=== PATIENT | male | born 1950 | race Caucasian/White ===

== ENCOUNTER 2024-08-04 18:12 | Inpatient (IN) | payer MEDICARE, OTHER, SELFPAY ==
[2024-08-04] VITALS (8 sets, daily range): BP systolic 98–147; BP diastolic 54–83; BMI 23.8; BMI 24.8
--- NOTE | 2024-08-04 15:42 | ED.GENMED ---
History of Present Illness
<Aspen Valencia PA-C - Last Filed: 08/04/24 16:46>
General
Chief Complaint: Breathing Problem
Source: patient
Exam Limitations: none
Time Seen by Provider: 08/04/24 15:36
Nursing documentation reviewed up to this point in time: agreed with
History of Present Illness
History of Present Illness:
74 y/o M h/o COPD, anxiety
on 2 L prn (mostly night time)
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
here with 2-3 days worsening sob with cough/wheezxing
got really SOB today
called 911 when he couldlnt' catch his breath
having some ches tpain with coughing
no leg swelling, fever, vomiting, diarrhea
received 125 mg of solumedrol and 2 duonebs and still shas wheezing an dinc work of breathing
Past History
<Aspen Valencia PA-C - Last Filed: 08/04/24 16:46>
Past History
ED Past Medical History: COPD and Psychiatric
Social History
Tobacco: Former smoker
Alcohol: None
Personal:
Living: with family
Review of Systems
<BUSHRA Garcia Last Filed: 08/04/24 16:46>
Review of Systems
Allergies reviewed?: Yes
All Other Systems: Not applicable
Phy Exam
<Aspen Valencia PA-C - Last Filed: 08/04/24 16:46>
Physical Exam
Physical Exam:
GENERAL: Alert; tachypneic, inc work of breathing
EYE: pupils equal and reactive
NECK: Supple
ENT: o/p clr, mmm.
CARDIAC: Regular rate and rhythm .no edema
LUNGS: diminiished wheezing, tachypneic, retracting, grunting
ABDOMEN: Soft, without focal tenderness, no r/g, no cvat, normal bowel sounds
NEUROLOGICAL: Alert and oriented, no focal neuro deficits
SKIN: Warm and dry, skin intact.
MUSCULOSKELETAL: No edema, well perfused. neg vandana's sign
PSYCH: Normal and appropriate interaction.
Scores
<Aspen Valencia PA-C - Last Filed: 08/04/24 16:46>
Heart Failure Risk
Heart Failure Risk Score: Not Applicable
Course
<Aspen Valencia PA-C - Last Filed: 08/04/24 16:46>
Orders/Labs/Results
Orders:
Orders
08/04/24 Dinner
Regular
At Your Request: Full Participation
08/04/24 15:38
Electrocardiogram (*1) Urgent
Reason for Study: Shortness of Breath
EKG- Treatment ONCE
Ipratropium/Albuterol Sulfate [Duoneb] 3 ml INH R NOW STA
Chest X-ray Portable [CR Chest Portable - 1 View] Stat
Comment:
Reason For Exam: sob, wheezing
Reason Study Needs to be Portable: Patient Unstable
08/04/24 15:48
Complete Blood Count/With Diff Urgent
Comprehensive Metabolic Panel Urgent
NT-proBNP Urgent
Troponin I Urgent
08/04/24 16:03
COVID-19 Antigen Urgent
Source: Nasal Swab
Influenza A+B Rapid Molecular Urgent
DEMI Source: Nasal Swab
Specimen Description:
08/04/24 16:04
Bipap [RESP] Urgent
Patient to use own unit?: Yes
08/04/24 16:07
Azithromycin 500 mg/250 ml [Zithromax Infusion] 500 mg in 250 ml IV NOW
08/04/24 16:08
CefTRIAXone [Rocephin] 1,000 mg IV NOW STA
08/04/24 16:16
0.9% Sodium Chloride 1000 ml [Nss] 1,000 ml IV BOLUS
08/04/24 16:20
Lactic Acid Urgent
Blood Culture Urgent
DEMI Source: Blood/Venous
Specimen Description:
08/04/24 16:44
Albuterol Sulfate [Ventolin Nebules] 10 mg INH R NOW STA
08/04/24 17:24
Admit/Transfer Patient As Directed
Co-Sign Provider:
Level of Care: Inpatient admission
Assign to:: Medical/Surgical
Physician / Group: Dr. Elias Davis
Diagnosis: Community-acquired pneumonia
Reason for Hospitalization: Community-acquired pneumonia
Expected length of stay greater than two midnights?: Yes
ELOS- Estimated Length of Stay in days: 3
I certify the patient meets the requirements for IP care: Yes
Blood Culture Stat
DEMI Source: Blood/Venous
Specimen Description:
08/04/24 17:26
0.9% Sodium Chloride 1000 ml [Nss] 1,000 ml IV BOLUS
PRN Pain Medication Management As Directed
May give lesser potent ordered pain med per pt: Yes
preference::
Protocol:: Medication orders for pain may be administered in a
manner that supports deferring to patient preference
when the pt is:
- Requesting an ordered lesser potent pain medication.
Least to most potent pain medications are defined
as: acetaminophen < NSAID < tramadol < opioids
(morphine, oxycodone, hydromorphone).
- Requesting a lesser dose of the same medication IF
ORDERED.
- Requesting a less intrusive route of administration
if both routes are prescribed by the provider (PO <
IV).
08/04/24 17:28
Code Status As Directed
Resuscitation Status: Full Code
08/04/24 17:30
Respiratory Culture/Gram Stain Urgent
DEMI Source: Sputum
Specimen Description:
08/04/24 21:07
0.9% Sodium Chloride 1000 ml [Nss] 1,000 ml IV 110 mls/hr
Acetaminophen [Tylenol] 650 mg PO Q4HPRN PRN
Enoxaparin Sodium [Lovenox] 40 mg SC QPM
Guaifenesin [Mucinex] 600 mg PO Q12
Ipratropium/Albuterol Sulfate [Duoneb] 3 ml INH R Q4HPRN PRN
Lorazepam [Ativan] 0.5 mg PO DAILYPRN PRN
[id number]-laqhiozv-vvyuqlumow [Breztri Aerosphere] 2 inh INH R BID
08/04/24 21:07
INFECTIOUS DISEASE CONSULT Routine
Consulting Provider: Chaparrita Smith
Was physician already notified: Yes
PULMONARY CONSULT Routine
Consulting Provider: Bishnu Russo
Was physician already notified: Yes
Activity As Directed
Activity Level: As Tolerated
Intake/ Output As Directed
Frequency: Per unit guidelines
Vital Signs As Directed
Frequency: Per unit guidelines
Weight As Directed
Frequency: Once
Comment: on admission
O2 Therapy [RESP] Routine
Titrate/Wean O2 to maintain O2 sat greater than (%): 88
Special Instructions: Wean as tolerated; keep O2 between 88-92%
Rx Incentive Spirometry [RESP] Routine
Frequency: q1h while awake
Ot Eval And Treat Routine
Pt Eval And Treat Routine
Activity Level: As Tolerated
DX Deep Vein Thrombosis Video Routine
08/04/24 22:00
Cefepime HCl [Maxipime] 2,000 mg IV Q8H
08/05/24 00:00
Dexamethasone Sod Phosphate [Decadron] 4 mg IV Q6H
08/05/24 06:00
Basic Metabolic Panel IN AM
Complete Blood Count/With Diff IN AM
08/05/24 08:00
Atorvastatin [Lipitor] 20 mg PO DAILY
Clopidogrel Bisulfate [Plavix] 75 mg PO DAILY
Pantoprazole [Protonix] 40 mg PO DAILY
Roflumilast [Daliresp] 500 mcg PO DAILY
Sertraline HCl [Zoloft] 50 mg PO DAILY
Abnormal Lab Results
08/04/24
15:48
RBC 3.94 L 10^6/uL
(4.70-6.10)
Hct 38.9 L %
(39.0-52.0)
MCV 98.7 H fL
(80.0-94.0)
MCH 33.2 H pg
(27.0-31.0)
Absolute Monos (auto) 1.0 H 10^3/uL
(0.1-0.6)
Monocytes % 12.6 H %
(1.7-9.3)
Eosinophils % 8.2 H %
(0-6)
Glucose 107 H mg/dl
(70-99)
08/04/24 15:48
08/04/24 15:48
Vital Signs
Initial and Last Documented VS:
Initial Vital Signs
Pulse Resp Pulse Ox
98 21 98
08/04/24 15:39 08/04/24 15:39 08/04/24 15:39
Last Documented Vital Signs
Temp Pulse Resp BP Pulse Ox
98.4 F 102 25 132/72 94
08/04/24 21:22 08/04/24 22:15 08/04/24 22:15 08/04/24 22:00 08/04/24 22:18
Sidlt;Austin Dickson, DO - Last Filed: 08/04/24 22:33>
Orders/Labs/Results
Orders:
Orders
08/04/24 Dinner
Regular
At Your Request: Full Participation
08/04/24 15:38
Electrocardiogram (*1) Urgent
Reason for Study: Shortness of Breath
EKG- Treatment ONCE
Ipratropium/Albuterol Sulfate [Duoneb] 3 ml INH R NOW STA
Chest X-ray Portable [CR Chest Portable - 1 View] Stat
Comment:
Reason For Exam: sob, wheezing
Reason Study Needs to be Portable: Patient Unstable
08/04/24 15:48
Complete Blood Count/With Diff Urgent
Comprehensive Metabolic Panel Urgent
NT-proBNP Urgent
Troponin I Urgent
08/04/24 16:03
COVID-19 Antigen Urgent
Source: Nasal Swab
Influenza A+B Rapid Molecular Urgent
DEMI Source: Nasal Swab
Specimen Description:
08/04/24 16:04
Bipap [RESP] Urgent
Patient to use own unit?: Yes
08/04/24 16:07
Azithromycin 500 mg/250 ml [Zithromax Infusion] 500 mg in 250 ml IV NOW
08/04/24 16:08
CefTRIAXone [Rocephin] 1,000 mg IV NOW STA
08/04/24 16:16
0.9% Sodium Chloride 1000 ml [Nss] 1,000 ml IV BOLUS
08/04/24 16:20
Lactic Acid Urgent
Blood Culture Urgent
DEMI Source: Blood/Venous
Specimen Description:
08/04/24 16:44
Albuterol Sulfate [Ventolin Nebules] 10 mg INH R NOW STA
08/04/24 17:24
Admit/Transfer Patient As Directed
Co-Sign Provider:
Level of Care: Inpatient admission
Assign to:: Medical/Surgical
Physician / Group: Dr. Elias Davis
Diagnosis: Community-acquired pneumonia
Reason for Hospitalization: Community-acquired pneumonia
Expected length of stay greater than two midnights?: Yes
ELOS- Estimated Length of Stay in days: 3
I certify the patient meets the requirements for IP care: Yes
Blood Culture Stat
DEMI Source: Blood/Venous
Specimen Description:
08/04/24 17:26
0.9% Sodium Chloride 1000 ml [Nss] 1,000 ml IV BOLUS
PRN Pain Medication Management As Directed
May give lesser potent ordered pain med per pt: Yes
preference::
Protocol:: Medication orders for pain may be administered in a
manner that supports deferring to patient preference
when the pt is:
- Requesting an ordered lesser potent pain medication.
Least to most potent pain medications are defined
as: acetaminophen < NSAID < tramadol < opioids
(morphine, oxycodone, hydromorphone).
- Requesting a lesser dose of the same medication IF
ORDERED.
- Requesting a less intrusive route of administration
if both routes are prescribed by the provider (PO <
IV).
08/04/24 17:28
Code Status As Directed
Resuscitation Status: Full Code
08/04/24 17:30
Respiratory Culture/Gram Stain Urgent
DEMI Source: Sputum
Specimen Description:
08/04/24 21:07
0.9% Sodium Chloride 1000 ml [Nss] 1,000 ml IV 110 mls/hr
Acetaminophen [Tylenol] 650 mg PO Q4HPRN PRN
Enoxaparin Sodium [Lovenox] 40 mg SC QPM
Guaifenesin [Mucinex] 600 mg PO Q12
Ipratropium/Albuterol Sulfate [Duoneb] 3 ml INH R Q4HPRN PRN
Lorazepam [Ativan] 0.5 mg PO DAILYPRN PRN
[id number]-wbzflwci-awxdpfdtrk [Breztri Aerosphere] 2 inh INH R BID
08/04/24 21:07
INFECTIOUS DISEASE CONSULT Routine
Consulting Provider: Chaparrita Smith
Was physician already notified: Yes
PULMONARY CONSULT Routine
Consulting Provider: Bishnu Russo
Was physician already notified: Yes
Activity As Directed
Activity Level: As Tolerated
Intake/ Output As Directed
Frequency: Per unit guidelines
Vital Signs As Directed
Frequency: Per unit guidelines
Weight As Directed
Frequency: Once
Comment: on admission
O2 Therapy [RESP] Routine
Titrate/Wean O2 to maintain O2 sat greater than (%): 88
Special Instructions: Wean as tolerated; keep O2 between 88-92%
Rx Incentive Spirometry [RESP] Routine
Frequency: q1h while awake
Ot Eval And Treat Routine
Pt Eval And Treat Routine
Activity Level: As Tolerated
DX Deep Vein Thrombosis Video Routine
08/04/24 22:00
Cefepime HCl [Maxipime] 2,000 mg IV Q8H
08/05/24 00:00
Dexamethasone Sod Phosphate [Decadron] 4 mg IV Q6H
08/05/24 06:00
Basic Metabolic Panel IN AM
Complete Blood Count/With Diff IN AM
08/05/24 08:00
Atorvastatin [Lipitor] 20 mg PO DAILY
Clopidogrel Bisulfate [Plavix] 75 mg PO DAILY
Pantoprazole [Protonix] 40 mg PO DAILY
Roflumilast [Daliresp] 500 mcg PO DAILY
Sertraline HCl [Zoloft] 50 mg PO DAILY
Abnormal Lab Results
08/04/24
15:48
RBC 3.94 L 10^6/uL
(4.70-6.10)
Hct 38.9 L %
(39.0-52.0)
MCV 98.7 H fL
(80.0-94.0)
MCH 33.2 H pg
(27.0-31.0)
Absolute Monos (auto) 1.0 H 10^3/uL
(0.1-0.6)
Monocytes % 12.6 H %
(1.7-9.3)
Eosinophils % 8.2 H %
(0-6)
Glucose 107 H mg/dl
(70-99)
08/04/24 15:48
08/04/24 15:48
Vital Signs
Initial and Last Documented VS:
Initial Vital Signs
Pulse Resp Pulse Ox
98 21 98
08/04/24 15:39 08/04/24 15:39 08/04/24 15:39
Last Documented Vital Signs
Temp Pulse Resp BP Pulse Ox
98.4 F 102 25 132/72 94
08/04/24 21:22 08/04/24 22:15 08/04/24 22:15 08/04/24 22:00 08/04/24 22:18
<Aspen Valencia PA-C - Last Filed: 08/04/24 16:46>
MDM/Problems Addressed
Differential Diagnosis Includes:
copd, pneumonia, PE, chf
MDM/Problems Addressed:
74 y/o M copd on chronic o2 mostly at night;
cough x a few weeks
inc work of breathing and wheezing x 3 days
called 911 for resp distress today
hypoxic for ems on his 2L
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
he has ipmroved moderately with a 3rd neb; is not hypoxic, 97% on 4L
cxr shows LLL infilrate and probably ILD
mild hypotensive 90s/50s, afebrile
lactate and cultlure pending
iv abx and fluids ordered, bnp normal, ekg RBBB, no cp
considered bipap but he is improved;
less work of rbreathing, easier conversation, mantaining sat.
will start continuous neb
d/w ed attending
admit for iv abx, fluids, nebs, steroids, o2
<Aspen Valencia PA-C - Last Filed: 08/04/24 16:46>
*Critical Care Note
Total Time (30-74mins, 75-104mins- exclusive of procedures): Not Applicable
ED Attending Note
<Aspen Valencia PA-C - Last Filed: 08/04/24 16:46>
-
Portions of this chart may have been created with voice recognition software.� Occasional wrong word or��sound alike� substitutions may have occurred due to the inherent limitations of voice recognition software.
<Austin Dickson DO - Last Filed: 08/04/24 22:33>
ED Attending Note
Patient seen and examined by attending physician: Yes
I performed a history and physical exam of patient and discussed management with resident, I reviewed resident's note and agree with documented findings and plan of care.: Yes
ED Attending Note:
I have reviewed and agree with history and treatment plan by Sade Valencia. My exam revealed 74-year-old male in moderate respiratory distress. Improved after DuoNeb, but continued wheezing. Admit to hospitalist. Treat for left basilar pneumonia.
Discharge Plan
Departure
Patient Disposition: Admit
Date of Disposition: 08/04/24
Time of Disposition: 16:34
Admit to: IMU
Presentation/result/management discussed w/ accepting MD/DO: Hospitalist
Discharge Problem:
Acute exacerbation of chronic obstructive pulmonary disease, Pneumonia
Interventions
Interventions:
*Risk Screen - Suicide Last Done: 08/04/24 15:41
*General Assessment Last Done: 08/04/24 15:41
*Neglect/Abuse Screening Last Done: 08/04/24 15:41
*ED COVID-19 Vaccine History Last Done: 08/04/24 15:41
*Nursing Disposition Last Done: 08/04/24 20:55
ED- Cardiac Assessment Last Done: 08/04/24 15:41
ED- Pulmonary Assessment Last Done: 08/04/24 15:41
Discharge Date and Time
Discharge Date/Time: 08/04/24 20:55
[2024-08-04] MEDS: DUONEB 3 ML INH ×2 (15:54→21:37)
[2024-08-04 16:00] LABS: % Basophils 0.8 % (0-2); % Eosinophils 8.2 % (0-6); % Immature Granulocytes 0.4 % (0-0.5); % Lymphocytes 30.1 % (20.5-51.1); % Monocytes 12.6 % (1.7-9.3); % Neutrophils 47.9 % (42.2-75.2); Absolute Basophils 0.1 10^3/uL (0-0.2); Absolute Eosinophils 0.7 10^3/uL (0-0.7); Absolute Lymphocytes 2.4 10^3/uL (1.2-3.4); Absolute Neutrophils 3.8 10^3/uL (1.4-6.5); Hematocrit 38.9 % (39.0-52.0); Hemoglobin 13.1 g/dL (13.0-18.0); Mean Corp Hgb Conc. 33.7 g/dL (33.0-37.0); Mean Corpuscular Hgb 33.2 pg (27.0-31.0); Mean Corpuscular Volume 98.7 fL (80.0-94.0); Mean Platelet Volume 9.5 fL (7.4-10.4); Nucleated Red Blood Cells % 0 % (-); Platelet Count 277 10^3/uL (130-400); Red Blood Cell Count 3.94 10^6/uL (4.70-6.10); Red Cell Dist. Width 13.1 % (11.5-14.5)
[2024-08-04 16:13] LABS: ALT (SGPT) 13 U/L (0-50); AST (SGOT) 22 U/L (17-59); Albumin 4.1 g/dl (3.5-5.0); Alkaline Phosphatase 102 U/L (38-126); Blood Urea Nitrogen 16 mg/dl (9-20); Calcium 9.7 mg/dl (8.4-10.2); Carbon Dioxide 25 mmol/L (22-30); Chloride 102 mmol/L (98-107); Estimated Creatinine Clearance 90 ml/min; Glucose 107 mg/dl (70-99); Potassium 4.2 mmol/L (3.5-5.1); Sodium 140 mmol/L (135-145); Total Bilirubin 0.5 mg/dl (0.2-1.3); Total Protein 6.9 g/dl (6.3-8.2); eGFR > 60.00
[2024-08-04] MEDS: ROCEPHIN 1000 MG IV (16:18)
[2024-08-04] MEDS: NSS 1000 IV ×2 (16:18→21:31)
[2024-08-04] MEDS: ZITHROMAX INFUSION 250 IV (16:18)
[2024-08-04 16:25] LABS: NT-proBNP 620 pg/ml; Troponin I 0.014 ng/ml
[2024-08-04 16:38] LABS: COVID-19 Antigen Negative (Negative)
[2024-08-04] MEDS: VENTOLIN NEBULES 10 MG INH (16:47)
--- NOTE | 2024-08-04 18:43 | HPS.HSE ---
Addendum entered and electronically signed by Elias Davis MD 08/05/24 07:24:
74, history of COPD on home O2, PAD, carotid stenosis, CAD who presents with 1 week history of shortness of breath that has been progressively getting worse requiring increased amount of oxygen and use of breathing treatments without significant
improvement. Poor p.o. intake loss of appetite with 4 pound weight loss. Former smoker quit 4 years ago. Does not use drugs and drinks alcohol occasionally. He denies chest pain dizziness. Admit to increased production of phlegm that does not
have color. He spoke with his PCP earlier in the week which prescribed him clotrimazole and azithromycin without improvement.
In the ED. Tachypneic tachycardic blood pressure low normal with maintained maps of greater than 65. CBC BMP unremarkable. Chest x-ray concern basal pneumonitis cannot rule out underlying chronic ILD. EKG sinus rhythm with PAC and IRBBB
Physical Exam
NAD, resting comfortably in bed on oxygen and continuous nebulizer treatment
Scleral anicteric
Moist mucous membranes
No JVD
Poor air movement throughout lung cody. Without evidence of wheezing crackles inspiratory/expiratory.
Normal S1-S2 no murmurs
Soft nontender nondistended bowel sounds active
No peripheral pitting edema
Moves extremities spontaneously
AAOx3
Assessment and Plan
Sepsis in the setting of left lower lobe pneumonia
-Was started on cefepime levofloxacin to cover for pseudomonal coverage. He is a community dwelling. Lower clinical suspicion for pseudomonal infection. Will discuss case with ID and likely able to wean to CAP coverage or monotherapy with PO
moxifloxacin
?Chronic ILD per CXR no hx
-Can check a CT Chest but this can be done non-emergently in the outpatient setting.
-He follows with [facility] at [place]
COPD exacterbation
-Poor air movemovent even while on nebs
-Will start steroids and atc duo nebs.
-At home on ICS-LABA
-On DC will need ICS-LABA + LAMA
-Continue Roflimilast
-Incnentive zee
-Outpatient pulm follow up
-Maintain goal spo2 >88-92%
GERD
-Continue PPI
PAD/ASCVD
-Continue statin and plavix
-Does not appear to be on dapt
Original Note:
Family Physician
-
Family Physician: Abdi Paez
Chief Complaint
-
shortness of breath
History of Present Illness
Phillip Contreras, age 74, has had worsening shortness of breath for the past 5-6 days. Patient states that he was started on azithromycin and clotrimazole by his primary which did not help. His called 911 today when he could not catch his breath.
He is a former smoker with 50+ pack-year smoking history and on 2.5L home oxygen at night and intermittently during the day. Often uses extra oxygen at home for exacerbations, but it did not help this time. Also endorses recent unintentional weight
loss of about 4 lbs. Denies any other recent illnesses or hospitalizations.
Medical History
Past Medical History
Past Medical History: Reports Other (COPD, on home oxygen; anxiety; PAD; carotid stenosis; CAD)
Past Surgical History: Reports Other (lower extremity bypass; carotid stenosis procedure)
Social History
Tobacco: Former Smoker (50+ pack-years)
Alcohol: Occasional
Drug: None
Personal:
Living: With Family
Family History
Family History: Not pertinent
Allergies / Home Medications
Allergies reflects when Allergies were last updated in [facility].
Home Medications with original date entered in [facility]
Allergy/Medication List:
Allergies
Allergy/AdvReac Type Severity Reaction Status Date / Time
acetaminophen [From Percocet] Allergy Unknown Verified 08/04/24 15:47
levofloxacin [From Levaquin] Allergy Unknown Verified 08/04/24 15:47
oxycodone [From Percocet] Allergy Unknown Verified 08/04/24 15:47
Home Medications
albuterol sulfate 2.5 mg/3 mL (0.083 %) solution for nebulization 2.5 mg inhalation R DAILY 08/04/24
albuterol sulfate 90 mcg/actuation aerosol inhaler 2 puff inhalation R Q4HPRN PRN sob 08/04/24
azithromycin 250 mg tablet 250 mg PO DAILY 08/04/24
budesonide 160 mcg-glycopyr 9 mcg-formot 4.8 mcg/actuation HFA inhaler (Breztri Aerosphere) 2 inh inhalation R BID 08/04/24
clopidogrel 75 mg tablet 75 mg PO DAILY 08/04/24
clotrimazole 10 mg paula 10 mg mucous membrane 5/D 08/04/24
lorazepam 0.5 mg tablet 0.5 mg PO DAILYPRN PRN anxiety 08/04/24
pantoprazole 40 mg tablet,delayed release 40 mg PO DAILY 08/04/24
roflumilast 500 mcg tablet 500 mcg PO DAILY 08/04/24
sertraline 50 mg tablet 50 mg PO DAILY 08/04/24
simvastatin 40 mg tablet 40 mg PO DAILY 08/04/24
Review of Systems
-
History Source: Patient
Constitutional: Reports Weight Loss, Fatigue and Sleep Disturbance (from shortness of breath)
EENT: Reports Sore Throat
Respiratory: Reports Cough and Trouble Breathing
Cardiac: Reports No Symptoms
Abdomen/GI: Reports No Symptoms
: Reports No Symptoms
Musculoskeletal: Reports No Symptoms
Skin: Reports No Symptoms
Neurological: Reports No Symptoms
Endocrine: Reports No Symptoms
Hematologic/Lymphatic: Reports No Symptoms
Psych: Reports Anxiety
Physical Exam
Vital Signs
Vital Signs
Temp Pulse Resp BP Pulse Ox
97.8 F 86 18 99/62 100
08/04/24 15:41 08/04/24 17:00 08/04/24 17:16 08/04/24 17:00 08/04/24 17:00
Physical Exam
General: Conversant and Respiratory Distress
HEENT: NormoCephalic, Anicteric, Moist mucous membranes, Atraumatic and No Ptosis
Respiratory: Non Labored Respirations and Decreased Breath Sounds
Cardiac: S1/S2 and Regular Rhythm
GI: Soft, Non Tender, Non Distended and No Hepatosplenomegaly
Rectal: Deferred by Provider
Genito-urinary: Deferred by me
Musculoskeletal: No Clubbing, No Cyanosis and No Edema
Skin: Warm, Dry and IV/Catheter Site
Neuro: Awake, Alert, Oriented and No Motor Deficits
Hematologic/Lymphatic: No Lymphadenopathy
Psych: Intact Judgment/Insight and Anxious
Laboratory Results
-
08/04/24 15:48
08/04/24 15:48
Laboratory Results
Lactic Acid 2.0 mmol/L (0.7-2.0) 08/04/24 16:20
Total Bilirubin 0.5 mg/dl (0.2-1.3) 08/04/24 15:48
AST 22 U/L (17-59) 08/04/24 15:48
ALT 13 U/L (0-50) 08/04/24 15:48
Alkaline Phosphatase 102 U/L (38-126) 08/04/24 15:48
Troponin I 0.014 ng/ml 08/04/24 15:48
Impression/Plan
-
Impression and plan
Community acquired pneumonia
Sepsis secondary to above
- Was started on azithromycin and clotrimazole outpatient.
- Borderline hypotension status-post boluses.
- Lactic acid 2.0; re-check.
- Blood cultures * 2 pending.
- Status-post azithromycin+ceftriaxone in the ED.
- Risk for pseudomonas; cover with cefepime+doxycycline.
- IV hydration.
- Infectious diseases consultation.
Chronic obstructive pulmonary disease exacerbation
History of tobacco use disorder; 50+ pack-years
- On home oxygen 2.5L at night and intermittently during day.
- Continue nebs and roflumilast.
- IV steroids.
- Wean oxygen as tolerated.
- Incentive spirometry.
- Pulmonology consultation.
Acute hypoxic respiratory insufficiency secondary to above
- BiPap was tried in the emergency due to dyspnea; did not tolerate.
- Saturating okay for now with oxygen via NC.
- Shortness of breath not appropriately controlled after multiple nebs.
- Will give IV dexamethasone stat in the emergency.
- Risk for intubation; admit to IMU.
Coronary artery disease
Carotid artery disease
Peripheral artery disease
- Continue clopidogrel and simvastatin.
Generalized anxiety disorder
- Continue sertraline and lorazepam prn.
Gastroesophageal reflux disease
- Continue pantoprazole.
Thromboprophylaxis
- Enoxaparin.
Code status
- Full.
[2024-08-04] MEDS: DECADRON 4 MG IV ×2 (18:51→23:09)
[2024-08-04] MEDS: LOVENOX 40 MG SC (21:30)
[2024-08-04] MEDS: VIBRAMYCIN 100 MG PO (21:31)
[2024-08-04] MEDS: MUCINEX 600 MG PO (21:31)
[2024-08-04] MEDS: STERILE WATER FOR INJECTION 10 ML IV (21:33)
[2024-08-04] MEDS: MAXIPIME 2000 MG IV (21:33)
[2024-08-04] MEDS: PULMICORT 0.5 MG INH (21:37)
[2024-08-04] MEDS: SYMBICORT 160/4.5 MCG INHALER 2 PUFF INH (21:38)
--- NOTE | 2024-08-04 22:30 | PTCARENOTE ---
Received verbal and written report from EMANI Vasquez. Pt arrived to unit via stretcher. Pt on 2L NC and needed NRB due to increased work of breathing. Reached out to respiratory and pt received treatments (see MAR). Pt now 95% on 2L. Pt NSR on the
monitor, VSS. Pt oriented to unit, resting in bed with call villaseñor in reach.
[2024-08-04] MEDS: ATIVAN 0.5 MG PO (22:36)
[2024-08-04 23:34] LABS: Lactic Acid 2.1 mmol/L (0.7-2.0)
[2024-08-05] VITALS (16 sets, daily range): BP systolic 102–144; BP diastolic 42–89; PULSE 93–98; O2SAT 93–95
[2024-08-05 04:00] LABS: % Basophils 0.4 % (0-2); % Immature Granulocytes 0.8 % (0-0.5); % Lymphocytes 21.1 % (20.5-51.1); % Monocytes 1.6 % (1.7-9.3); % Neutrophils 76.1 % (42.2-75.2); Absolute Lymphocytes 0.5 10^3/uL (1.2-3.4); Absolute Neutrophils 1.9 10^3/uL (1.4-6.5); Hematocrit 35.1 % (39.0-52.0); Hemoglobin 11.8 g/dL (13.0-18.0); Mean Corp Hgb Conc. 33.6 g/dL (33.0-37.0); Mean Corpuscular Hgb 31.9 pg (27.0-31.0); Mean Corpuscular Volume 94.9 fL (80.0-94.0); Mean Platelet Volume 9.3 fL (7.4-10.4); Nucleated Red Blood Cells % 0 % (-); Platelet Count 248 10^3/uL (130-400); White Blood Cell Count 2.5 10^3/uL (4.8-10.8)
[2024-08-05 04:20] LABS: Lactic Acid 1.5 mmol/L (0.7-2.0)
[2024-08-05 04:24] LABS: Blood Urea Nitrogen 15 mg/dl (9-20); Calcium 9.5 mg/dl (8.4-10.2); Carbon Dioxide 19 mmol/L (22-30); Chloride 104 mmol/L (98-107); Estimated Creatinine Clearance 97 ml/min; Glucose 173 mg/dl (70-99); Potassium 4.8 mmol/L (3.5-5.1); Sodium 139 mmol/L (135-145); eGFR > 60.00
[2024-08-05] MEDS: STERILE WATER FOR INJECTION 10 ML IV ×2 (06:25→17:04)
[2024-08-05] MEDS: MAXIPIME 2000 MG IV (06:25)
[2024-08-05] MEDS: DECADRON 4 MG IV ×4 (06:25→22:45)
[2024-08-05] MEDS: SPIRIVA RESPIMAT 2.5 MCG 2 PUFF INH (07:04)
[2024-08-05] MEDS: SYMBICORT 160/4.5 MCG INHALER 2 PUFF INH ×2 (07:05→19:51)
[2024-08-05] MEDS: DUONEB 3 ML INH ×3 (07:09→19:51)
[2024-08-05] MEDS: PROTONIX 40 MG PO (08:04)
[2024-08-05] MEDS: PLAVIX 75 MG PO (08:04)
[2024-08-05] MEDS: ZOLOFT 50 MG PO (08:04)
[2024-08-05] MEDS: LIPITOR 20 MG PO (08:04)
[2024-08-05] MEDS: DALIRESP 500 MCG PO (08:04)
[2024-08-05] MEDS: MUCINEX 600 MG PO ×2 (08:04→19:49)
[2024-08-05] MEDS: VIBRAMYCIN 100 MG PO ×2 (08:04→19:49)
--- NOTE | 2024-08-05 09:16 | CON.PUL ---
Consultation
Consultation Request
Date/Time Consultation Requested: 08/04/20242106
Date/Time Consultation Performed: 08/05/2024907
Requesting Provider: Dr. Briceno
Performing Provider: Dr. Covarrubias
Reason for Consultation: COPD exacerbation
Medical History
-
Chief Complaint: SOB
History of Present Illness:
74-year-old male former tobacco smoker with a past medical history of COPD on Breztri and Daliresp who presents with SOB. He is on 2.5 L/min nasal cannula at baseline which he uses at nighttime and occasionally during the day. SOB ongonig for 5-6
days. Given Abx by PCP but did not improve his Sx. in the ER he was afebrile to 97.8 �F, pulse rate 98, breathing at 21 breaths/min, BP 98/63 and saturating 98% on 3 L/min nasal cannula. Labs showed WBC was WNL at 8, Hb 13.1, absolute eosinophil
count 700, troponin negative at 0.014, proBNP elevated at 620, and COVID antigen negative. Flu A/B swab also negative. CXR obtained which showed left basilar pneumonia and increased bibasilar interstitial markings suspicious for interstitial
pneumonitis. In the ER he was given DuoNebs, albuterol, IVF with NS 0.9% x 1L and ceftriaxone/Zithromax. He was admitted to the IMU under the hospitalist service, and pulmonary consulted for additional management/recommendations.
When I saw the patient he was resting in bed in no acute distress. 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 He
denies a cough, fevers, chills or any recent sick contacts or recent travel. Currently heart rate is 95, BP 122/50 and saturating 93% on 1 L/min. He says he uses oxygen with sleep at 2 L/min on otherwise uses oxygen sporadically throughout the
day. He has a lung doctor at [facility] and he told me he has an appointment with them in about 2 weeks. He currently denies chest pain, MCGEE, abdominal pain, or nausea. He is eager to go home and feels much better than yesterday.
PMHx: COPD on Breztri + Zithromax with prn oxygen therapy, hyperlipidemia, chronic hypoxic respiratory failure on home oxygen at 2 L/min with sleep and prn during the day, anxiety, PAD, CAD, carotid artery stenosis, former tobacco smoker
PSHx: Lower extremity bypass, carotid stenosis vascular procedure
Past Medical History
Past Medical History: Other (Above as per HPI)
Past Surgical History: Other (Above as per HPI)
Social History
Tobacco: Former Smoker (>99-akkp-mrhc history)
Alcohol: Occasional
Drug: None
Personal:
Living: With Family
Family History
Family History: Reviewed & Not Pertinent
Allergies / Home Medications
Allergies
Allergy/AdvReac Type Severity Reaction Status Date / Time
acetaminophen [From Percocet] Allergy Unknown Verified 08/04/24 15:47
levofloxacin [From Levaquin] Allergy Unknown Verified 08/04/24 15:47
oxycodone [From Percocet] Allergy Unknown Verified 08/04/24 15:47
Home Medications
�Medication �Instructions �Recorded �Confirmed �Last Taken �Type
albuterol sulfate 2.5 mg/3 mL 2.5 mg inhalation R DAILY 08/04/24 08/04/24 08/04/24 History
(0.083 %) solution for nebulization Lung/Breathing Issues
albuterol sulfate 90 mcg/actuation 2 puff inhalation R Q4HPRN PRN sob 08/04/24 08/04/24 Unknown History
aerosol inhaler
azithromycin 250 mg tablet 250 mg PO DAILY Infection 08/04/24 08/04/24 08/04/24 History
budesonide 160 mcg-glycopyr 9 2 inh inhalation R BID 08/04/24 08/04/24 08/04/24 History
mcg-formot 4.8 mcg/actuation HFA Lung/Breathing Issues
inhaler (Breztri Aerosphere)
clopidogrel 75 mg tablet 75 mg PO DAILY Blood Clot 08/04/24 08/04/24 08/04/24 History
Prevention/Tx
clotrimazole 10 mg paula 10 mg mucous membrane 5/D THRUSH 08/04/24 08/04/24 08/04/24 History
lorazepam 0.5 mg tablet 0.5 mg PO DAILYPRN PRN anxiety 08/04/24 08/04/24 Unknown History
pantoprazole 40 mg tablet,delayed 40 mg PO DAILY GERD 08/04/24 08/04/24 08/04/24 History
release
roflumilast 500 mcg tablet 500 mcg PO DAILY Autoimmune 08/04/24 08/04/24 08/04/24 History
Disorder
sertraline 50 mg tablet 50 mg PO DAILY Mental 08/04/24 08/04/24 08/04/24 History
Health/Anxiety
simvastatin 40 mg tablet 40 mg PO DAILY High Cholesterol 08/04/24 08/04/24 08/04/24 History
Review of Systems
-
History Source: Patient
All other systems: Negative unless noted
Vitals / Labs / Diagnostic Testing
Vital Signs
Temp Pulse Resp BP Pulse Ox
97.6 F 87 32 129/55 94
08/05/24 07:31 08/05/24 08:00 08/05/24 08:00 08/05/24 08:00 08/05/24 08:00
Lab Data
08/05/24 03:45
08/05/24 03:43
Microbiology
08/05/24 02:25 Sputum Gram Stain - Preliminary
08/04/24 16:03 Nasal Swab Influenza Types A & B (THANH) - Final
Negative for Influenza A & B, NAAT
Negative results must be combined with clinical observations
and patient history.
Nucleic Acid Amplification test (NAAT)performed on the
[employer] platform.
Diagnostic Testing:
Physical Exam
-
HEENT: Normocephalic and Anicteric
Cardiovascular: S1/S2, Murmur (JUAN JOSE) and Peripheral Edema (negative)
Respiratory: Wheeze (negative), Rales (Right base), Rhonchi (negative) and Other (Diminished breath sounds bilaterally)
GI: Soft, Non Distended, Non Tender and Normal Bowel Sounds
Neurology: AO x 3 and Tremors (negative)
Skin: Warm and Dry
General: Respiratory Distress (negative), Comfortable, Chills (negative) and Sweats (negative)
Assessment
-
Assessment: 74-year-old male with a past medical history of COPD on Breztri and Daliresp who presents with SOB. He is on 2.5 L/min nasal cannula at baseline which he uses at nighttime and occasionally during the day. SOB ongonig for 5-6 days.
Given Abx by PCP but did not improve his Sx. in the ER he was afebrile to 97.8 �F, pulse rate 98, breathing at 21 breaths/min, BP 98/63 and saturating 98% on 3 L/min nasal cannula. Labs showed WBC was WNL at 8, Hb 13.1, absolute eosinophil count
700, troponin negative at 0.014, proBNP elevated at 620, and COVID antigen negative. Flu A/B swab also negative. CXR obtained which showed left basilar pneumonia and increased bibasilar interstitial markings suspicious for interstitial
pneumonitis. In the ER he was given DuoNebs, albuterol, IVF with NS 0.9% x 1L and ceftriaxone/Zithromax. He was admitted to the IMU under the hospitalist service, and pulmonary consulted for additional management/recommendations.
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
Impression:
#Acute COPD exacerbation
#Opacification seen in RML suspicious for CAP versus atelectasis (I suspect the latter as he clinically has no signs of bacterial pneumonia)
#Lactic acidosis � now resolved
#Increase eosinophil count (absolute eosinophil count: 700 on 08/04/2024)
#Leukopenia
#Anemia
#Metabolic acidosis with normal anion gap
#Increased proBNP (620 on 08/04/2024)
#Former tobacco smoker with >58-uowk-cvqn history
Plan:
- Continue systemic steroids and start weaning as he clinically improves
- Currently on Decadron 4mg IV q6hr (equivalent to 106 mg prednisone) --> start weaning down to 4mg IV q8hr
- Takes Breztri at home --> continue Symbicort 160mcg + Spiriva with prn albuterol, and resume home inhaler upon discharge
- Continue Daliresp
- Mucolytics with mucinex
- Hold home Zithromax while we are giving him antibiotics; resume Zithromax after antibiotics course is completed; as an outpatient he should have his EKG occasionally checked (for QTc - 457ms on 08/04/2024) and also follow-up with audiology
- His initial CXR did not show evidence of pneumonia however repeat CXR today shows increased opacification in the right middle lobe, suspected to be pneumonia versus atelectasis - I supect the latter
- Continue empiric Abx - currently on ceftriaxone/doxycycline s/p cefepime/Zithromax (started 08/04/2024)
- If he continues to improve with no fevers, chills and negative cultures by 48-hour nani, then would narrow antibiotics and consider stopping altogether and resuming his home Zithromax
- Would defer Abx to ID
- Trend WBC
- Follow up SCx (collected today - NGTD) and f/u blood Cx (collected 08/04/2024 - NGTD)
- Currently on IVF, however he is tolerating PO diet and his BNP was slightly elevated --> would stop IVF now
- Maintain SpO2 88-95% with supplemental O2 and wean down as tolerated
- Check ambulatory pulse oximetry prior to discharge as he usually does not use oxygen at rest, and only uses O2 as needed
- Incentive spirometer encouraged
- Replete electrolytes with K>4, Mg>2
- Monitor H/H and transfuse if needed to keep Hb>7g/dL
- Maintain euglycemia with goal BG >100 and <180
- Trend sHCO3 level with goal >22
- No longer need to trend lactate level as it is <2 mmol/L
- DVT ppx: LMWH
Pulmonary service will continue to follow along. He already follows with a public health technologist at [facility] and says he has an appointment upcoming in about 2 weeks. Recommend to keep that appointment and continue following up with [facility] pulmonology. If
he wishes to also see us here at [place] with [facility], then that is also an option. Our office information will be left with him for him to decide.
Data:
CXR 08/05/2024:
COPD.
Slightly increased opacity in the right middle lobe, raising possibility of atelectasis or pneumonia.
Total time spent today was 56 minutes for this encounter. Time includes reviewing laboratory test/imaging results, reviewing pertinent medical records, obtaining and reviewing medical history, performing an appropriate exam, ordering medications,
tests and procedures. Time also includes documentation of this encounter, coordinating patient care and communicating with other healthcare professionals. Total time does not include separately billed tests performed on this date of service.
--- NOTE | 2024-08-05 10:53 | W.PN.HOSP.TC ---
Addendum entered and electronically signed by Elias Davis MD 08/05/24 12:05:
*off continuous neb*
Addendum entered and electronically signed by Elias Davis MD 08/05/24 12:03:
Physical Exam
NAD, resting comfortably in bed on oxygen and continuous nebulizer treatment
Scleral anicteric
Moist mucous membranes
No JVD
CTA B/l without wheezing/crackles
Normal S1-S2 no murmurs
Soft nontender nondistended bowel sounds active
No peripheral pitting edema
Moves extremities spontaneously
AAOx3
Assessment and Plan
Sepsis in the setting of left lower lobe pneumonia
-Was started on cefepime levofloxacin to cover for pseudomonal coverage. He is a community dwelling. Lower clinical suspicion for pseudomonal infection. Will discuss case with ID and likely able to wean to CAP coverage or monotherapy with PO
moxifloxacin
?Chronic ILD per CXR no hx
-Can check a CT Chest but this can be done non-emergently in the outpatient setting.
-He follows with plasterer spray gun at [place]
COPD exacterbation
-Poor air movemovent even while on nebs
-Will start steroids and atc duo nebs.
-At home on ICS-LABA
-On DC will need ICS-LABA + LAMA
-Continue Roflimilast
-Incnentive zee
-Outpatient pulm follow up
-Maintain goal spo2 >88-92%
GERD
-Continue PPI
PAD/ASCVD
-Continue statin and plavix
-Does not appear to be on dapt
Likely able to transition to PO atb as breathing has significantly improved and is feeling much better
-Will likely plan to discharge him with leonard and wilder as he has an unknown allergy to fluoroquinolones as he cannot rememebr what happened.
Original Note:
Today's Communication/Plan
-
* Continue ceftriaxone and doxycycline.
* Incentive spirometry.
* Continue nebs and IV steroids.
* Anticipated discharge today.
Assessment / Plan
Assessment / Plan
Assessment
Phillip Contreras, age 74, has had worsening shortness of breath for the past 5-6 days. Patient states that he was started on azithromycin and clotrimazole by his primary which did not help. His called 911 today when he could not catch his breath.
He is a former smoker with 50+ pack-year smoking history and on 2.5L home oxygen at night and intermittently during the day. Often uses extra oxygen at home for exacerbations, but it did not help this time. Also endorses recent unintentional weight
loss of about 4 lbs. Denies any other recent illnesses or hospitalizations.
Impression and plan
Community acquired pneumonia
Sepsis secondary to above
- Was started on azithromycin and clotrimazole outpatient.
- Hypotension responded to IV hydration; continue.
- Sputum and blood cultures * 2 pending
- Status-post azithromycin+ceftriaxone in the ED.
- Cefepime+doxycycline consolidated to ceftriaxone+doxycycline.
- Infectious diseases evaluation to consider anti-pseudomonal coverage.
Chronic obstructive pulmonary disease exacerbation
History of tobacco use disorder; 50+ pack-years
- On home oxygen 2.5L at night and intermittently during day.
- Continue nebs and roflumilast.
- IV steroids.
- Wean oxygen as tolerated.
- Incentive spirometry.
- Pulmonology consultation.
Acute hypoxic respiratory insufficiency secondary to above
- BiPap was tried in the emergency due to dyspnea; did not tolerate.
- Saturating okay for now with oxygen via NC.
- Continue IV steroids and nebs.
- Wean oxygen as tolerated.
Coronary artery disease
Carotid artery disease
Peripheral artery disease
- Continue clopidogrel and simvastatin.
Generalized anxiety disorder
- Continue sertraline and lorazepam prn.
Gastroesophageal reflux disease
- Continue pantoprazole.
Thromboprophylaxis
- Enoxaparin.
Code status
- Full.
Anticipated Discharge: Today
Subjective/Interval History
-
Date of Service: August 05, 2024
Significantly improved respiratory status.
Objective Data
-
Labs:
Laboratory Results
08/05/24 08/05/24
03:43 03:45
WBC 2.5 L
Hgb 11.8 L
Hct 35.1 L
Plt Count 248
Sodium 139
Potassium 4.8
Chloride 104
Carbon Dioxide 19 L
BUN 15
Creatinine 0.6 L
Glucose 173 H
Calcium 9.5
Vital Signs:
Vital Signs
Temp Pulse Resp BP Pulse Ox
97.6 F 87 32 129/55 94
08/05/24 07:31 08/05/24 08:00 08/05/24 08:00 08/05/24 08:00 08/05/24 08:00
I&O
08/04/24 08/05/24 08/06/24
06:59 06:59 06:59
Intake Total 1340 / 1340
Output Total 300 / 300 475 / 475
Balance 1040 / 1040 -475 / -475
Review of Systems
-
History Source: Patient
Constitutional: Reports No Symptoms
EENT: Reports No Symptoms Reported
Respiratory: Reports No Symptoms and Trouble Breathing
Cardiac: Reports No Symptoms
Abdomen/GI: Reports No Symptoms
Genitourinary: Reports No Symptoms
Musculoskeletal: Reports No Symptoms
Skin: Reports No Symptoms
Neuro: Reports No Symptoms
Endocrine: Reports No Symptoms
Hematologic / Lymphatic: Reports No Symptoms
Allergy / Immunology: Reports No Symptoms
Physical Exam
-
General: No Apparent Distress and Comfortable
HEENT: Normocephalic, Atraumatic, Moist Mucous Membranes and Anicteric
Respiratory: Clear to Auscultation and Non Labored Respirations
Cardiac: Regular Rhythm and S1/S2
GI: Soft, Nontender, Nondistended and No Hepatosplenomegaly
Genito-urinary: No Costovertebral Tender
Musculoskeletal: No Clubbing, No Cyanosis and No Edema
Skin: Warm, Dry and IV Access / Catheter Site
Neuro: Awake, Alert, Oriented and Nonfocal/Grossly Intact
Hematologic / Lymphatic: No Lymphadenopathy
Psych: Calm
--- NOTE | 2024-08-05 11:30 | CON.ID ---
Consultation
-
Date/Time Consultation Requested: 08/04/20247
Date/Time Consultation Performed: 08/05/2024 1130
Requesting Provider: Dr. Sebas Briceno
Performing Provider: Dr. Milena Pool
Reason for Consultation: Pneumonia
Chief Complaint / Past History
Chief Complaint
Cough
History of Present Illness
74-year-old male with advanced COPD, on intermittent home oxygen 2.5 L on chronic azithromycin, PAD, who presented to the hospital on August 04 complaining of 4-day history of worsening shortness of breath and slightly worse cough productive of
phlegm. He was complaining of sore throat. His PCP prescribed clotrimazole paula for the sore throat. His condition worsened and therefore he came to the ER. No fever. He was hypoxic. CXR possible RML opacity. No ill contacts. He is placed
on IV steroid, ceftriaxone and doxycycline. He now feels much improved. Oxygen is now back to baseline.
Past History
Additional Past Medical History:
COPD on intermittent home O2 2.5L
CAD
PAD s/p LE bypass
Carotid stenosis endarterectomy
Depression/anxiety
Allergy History:
acetaminophen [From Percocet] Allergy (Verified 08/04/24 15:47)
Unknown
levofloxacin [From Levaquin] Allergy (Verified 08/04/24 15:47)
Unknown
oxycodone [From Percocet] Allergy (Verified 08/04/24 15:47)
Unknown
Medications Reviewed: Yes
Current Antibiotics:
ceftriaxone
doxycycline
Social History
Tobacco: Former Smoker
Alcohol: Occasional
Drug: None
Personal:
Family History
Family History: Not Pertinent
Review of Systems
Review of Systems
General: Negative Fever, Chills or Change in Appetite
HEENT: Negative Sinus Problems or Headache
Cardiovascular: Negative Chest Pain
Respiratory: Dyspnea and Cough
Gasteroenterology: Negative Nausea, Vomiting or Diarrhea
Endocrine: Negative Weakness
Skin / Hair / Nails: Negative Rash
Neurological: Negative Headache or Dizziness
All systems: All other systems were reviewed and were negative
Vital Signs
Temp Pulse Resp BP Pulse Ox
97.6 F 87 32 129/55 94
08/05/24 07:31 08/05/24 08:00 08/05/24 08:00 08/05/24 08:00 08/05/24 08:00
Physical Exam
Physical Exam
Constitutional: No Acute Distress and Comfortable
Eyes: No Conjunctival Hemorrhage and Sclera Anicteric
Pulmonary: Clear and Other (Decreased airway movment); Negative Wheezes, Rales or Coarse
Gastrointestinal: Soft, Non Tender, Non Distended and Normal Bowel Sounds
Genito-Urinary: Negative CVA Tenderness
Extremities: Negative Edema
Neurological: AO x 3
Lab / Diagnostic Study Results
08/05/24 03:45
08/05/24 03:43
Abs Immat Gran (auto) 0.0 10^3/uL (0-0.05) 08/05/24 03:45
Absolute Neuts (auto) 1.9 10^3/uL (1.4-6.5) 08/05/24 03:45
Absolute Lymphs (auto) 0.5 10^3/uL (1.2-3.4) L 08/05/24 03:45
Absolute Monos (auto) 0.0 10^3/uL (0.1-0.6) L 08/05/24 03:45
Absolute Basos (auto) 0.0 10^3/uL (0-0.2) 08/05/24 03:45
Immature Gran % 0.8 % (0-0.5) H 08/05/24 03:45
Neutrophils % 76.1 % (42.2-75.2) H 08/05/24 03:45
Lymphocytes % 21.1 % (20.5-51.1) 08/05/24 03:45
Monocytes % 1.6 % (1.7-9.3) L 08/05/24 03:45
Eosinophils % 0.0 % (0-6) 08/05/24 03:45
Basophils % 0.4 % (0-2) 08/05/24 03:45
Lactic Acid 1.5 mmol/L (0.7-2.0) 08/05/24 03:45
Microbiology Results
Micro:
08/05/24 02:25 Respiratory Culture - Pending
Sputum Gram Stain - Preliminary
08/04/24 22:57 MRSA Screen - Pending
Nose
08/04/24 17:24 Blood Culture - Pending
Blood/Venous
08/04/24 16:20 Blood Culture - Pending
Blood/Venous
08/04/24 16:03 Influenza Types A & B (THANH) - Final
Nasal Swab Negative for Influenza A & B, NAAT
Negative results must be combined with clinical observations
and patient history.
Nucleic Acid Amplification test (NAAT)performed on the
[employer] platform.
08/05/24 CXR: COPD. Slightly increased opacity in the right middle lobe, raising possibility of atelectasis or pneumonia.
Assessment / Plan
# Acute on chronic COPD exacerbation
-Improving on steroid.
#Possible CAP
- Can transition abx's to cefuroxime 500mg po bid plus doxycycline 100mg po bid through 08/10.
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
COPD on intermittent home O2 2.5L
CAD
PAD s/p LE bypass
Carotid stenosis endarterectomy
Depression/anxiety
[2024-08-05] MEDS: NSS IV ×2 (12:57→17:50)
--- NOTE | 2024-08-05 14:19 | W.DCSUMMARY ---
Discharge Summary
Discharge Data
Date of Admission: 08/04/24
Date of Discharge: 08/06/24
-
Pending Results: No
Hospital Course
Primary discharge diagnoses
* Sepsis secondary to community acquired bacterial pneumonia
* Chronic obstructive pulmonary disease exacerbation
* Acute hypoxic respiratory insufficiency
Secondary discharge diagnoses
- Refractory chronic obstructive pulmonary disease
- Interstitial lung disease
- History of tobacco use disorder
- Coronary artery disease
- Carotid artery disease
- Peripheral artery disease
- Generalized anxiety disorder
- Gastroesophageal reflux disease
Hospital course
Phillip Contreras, age 74, came to the hospital with worsening shortness of breath for the past 5-6 days on 08-04-24. He was found to be in chronic obstructive pulmonary disease exacerbation and imaging was suggestive of pneumonia. He met the criteria
for sepsis and was started on broad-spectrum antibiotics and intravenous hydration. He was given intravenous steroids, nebulizers and oxygen supplementation. His condition improved over the course of his stay, and he had returned to his baseline by
the time of his discharge. His vitals normalized after admission and he remained hemodynamically stable throughout his course. He was weaned off his oxygen, and tapered off intravenous steroids to transition to oral steroid taper at discharge. He
was followed by pulmonology and infectious diseases during his hospital course. He will be discharged home to complete a course of antibiotics. He will also be prescribed a long-acting muscarinic receptor antagonist to be started on discharge.
Recommended to follow-up with primary within 1 week and pulmonology at [place] in 2-3 weeks.
Discharge Plan
-
Patient Disposition: Home (Routine Discharge)
Discharge Diagnosis/Procedures: Sepsis secondary to community acquired pneumonia
Condition: Good
Diet: As tolerated
Activity: As tolerated
Driving Restrictions: As prior to admission
Bathing Restrictions: None
Instructions: Exacerbation of COPD (DC), Community-Acquired Pneumonia, Adult (DC), Interstitial lung disease
Referrals:
Abdi Paez MD [Family Provider] -
Prescriptions:
New
Spiriva Respimat 2.5 mcg/actuation mist
2 inh inhalation DAILY Qty: 4 3RF
cefuroxime axetil 500 mg tablet
500 mg PO BID 4 Days Qty: 8 0RF
doxycycline hyclate 100 mg capsule
100 mg PO BID 4 Days Qty: 8 0RF
prednisone 10 mg Tablet
See Rx Instructions .ROUTE .COMPLEX Qty: 84 0RF
Rx Instructions:
Take By Mouth
60 mg daily x4 days, 50 mg daily x4 days,
40 mg daily x4 days, 30 mg daily x4 days,
20 mg daily x4 days, 10 mg daily x4 days.
(DME) spirometers and accessories Device
See Rx Instructions .Route Qty: 1 0RF
Rx Instructions:
inhale 10 times per hour as many times a day as possible
azithromycin 250 mg tablet
250 mg PO DAILY 30 Days Qty: 30 3RF
Continued
albuterol sulfate 2.5 mg /3 mL (0.083 %) Solution For Nebulization
2.5 mg INHALATION R DAILY
clopidogrel 75 mg Tablet
75 mg PO DAILY
simvastatin 40 mg Tablet
40 mg PO DAILY
lorazepam 0.5 mg Tablet
0.5 mg PO DAILYPRN PRN (Reason: anxiety)
pantoprazole 40 mg Tablet,Delayed Release (Dr/Ec)
40 mg PO DAILY
albuterol sulfate 90 mcg/actuation Hfa Aerosol Inhaler
2 puff INHALATION R Q4HPRN PRN (Reason: sob)
sertraline 50 mg Tablet
50 mg PO DAILY
roflumilast 500 mcg Tablet
500 mcg PO DAILY
Breztri Aerosphere 160-9-4.8 mcg/actuation Hfa Aerosol Inhaler
2 inh INHALATION R BID
Discontinued
clotrimazole 10 mg Jeff
10 mg MUCOUS MEMBRANE 5/D
Patient Comments:
08/04/24: Patient to take 5 troches a day for 10 days.
azithromycin 250 mg Tablet
250 mg PO DAILY
Discharge Orders:
Discharge Patient (As Directed); Ordered 08/06/24
Ordered By: Sebas Briceno
Discharge Date and Time
Discharge Date/Time: 08/06/24 15:38
Print Language: EQUATORIAL GUINEAN
--- NOTE | 2024-08-05 16:13 | CM ---
Patient with Dx Sepsis, PNA, COPD exacterbation. O2 2L. Receiving IV Abx, IV Decadron. PT recommends home PT vs outpatient, OT recommends HH.
Met with patient who resides with his in a 2nd floor apartment with 1 flight stairs in building.
The patient has been independent in ADLs and ambulation.
DME - has home O2 concentrator and POC shoulder tank.
VN - prior [facility]
No prior SNF.
PCP - Abdi Paez
Pharmacy - [facility]
Patient wishes to have [facility] VN (fax [phone]) again for nurse/PT/OT - referral placed.
His does not drive however daughter Florinda can provide transport home.
IMM in place from 08/04/24.
Per Resident Sebas, probable d/c home today after seen by Pulmonary.
Plan home probably today with [facility] VN.
[2024-08-05] MEDS: LOVENOX 40 MG SC (17:03)
[2024-08-05] MEDS: ROCEPHIN 1000 MG IV (17:04)
--- NOTE | 2024-08-05 18:42 | PTCARENOTE ---
Patient got back into bed. Pt was tachypneic, HR was 130s and upper airway wheezing as patient was frequently coughing. RT called and gave pt breathing treatment. HR improved to 90s and patient felt better.
[2024-08-05] MEDS: TUMS CHEWABLE TABLET 200 MG PO (20:15)
--- NOTE | 2024-08-05 20:26 | PTCARENOTE ---
Received pt from day shift. Pt aaox3, anxious at times. Pt 94% on 3L NC. NS on monitor, tachycardic at times. VSS. Faint expiratory wheezing auscultated in b/t upper lobes. received JOE breathing treatment, wheezing now resolved. Pt c/o acid reflux
(hx of GERD) reached out to HEIDI Nichols and received a one time order for TUMS. administered medications (see MAR). Pt resting in bed with call villaseñor in reach.
[2024-08-05 21:23] LABS: Hepatitis C Antibody Negative (Negative)
[2024-08-06] VITALS: BP 109/47
[2024-08-06 02:00] VITALS: BP 125/53
[2024-08-06 04:00] VITALS: BP 116/41
[2024-08-06 04:59] LABS: Hematocrit 37.3 % (39.0-52.0); Hemoglobin 12.5 g/dL (13.0-18.0); Mean Corp Hgb Conc. 33.5 g/dL (33.0-37.0); Mean Corpuscular Volume 95.4 fL (80.0-94.0); Mean Platelet Volume 9.6 fL (7.4-10.4); Platelet Count 276 10^3/uL (130-400); Red Blood Cell Count 3.91 10^6/uL (4.70-6.10); White Blood Cell Count 5.2 10^3/uL (4.8-10.8)
--- NOTE | 2024-08-06 05:01 | PTCARENOTE ---
pt med-surg level of care, tele monitor removed.
[2024-08-06 05:28] LABS: Blood Urea Nitrogen 21 mg/dl (9-20); Calcium 9.9 mg/dl (8.4-10.2); Carbon Dioxide 22 mmol/L (22-30); Chloride 103 mmol/L (98-107); Estimated Creatinine Clearance 84 ml/min; Glucose 141 mg/dl (70-99); Potassium 4.8 mmol/L (3.5-5.1); Sodium 137 mmol/L (135-145); eGFR > 60.00
[2024-08-06] MEDS: SYMBICORT 160/4.5 MCG INHALER 2 PUFF INH (07:59)
[2024-08-06] MEDS: SPIRIVA RESPIMAT 2.5 MCG 2 PUFF INH (07:59)
--- NOTE | 2024-08-06 08:09 | PTCARENOTE ---
Pt AAOx3 anxious .Pt on 2l O2 at 97%. Harsh cough . NSR on monitor.
--- NOTE | 2024-08-06 08:26 | W.PN.HOSP.TC ---
Addendum entered and electronically signed by Elias Davis MD 08/06/24 13:54:
transition to po atb. stop doxy per ID
resume azithro
dc home on taper dose of steroids per pulm
More than 30 minutes spent in discharge including
Final examination of the patient
Summarizing hospital stay
Instructions for continuing care to all relevant caregivers
Preparation of discharge records, prescriptions, and referral forms
Total time spent (in minutes): 32mins
Original Note:
Today's Communication/Plan
-
* Continue ceftriaxone and doxycycline.
* Incentive spirometry.
* Continue nebs and steroid taper.
* Assess for ambulatory home oxygen.
* Anticipated discharge today.
Assessment / Plan
Assessment / Plan
Assessment
Phillip Contreras, age 74, has had worsening shortness of breath for the past 5-6 days. Patient states that he was started on azithromycin and clotrimazole by his primary which did not help. His called 911 today when he could not catch his breath.
He is a former smoker with 50+ pack-year smoking history and on 2.5L home oxygen at night and intermittently during the day. Often uses extra oxygen at home for exacerbations, but it did not help this time. Also endorses recent unintentional weight
loss of about 4 lbs. Denies any other recent illnesses or hospitalizations.
Impression and plan
Community acquired bacterial pneumonia
Sepsis secondary to above
- Was started on clotrimazole outpatient.
- Hypotension responded to IV hydration; continue.
- Sputum and blood cultures * 2 with no pathologic growth.
- Continue ceftriaxone and doxycycline.
Chronic obstructive pulmonary disease exacerbation
History of tobacco use disorder; 50+ pack-years
- On home oxygen 2.5L at night and intermittently during day.
- Continue nebs and roflumilast.
- IV steroids.
- Wean oxygen as tolerated.
- Incentive spirometry.
- Pulmonology consultation.
Acute hypoxic respiratory insufficiency secondary to above
- BiPap was tried in the emergency due to dyspnea; did not tolerate.
- Saturating okay for now with oxygen via NC.
- Continue IV steroids and nebs.
- Wean oxygen as tolerated.
Coronary artery disease
Carotid artery disease
Peripheral artery disease
- Continue clopidogrel and simvastatin.
Generalized anxiety disorder
- Continue sertraline and lorazepam prn.
Gastroesophageal reflux disease
- Continue pantoprazole.
Thromboprophylaxis
- Enoxaparin.
Code status
- Full.
Anticipated Discharge: Today
Subjective/Interval History
-
Date of Service: August 06, 2024
Stable with respiratory status at baseline.
Objective Data
-
Labs:
Laboratory Results
08/06/24
04:41
WBC 5.2
Hgb 12.5 L
Hct 37.3 L
Plt Count 276
Sodium 137
Potassium 4.8
Chloride 103
Carbon Dioxide 22
BUN 21 H
Creatinine 0.7
Glucose 141 H
Calcium 9.9
Vital Signs:
Vital Signs
Temp Pulse Resp BP Pulse Ox
97.3 F 88 18 116/41 95
08/06/24 07:43 08/06/24 08:03 08/06/24 08:03 08/06/24 04:00 08/06/24 08:03
I&O
08/05/24 08/06/24 08/07/24
06:59 06:59 06:59
Intake Total 1340 / 1340 550 / 550
Output Total 300 / 300 1750 / 1750
Balance 1040 / 1040 -1200 / -1200
Review of Systems
-
History Source: Patient
Constitutional: Reports No Symptoms
EENT: Reports No Symptoms Reported
Respiratory: Reports No Symptoms
Cardiac: Reports No Symptoms
Abdomen/GI: Reports No Symptoms
Genitourinary: Reports No Symptoms
Musculoskeletal: Reports No Symptoms
Skin: Reports No Symptoms
Neuro: Reports No Symptoms
Endocrine: Reports No Symptoms
Hematologic / Lymphatic: Reports No Symptoms
Allergy / Immunology: Reports No Symptoms
Physical Exam
-
General: No Apparent Distress and Comfortable
HEENT: Normocephalic, Atraumatic, Moist Mucous Membranes and Anicteric
Respiratory: Clear to Auscultation and Non Labored Respirations
Cardiac: Regular Rhythm and S1/S2
GI: Soft, Nontender, Nondistended and No Hepatosplenomegaly
Genito-urinary: No Costovertebral Tender
Musculoskeletal: No Clubbing, No Cyanosis and No Edema
Skin: Warm, Dry and IV Access / Catheter Site
Neuro: Awake, Alert, Oriented and Nonfocal/Grossly Intact
Hematologic / Lymphatic: No Lymphadenopathy
Psych: Calm
[2024-08-06] MEDS: LIPITOR 20 MG PO (08:36)
[2024-08-06] MEDS: DECADRON 4 MG IV ×2 (08:36→13:54)
[2024-08-06] MEDS: DALIRESP 500 MCG PO (08:36)
[2024-08-06] MEDS: MUCINEX 600 MG PO (08:36)
[2024-08-06] MEDS: PROTONIX 40 MG PO (08:36)
[2024-08-06] MEDS: VIBRAMYCIN 100 MG PO (08:36)
[2024-08-06] MEDS: ZOLOFT 50 MG PO (08:36)
[2024-08-06] MEDS: PLAVIX 75 MG PO (08:36)
--- NOTE | 2024-08-06 09:10 | CM ---
Addendum entered by Luzma Solorio 08/06/24 10:10:
Resumption of [facility] confirmed with [facility] liaison via phone

Original Note:
CM Consult completed.
Met with patient at bedside; he reported that he has an Oxygen Concentrator and a portable tank at home; patient instructed to have bring his portable O2 tank when she and their daugther come to the hospital to transport him home
Plan: Discharge to home today with [facility]; daughter and will transport home
--- NOTE | 2024-08-06 09:28 | W.PN.PUL3 ---
Today's Communication / Plan
-
Okay for discharge home later later this afternoon s/p afternoon IV steroid dose
Complete course of ABx as per ID, and once done then resume his prophylactic Zithromax for refractory COPD
DC on prednisone taper and please start taper on discharge as follows: 60 mg prednisone daily, reducing by 10 mg every fifth day until off
Resume Breztri with prn albuterol MDI with spacer once discharged
PT/OT
Check ambulatory pulse oximetry prior to discharge
He already has a follow-up arranged with [facility] in 2 weeks, per patient - he was strongly advised to keep that appointment
No additional pulmonary recommendations at this time. Please call back if there are any additional questions or concerns. Pulmonary service will now sign off.
Assessment
-
Assessment: 74-year-old male with a past medical history of COPD on Breztri and Daliresp who presents with SOB. He is on 2.5 L/min nasal cannula at baseline which he uses at nighttime and occasionally during the day. SOB ongonig for 5-6 days.
Given Abx by PCP but did not improve his Sx. in the ER he was afebrile to 97.8 �F, pulse rate 98, breathing at 21 breaths/min, BP 98/63 and saturating 98% on 3 L/min nasal cannula. Labs showed WBC was WNL at 8, Hb 13.1, absolute eosinophil count
700, troponin negative at 0.014, proBNP elevated at 620, and COVID antigen negative. Flu A/B swab also negative. CXR obtained which showed left basilar pneumonia and increased bibasilar interstitial markings suspicious for interstitial
pneumonitis. In the ER he was given DuoNebs, albuterol, IVF with NS 0.9% x 1L and ceftriaxone/Zithromax. He was admitted to the IMU under the hospitalist service, and pulmonary consulted for additional management/recommendations.
Chronic conditions CLOTH BALE HEADER: COPD, hyperlipidemia, chronic hypoxic respiratory failure on home oxygen at 2 L/min with sleep and prn during the day, anxiety, PAD, CAD, carotid artery stenosis, former tobacco smoker, reported history of FARNAZ noncompliant
with CPAP
Impression:
#Acute COPD exacerbation - improved
#Refractory COPD on Daliresp + daily Zithromax
#Opacification seen in RML suspicious for CAP vs atelectasis (I suspect the latter as he clinically has no signs of bacterial pneumonia)
#Lactic acidosis � now resolved
#Increase eosinophil count (absolute eosinophil count: 700 on 08/04/2024)
#Leukopenia
#Anemia
#Metabolic acidosis with normal anion gap
#Increased proBNP (620 on 08/04/2024)
#Former tobacco smoker with >80-fflk-yxrh history
#History of FARNAZ noncompliant with CPAP
Plan:
- Continue systemic steroids and start weaning as he clinically improves
- Currently on Decadron 4mg IV q8hr s/p q6hr (changed yesterday) --> given that his shortness of breath/cough are now at baseline, patient seems appropriate for transition to oral steroids. Please start prednisone at 60 mg daily and reduce by 10
mg every fifth day until off. Would continue with IV steroids here in the hospital until discharged
- Takes Breztri at home --> continue Symbicort 160mcg + Spiriva with prn albuterol while hospitalized, and resume home inhaler upon discharge
- Continue Daliresp
- Mucolytics with mucinex
- Hold home Zithromax while we are giving him antibiotics; resume Zithromax 250mg daily after antibiotics course is completed; as an outpatient he should have his EKG occasionally checked (for QTc - 457ms on 08/04/2024) and also follow-up with
audiology
- His initial CXR did not show evidence of pneumonia however repeat CXR yesterday showed increased opacification in the right middle lobe, suspected to be pneumonia versus atelectasis - I suspect the latter
- Continue empiric Abx - currently on cefuroxime/doxycycline s/p ceftriaxone x 2 days, and s/p cefepime/Zithromax (2 doses of cefepime and 1 dose of zithromax given)
- If he continues to improve with no fevers, chills and negative cultures by 48-hour nani, then would narrow antibiotics and consider stopping altogether and resuming his home Zithromax
- Would defer Abx to ID
- Trend WBC
- Follow up SCx (collected 08/05/2024 - NGT) and f/u blood Cx (collected 08/04/2024 - )
- Resume his prophylactic Zithromax after antibiotic course is completed
- Maintain SpO2 88-95% with supplemental O2 and wean down as tolerated
- Check ambulatory pulse oximetry prior to discharge as he usually does not use oxygen at rest, and only uses O2 as needed
- He reports a history of sleep apnea and was intolerant to CPAP. Discussed this with his outpatient entry tech at [facility] as perhaps a different PAP interface would be better, i.e. nasal CPAP vs nasal pillows/cannula, depending on his pressures
and sleep apnea severity
- Incentive spirometer encouraged 10x per hour for at least 4 hrs a day
- Replete electrolytes with K>4, Mg>2
- Monitor H/H and transfuse if needed to keep Hb>7g/dL
- Maintain euglycemia with goal BG >100 and <180
- Trend sHCO3 level with goal >22
- PT/OT
- Defer lung cancer screening via annual LDCT chest to entry tech at [facility], if he qualifies
- No longer need to trend lactate level as it is <2 mmol/L
- DVT ppx: LMWH
Patient is stable for discharge after his afternoon IV steroid dose. Please refer to above for prednisone tapered schedule. He already follows with a entry tech at [facility] and says he has an appointment upcoming in about 2 weeks. Recommended him
to keep that appointment and continue following up with [facility] pulmonology. If he wishes to also see us here at [place] with [facility], then that is also an option. Our office information will be left with him for him to decide. Pulmonary service
will now sign off. Thank you for allowing us to be involved in the care of this patient. Call back with any questions or concerns.
Data:
CXR 08/05/2024:
COPD.
Slightly increased opacity in the right middle lobe, raising possibility of atelectasis or pneumonia.
Total time spent today was 51 minutes for this encounter. Time includes reviewing laboratory test/imaging results, reviewing pertinent medical records, obtaining and reviewing medical history, performing an appropriate exam, ordering medications,
tests and procedures. Time also includes documentation of this encounter, coordinating patient care and communicating with other healthcare professionals. Total time does not include separately billed tests performed on this date of service.
Subjective Data
-
Date of Service:
Date of Service: August 06, 2024
Chief Complaint: Pulmonary Follow Up
Subjective:
Patient seen and evaluated this morning. He feels well, eager to go home. Saturating 97% on 4 L/min. Still short of breath mainly with activity, and having a productive cough which he says that both are at his baseline. He is bringing up his
phlegm without any issue. Denies chest pain, MCGEE, abdominal pain, nausea, fevers or chills.
Review of Systems
General: Other (Negative unless mentioned above)
Objective Data
Data Reviewed
Vital Signs / I&O / Oxygen:
Vital Signs
Temp Pulse Resp BP Pulse Ox
97.3 F 88 18 116/41 95
08/06/24 07:43 08/06/24 08:03 08/06/24 08:03 08/06/24 04:00 08/06/24 08:03
Intake and Output
08/05/24 08/06/24 08/07/24
06:59 06:59 06:59
Intake Total 1340 / 1340 550 / 550
Output Total 300 / 300 1750 / 1750 200 / 200
Balance 1040 / 1040 -1200 / -1200 -200 / -200
SaO2 95
Nasal Cannula flow liters per 4
minute
Physical Exam
General: Respiratory Distress (negative), Comfortable, Chills (negative) and Sweats (negative)
HEENT: Normocephalic, Anicteric and Moist Mucous Membranes
Cardiovascular: S1-S2
Respiratory: Wheeze (Faintly heard upon expiration in the bilateral upper lobes), Crackles (negative), Rhonchi (negative) and Accessory Resp Muscle Use (negative)
GI: Soft, Non Distended, Non Tender and Normal Bowel Sounds
Neurology: AO x 3 and Tremors (negative)
Skin: Warm, Dry, Cyanosis (negative) and Jaundice (negative)
Labs/Micro/Reports
Lab Data
08/06/24 04:41
08/06/24 04:41
Microbiology
08/05/24 02:25 Sputum Respiratory Culture - Preliminary
Usual Respiratory Mandy
08/05/24 02:25 Sputum Gram Stain - Preliminary
08/04/24 22:57 Nose MRSA Screen - Final
No Methicillin Resistant Staphylococcus aureus isolated.
08/04/24 17:24 Blood/Venous Blood Culture - Preliminary
No Growth in 24 hours- Final report to follow
08/04/24 16:20 Blood/Venous Blood Culture - Preliminary
No Growth in 24 hours- Final report to follow
08/04/24 16:03 Nasal Swab Influenza Types A & B (THANH) - Final
Negative for Influenza A & B, NAAT
Negative results must be combined with clinical observations
and patient history.
Nucleic Acid Amplification test (NAAT)performed on the
[employer] platform.
--- NOTE | 2024-08-06 10:16 | PN.CDI ---
CDI
- -
CDI:
Physician Documentation Request
Admit Date: 08/04/24 18:12
Dear Doctor Ryan/Resident,
Please review the following and provide your response in the progress notes.
Clinical Indicators:
Pt admitted with sepsis 2/2 CAP/ COPD exacerbation
Documented per ED, ' here with 2-3 days worsening sob with cough/wheezing got really SOB today...received 125 mg of solumedrol and 2 duonebs and still has wheezing an dinc work of breathing... Alert; tachypneic, inc work of breathing...LUNGS:
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
respiratory distress....'
Patient care nursing note 08/04 @ 2230, ' Pt arrived to unit via stretcher. Pt on 2L NC and needed NRB due to increased work of breathing. Reached out to respiratory and pt received treatments ...'
Respirations as high as 38, [id number]
Please Clarify which of the following accurately represents the patient's respiratory status based on the above findings/treatment :
Acute Hypoxic respiratory failure
Hypoxia-only
Other
Additional information for Respiratory Failure:
Recognized criteria for Respiratory Failure (Source: [employer] Hospitalist Jul 2013)
ABGs: (1 or more) Symptoms Please indicate type if known
1. p)2 <60 or RA SPO2 <91% on RA 1. Tachypnea, SOB, dyspnea Hypoxic
2. pCO2 50 and pH <7.35 2. Use of accessory muscles Hypercapnic
3. pO2 decrease of pCO2 increase by 3. Pallor or cyanosis Hypoxic and Hypercapnic
10 mmHg from baseline if known 4. Anxiety or restlessness Unable to determine
5. Unable to speak in full sentences
Supplemental O2 of > 40% (5LPM) Intubation is not required
Use of terms such as suspected, likely, concern for, or probable (associated with a specific diagnosis that is being evaluated, monitored, or treated as if it exists) are acceptable and can be coded in the inpatient setting, when documented at the
time of discharge.
Thank you,
Olive Christian RN
CDI Specialist
[place] [facility]
Please use your independent medical judgment in providing your response.
--- NOTE | 2024-08-06 10:24 | PN.CDI ---
CDI
- -
CDI:
Physician Documentation Request
Admit Date: 08/04/24 18:12
Dear Doctor Ryan/ Resident,
Please review the following and provide your response in the progress notes.
Clinical Indicators:
Pt admitted with sepsis 2/2 CAP/ COPD exacerbation
Documented per H&P, ' Sepsis in the setting of left lower lobe pneumoniaWas started on cefepime levofloxacin to cover for pseudomonal coverage. He is a community dwelling. Lower clinical suspicion for pseudomonal infection...'
Progress note 08/06, ' Community acquired pneumonia...Was started on azithromycin and clotrimazole outpatient..... Sputum and blood cultures * 2 negative. Continue ceftriaxone and doxycycline....'
ID consult, ' - Can transition abx's to cefuroxime 500mg po bid plus doxycycline 100mg po bid through 08/10.'
Based on the above, could you clarify in the Progress Notes further specificity regarding the known, suspected or likely type of pneumonia you are treating (recognizing the specific organism may not be known)?
Gram negative Pneumonia - indicate if Pseudomonas, Klebsiella or other
Staph Pneumonia - indicate if MRSA or MSSA
Strep Pneumonia - indicate if strep B, strep pneumoniae or other type
Other organism - specify known or suspected type
Other type
Use of terms such as suspected, likely, concern for, or probable (associated with a specific diagnosis that is being evaluated, monitored, or treated as if it exists) are acceptable and can be coded in the inpatient setting, when documented at the
time of discharge.
Thank you,
Olive Christian RN
CDI Specialist
[place] [facility]
Please use your independent medical judgment in providing your response.
--- NOTE | 2024-08-06 10:28 | W.PN.ID1 ---
Date of Service
Date of Service: August 06, 2024
Today's Communication
-DC ceftriaxone and doxycycline.
- Transition to cefuroxime 500mg po bid through 08/08/24 (5 days abx course).
- Can resume his chronic azithromycin for COPD as per Pulm.
ID will sign off.
Assessment / Plan
# Acute on chronic COPD exacerbation
-Improving on steroid.
#Possible CAP
-DC ceftriaxone and doxycycline.
- Transition to cefuroxime 500mg po bid through 08/08/24 (5 days abx course).
- Can resume his chronic azithromycin for COPD as per Pulm.
ID will sign off.
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
COPD on intermittent home O2 2.5L
CAD
PAD s/p LE bypass
Carotid stenosis endarterectomy
Depression/anxiety
Chief Complaint
-: Other (COPD)
Subjective / Review of Systems
SOB and cough continues to improve.
Vital Signs / Physical Exam
Vital Signs
Vital Signs
Temp Pulse Resp BP Pulse Ox
97.3 F 88 18 116/41 95
08/06/24 07:43 08/06/24 08:03 08/06/24 08:03 08/06/24 04:00 08/06/24 08:03
Physical Exam
Constitutional: No Acute Distress and Comfortable
Pulmonary: Clear
Gastrointestinal: Soft, Non Tender, Non Distended and Normal Bowel Sounds
Extremities: Negative Edema
Neurological: AO x 3
Objective Data
Lab Data
Lab Results
08/06/24 04:41
08/06/24 04:41
Estimated Creat Clear 84 ml/min 08/06/24 04:41
Lactic Acid 1.5 mmol/L (0.7-2.0) 08/05/24 03:45
Total Bilirubin 0.5 mg/dl (0.2-1.3) 08/04/24 15:48
AST 22 U/L (17-59) 08/04/24 15:48
ALT 13 U/L (0-50) 08/04/24 15:48
Alkaline Phosphatase 102 U/L (38-126) 08/04/24 15:48
Most recent labs reviewed.
Micro Results:
08/05/24 02:25 Respiratory Culture - Preliminary
Sputum Usual Respiratory Mandy
Gram Stain - Preliminary
08/04/24 22:57 MRSA Screen - Final
Nose No Methicillin Resistant Staphylococcus aureus isolated.
08/04/24 17:24 Blood Culture - Preliminary
Blood/Venous No Growth in 24 hours- Final report to follow
08/04/24 16:20 Blood Culture - Preliminary
Blood/Venous No Growth in 24 hours- Final report to follow
08/04/24 16:03 Influenza Types A & B (THANH) - Final
Nasal Swab Negative for Influenza A & B, NAAT
Negative results must be combined with clinical observations
and patient history.
Nucleic Acid Amplification test (NAAT)performed on the
[employer] platform.
08/05/24 CXR: COPD. Slightly increased opacity in the right middle lobe, raising possibility of atelectasis or pneumonia.
[2024-08-06] MEDS: CEFTIN 500 MG PO (11:18)
[2024-08-06] MEDS: VENTOLIN NEBULES 2.5 MG INH (13:02)
[2024-08-06 13:56] VITALS: BP 136/54
== END 2024-08-06 15:38 | disposition home health service (06) | DRG 871 ==
LOC: IMU 18:12
PROVIDERS: Physician Assistant; Student in an Organized Health Care Education/Training Program; ADMITTING PHYSICIAN Hospitalist; EMERGENCY PHYSICIAN Emergency Medicine; FAMILY PHYSICIAN Family Medicine; OTHER PHYSICIAN Internal Medicine Critical Care Medicine; OTHER PHYSICIAN Internal Medicine Infectious Disease
DX: A41.9 Sepsis, unspecified organism (principal); J15.9 Unspecified bacterial pneumonia; J44.1 Chronic obstructive pulmonary disease with (acute) exacerbation; J44.0 Chronic obstructive pulmonary disease with (acute) lower respiratory infection; J84.9 Interstitial pulmonary disease, unspecified; E87.20 Acidosis, unspecified; Z87.891 Personal history of nicotine dependence; I25.10 Atherosclerotic heart disease of native coronary artery without angina pectoris; I73.9 Peripheral vascular disease, unspecified; F41.1 Generalized anxiety disorder; K21.9 Gastro-esophageal reflux disease without esophagitis; I65.29 Occlusion and stenosis of unspecified carotid artery; F32.A Depression, unspecified; I95.9 Hypotension, unspecified; Z79.02 Long term (current) use of antithrombotics/antiplatelets; E78.00 Pure hypercholesterolemia, unspecified; D64.9 Anemia, unspecified; D72.819 Decreased white blood cell count, unspecified; Z79.899 Other long term (current) drug therapy; Z99.81 Dependence on supplemental oxygen; Z11.52 Encounter for screening for COVID-19; R09.02 Hypoxemia
CPT/HCPCS: 71045; 71046; 80048; 80053; 83605; 83880; 84484; 85025; 85027; 86803; 87040; 87070; 87205; 87502; 87811; 93005; 94640; 96361; 96374; 96375; 97162; 97166; 99285

== ENCOUNTER 2024-09-04 14:42 | Inpatient (IN) | payer MEDICARE, OTHER, SELFPAY ==
[2024-09-04] VITALS (20 sets, daily range): BP systolic 61–150; BP diastolic 41–69
--- NOTE | 2024-09-04 15:00 | PTCARENOTE ---
Received pt from [facility]. AAO x 3 on the stretcher. Placed on monitor. 70-80';s NSR w/ BBB. 4 L NC 97% PT does appear to have some SOB at rest. Denies complaint however. Heart tones regular, murmer present. Lungs decreased t/o .
Harsh cough noted. Pt states no sputum at present. abdomen soft and non tender. #16 Fr licona present on arrival. Clear yellow urine appreciated. Plus 1 lower extremity edema appreciated. PUlses weak but palpable. RT radial cath dressing
c,d,i.
--- NOTE | 2024-09-04 15:23 | CON.INTV ---
Consultation
Consultation Request
Date/Time Consultation Requested: 09/04/2024 - 1500
Date/Time Consultation Performed: 09/04/2024 - 152
Requesting Provider: JULIA Cortes
Performing Provider: Dr. Covarrubias
Reason for Consultation: Shock; Severe
Medical History
-
Chief Complaint: TAVR workup
History of Present Illness:
74-year-old male with a past medical history of chronic HFrEF, severe aortic stenosis, PVD, history of COPD, former tobacco smoker and hyperlipidemia who presents as a transfer from [facility] for evaluation for TAVR. Patient initially
presented to [facility] on 09/02/24 with chest pain and worsening shortness of breath. A rapid response was called as he was hypotensive, dizzy and weak and was endorsing chest pain. ACS was suspected and heparin drip was started.
Transthoracic echo on 09/03/2024 showed moderately hypokinetic apex with distal lateral and distal septal moderate hypokinesis, with LVEF 44.4% with normal RV size and systolic function and severe aortic valve stenosis with MARGARETTE: 1.03 with mean
gradient of 34.2 mmHg. He underwent a left heart catheterization on 09/03/2024 showing mild�moderate nonobstructive CAD with mildly elevated pulmonary and wedge pressures with normal right heart catheterization (PCWP: 16mmHg, PADP: 17mmHg, RA:
11mmHg). CTA chest was performed at [facility] showing mild aneurysmal dilatation of the infrarenal abdominal aorta, patent bilateral iliac stents, high-grade short segment stenosis involving the celiac trunk origin, SMA origin, left renal artery origin
and a short segment of the left common femoral artery, as well as emphysematous changes and bronchitis. Patient was transferred here to [place] for evaluation for TAVR.
When I saw the patient he was resting in bed in no acute distress, heart rate 85, BP 89/66 on Levophed at 8 mcg/min + milrinone at 0.125mcg/kg/min. He is currently on 4 L/min nasal cannula saturating 97%. He feels well at the moment, denying chest
pain, MCGEE, abdominal pain, nausea, fevers or chills. He is on home oxygen between 2-3 L/min at night. He is a former smoker, says he quit 4 years ago, started smoking at age 16 mainly smoking 1 PPD. He says he quit smoking for 6 years in between
his total time of smoking.
PMHx: Chronic HFrEF, low gradient severe aortic stenosis, PVD, former tobacco smoker (quit 06/2019), history of severe COPD, hyperlipidemia, AAA
PSHx: Mohs surgery of left hand, left common femoral endarterectomy, PCI of the left SFA stent (2012)
Past Medical History
Past Medical History: Other (Above as per HPI)
Past Surgical History: Other (Above as per HPI)
Social History
Tobacco: Former Smoker (Quit June 2019, started smoking age 16, and smoked 1 PPD and quit for 6 years during his entire time as a smoker)
Alcohol: None
Drug: None
Family History
Family History: Other (Sudden cardiac + epilepsy)
Allergies / Home Medications
Allergies
Allergy/AdvReac Type Severity Reaction Status Date / Time
acetaminophen [From Percocet] Allergy Unknown Verified 08/04/24 15:47
levofloxacin [From Levaquin] Allergy 'feels Verified 08/05/24 13:50
closed in'
oxycodone [From Percocet] Allergy Unknown Verified 08/04/24 15:47
Home Medications
�Medication �Instructions �Recorded �Confirmed �Last Taken �Type
albuterol sulfate 2.5 mg/3 mL 2.5 mg inhalation R DAILY 08/04/24 08/04/24 08/04/24 History
(0.083 %) solution for nebulization Lung/Breathing Issues
albuterol sulfate 90 mcg/actuation 2 puff inhalation R Q4HPRN PRN sob 08/04/24 08/04/24 Unknown History
aerosol inhaler
budesonide 160 mcg-glycopyr 9 2 inh inhalation R BID 08/04/24 08/04/24 08/04/24 History
mcg-formot 4.8 mcg/actuation HFA Lung/Breathing Issues
inhaler (Breztri Aerosphere)
clopidogrel 75 mg tablet 75 mg PO DAILY Blood Clot 08/04/24 08/04/24 08/04/24 History
Prevention/Tx
lorazepam 0.5 mg tablet 0.5 mg PO DAILYPRN PRN anxiety 08/04/24 08/04/24 Unknown History
pantoprazole 40 mg tablet,delayed 40 mg PO DAILY GERD 08/04/24 08/04/24 08/04/24 History
release
roflumilast 500 mcg tablet 500 mcg PO DAILY Autoimmune 08/04/24 08/04/24 08/04/24 History
Disorder
sertraline 50 mg tablet 50 mg PO DAILY Mental 08/04/24 08/04/24 08/04/24 History
Health/Anxiety
simvastatin 40 mg tablet 40 mg PO DAILY High Cholesterol 08/04/24 08/04/24 08/04/24 History
cefuroxime axetil 500 mg tablet 500 mg PO BID 4 days #8 tabs 08/05/24 Unknown Rx
doxycycline hyclate 100 mg capsule 100 mg PO BID 4 days #8 caps 08/05/24 Unknown Rx
prednisone 10 mg tablet See Rx Instructions .Route 08/05/24 Unknown Rx
.COMPLEX #84 tabs
tiotropium bromide 2.5 2 inh inhalation DAILY #4 grams 08/05/24 Unknown Rx
mcg/actuation mist for inhalation
(Spiriva Respimat)
azithromycin 250 mg tablet 250 mg PO DAILY 30 days #30 tabs 08/06/24 Unknown Rx
spirometers and accessories #1 ea 08/06/24 Unknown Rx
Review of Systems
-
History Source: Patient
All other systems: Negative unless noted
Vitals / Labs / Diagnostic Testing
Diagnostic Testing:
Physical Exam
-
HEENT: Normocephalic, Anicteric and Moist Mucous Membranes
Cardiovascular: S1/S2, Murmur (JUAN JOSE heard best at [facility]) and Peripheral Edema (negative)
Respiratory: Wheeze (negative), Rales (negative), Rhonchi (negative) and Non-Labored Respirations
GI: Soft, Non Distended, Non Tender and Normal Bowel Sounds
Neurology: AO x 3 and Tremors (negative)
Skin: Warm and Dry
General: Comfortable, Fever (negative) and Chills (negative)
Assessment
-
Assessment: 74-year-old male with a past medical history of chronic HFrEF, severe aortic stenosis, PVD, history of COPD, former tobacco smoker and hyperlipidemia who presents as a transfer from [facility] for evaluation for TAVR. Patient
initially presented to [facility] on 09/02/24 with chest pain and worsening shortness of breath. A rapid response was called as he was hypotensive, dizzy and weak and was endorsing chest pain. ACS was suspected and heparin drip was started.
Transthoracic echo on 09/03/2024 showed moderately hypokinetic apex with distal lateral and distal septal moderate hypokinesis, with LVEF 44.4% with normal RV size and systolic function and severe aortic valve stenosis with MARGARETTE: 1.03 with mean
gradient of 34.2 mmHg. He underwent a left heart catheterization on 09/03/2024 showing mild�moderate nonobstructive CAD with mildly elevated pulmonary and wedge pressures with normal right heart catheterization (PCWP: 16mmHg, PADP: 17mmHg, RA:
11mmHg). CTA chest was performed at [facility] showing mild aneurysmal dilatation of the infrarenal abdominal aorta, patent bilateral iliac stents, high-grade short segment stenosis involving the celiac trunk origin, SMA origin, left renal artery origin
and a short segment of the left common femoral artery, as well as emphysematous changes and bronchitis. Patient was transferred here to [place] for evaluation for TAVR.
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
Impression:
#Severe aortic stenosis
#Chronic HFrEF
#PAD
#Hypotension suspected to be due to cardiogenic shock on vasopressors + milrinone
#Anemia
#Hypereosinophilia (absolute eosinophil count: 2100)
#Acute respiratory alkalosis
#Elevated troponin likely due to NSTEMI
#Abnormal urinalysis with +1 leukocyte esterase
#Former tobacco smoker (quit 06/2019 with >20 5�36-ewnc-wsla history)
#AAA
Plan:
Cardiology consulted and he is awaiting evaluation for TAVR
Repeat echo pending for Saturday
Continue with Levophed and milrinone and wean as tolerated
Maintain MAP>65
Replete electrolytes with K>4, Mg>2
Deferred GDMT for now given he is hypotensive
Continue with Plavix
Continue with supplemental oxygen and titrate to keep SpO2 88-95%
Continue daliresp
Patient is on Breztri as an outpatient -continue with Symbicort + Spiriva while hospitalized and then resume Breztri upon discharge
prn nebulized bronchodilators - not currently bronchospastic
Transfuse blood products as needed to maintain Hb>7g/dL, plt>20
Monitor blood sugar to maintain euglycemia with goal BG 140-180
Aspiration precautions
DVT prophylaxis: LMWH
Loading Rack Supervisor/Pulmonary service will continue to follow along in CVICU while he is awaiting further TAVR workup to assess his candidacy.
Critical care statement: A total of 38 minutes of critical care time was provided for this patient today. This includes management of unstable vital signs, evaluation of the patient at bedside, reviewing the patient's pertinent medical records
including radiographs, microbiology, laboratory evaluations, and discussion with primary team, consultants, pharmacy, nutrition, physical therapy, case management, charge nurse, critical care nursing, and respiratory therapy.
[2024-09-04] MEDS: XYLOCAINE 2% MDV 20 ML INJ (15:50)
--- NOTE | 2024-09-04 16:07 | CM ---
Reviewed chart. Mr Contreras Prior to admission he resides with his spouse in an apartment with thirteen steps to enter. Prior to admission he was independent with ambulation and adls. He has home 02 at home concentrator and POC Shoulder tank.
He has had [facility] in the past. Will need to see his current functional level to see if he will have any skilled care needs. Medical work-up in progress. The discharge plan is to return home with his spouse when medically stable.
[2024-09-04] MEDS: LEVOPHED 258 MG IV (16:20)
--- NOTE | 2024-09-04 16:31 | CONSULT.STRU ---
Consultation
-
Date/Time Consultation Requested: 09/04/2024
Date/Time Consultation Performed: 09/04/2024 1430
Requesting Provider: Dr. Waqar Stanley
Performing Provider: Edith Darnell
Reason for Consultation: Aortic stenosis/ Admission History and Physical
Patient History
Physicians
Family Physician: Dr. Abdi Paez
Outpatient Automobile Tire Builder: Dr. Austin Orellana ([facility] Cardiology)
Primary Automobile Tire Builder: Dr. Austin Orellana
History of Present Illness
Patient is a 73yo male transferred from [facility] for evalaution of possible urgent TAVR. He has a very complex PMH. He presented to ER there with chief complaint of abdominal pain starting several weeks ago. He reports pain to the epigastrium with
radiation reported to the chest. This pain is associated with eating and taking his pills. He does not experience the pain other than that. He was scheduled to have an upper endoscopy done by [facility] but was then admitted. This pain is
accompanied by n/v. The pt reports dyspnea as well with pleuritic pain. He denies fevers. No back pain. No diarrhea. He has lost about 6 pound recently unintentionally. He also had a hospitalization here about a month ago for pneumonia. He is on
chronic O2 at home and has known COPD/Empysema as well as FARNAZ and is non-compliant with his CPAP. He has a significant 50+ year/ 1 ppd smoking history, quitting about 4 years ago. He has had COSBY and has 2 pillow orthopnea. This has been more
noticeable since his recent hospitalizations for pneumonia and according to his daughter the flu.He denies peripheral edema. He does have known significant vascular disease and has been follow at [place].
While at [facility] a rapid response was called for chest pain and hypotension with EKG changes. It was discussed with the on-call eeg technologist and there was concern for dynamic EKG changes and chest pain potential ACS. He had serial troponins and was
started on a heparin drip. He underwent cardiac cath with Dr. Green which demonstrated mild to moderate, nonobstructive coronary artery disease. Mildly elevated pulmonary and wedge pressures with otherwise normal right heart catheterization
pressures. He had an echocardiogram which showed severe aortic stenosis. He was on levophed and milrinone and the thought was he would need an urgent TAVR so he was transferred to .
Past Medical History
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
left radial artery occlusion)
Past Surgical History
Past Surgical History: Other (Right CEA, Bilateral common iliac stent grafts([facility] 04/26/2023), Left [employer] endarterectomy ([facility] 05/04/2024) )
Dental History
unknown
Family History
Mother: at Age
Father: at Age
Social History
Alcohol: None
Drug: None
Tobacco: Former Smoker (1 PPD for 50+ years, quit about 4 years ago)
Personal:
Living: With Spouse
Employment: Retired
Allergies
Allergy/AdvReac Type Severity Reaction Status Date / Time
acetaminophen [From Percocet] Allergy Unknown Unknown Verified 09/04/24 15:24
levofloxacin [From Levaquin] Allergy 'feels Verified 09/04/24 15:24
closed in'
oxycodone [From Percocet] Allergy Unknown Verified 09/04/24 15:24
Home Medications
�Medication �Instructions �Recorded �Confirmed �Type
albuterol sulfate 2.5 mg/3 mL 2.5 mg inhalation R DAILY 08/04/24 08/04/24 History
(0.083 %) solution for nebulization Lung/Breathing Issues
albuterol sulfate 90 mcg/actuation 2 puff inhalation R Q4HPRN PRN sob 08/04/24 08/04/24 History
aerosol inhaler
budesonide 160 mcg-glycopyr 9 2 inh inhalation R BID 08/04/24 08/04/24 History
mcg-formot 4.8 mcg/actuation HFA Lung/Breathing Issues
inhaler (Breztri Aerosphere)
clopidogrel 75 mg tablet 75 mg PO DAILY Blood Clot 08/04/24 08/04/24 History
Prevention/Tx
lorazepam 0.5 mg tablet 0.5 mg PO DAILYPRN PRN anxiety 08/04/24 08/04/24 History
pantoprazole 40 mg tablet,delayed 40 mg PO DAILY GERD 08/04/24 08/04/24 History
release
roflumilast 500 mcg tablet 500 mcg PO DAILY Autoimmune 08/04/24 08/04/24 History
Disorder
sertraline 50 mg tablet 50 mg PO DAILY Mental 08/04/24 08/04/24 History
Health/Anxiety
simvastatin 40 mg tablet 40 mg PO DAILY High Cholesterol 08/04/24 08/04/24 History
cefuroxime axetil 500 mg tablet 500 mg PO BID 4 days #8 tabs 08/05/24 Rx
doxycycline hyclate 100 mg capsule 100 mg PO BID 4 days #8 caps 08/05/24 Rx
prednisone 10 mg tablet See Rx Instructions .Route 08/05/24 Rx
.COMPLEX #84 tabs
tiotropium bromide 2.5 2 inh inhalation DAILY #4 grams 08/05/24 Rx
mcg/actuation mist for inhalation
(Spiriva Respimat)
azithromycin 250 mg tablet 250 mg PO DAILY 30 days #30 tabs 08/06/24 Rx
spirometers and accessories #1 ea 08/06/24 Rx
STS%
STS %: 12.8%
Review of Systems
-
History Source: Patient and Family
General: Reports Weight Loss (6lbs unintentionally over past few weeks)
HEENT: Reports Other (burning in throat)
Respiratory: Reports COSBY and Other (COPD, home O2)
Cardiac: Reports CAD, Known Vascular Disease (previous iliac stents, L-femoral endarterectomy. Right CEA), Nausea and Vomiting; Denies Edema
Abdomen/GI: Reports Abdominal Pain, Reflux, Nausea, Vomiting and Pain; Denies Diarrhea, Constipation or Black Stools
: Reports No Symptoms
Musculoskeletal: Reports No Symptoms
Skin: Reports No Symptoms
Neurological: Reports No Symptoms
Vascular: Reports PVD
Physical Exam
Vital Signs
Temp 97.8 F 09/04/24 15:00
Temp route: Oral 09/04/24 15:00
Pulse 79 09/04/24 16:00
Rhythm: Normal sinus rhythm 09/04/24 16:14
With- Bundle Branch Block Confi 09/04/24 16:14
Resp Rate 20 09/04/24 16:00
Blood pressure 122/52 09/04/24 16:00
Blood pressure extremity used: Right upper arm 09/04/24 15:00
Position: Lying 09/04/24 15:00
MAP (cuff-Annalee Monitor) 71 09/04/24 16:00
SaO2 97 09/04/24 16:14
Nasal Cannula flow liters per minute 4 09/04/24 16:14
Can the patient verbally communicate their pain? Yes 09/04/24 16:14
Diagnostic Studies
09/03/2024 Echocardiogram:
TRANSTHORACIC ECHOCARDIOGRAM REPORT
Pt. Name: MARGARETTE AVILES Study Date: 09/03/2024
Date: 1950 Patient
Patient Age: 74 years Accession Number: [id number]
Pt. Gender: M Admission ID: [id number]
Pt. Height: 67.0 in (170.2 cm) BSA ([place]): 1.68 m2
Pt: Weight: 129.0 lb (58.5 kg) Blood Pressure: 127/54 mmHg
Admission Status: [facility] - Inpatient
Referring Physician: KEN Pal
Interpreting Physician: ADRIA Arambula
Primary Homeopathic Doctor:
Indication: NSTEMI

SUMMARY
1. Entire apex is moderately hypokinetic. Distal lateral and distal septal moderate hypokinesis.
2. Estimated left ventricular ejection fraction is mildly reduced with an ejection fraction of 44.4 % (38 to 54%) by Jiménez's method. Visually near 40%.
3. Normal right ventricular size and systolic function (limited visualization).
4. Normal right atrium by area 11.5 cm2.
5. Inferior vena cava not seen.
6. AoV velocity of 4.34 m/s; Mean gradient = 34.2 mmHg; AoV Area by continuity equation = 1.03 cm2; AoV Dimensionless Index = 0.29.
7. Aortic valve is thickened and calcified. Severe aortic valve stenosis.
8. The left atrium is normal in by volume index 19.6 mL/m2.
9. There are no prior studies for comparison.Technically difficult study on supine position and BiPAP (IV Definity used).

PHYSICIAN INTERPRETATION
Left Ventricle:
The left ventricular internal cavity size was normal. The estimated left ventricular ejection fraction is mildly reduced with an ejection fraction of 44.4 % by Jiménez's method.
LV Wall Scoring:
The entire apex is hypokinetic.
Right Ventricle:
Normal right ventricular size, wall thickness, and systolic function.
Left Atrium:
The left atrium is normal by volume index 19.6 mL/m2.
Right Atrium:
Right atrium is normal by area 11.5 cm2.
Inferior vena cava not seen.
Interatrial Septum:
Interatrial and interventricular septa appear intact, with no obvious evidence of intracardiac shunting by spectral or color Doppler.
Aortic Valve:
The aortic valve is thickened and calcified. Doppler findings and restricted movement of the aortic valve cusps are consistent with moderate to severe aortic stenosis. The peak aortic valve gradient is 75.4 mmHg. The mean aortic valve gradient is
34.2 mmHg.
Mitral Valve:
There is mild mitral annular calcification. The mean mitral valve gradient is 2.4 mmHg. The calculated mitral valve area is 4.90 cm�, using a pressure half-time of 45 msec. Trace mitral valve regurgitation is seen. The mitral valve is normal in
structure.
Tricuspid Valve:
There is mild tricuspid valve regurgitation. The tricuspid valve is normal in structure.
Pulmonary Valve:
The pulmonic valve was not well visualized.
Aorta:
The aorta was not well visualized.
Aortic sinus (3.06 cm/ BSA indexed 1.8 cm/m2), Aortic ST junct (2.2 cm/ BSA indexed 1.3 cm/m2),.
Pericardium:
There is no evidence of pericardial effusion.
Comparison To Previous Study:
There are no prior studies on this patient for comparison purposes.

QUANTITATIVE DATA
Left Ventricle: LV M-mode:
EF-A4C View: 38.3 %
EF-A2C View: 45.2 % LV Diastology:
EF-Biplane: 44.4 % MV E Vmax: 0.63 m/s
IVSd (2D): 1.1 cm MV A Vmax: 1.13 m/s
LVPWd (2D): 1.1 cm MV E/A: 0.56
LVIDd (2D): 5.3 cm e' lateral: 0.10 m/s
LVIDs (2D): 3.8 cm e' medial: 0.09 m/s
LV FS%: 27 % E/e' lateral: 6.34
LV Vol d, MOD A2C: 135.2 ml E/e' medial: 6.67
LV Vol d, MOD A4C: 128.2 ml
LV Vol d, MOD BP: 138.7 ml
LV Vol Index d, MOD A2C: 80.6 ml/m2 Aortic Valve:
LV Vol Index d, MOD A4C: 76.4 ml/m2 AV Vmax: 4.3 m/s
LV Vol Index d, MOD BP: 82.6 ml/m2 AV Peak Gradient: 75.4 mmHg
LV Vol s, MOD A2C: 74.0 ml AV Mean Gradient: 34.2 mmHg
LV Vol s, MOD A4C: 79.1 ml AV VTI: 60.4 cm
LV Vol s, MOD BP: 77.2 ml AV Area, Vmax: 0.86 cm2
LV Vol Index s, MOD A2C: 44.1 ml/m2 AV Area, VTI: 1.03 cm2
LV Vol Index s, MOD A4C: 47.2 ml/m2
LV Vol Index s, MOD BP: 46.0 ml/m2 Mitral Valve:
LV EF MOD A2C: 45 % MV E Vmax: 0.6 m/s
LV EF MOD A4C: 38 % MV A Vmax: 1.1 m/s
LV EF MOD BP: 44 % MV E/A: 0.6
LV Vol d, A/L A2C: 143.9 ml MV Vmax: 1.4 m/s
LV Vol d, A/L A4C: 138.6 ml MV Pk Gradient: 7.7 mmHg
LV Vol d, A/L BP: 133.3 ml MV Mean Gradient: 2.4 mmHg
LV Vol s, A/L A2C: 79.2 ml MV Decel Time: 155 msec
LV Vol s, A/L A4C: 86.4 ml MV P 1/2 Time: 45 msec
LV Vol s A/L BP: 82.0 ml MV Area: 4.90 cm2
LV EF, A/L A2C: 45 %
LV EF, A/L A4C: 38 % Tricuspid Valve:
LV EF, A/L BP: 38 % TR Vmax: 2.2 m/s
TR Pk Gradient: 19.2 mmHg
Right Ventricle:
TAPSE: 2.2 cm Pulmonic Valve:
PV Vmax: 1.5 m/s
Left Atrium: PV Pk Gradient: 9.2 mmHg
LA Area s, MOD A4C: 9.0 cm2 PV Mean Gradient: 4.8 mmHg
LA Area s, MOD A4C i bsa: 5.3cm2/m2
LA Area s, MOD A2C: 15.3 cm2
LA Vol s, MOD A4C: 17.2 ml
LA Vol s, MOD A4C i bsa: 10.2 ml/m2
LA Vol s, MOD A2C: 42.7 ml
LA Vol s, MOD A2C i bsa: 25.44 ml/m2
LA Vol s, MOD BP: 29.7 ml
LA Vol s, MOD BP i bsa: 17.7 ml/m2
LA Vol s, A/L A2C: 46.6 ml
LA Vol s, A/L A2C i bsa: 27.7 ml/m2
LA Vol s, A/L A4C: 19.3 ml
LA Vol s, A/L A4C i bsa: 11.5 ml/m2
LA Vol s, A/L BP: 32.9 ml
LA Vol s, A/L BP i bsa: 19.6 ml/m2
Right Atrial:
RA Vol s, A/L A4C: 30.5 ml
RA Vol s A/L A4C i bsa: 18.2ml/m2
RA Vol s, MOD A4C: 29.6 ml
RA Vol s, MOD A4C i bsa: 17.6ml/m2
09/03/2024 Cardiac Catheterization:
ACCESS: The patient was prepped and draped in usual sterile fashion. A 6 Tongan sheath was placed in the right radial artery using the Seldinger over the wire technique. A 6 Tongan sheath was exchanged for a previously indwelling IV over a wire.
HEMODYNAMIC FINDINGS (mmHg):
Ao(s/d,m): 115/62
RA: 11
RV: 38/9
PA: 38/17
Wedge: 16
ANGIOGRAPHIC FINDINGS:
Coronary Angiography:
Dominance: Codominant
Left Main: Large sized with minor luminal irregularities.
Left Anterior Descending: Large sized vessel that wraps the apex serving a small high diagonal branch and 3 medium mid diagonal branches. The second major diagonal branch has an ostial 60 to 70% stenosis. The remainder the system shows mild
diffuse atherosclerosis.
Left Circumflex: Medium to large sized, codominant vessel serving 4 marginal branches of varying sizes and several small branch vessels to the inferior myocardium. The entire system shows minor luminal irregularities.
Right Coronary: Medium sized, codominant vessel serving several branch vessels to the inferior myocardium. The entire system shows minor luminal irregularities.
Flouroscopy Time (min): 2.9
Radiation Dose (mGy): 399.0
Contrast total (mL): 25
Closure device: None. A TR band was applied for hemostasis at the right wrist.
Complications: None.
ASSESSMENT:
1: Mild to moderate, nonobstructive coronary artery disease.
2: Mildly elevated pulmonary and wedge pressures with otherwise normal right heart catheterization pressures.
CONCLUSIONS and RECOMMENDATIONS:
1: Presentation is unlikely to be cardiac in nature.
2: Recommend medical management for the secondary prevention of coronary artery disease including lifelong antiplatelet and lipid-lowering therapies.
Conscious Sedation
I was present with the patient for the duration of the moderate sedation and supervised staff who monitored the patient for the entire procedure. Details of sedation are entered by the nurse administering the sedation and details of the patient's
monitoring status are entered by a sign monitor role staff member into the [facility] laboratory electronic record system. Please see the nursing flow sheets for documentation of the name of the independent trained observer, and intra-service start and
end times.
Exam
General: No Apparent Distress, Comfortable and Other (disheveled appearance)
HEENT: Normocephalic, Moist Mucous Membranes and PERRLA
Neck: Carotid Bruit (right, right CEA scar noted) and Trachea Midline
Respiratory: Clear and Other (reduced lung sounds thoroughout); Negative Wheezes, Crackles or Rhonchi
Cardiac: S1/S2, Regular Rhythm, Murmur (Grade II/ systoloc murmur) and Other (Right carotid bruit)
GI: Soft, Non Tender, Non Distended and Normal Bowel Sounds
Rectal: Deferred by Provider
Skin: Warm and Dry
Neuro: AO x 3 and Nonfocal/Grossly Intact
Extremities: Pulses (+2 femoral pulses bilateral, well healed endarterectomy scar left groin); Negative Lower Level Edema
Psych: Calm
Assessment / Plan
-
Procedure Type:�Isolated AVR
PERIOPERATIVE OUTCOME ESTIMATE %
Operative Mortality 12.8%
Morbidity & Mortality 34.4%
Stroke 2.62%
Renal Failure 3.52%
Reoperation 5.78%
Prolonged Ventilation 18.7%
Deep Sternal Wound Infection 0.072%
Long Hospital Stay (>14 days) 19.6%
Short Hospital Stay (<6 days)* 15.1%
Severe Aortic Stenosis:
-Discuss with Heart Team timing for TAVR procedure
-Discuss access options for TAVR. Significant PVD with previous stents, endarterectomy, AAA
-Will need dental clearance
Abdominal Pain with recent weight loss
- Consult Vascular
- Pain Control
- Review CT images from [facility], report of prior CT scan from [place]
Carotid Stenosis
-H/O right CEA with documented restenosis of 50-70% R-ICA
-Consult vascular
Data Reviewed
-
EKG: Report Reviewed by me (Incomplete right BBB)
Chemical Processing Laborer: Report Reviewed by me and Discussed with Physician (Dr. Stanley)
Echo: Report Reviewed by me and Discussed with Physician (Dr. Stanley)
Radiology: Report Reviewed by me (CTA Chest/Abd/Pelvis) and Discussed with Physician (Dr. Stanley)
CT Scan: Report Reviewed by me (CTA Chest/Abd/Pelvis) and Discussed with Physician
Ultrasound: Report Reviewed by me
Labs: Labs Reviewed by me
Old Records: Requested (From [facility](Vascular), [facility] Cardiology.) and Reviewed ([facility] records from admission, prior records from Vascular surgery at [facility], prior records from [facility] Cardiology)
Critical Care Time (in minutes): 60
Total Time Spent with Patient (in minutes): 30
--- NOTE | 2024-09-04 16:42 | W.PN.UPDATE ---
Update Note
Progress Note Update
Cardiothoracic Surgery Procedure Note:
Pre Procedure Diagnosis: Cardiogenic shock, aortic stenosis, coronary artery disease
Post Procedure Diagnosis: Same as the above
Procedure:
Right radial arterial line insertion
Supervising Physician:
Dr. Waqar Stanley MD
Surfacer/Assistants:
Vanesa Hernandez PA-C
Rosemarie Loja PA-C
Anesthesia:
10 cc local lidocaine
Specimen:
None
Indication:
Patient in cardiogenic shock requiring Levophed, need for hemodynamic monitoring
Description of Procedure:
Informed consent was obtained with the patient at the bedside. Patient was prepped and draped in sterile fashion, proper timeout was performed. Using ultrasound guidance, the patient's right radial artery was visualized. 10 cc of local lidocaine
was drawn up via syringe. Next using ultrasound guidance a small wheal was made in the patient's subcuticular skin. An Arrow 20-gauge radial arterial line was inserted into the patient's right radial artery with good flash of arterial blood
return. Needle guidewire was advanced forward. Catheter and needle was advanced over needle guidewire. Needle guidewire and needle were then removed. Catheter was hooked up to proper transducing tubing. Catheter was then secured into place
using a 2-0 nylon suture. Site was then cleaned. Dressing was applied, all sharps were disposed in the proper container.
Estimated blood loss:
5 cc
Complications:
None
Billing:
CPT code: 50381
[2024-09-04] MEDS: PRIMACOR 20 MG 100 IV (17:19)
[2024-09-04 17:21] LABS: Hematocrit 31.6 % (39.0-52.0); Hemoglobin 10.7 g/dL (13.0-18.0); Mean Corp Hgb Conc. 33.9 g/dL (33.0-37.0); Mean Corpuscular Hgb 32.9 pg (27.0-31.0); Mean Corpuscular Volume 97.2 fL (80.0-94.0); Mean Platelet Volume 9.8 fL (7.4-10.4); Platelet Count 306 10^3/uL (130-400); Red Blood Cell Count 3.25 10^6/uL (4.70-6.10); Red Cell Dist. Width 13.2 % (11.5-14.5); White Blood Cell Count 17.9 10^3/uL (4.8-10.8)
[2024-09-04 17:24] LABS: Lactic Acid 1.5 mmol/L (0.7-2.0)
[2024-09-04 17:25] LABS: INR 1.19; PT 15.4 Sec (11.4-14.6); Urine Albumin Negative (Neg - Trace); Urine Bilirubin Negative (Negative); Urine Character Clear (Clear); Urine Color Yellow; Urine Glucose Negative (Negative); Urine Ketone Negative (Negative); Urine Leukocyte 1+ (Negative); Urine Nitrite Negative (Negative); Urine Occult Blood 4+ (Negative); Urine Urobilinogen Negative (Neg - 1+)
[2024-09-04 17:26] LABS: APTT 44.8 Sec (23.4-35.0)
[2024-09-04 17:32] LABS: ALT (SGPT) 12 U/L (0-50); AST (SGOT) 17 U/L (17-59); Albumin 2.9 g/dl (3.5-5.0); Alkaline Phosphatase 84 U/L (38-126); Blood Urea Nitrogen 14 mg/dl (9-20); Calcium 8.9 mg/dl (8.4-10.2); Carbon Dioxide 24 mmol/L (22-30); Chloride 102 mmol/L (98-107); Glucose 134 mg/dl (70-99); Magnesium 2.4 mg/dl (1.6-2.3); Phosphorus 2.6 mg/dl (2.5-4.5); Potassium 3.6 mmol/L (3.5-5.1); Sodium 135 mmol/L (135-145); Total Bilirubin 0.6 mg/dl (0.2-1.3); Total Protein 5.6 g/dl (6.3-8.2); eGFR > 60.00
[2024-09-04 17:42] LABS: % Basophils 0.1 % (0-2); % Eosinophils 11.9 % (0-6); % Immature Granulocytes 0.7 % (0-0.5); % Lymphocytes 2.6 % (20.5-51.1); % Monocytes 4.9 % (1.7-9.3); % Neutrophils 79.8 % (42.2-75.2); Absolute Eosinophils 2.1 10^3/uL (0-0.7); Absolute Immature Granulocytes 0.1 10^3/uL (0-0.05); Absolute Lymphocytes 0.5 10^3/uL (1.2-3.4); Absolute Monocytes 0.9 10^3/uL (0.1-0.6); Absolute Neutrophils 14.3 10^3/uL (1.4-6.5); Nucleated Red Blood Cells % 0 % (-)
--- NOTE | 2024-09-04 17:43 | HPS.HSE ---
Family Physician
-
Family Physician: Abdi Paez
Chief Complaint
-
Transfer from [facility] for cardiothoracic evaluation for severe aortic stenosis
History of Present Illness
74 y/o male with past medical history of moderate to severe aortic stenosis, abdominal aortic aneurysm, peripheral artery disease status post prior PCI of the left FSA stent in 2013 (Dr. Ng), left common femoral endarterectomy, bilateral common
iliac disease, bilateral external iliac disease, occlusion of the SFA's, right carotid endarterectomy, bilateral carotid stenosis, coronary artery disease, chronic obstructive pulmonary disease (former smoker), prediabetes (A1c 6.2%),
hypertension,hyperlipidemia, and bleeding disorder? who initially presented on 09/02/24 to [facility] in [place], [place] with abdominal pain (epigastric pain radiating to the chest) for weeks, along with decreased PO intake, nausea, vomiting
and regurgitation. Chest X-Ray done on admission there suggested right upper and left lower lobe pneumonia. He was found to have leukocytosis there. He was noted to be hypotensive, dizzy, and exhibit generalized weakness, rapid response was called
at his hospitalization at [facility] for hypotension, chest pain and respiratory distress. He was found to have possible ACS, and Heparin Drip was started, hypotension was thought to be from dehydration. And echocardiogram was done on
09/03/24, and he was noted to have hypokinesis, and reduced ejection fraction of 44.4%, as well as severe aortic valve stenosis. CTA Chest was performed over there, which showed mild aneurysmal dilatation of the infrarenal abdominal aorta, patent
bilateral iliac stents, high-grade short segment stenosis involving the celiac trunk origin, SMA origin, left renal artery origin and a short segment of the left common femoral artery, as well as emphysematous changes and bronchitis.
Cardiac Cath was performed at [facility], showed 'minor luminal irregularities of the left main, LAD w/o any significant disease. Second major diagonal branch with a ostial 60 to 70% stenosis. The remainder of the LAD system with mild
diffuse atherosclerosis. The left circumflex was found to be a medium to large vessel with 4 marginal branches with minor luminal irregularities. The right coronary artery was codominant with minor luminal irregularities. The pulmonary artery
pressures were mildly elevated.' Patient was transferred to [facility] for cardiothoracic evaluation for severe aortic stenosis. He reported doing okay at the time he was seen.
Medical History
Past Medical History
Past Medical History: Reports Other (As per HPI above)
Past Surgical History: Reports Other (As per HPI above)
Additional Past Surgical History:
Mohs Surgery of the left hand
Social History
Tobacco: Former Smoker
Alcohol: None
Family History
Family History: Other (Sudden Cardiac , Epilepsy)
Allergies / Home Medications
Allergies reflects when Allergies were last updated in [email or web address].
Home Medications with original date entered in [email or web address]
Allergy/Medication List:
Allergies
Allergy/AdvReac Type Severity Reaction Status Date / Time
acetaminophen [From Percocet] Allergy Unknown Unknown Verified 09/04/24 15:24
levofloxacin [From Levaquin] Allergy 'feels Verified 09/04/24 15:24
closed in'
oxycodone [From Percocet] Allergy Unknown Verified 09/04/24 15:24
Home Medications
albuterol sulfate 2.5 mg/3 mL (0.083 %) solution for nebulization 2.5 mg inhalation R DAILY Lung/Breathing Issues 08/04/24
albuterol sulfate 90 mcg/actuation aerosol inhaler 2 puff inhalation R Q4HPRN PRN sob 08/04/24
budesonide 160 mcg-glycopyr 9 mcg-formot 4.8 mcg/actuation HFA inhaler (Breztri Aerosphere) 2 inh inhalation R BID Lung/Breathing Issues 08/04/24
clopidogrel 75 mg tablet 75 mg PO DAILY Blood Clot Prevention/Tx 08/04/24
lorazepam 0.5 mg tablet 0.5 mg PO DAILYPRN PRN anxiety 08/04/24
pantoprazole 40 mg tablet,delayed release 40 mg PO DAILY GERD 08/04/24
roflumilast 500 mcg tablet 500 mcg PO DAILY Autoimmune Disorder 08/04/24
sertraline 50 mg tablet 50 mg PO DAILY Mental Health/Anxiety 08/04/24
simvastatin 40 mg tablet 40 mg PO DAILY High Cholesterol 08/04/24
tiotropium bromide 2.5 mcg/actuation mist for inhalation (Spiriva Respimat) 2 inh inhalation DAILY #4 grams 08/05/24
spirometers and accessories #1 ea 08/06/24
azithromycin 250 mg tablet 250 mg PO DAILY PRN copd flair 09/04/24
montelukast 10 mg tablet (Singulair) 10 mg PO HS 09/04/24
Review of Systems
-
A 12 point ROS was completed and negative except as noted: Yes
Physical Exam
Vital Signs
Vital Signs
Temp Pulse Resp BP Pulse Ox
97.8 F 79 20 122/52 97
09/04/24 15:00 09/04/24 16:00 09/04/24 16:00 09/04/24 16:00 09/04/24 16:14
Physical Exam
General: No Apparent Distress
HEENT: NormoCephalic
Respiratory: Decreased Breath Sounds
Cardiac: S1/S2 and Regular Rhythm
GI: Soft, Non Tender and Normal Bowel Sounds
Musculoskeletal: No Cyanosis
Skin: Warm and Dry
Neuro: Awake, Alert and AO x 3
Psych: Calm and Intact Judgment/Insight
Laboratory Results
-
09/04/24 16:59
09/04/24 16:59
Laboratory Results
PT 15.4 Sec (11.4-14.6) H 09/04/24 16:59
INR 1.19 09/04/24 16:59
APTT 44.8 Sec (23.4-35.0) H 09/04/24 16:59
Lactic Acid 1.5 mmol/L (0.7-2.0) 09/04/24 16:59
Total Bilirubin 0.6 mg/dl (0.2-1.3) 09/04/24 16:59
AST 17 U/L (17-59) 09/04/24 16:59
ALT 12 U/L (0-50) 09/04/24 16:59
Alkaline Phosphatase 84 U/L (38-126) 09/04/24 16:59
Impression/Plan
-
Assessment/Plan
Severe aortic stenosis
Initial presentation to [facility] with abdominal and chest pain, with history of decreased PO intake, nausea, vomiting and regurgitation
Hypotensive (thought to be from dehydration), chest pain, respiratory distress, dizziness, and generalized weakness at [facility]
HFmrEF and Cardiac Hypokinesis
-Had cardiac cath at [facility], showed second major diagonal branch with a ostial 60 to 70% stenosis, mild diffuse atherosclerosis in some parts of the LAD system, mild elevation of pulmonary artery pressures
-Continue statin and Plavix
-Patient was transferred to [facility] for cardiothoracic evaluation for severe aortic stenosis.
-Continue close monitoring in CVICU
-Avoid hypotension: continue Levophed and Milrinone
-Division Human Resources Manager, Cardiothoracic Surgery, and Cardiology all consulted, appreciate their evaluation and recommendations
Abdominal aortic aneurysm
Peripheral artery disease status post prior PCI of the left FSA stent in 2012 (Dr. Ng), left common femoral endarterectomy
Bilateral common iliac disease
Bilateral external iliac disease
Bilateral iliac stents
High-grade short segment stenosis involving the celiac trunk origin, SMA origin, left renal artery origin and a short segment of the left common femoral artery as per [facility] CT Scan results
Occlusion of the SFA's
Right carotid endarterectomy
Bilateral carotid stenosis
-Continue Plavix, Statin
Leukocytosis (had leukocytosis at [facility] as well)
-Monitor CBC and for any signs of infection
Coronary artery disease
-Continue Plavix, statin
Chronic obstructive pulmonary disease (former smoker)
Prediabetes (A1c 6.2%)
-Carb-controlled diet
Hypertension
-For now trying to treat hypotension
Hyperlipidemia
-Continue statin
History of bleeding disorder?
DVT Prophylaxis: Lovenox
Code Status: Full Code
Severe aortic stenosis needing Levophed and Milrinone in the setting of heart failure and needing monitoring in the CVICU, is a high-risk encounter.
[2024-09-04 17:44] LABS: Urine Red Blood Cell 16-20 /HPF (0-2)
[2024-09-04 17:45] LABS: Urine Bacteria Few (Negative)
[2024-09-04 17:48] LABS: Troponin I 0.389 ng/ml
--- NOTE | 2024-09-04 17:48 | PTCARENOTE ---
Pt with wheezes noted bilaterally t/o. Order obtained for PRN nebs. RT called . IVT at bedside to place picc.
[2024-09-04] MEDS: DUONEB 3 ML INH ×2 (18:13→20:53)
--- NOTE | 2024-09-04 18:52 | CON.CAR ---
Consultation
Consultation Request
Date/Time Consultation Requested: 09/04/24, 4pm
Date/Time Consultation Performed: 09/04/24, 430pm
Requesting Provider: Erwin
Performing Provider: Roland
Reason for Consultation: aortic stenosis
Medical History
-
Chief Complaint: chest pain
History of Present Illness:
74 yo male with PMH of PAD, right CEA, HTN, hyperlipidemia, tobacco abuse presented to [facility] with chest pain. Went to crown and bridge dental lab technician and found to have non-obstructive CAD, mildly elevated PCW, CO/CI 4.1/2.4. Became hypotensive, started on
milrinone and levophed, and transferred here for urgent TAVR evaluation. He is currently chest pain free.
Past Medical History
Past Medical History: CAD, HTN and Hypercholesterolemia
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
Social History
Tobacco: Former Smoker (quit around 2019 after 50 pack years)
Family History
Family History: Early CAD (none)
Allergies / Home Medications
Allergy/AdvReac Type Severity Reaction Status Date / Time
acetaminophen [From Percocet] Allergy Unknown Unknown Verified 09/04/24 15:24
levofloxacin [From Levaquin] Allergy 'feels Verified 09/04/24 15:24
closed in'
oxycodone [From Percocet] Allergy Unknown Verified 09/04/24 15:24
�Medication �Instructions �Recorded �Confirmed �Type
albuterol sulfate 2.5 mg/3 mL 2.5 mg inhalation R DAILY 08/04/24 09/04/24 History
(0.083 %) solution for nebulization Lung/Breathing Issues
albuterol sulfate 90 mcg/actuation 2 puff inhalation R Q4HPRN PRN sob 08/04/24 09/04/24 History
aerosol inhaler
budesonide 160 mcg-glycopyr 9 2 inh inhalation R BID 08/04/24 09/04/24 History
mcg-formot 4.8 mcg/actuation HFA Lung/Breathing Issues
inhaler (Breztri Aerosphere)
clopidogrel 75 mg tablet 75 mg PO DAILY Blood Clot 08/04/24 09/04/24 History
Prevention/Tx
lorazepam 0.5 mg tablet 0.5 mg PO DAILYPRN PRN anxiety 08/04/24 09/04/24 History
pantoprazole 40 mg tablet,delayed 40 mg PO DAILY GERD 08/04/24 09/04/24 History
release
roflumilast 500 mcg tablet 500 mcg PO DAILY Autoimmune 08/04/24 09/04/24 History
Disorder
sertraline 50 mg tablet 50 mg PO DAILY Mental 08/04/24 09/04/24 History
Health/Anxiety
simvastatin 40 mg tablet 40 mg PO DAILY High Cholesterol 08/04/24 09/04/24 History
tiotropium bromide 2.5 2 inh inhalation DAILY #4 grams 08/05/24 Rx
mcg/actuation mist for inhalation
(Spiriva Respimat)
spirometers and accessories #1 ea 08/06/24 Rx
azithromycin 250 mg tablet 250 mg PO DAILY PRN copd flair 09/04/24 09/04/24 History
montelukast 10 mg tablet 10 mg PO HS 09/04/24 09/04/24 History
(Singulair)
Review of Systems
-
All other systems: Negative unless noted
Respiratory: Trouble Breathing
Cardiac: Chest Pain
Abdomen/GI: Nausea and Vomiting
Physical Exam
Vital Signs
Temp Pulse Resp BP Pulse Ox
97.8 F 97 16 85/65 96
09/04/24 15:00 09/04/24 18:30 09/04/24 18:30 09/04/24 17:00 09/04/24 18:30
Lab Results
09/04/24 16:59
09/04/24 16:59
Troponin I 0.389 ng/ml H* 09/04/24 16:59
Physical Exam
General: No Apparent Distress
HEENT: Normocephalic and Anicteric
Respiratory: Clear and Non Labored Respirations
Cardiac: S1/S2 (normal), Regular Rhythm, Murmur (III/ systolic at RUSB) and Peripheral Edema (trace bilateral)
Musculoskeletal: Clubbing, No Cyanosis and Edema (trace LE edema)
Skin: Warm and Dry
Neuro: AO x 3
Impression / Plan
-
74 yo male with PMH of PAD, right CEA, HTN, hyperlipidemia, tobacco abuse presented to [facility] with chest pain. Went to crown and bridge dental lab technician and found to have non-obstructive CAD, mildly elevated PCW, CO/CI 4.1/2.4. Echo shows EF 40%, severe .
Became hypotensive, started on milrinone and levophed, and transferred here for urgent TAVR evaluation.
# Hypotension
-unclear etiology
-clinically does not appear to be cardiogenic shock
-wean off levophed and milrinone
# Severe
-undergoing TAVR eval
-repeat echo Saturday: some technical limitations to study
# Cardiomyopathy, EF 40%
-appears to be NICM, in setting of severe
-weaning pressors/inotropes; then add GDMT
# PAD
-on plavix as outpatient: continue
# Hyperlipidemia
-check lipids to advise on statin dosing
Data Reviewed
-
EKG: Tracing Personally Visualized and interpreted (NSR, RBBB)
Medical Tests (Nuc Med, Echo etc): Image Personally Visualized and interpreted (Echo with contrast, EF 40%, severe )
Labs: Labs Reviewed by me
[2024-09-04] MEDS: KCL 40 MEQ PO (19:44)
[2024-09-04] MEDS: LOVENOX 40 MG SC (19:47)
[2024-09-04] MEDS: ATIVAN 0.25 MG PO (19:49)
[2024-09-04] MEDS: SENOKOT 8.6 MG PO (19:51)
[2024-09-04] MEDS: COLACE 100 MG PO (19:51)
--- NOTE | 2024-09-04 19:59 | PTCARENOTE ---
Received pt from [facility]. Walking round completed. Pt assessment completed in bed. Pt is AAOx4, Strength equal bi-laterally. No neuro deficits noted. Sinus Tachycardia with BBB on monitor. R wrist A-line zeroed and calibrated. HR 96, B/P 127/44.
Murmur noted on ausculation. Pulses palpable but weak throughout. Bi-lateral LE +1 edema, Bi-lateral UE trace edema. Pt hx of COPD and wears 2L O2 @ home. PT does appear to have some SOB at rest. Resp:30/40. Lungs decreased throughout. Pt has strong
cough with blood tinged sputum noted. NBS, abdomen soft and non tender. #16 Fr licona present on arrival. Clear, robert, urine appreciated. RAC PICC line, 18g LAC, no redness or edema noted, all lines flush. Discussed plan of care with pt. Pt agrees
with plan. Will continue to monitor pt needs.
--- NOTE | 2024-09-04 20:30 | PTCARENOTE ---
Went into pt room to check pt. Pt tachypneic, resps 40-45 with impending sense of doom. Pt stated, 'I believe I am going to tonight'. Emotional support provided. Respiratory notified and provided PRN breathing treatments. Per Dr. Jarvis
instruction, I notified ICU ANDROID FRAMEWORK DEVELOPER Ulysses in regards to pt condition. ANDROID FRAMEWORK DEVELOPER stated pt was not under their service. Notified CTPA Ed who stated pt was not under their service but hospitalist. ICU ANDROID FRAMEWORK DEVELOPER notified and agreed to place orders for pt. ABG obtained.
0.25mg IV given for anxiety. Pt calmed and breathing slower but complaining of fluid feeling on lungs. Notified ICU ANDROID FRAMEWORK DEVELOPER of ABG results.
[2024-09-04 21:23] LABS: B.E. 0.7 mmol/L; HCO3 23.1 mmol/L (21-28); Ionized Calcium 1.21 mMOL/L (1.15-1.33); O2 Saturation % 96.4 % (94-98); PCO2 29 mmHg (35-48); PO2 69 mmHg (83-108); Potassium 3.5 mMOL/L (3.5-5.1); Sodium 133 mMOL/L (136-145); pH 7.51 (7.35-7.45)
[2024-09-04] MEDS: ATIVAN 0.25 MG IV (21:24)
[2024-09-04] MEDS: NSS (PRESERVATIVE FREE) 0.125 ML IV ×2 (22:10→22:11)
--- NOTE | 2024-09-04 22:10 | PTCARENOTE ---
VSS. Pt in Sinus Tachycardia with BBB on monitor. HR 105, B/P 118/59. Pt continue to be tachypneic resps 32 POX 97, 4L NC. ICUNP Ulysses in room to examine pt. Ativan given IV (See NOV). Pt responding to Ativan, anxiety decreasing. Encouraged pt to
slow breathing and did guided breathing exercised to decrease respirations. Will continue to monitor pt needs.
[2024-09-04] MEDS: ATIVAN 0.5 MG IV (22:11)
[2024-09-04] MEDS: NSS (PRESERVATIVE FREE) 0.25 ML IV (23:23)
[2024-09-05] VITALS (33 sets, daily range): BP systolic 68–99; BP diastolic 34–70
[2024-09-05 00:41] LABS: Troponin I 0.319 ng/ml
--- NOTE | 2024-09-05 02:05 | PTCARENOTE ---
VSS. Pt in Sinus tachycardia with BBB on monitor. HR 109, B/P 103/74. Pt tachypneic at rest. respirations 33-45. POX 97% on 4L NC. Pt has frequent productive cough. Pt extremely anxious about not being able to sleep. Emotional support given. ICU CYTOLOGY MANAGER
aware. Ativan ordered and given. (see MAR). Pt responded well to medication. Will continue to monitor pt needs.
--- NOTE | 2024-09-05 02:05 | PTCARENOTE ---
VSS. Pt in Sinus tachycardia with BBB on monitor. HR 109, B/P 103/74. Pt tachypneic at rest. respirations 33. POX 97% on 4L NC. Pt has frequent productive cough. Pt anxious about not being able to sleep. Emotional support given. Will continue to
monitor pt needs.
[2024-09-05] MEDS: ATIVAN 0.5 MG IV (02:15)
[2024-09-05] MEDS: NSS (PRESERVATIVE FREE) 0.25 ML IV (02:16)
[2024-09-05] MEDS: DUONEB 3 ML INH (04:13)
[2024-09-05 04:34] LABS: % Basophils 0.2 % (0-2); % Eosinophils 17.6 % (0-6); % Immature Granulocytes 0.4 % (0-0.5); % Lymphocytes 4.3 % (20.5-51.1); % Monocytes 4.3 % (1.7-9.3); % Neutrophils 73.2 % (42.2-75.2); Absolute Eosinophils 2.2 10^3/uL (0-0.7); Absolute Immature Granulocytes 0.1 10^3/uL (0-0.05); Absolute Lymphocytes 0.5 10^3/uL (1.2-3.4); Absolute Monocytes 0.5 10^3/uL (0.1-0.6); Absolute Neutrophils 9.3 10^3/uL (1.4-6.5); Hemoglobin 9.6 g/dL (13.0-18.0); Mean Corp Hgb Conc. 33.1 g/dL (33.0-37.0); Mean Corpuscular Hgb 32.4 pg (27.0-31.0); Mean Platelet Volume 9.9 fL (7.4-10.4); Nucleated Red Blood Cells % 0 % (-); Platelet Count 264 10^3/uL (130-400); Red Blood Cell Count 2.96 10^6/uL (4.70-6.10); Red Cell Dist. Width 13.5 % (11.5-14.5); White Blood Cell Count 12.7 10^3/uL (4.8-10.8)
--- NOTE | 2024-09-05 04:35 | RR ---
A Rapid Response was called on this patient, please see Rapid Response form.
--- NOTE | 2024-09-05 04:35 | PTCARENOTE ---
Called into pt room. Pt in respiratory distress. Sinus tachycardia HR 135 - 154, B/P 87/58, Respirations 40's-50's. CTPA Ed at bedside, rapid response called at 0435. Respiratory at bedside. Bi-Pap initiated but not tolerated by pt. Non-rebreather
mask utilized. Respiratory provided Xopenex treatment via nebulizer. Labs drawn, Levo stopped, yuri gtt started. Calcium Chloride push given. (SEE MAR) Yuri d/c'ed. R Radial a-line not working, d/c'ed. CTPA attempted L radial A-Line, not successful.
Respirations returned to baseline and pt states he is more comfortable now. Pt resting in bed. Will continue to monitor pt needs.
[2024-09-05 04:36] LABS: Blood Urea Nitrogen 14 mg/dl (9-20); Calcium 8.3 mg/dl (8.4-10.2); Carbon Dioxide 25 mmol/L (22-30); Chloride 105 mmol/L (98-107); Glucose 119 mg/dl (70-99); HDL Cholesterol 50 mg/dl; LDL Cholesterol, Calculated 56 mg/dl; Potassium 4.4 mmol/L (3.5-5.1); Sodium 137 mmol/L (135-145); Total Cholesterol 125 mg/dl (50-199); Triglyceride 96 mg/dl (10-149); Very Low Density Lipoprotein 19 mg/dl (0-30); eGFR > 60.00
[2024-09-05] MEDS: NEO-SYNEPHRINE 250 IV (04:45)
[2024-09-05 04:52] LABS: Ionized Calcium 0.91 mMOL/L (1.15-1.33); O2 Saturation % 99.9 % (94-98); PO2 168 mmHg (83-108); Sodium 138 mMOL/L (136-145); pH 7.52 (7.35-7.45)
[2024-09-05 04:57] LABS: O2 Therapy 40%; Potassium 2.7 mMOL/L (3.5-5.1)
[2024-09-05 04:58] LABS: HCO3 11.4 mmol/L (21-28); PCO2 14 mmHg (35-48)
[2024-09-05] MEDS: CALCIUM CHLORIDE 10% SYRINGE 1000 MG IV (05:05)
[2024-09-05 05:08] LABS: NT-proBNP 5060 pg/ml
[2024-09-05 05:27] LABS: B.E. 1.3 mmol/L; HCO3 24.7 mmol/L (21-28); O2 Saturation % 99.7 % (94-98); PCO2 34 mmHg (35-48); PO2 142 mmHg (83-108); pH 7.47 (7.35-7.45)
[2024-09-05 05:28] LABS: O2 Therapy 40%
[2024-09-05 06:05] LABS: Troponin I 0.334 ng/ml
[2024-09-05] MEDS: ANESTHETIC LOZENGE 1 LOZENGE PO ×2 (06:08→11:34)
[2024-09-05 06:23] LABS: Blood Urea Nitrogen 14 mg/dl (9-20); Calcium 9.9 mg/dl (8.4-10.2); Carbon Dioxide 25 mmol/L (22-30); Chloride 104 mmol/L (98-107); Glucose 97 mg/dl (70-99); Potassium 4.7 mmol/L (3.5-5.1); Sodium 137 mmol/L (135-145); eGFR > 60.00
[2024-09-05] MEDS: XOPENEX 1.25 MG INHALANT SOLUTION INH ×3 (07:19→18:21)
[2024-09-05] MEDS: SYMBICORT 160/4.5 MCG INHALER 2 PUFF INH ×2 (07:19→18:22)
--- NOTE | 2024-09-05 07:19 | PTCARENOTE ---
Pt received from outgoing RN, pt in bed, aaox4, anxious, hypotensive, tachycardic, tachypneic, on midflow and NRB o2, [place] dced due to nonfunctional. RUE PICC x2 xray confirmed, licona in place. Pt managed by hospitalist, pending Cardiology eval. RN
spoke with pt, discussed plan of care for today, provided reassurance for the pt, Respiratory in room for breathing treatment,
[2024-09-05] MEDS: SPIRIVA RESPIMAT 2.5 MCG 2 PUFF INH (07:20)
[2024-09-05] MEDS: ATIVAN 0.25 MG PO (08:26)
--- NOTE | 2024-09-05 08:31 | W.PN.INTV ---
Today's Communication / Plan
Recommendations
Continue with milrinone and monitor for arrhythmias
Vasopressin
Maintain MAP >65
Pending echo/[facility] on Saturday
Antitussants
Start Precedex drip for anxiety/agitation
Symbicort + Spiriva and xopenex TID with prn xopenex for breakthrough symptoms
Strict I/O
Assessment
-
Assessment: 74-year-old male with a past medical history of chronic HFrEF, severe aortic stenosis, PVD, history of COPD, former tobacco smoker and hyperlipidemia who presents as a transfer from [facility] for evaluation for TAVR. Patient
initially presented to [facility] on 09/02/24 with chest pain and worsening shortness of breath. A rapid response was called as he was hypotensive, dizzy and weak and was endorsing chest pain. ACS was suspected and heparin drip was started.
Transthoracic echo on 09/03/2024 showed moderately hypokinetic apex with distal lateral and distal septal moderate hypokinesis, with LVEF 44.4% with normal RV size and systolic function and severe aortic valve stenosis with MARGARETTE: 1.03 with mean
gradient of 34.2 mmHg. He underwent a left heart catheterization on 09/03/2024 showing mild�moderate nonobstructive CAD with mildly elevated pulmonary and wedge pressures with normal right heart catheterization (PCWP: 16mmHg, PADP: 17mmHg, RA:
11mmHg). CTA chest was performed at [facility] showing mild aneurysmal dilatation of the infrarenal abdominal aorta, patent bilateral iliac stents, high-grade short segment stenosis involving the celiac trunk origin, SMA origin, left renal artery origin
and a short segment of the left common femoral artery, as well as emphysematous changes and bronchitis. Patient was transferred here to [place] for evaluation for TAVR.
Chronic conditions MAINTENANCE PLANNER: Chronic HFrEF, low gradient severe aortic stenosis, PVD, former tobacco smoker (quit 06/2019), history of severe COPD, hyperlipidemia, AAA
Impression:
#Severe aortic stenosis
#Chronic HFrEF
#PAD
#Hypotension suspected to be due to cardiogenic shock on vasopressors + milrinone
#Anemia
#Hypereosinophilia (absolute eosinophil count: 2100)
#Acute respiratory alkalosis
#Elevated troponin likely due to NSTEMI
#Abnormal urinalysis with +1 leukocyte esterase
#Former tobacco smoker (quit 06/2019 with >20 5�52-[id number]-rnuq history)
#AAA
Plan:
Cardiology consulted and he is awaiting evaluation for TAVR
Repeat echo/[facility] pending for Saturday
Continue with Levophed and milrinone and wean as tolerated
Maintain MAP>65
Replete electrolytes with K>4, Mg>2
Deferred GDMT for now given he is hypotensive
Continue with Plavix
Continue with supplemental oxygen and titrate to keep SpO2 88-95%
Start Tessalon Perles and administer codeine cough syrup for bothersome dry cough
Continue daliresp
Patient is on Breztri as an outpatient -continue with Symbicort + Spiriva while hospitalized and then resume Breztri upon discharge
prn nebulized bronchodilators - not currently bronchospastic
Start precedex given he is anxious and agitated at times; he told the nursing staff that he wants to leave the hospital but he is hypoxic and capacity to make decisions is questionable
Transfuse blood products as needed to maintain Hb>7g/dL, plt>20
Monitor blood sugar to maintain euglycemia with goal BG 140-180
Aspiration precautions
DVT prophylaxis: LMWH
Reports Analyst/Pulmonary service will continue to follow along in CVICU while he is awaiting further TAVR workup to assess his candidacy.
Critical care statement: A total of 41 minutes of critical care time was provided for this patient today. This includes management of unstable vital signs, evaluation of the patient at bedside, reviewing the patient's pertinent medical records
including radiographs, microbiology, laboratory evaluations, and discussion with primary team, consultants, pharmacy, nutrition, physical therapy, case management, charge nurse, critical care nursing, and respiratory therapy.
Data:
CXR 09/05/2024: Possible slight progression of bilateral prominent interstitial markings which could represent worsening interstitial edema or pneumonitis.
Subjective Dataa
Subjective Data
Date of Service:
Date of Service: September 05, 2024
Chief Complaint: Reports Analyst Follow Up
Subjective:
Patient was seen and evaluated at bedside with patient's son-in-law, Drake, and grandson, Gene, at bedside. Patient is anxious appearing. BP 83/56, BP via arterial line: 90/76, heart rate 124 and saturating 96% on 4 L/min. Currently on milrinone at
0.25mcg/kg/min + vasopressin @ 0.03 units/min. He has a frequent dry cough. He denies chest pain, MCGEE, nausea, fevers or chills, but does endorse shortness of breath which is bothersome.
Review of Systems
General: Other (Negative unless mentioned above)
Objective Data
Data Reviewed
Vital Signs / I&O / Oxygen:
Vital Signs
Temp Pulse Resp BP Pulse Ox
98.3 F 114 31 85/67 96
09/05/24 08:00 09/05/24 09:42 09/05/24 09:42 09/05/24 08:00 09/05/24 09:42
Intake and Output
09/04/24 09/05/24 09/06/24
06:59 06:59 06:59
Intake Total 616.1 / 616.1
Output Total 965 / 965 100 / 100
Balance -348.9 / -348.9 -100 / -100
SaO2 96
Nasal Cannula flow liters per 4
minute
Physical Exam
General: Respiratory Distress (mild), Chills (negative), Sweats (negative) and Other (Anxious appearing)
HEENT: Normocephalic and Anicteric
Cardiovascular: S1-S2, Murmur (JUAN JOSE heard best at RUSB), Rub (negative), Peripheral Edema (negative) and Other (Tachycardic)
Respiratory: Wheeze (negative), Crackles (Bibasilar), Rhonchi (negative), Non-Labored Respirations and Other (Diminished breath sounds bilaterally)
GI: Soft, Non Distended, Non Tender and Normal Bowel Sounds
Neurology: AO x 3 and Tremors (negative)
Skin: Warm, Dry, Cyanosis (negative) and Jaundice (negative)
Labs/Micro/Reports
Lab Data
09/05/24 03:57
09/05/24 05:46
Laboratory Results
09/04/24 09/04/24 09/05/24
16:59 21:16 04:37
PT 15.4 H
INR 1.19
APTT 44.8 H
pH 7.51 H 7.52 H
pCO2 29 L 14 L*
pO2 69 L 168 H
HCO3 23.1 11.4 L*
O2 Delivery Level 40%
09/05/24
05:19
PT
INR
APTT
pH 7.47 H
pCO2 34 L
pO2 142 H
HCO3 24.7
O2 Delivery Level 40%
--- NOTE | 2024-09-05 09:05 | W.PN.UPDATE ---
Update Note
Progress Note Update
Procedure Type:�Isolated AVR
PERIOPERATIVE OUTCOME ESTIMATE %
Operative Mortality 21.6%
Morbidity & Mortality 63.4%
Stroke 4.23%
Renal Failure 9.02%
Reoperation 8.71%
Prolonged Ventilation 53.1%
Deep Sternal Wound Infection 0.15%
Long Hospital Stay (>14 days) 26.2%
Short Hospital Stay (<6 days)* 4.53%
--- NOTE | 2024-09-05 09:21 | W.PN.ANS.LIN ---
Anesthesia IV & A-Line Note
IV/Arterial Line
Right Radial Arrow 20 (12/01):
Diagnosis: cardiogenic shock
IV Line Comments: Uneventful Procedure
Allens test completed pre-procedure: Yes
A-Line Comments: Sterile technique as per standard protocol and Ultrasound guided insertion
Funtioning A-line in situ: Yes
A-line Insertion Start Time: 09:15
A-line Insertion Stop Time: 09:20
A-line in at:: 09:20
Comments: Verbal consent was obtained due to the emergent nature of the patient's condition (hypotension with BP in the 70s). Due to multiple prior attempts bilaterally, I had to go about 1/[address] up the forearm. Neither radial artery was
pulsatile below this level. I was able to appreciate a pulsatile, non calcified radial artery of a good size on the right side. The left sided radial artery was small, calcified, and non pulsatile. 2 attempts at ultrasound guided radial access with
success on the second attempt. Catheter was sutured in place and secured with tape & bio occlusive dressing. 1% lidocaine was used for local anesthesia. Patient tolerated well. If future arterial lines are needed, may need to consider brachial
access. Appropriate arterial waveform appreciated after insertion. Line deaired & zero'd appropriately.
--- NOTE | 2024-09-05 09:33 | PTCARENOTE ---
New Rt radial mariano placed by BASHIR Hoover.
[2024-09-05] MEDS: PROTONIX 40 MG PO (09:57)
[2024-09-05] MEDS: LIPITOR 20 MG PO (09:57)
[2024-09-05] MEDS: SENOKOT 8.6 MG PO (09:57)
[2024-09-05] MEDS: PLAVIX 75 MG PO (09:57)
[2024-09-05] MEDS: COLACE 100 MG PO (09:57)
[2024-09-05] MEDS: DALIRESP 500 MCG PO (09:57)
[2024-09-05] MEDS: BUMEX 50 IV (10:04)
[2024-09-05 10:39] LABS: Glycohemoglobin (HgbA1c) 6.1 % (4.0-5.6)
[2024-09-05] MEDS: PRIMACOR 20 MG 100 IV (11:18)
[2024-09-05] MEDS: LR 500 IV (11:19)
[2024-09-05] MEDS: PITRESSIN 100 IV ×2 (11:20→19:41)
--- NOTE | 2024-09-05 12:00 | PTCARENOTE ---
Pt reassessment remain unchanged, anxious and frequent panic attack, on MFo2 6-8l, livan mariano failed and was removed. Anesthesia called for brachial mariano placement. tachycardic, tachypneic, ativan .5mg po prn ordered, stat echo this am.
--- NOTE | 2024-09-05 12:23 | W.PN.UPDATE ---
Update Note
Progress Note Update
Patient had a panic attack and dislodged his arterial line. This is the second arterial line he's inadvertently dislodged and he's been stuck several times on both sides. Severe PVD in the lower extremities. Will have anesthesia assess for possible
brachial access. Briefly on NRB during the event but O2 sat 100%. Back on at 4 L O2. Will titrate for O2 goals >90%.
[2024-09-05] MEDS: ATIVAN 0.5 MG PO (12:36)
--- NOTE | 2024-09-05 12:54 | W.PN.CD ---
Today's Communication / Plan
-
-Starting pressure support with phenylephrine, Levophed, vasopressin and milrinone
-IV fluid x 1 along with albumin.
Impression / Plan
-
74 yo male with PMH of PAD, right CEA, HTN, hyperlipidemia, tobacco abuse presented to [facility] with chest pain. Went to shop laborer and found to have non-obstructive CAD, mildly elevated PCW, CO/CI 4.1/2.4. Echo shows EF 40%, severe .
Became hypotensive, started on milrinone and levophed, and transferred here for urgent TAVR evaluation.
# Hypotension
-unclear etiology
-Urgent echo this morning done on 07/06/2024 showing LVEF of 35% with severe aortic stenosis with low-flow low gradient
-Rotated cardiac chambers making otic flow gradient difficult to assess�likely higher than reported.
-Appears to have collapsible IVC with respiratory variations and no effusions. Consistent with volume depletion
-Discontinue Bumex drip and give IV fluid x 1 500 mL.
-Will start milrinone low-dose along with phenylephrine
-Arterial line in place now
-Severe peripheral artery disease making arterial line and cough blood pressure markedly different
# Severe
-undergoing TAVR eval
-Appears to be low-flow low gradient with severe .
-LVEF appears to be 35 to 40%.
# Cardiomyopathy, EF 40%
-appears to be NICM, in setting of severe
-weaning pressors/inotropes; then add GDMT
# PAD
-on plavix as outpatient: continue
# Hyperlipidemia
-check lipids to advise on statin dosing
Physical Exam
Vital Signs/Labs
Vital Signs
Temp Pulse Resp BP Pulse Ox
98.3 F 114 31 85/67 96
09/05/24 08:00 09/05/24 09:42 09/05/24 09:42 09/05/24 08:00 09/05/24 09:42
09/04/24 09/05/24 09/06/24
06:59 06:59 06:59
Actual Weight 72.9 kg
09/05/24 03:57
09/05/24 05:46
PT 15.4 Sec (11.4-14.6) H 09/04/24 16:59
INR 1.19 09/04/24 16:59
APTT 44.8 Sec (23.4-35.0) H 09/04/24 16:59
Magnesium 2.0 mg/dl (1.6-2.3) 09/05/24 05:46
Triglycerides 96 mg/dl (10-149) 09/05/24 03:57
LDL Cholesterol, Calc 56 mg/dl 09/05/24 03:57
VLDL Cholesterol, Calc 19 mg/dl (0-30) 09/05/24 03:57
HDL Cholesterol 50 mg/dl 09/05/24 03:57
09/05/24
00:11
Vzc-K-Ikenjrdiyqv Pept 5060
LAB Results
09/04/24 09/05/24 09/05/24
16:59 00:11 05:22
Troponin I 0.389 H* 0.319 H* 0.334 H*
Physical Exam
Constitutional: No acute distress, Distress (Patient especially gets respiratory distress by lying down) and Other
EENT: Anicteric and Moist mucous membranes
Cardiovascular: Rhythm & rate is regular, Pedal edema is absent, JVD pressure is normal and Systolic murmur present
Respiratory: Respiratory effort normal, Wheeze Absent and Crackles Present
GI: Soft, Non tender and Normal bowel sounds
Neuro/Psych: Alert, Oriented and AO x 3
Data Reviewed
-
Date of Service: September 05, 2024
Medical Decision Making: Reviewed Test Results
EKG: Tracing Personally Visualized and interpreted
Echo: Tracing Personally Visualized and interpreted
X-Ray/CT/US/MRI/NUC/PET: Image Personally Visualized and interpreted
Labs: Labs Reviewed by me
Old Records: Reviewed
Critical Care Time (in minutes): 45
[2024-09-05] MEDS: PRECEDEX 100 IV (13:53)
[2024-09-05] MEDS: FLEXBUMIN 50 IV ×2 (13:58→21:28)
--- NOTE | 2024-09-05 14:20 | W.PN.ANS.LIN ---
Anesthesia IV & A-Line Note
- IV/Arterial Line
Right Brachial Single Lumen
IV Line Comments: Uneventful Procedure
Comment: sterile technique, chloroprepped, probe covered. 20 G 12 cm catheter
A-Line Comments: Sterile technique as per standard protocol, Seldinger technique used, Ultrasound guided insertion, Biopatch applied
A-line Insertion Start Time: 14:00
A-line Insertion Stop Time: 14:20
[2024-09-05] MEDS: TESSALON PERLES 200 MG PO ×2 (14:23→21:29)
[2024-09-05] MEDS: ROBITUSSIN AC 10 ML PO (14:23)
--- NOTE | 2024-09-05 15:39 | PTCARENOTE ---
Pt reassesment remain unchanged, continue to have anxious/panic movement increasing o2 demand, tachycardic 130-150's, increase o2 to NRB from nc, started milrilone 0.25mcg, vaso 0.03, precedex @ 0.2, pending potential transfer to ICU, new brachial
mariano placed by anesthesia.
--- NOTE | 2024-09-05 16:27 | W.PN.HOSP.TC ---
Today's Communication/Plan
-
See below and also see specialists' notes
Assessment / Plan
Assessment / Plan
Physical Exam
General: No Apparent Distress
HEENT: NormoCephalic
Respiratory: Decreased Breath Sounds with bibasilar crackles
Cardiac: S1/S2 and Regular Rhythm. Tachycardia.
GI: Soft, Non Tender and Normal Bowel Sounds
Musculoskeletal: No Cyanosis
Skin: Warm and Dry
Neuro: Awake, Alert and AO x 3
Psych: Calm and Intact Judgment/Insight
Assessment/Plan
Severe aortic stenosis
Initial presentation to [facility] with abdominal and chest pain, with history of decreased PO intake, nausea, vomiting and regurgitation
Hypotensive (thought to be from dehydration), chest pain, respiratory distress, dizziness, and generalized weakness at [facility]
HFmrEF and Cardiac Hypokinesis
-Had cardiac cath at [facility], showed second major diagonal branch with a ostial 60 to 70% stenosis, mild diffuse atherosclerosis in some parts of the LAD system, mild elevation of pulmonary artery pressures
-Continue statin and Plavix
-Patient was transferred to [facility] for cardiothoracic evaluation for severe aortic stenosis.
-Continue close monitoring in CVICU/ICU
-Avoid hypotension: continue phenylephrine, Levophed, vasopressin and milrinone, wean as tolerated
-Physical Security Specialist, Cardiothoracic Surgery, and Cardiology all consulted, appreciate their evaluation and recommendations
-Repeat echo/CHICHI pending for 09/05/24
-Precedex for anxiety/agitation as per cdl company driver
-Was given Bumex Drip overnight 09/04/24 to 09/05/24 but then it was stopped due to finding of volume depletion
Abdominal aortic aneurysm
Peripheral artery disease status post prior PCI of the left FSA stent in 2012 (Dr. Ng), left common femoral endarterectomy
Bilateral common iliac disease
Bilateral external iliac disease
Bilateral iliac stents
High-grade short segment stenosis involving the celiac trunk origin, SMA origin, left renal artery origin and a short segment of the left common femoral artery as per [facility] CT Scan results
Occlusion of the SFA's
Right carotid endarterectomy
Bilateral carotid stenosis
-Continue Plavix, Statin
Leukocytosis (had leukocytosis at [facility] hospital as well)
-Monitor CBC and for any signs of infection
Coronary artery disease
-Continue Plavix, statin
Chronic obstructive pulmonary disease (former smoker)
-Continue Daliresp
-Continue with Symbicort + Spiriva while hospitalized and then resume Breztri upon discharge
Prediabetes (A1c 6.2%)
-Carb-controlled diet
Hypertension
-For now trying to treat hypotension
Hyperlipidemia
-Continue statin
History of bleeding disorder?
DVT Prophylaxis: Lovenox
Code Status: Full Code
Severe aortic stenosis needing Levophed, Phenylephrine, Vasopressin and Milrinone in the setting of heart failure and needing monitoring in the CVICU/ICU, is a high-risk encounter.
Anticipated Discharge: > 48 hours
Subjective/Interval History
-
Date of Service: September 05, 2024
Patient was seen and examined. He denied any chest pain, but did report some shortness of breath.
Objective Data
-
Labs:
Laboratory Results
09/05/24 09/05/24 09/05/24
03:57 04:37 05:19
WBC 12.7 H
Hgb 9.6 L
Hct 29.0 L
Plt Count 264
HCO3 11.4 L* 24.7
Sodium 137
Potassium 4.4
Chloride 105
Carbon Dioxide 25
BUN 14
Creatinine 0.7
Glucose 119 H
Calcium 8.3 L
09/05/24 09/05/24
05:46 10:55
WBC
Hgb
Hct
Plt Count
HCO3 Cancelled
Sodium 137
Potassium 4.7
Chloride 104
Carbon Dioxide 25
BUN 14
Creatinine 0.8
Glucose 97
Calcium 9.9 D
Vital Signs:
Vital Signs
Temp Pulse Resp BP Pulse Ox
98.2 F 126 32 80/60 92
09/05/24 15:00 09/05/24 15:00 09/05/24 15:00 09/05/24 13:15 09/05/24 15:00
I&O
09/04/24 09/05/24 09/06/24
06:59 06:59 06:59
Intake Total 616.1 / 616.1 500 / 500
Output Total 965 / 965 750 / 750
Balance -348.9 / -348.9 -250 / -250
[2024-09-05] MEDS: LOVENOX 40 MG SC (18:12)
--- NOTE | 2024-09-05 19:30 | PTCARENOTE ---
Assumed care of the patient at 1900. Patient in bed, repositioned and boosted with day shift RN. Patient AOx3 but forgetful and anxious. Sinus tachycardia on the monitor rates 110-120's, +1 edema of the lower extremities, heart sounds distant on
auscultation, weak pedal pulses. On 6LPM midflow oxygen, lungs diminished at the bases with expiratory wheezes throughout anteriorly, frequent, dry, harsh nonproductive cough, in distress when fits of coughing arise. Patient with poor appetite;
abdomen round, SNT. Manzo catheter in place draining clear robert urine, minimal output. Patient with generalized ecchymosis on arms from prior access attempts. R brachial mariano in place, line leveled and zeroed; RUE double lumen PICC infusing gtts -
Precedex, vaso, Milrinone, and LR KVO. PIVx1 in L arm. See worklist for titration and intervention details.
[2024-09-05] MEDS: COLACE PO (20:29)
[2024-09-05] MEDS: SENOKOT PO (20:29)
--- NOTE | 2024-09-06 | PTCARENOTE ---
Dr. Covarrubias reached out via TT and asked for an EKG with the 2100 trop draw, results in the chart - trops decreased, repeat in AM. Patient on a NRB satting 95-99%, was down to 82-85% on 7L midflow NC. Pressures 80's systolic, Vaso at 0.05 u/min -
MAP is sufficient per ICU CULTURAL ANTHROPOLOGY PROFESSOR. As long as MAP >65 no need for additional pressors. ICU CULTURAL ANTHROPOLOGY PROFESSOR advised to start Uyri if MAP <65.
Patient with periods of coughing/distress and increased WOB, on and off NRB, attempted to place midflow NC back on, desatted to 82-85% again within minutes. NRB placed - 15L-->11L-->9LPM d/t COPD history. Sats subsequently 93-96% patient calm.
Urine turned from robert to punch colored, low output, CULTURAL ANTHROPOLOGY PROFESSOR ordered 250 LR bolus. Patient seemingly more comfortable with NRB and fell asleep, awakening to voice/tactile stimulation during hourly checks, BP improved after bolus. Assessment of needs
ongoing, call villaseñor within reach.
[2024-09-06] MEDS: LR 250 IV ×2 (00:36→04:58)
[2024-09-06] MEDS: PRIMACOR 20 MG 100 IV ×2 (01:48→17:12)
[2024-09-06] MEDS: XOPENEX 1.25 MG INHALANT SOLUTION INH ×6 (02:07→19:03)
[2024-09-06] MEDS: ANESTHETIC LOZENGE 1 LOZENGE PO (02:37)
[2024-09-06] MEDS: PITRESSIN 100 IV ×3 (03:44→20:02)
--- NOTE | 2024-09-06 04:00 | PTCARENOTE ---
Patient c/o burning in his throat, given a lozenge. Had PRN breathing treatment. Maintained on NRB throughout night, slept between care, afebrile, BP stable. No UOP from [id number], RIVET HOLE PUNCHER notified. Otherwise unchanged. Assessment of needs ongoing.
[2024-09-06] MEDS: FLEXBUMIN 50 IV (05:11)
[2024-09-06] MEDS: PRECEDEX 100 IV ×3 (05:11→21:10)
[2024-09-06 05:41] LABS: Blood Urea Nitrogen 23 mg/dl (9-20); Calcium 8.4 mg/dl (8.4-10.2); Carbon Dioxide 25 mmol/L (22-30); Chloride 101 mmol/L (98-107); Glucose 150 mg/dl (70-99); Magnesium 1.9 mg/dl (1.6-2.3); Potassium 4.3 mmol/L (3.5-5.1); Sodium 132 mmol/L (135-145); eGFR > 60.00
[2024-09-06 06:00] VITALS: BMI 22.8
[2024-09-06 06:34] LABS: % Basophils 0.3 % (0-2); % Eosinophils 23.8 % (0-6); % Immature Granulocytes 0.4 % (0-0.5); % Lymphocytes 11.3 % (20.5-51.1); % Monocytes 6.5 % (1.7-9.3); % Neutrophils 57.7 % (42.2-75.2); Absolute Eosinophils 1.9 10^3/uL (0-0.7); Absolute Lymphocytes 0.9 10^3/uL (1.2-3.4); Absolute Monocytes 0.5 10^3/uL (0.1-0.6); Absolute Neutrophils 4.5 10^3/uL (1.4-6.5); Hematocrit 25.5 % (39.0-52.0); Hemoglobin 8.1 g/dL (13.0-18.0); Mean Corp Hgb Conc. 31.8 g/dL (33.0-37.0); Mean Corpuscular Hgb 31.8 pg (27.0-31.0); Mean Platelet Volume 10.1 fL (7.4-10.4); Nucleated Red Blood Cells % 0 % (-); Platelet Count 192 10^3/uL (130-400); Red Blood Cell Count 2.55 10^6/uL (4.70-6.10); Red Cell Dist. Width 13.7 % (11.5-14.5); White Blood Cell Count 7.8 10^3/uL (4.8-10.8)
[2024-09-06] MEDS: SYMBICORT 160/4.5 MCG INHALER 2 PUFF INH ×2 (08:09→19:03)
[2024-09-06] MEDS: SPIRIVA RESPIMAT 2.5 MCG 2 PUFF INH (08:09)
--- NOTE | 2024-09-06 08:31 | W.PN.INTV ---
Today's Communication / Plan
Recommendations
Continue with milrinone and monitor for arrhythmias
Vasopressin
Change Levophed to Yuri-Synephrine given presence of severe aortic stenosis
Maintain MAP >65-70 to help perfuse kidneys and hopefully improve UOP
Pending echo/CHICHI for tomorrow if he is clinically stable
Antitussants
Continue Precedex drip for anxiety/agitation
Symbicort + Spiriva and xopenex TID with prn xopenex for breakthrough symptoms
Start Abx to cover for HAP given abnormal CXR with low suspicion currently for volume overload
Start systemic steroids; goal BG 140-180
Strict I/O
Continue with ICU level of care
Assessment
-
Assessment: 74-year-old male with a past medical history of chronic HFrEF, severe aortic stenosis, PVD, history of COPD, former tobacco smoker and hyperlipidemia who presents as a transfer from [facility] for evaluation for TAVR. Patient
initially presented to [facility] on 09/02/24 with chest pain and worsening shortness of breath. A rapid response was called as he was hypotensive, dizzy and weak and was endorsing chest pain. ACS was suspected and heparin drip was started.
Transthoracic echo on 09/03/2024 showed moderately hypokinetic apex with distal lateral and distal septal moderate hypokinesis, with LVEF 44.4% with normal RV size and systolic function and severe aortic valve stenosis with MARGARETTE: 1.03 with mean
gradient of 34.2 mmHg. He underwent a left heart catheterization on 09/03/2024 showing mild�moderate nonobstructive CAD with mildly elevated pulmonary and wedge pressures with normal right heart catheterization (PCWP: 16mmHg, PADP: 17mmHg, RA:
11mmHg). CTA chest was performed at [facility] showing mild aneurysmal dilatation of the infrarenal abdominal aorta, patent bilateral iliac stents, high-grade short segment stenosis involving the celiac trunk origin, SMA origin, left renal artery origin
and a short segment of the left common femoral artery, as well as emphysematous changes and bronchitis. Patient was transferred here to [place] for evaluation for TAVR.
Chronic conditions HOOK LOADER: Chronic HFrEF, low gradient severe aortic stenosis, PVD, former tobacco smoker (quit 06/2019), history of severe COPD, hyperlipidemia, AAA
Impression:
#Severe aortic stenosis awaiting TAVR workup
#Chronic HFrEF
#Acute COPD exacerbation (on Breztri at home)
#PAD
#Hypotension suspected to be due to cardiogenic shock on vasopressors + milrinone
#Anemia
#Hypereosinophilia (absolute eosinophil count: 2100)
#Acute respiratory alkalosis
#Elevated troponin likely due to NSTEMI
#Abnormal urinalysis with +1 leukocyte esterase
#Former tobacco smoker (quit 06/2019 with >20 5�56-[id number] history)
#AAA
Plan:
Cardiology consulted and he is awaiting evaluation for TAVR
Repeat echo/CHICHI pending for tomorrow (09/07)
Wean off Levophed, transition to Yuri to help perfuse kidneys to see if this improves UOP; continue milrinone and wean as tolerated and monitor for arrhythmias
Maintain MAP>65
Replete electrolytes with K>4, Mg>2
Deferred GDMT for now given he is hypotensive
Hold Plavix for washout for possible TAVR next week
Continue with supplemental oxygen and titrate to keep SpO2 88-95%
Continue Tessalon Perles with prn codeine cough syrup for bothersome dry cough
Continue daliresp
Patient is on Breztri as an outpatient - continue with Symbicort + Spiriva while hospitalized and then resume Breztri upon discharge
Given that he is wheezing today and short of breath with absent rales on exam, start systemic steroids (Solu-Medrol 40 mg IV q6hr) and wean as he clinically improves
- Maintain euglycemia while on high-dose steroid
prn nebulized bronchodilators
Continue precedex given he is anxious and agitated at times; he told the nursing staff that he wants to leave the hospital but he is hypoxic and capacity to make decisions is questionable
prn morphine
Given that his CXR shows bilateral patchy opacities and he is not clinically volume overloaded, I will start treatment with antibiotics for suspected pneumonia
- Given that he has been hospitalized for >48 hours, cover for Pseudomonas + MRSA to cover for HAP
- Start cefepime, Zithromax + IV vancomycin
- Check MRSA swab and if negative then can DC IV vancomycin
- Check cultures with blood culture, sputum culture (if he can produce a decent sample), and urine antigens for Legionella/strep pneumonia
Transfuse blood products as needed to maintain Hb>7g/dL, plt>20
Monitor blood sugar to maintain euglycemia with goal BG 140-180
Aspiration precautions
DVT prophylaxis: LMWH
Dry Paste Supervisor/Pulmonary service will continue to follow along in CVICU while he is awaiting further TAVR workup to assess his candidacy.
Critical care statement: A total of 46 minutes of critical care time was provided for this patient today. This includes management of unstable vital signs, evaluation of the patient at bedside, reviewing the patient's pertinent medical records
including radiographs, microbiology, laboratory evaluations, and discussion with primary team, consultants, pharmacy, nutrition, physical therapy, case management, charge nurse, critical care nursing, and respiratory therapy.
Data:
CXR 09/05/2024: Possible slight progression of bilateral prominent interstitial markings which could represent worsening interstitial edema or pneumonitis.
CXR 09/06/2024 (compared to CXR from 09/04/2024): Bilateral pneumonia as described above. Significantly increased.
Subjective Dataa
Subjective Data
Date of Service:
Date of Service: September 06, 2024
Chief Complaint: Dry Paste Supervisor Follow Up
Subjective:
Patient seen and evaluated today at bedside. Still very anxious. Currently on Precedex at 0.3 mcg/kg/hr. Also on milrinone at 0.25mcg/kg/min with BP 110/54 + heart rate 105. Remains on vasopressin at 0.07 units/min. Per nurse, he is having
reduced urine output. Patient says his mouth feels dry. He denies chest pain, MCGEE, nausea, fevers or chills. SOB is his major complaint.
Review of Systems
General: Other (Negative unless mentioned above)
Objective Data
Data Reviewed
Vital Signs / I&O / Oxygen:
Vital Signs
Temp Pulse Resp BP Pulse Ox
98.1 F 97 24 80/60 98
09/06/24 08:00 09/06/24 09:00 09/06/24 09:00 09/05/24 13:15 09/06/24 09:00
Intake and Output
09/05/24 09/06/24 09/07/24
06:59 06:59 06:59
Intake Total 616.1 / 616.1 1525.0 / 1561.0 97.0 / 97.0
Output Total 965 / 965 942.5 / 952.5 35 / 35
Balance -348.9 / -348.9 582.5 / 608.5 62.0 / 62.0
SaO2 98
Nasal Cannula flow liters per 40
minute
Physical Exam
General: Respiratory Distress (mild), Chills (negative), Sweats (negative) and Other (Anxious appearing)
HEENT: Normocephalic and Anicteric
Cardiovascular: S1-S2, Murmur (JUAN JOSE heard best at RUSB), Rub (negative), Peripheral Edema (negative) and Other (Tachycardic)
Respiratory: Wheeze ([place] upon expiration in the bases bilaterally), Crackles (negative), Rhonchi (negative), Non-Labored Respirations and Other (Diminished breath sounds bilaterally)
GI: Soft, Non Distended, Non Tender and Normal Bowel Sounds
Neurology: AO x 3 and Tremors (negative)
Skin: Warm, Dry, Cyanosis (negative) and Jaundice (negative)
Labs/Micro/Reports
Lab Data
09/06/24 05:05
09/06/24 05:05
Laboratory Results
09/05/24
10:55
pH Cancelled
pCO2 Cancelled
pO2 Cancelled
HCO3 Cancelled
O2 Delivery Level Cancelled
Microbiology
09/04/24 16:59 Urine Urine Culture - Final
NO GROWTH
[2024-09-06] MEDS: LIPITOR 20 MG PO (08:40)
[2024-09-06] MEDS: DALIRESP 500 MCG PO (08:40)
[2024-09-06] MEDS: TESSALON PERLES 200 MG PO ×3 (08:40→21:05)
[2024-09-06] MEDS: COLACE 100 MG PO ×2 (08:40→21:02)
[2024-09-06] MEDS: PROTONIX 40 MG PO (08:40)
[2024-09-06] MEDS: SENOKOT 8.6 MG PO ×2 (08:40→21:02)
--- NOTE | 2024-09-06 08:45 | PTCARENOTE ---
Assumed care of patient at 0700. Pt is drowsy awakens to voice. Pt is oriented. Pt calm at the moment, remains on Precedex gtt. Pt remains SR/ST HR 90's-109. BP 101/47 MAP 69. Currently on Vaso 0.065units/min, Milrinone 0.25mcg/kg/min. Currently on
10L non-rebreather, pulse oximetry 99%. Pt continues to appear dyspneic at rest. Has occasional nonproductive harsh cough. Pt tolerating PO medication. Manzo catheter remains in place. Urine output is poor last hourly output 5mL, notified
Satish, Dr. Hood, and Dr. Sanchez in group [facility] Text. No changes as this time, continuing to optimize MAP. Skin ecchymotic, intact. Right upper extremity PICC in place. Right brachial Bonnie intact. Pt currently in bed with call villaseñor within
reach.
--- NOTE | 2024-09-06 08:59 | W.PN.UPDATE ---
Update Note
Progress Note Update
Brief CTS Note
Seen this AM with Dr. Stanley
No new cardiac surgery issues overnight. Hemodynamically stable on milrinone 0.25 and vaso 0.06
Will need alternative access TAVR, likely right axillary if the vessel is large enough. Will need axillary artery measurements.
This approach would necessitate open exposure. Given this, will hold Plavix.
Surgical planning for possibly later this week. Will need multidisciplinary review prior to finalizing surgical plan.
Remainder of medical management per primary team/consultants in the interim.
[2024-09-06] MEDS: PLAVIX PO (09:14)
[2024-09-06] MEDS: NEO-SYNEPHRINE 250 IV (12:12)
--- NOTE | 2024-09-06 12:25 | PHA.VAN.IN ---
Assessment
- Assessment
Renal Function: Unknown baseline
Maximum Temperature: 98.8
Minimum Temperature: 98.2
Concomitant Antimicrobials: Cefepime; Azithromycin
AUC Dosing Plan
- Dosing Variables
Dosing Weight (kg): 66.9
Dosing CrCl (ml/min): 77
Vd coefficient (L/kg): 0.7
- Empiric Dosing
Initial / Loading Dose: Vanc 1500mg--administration pending
Maintenance Regimen: Vanc 750mg IV q12h beginning 09/07 at 0600
Estimated AUC (mcg*h/mL): 484.93
Estimated Peak (mcg*h/mL): 28.63
Estimated Trough (mcg/ml): 13.5
Estimated Half Life (H): 10.1
- Monitoring
No levels ordered at this time: Consider levels after 09/08 1800 dose.
Pharmacokinetics Vancomycin I
- -
Patient Age: 74
Patient Sex: Male
Vancomycin Day #: 1
Indication: Pulmonary/Respiratory
Requesting Provider: Satish
Pertinent Antimicrobial Allergies:
Levofloxacin = 'feels closed in.'
Height / Weight:
Height 5 ft 7.5 in
Actual Weight 66.9 kg
IBW in k.3
Adjusted BW in kg: NA
- Vital Signs / Lab Results
Temp Pulse Resp BP Pulse Ox
98.2 F 102 26 80/60 96
09/06/24 11:00 09/06/24 12:00 09/06/24 12:00 09/05/24 13:15 09/06/24 12:00
Lab Results - Hematology
09/04/24 09/05/24 09/06/24
16:59 03:57 05:05
WBC 17.9 H 12.7 H 7.8
Lab Results - Chemistry
09/04/24 09/05/24 09/05/24
16:59 03:57 05:46
BUN 14 14 14
Creatinine 0.7 0.7 0.8
Albumin 2.9 L
09/06/24
05:05
BUN 23 H
Creatinine 0.8
Albumin
09/04/24
16:59
Lactic Acid 1.5
Lab Results - Urine
09/04/24
16:59
Urine Nitrite (Reflex) Negative
Leukocyte Esterase Rfl 1+ A
Urine WBC (Reflex) 3-5
Ur Squamous Epith Cells 3-5
Urine Bacteria (Reflex) Few A
Microbiology Results
09/04/24 16:59 Urine Culture - Final
Urine NO GROWTH
[2024-09-06] MEDS: MAXIPIME 2000 MG IV ×2 (12:26→21:02)
[2024-09-06] MEDS: ZITHROMAX 500 MG PO (12:26)
[2024-09-06] MEDS: SOLU-MEDROL PF 40 MG IV ×2 (12:26→19:32)
[2024-09-06] MEDS: STERILE WATER FOR INJECTION 10 ML IV ×2 (12:26→21:02)
--- NOTE | 2024-09-06 12:30 | PTCARENOTE ---
Portable chest xray done. Yuri 25mcg/min added. Remains on Vaso 0.07units/min and Milrinone 0.25mcg/kg/min. Urine output remains poor, last hour urine output 10mL. Pt remains ST HR 105. BP 117/52 MAP 78. Pule oximetry 95% on high flow 40L 80%FiO2.
--- NOTE | 2024-09-06 13:09 | W.PN.CD ---
Today's Communication / Plan
-
-hemodynamic pressure support
-Start steroids, antibiotics and wean off pressors.
-TAVR workup still in progress
Impression / Plan
-
74 yo male with PMH of PAD, right CEA, HTN, hyperlipidemia, tobacco abuse presented to [facility] with chest pain. Went to dairy laboratory technician and found to have non-obstructive CAD, mildly elevated PCW, CO/CI 4.1/2.4. Echo shows EF 40%, severe .
Became hypotensive, started on milrinone and levophed, and transferred here for urgent TAVR evaluation.
# Mixed cardiogenic/infectious/vascular shock
-unclear etiology
-Requiring high flow oxygen.
-Appears to have some respiratory component with worsening chest x-ray. Status post Bumex and small fluid given.
-On multiple pressors at this time.
-Discussed in detail with multiple providers involved. Plan for antibiotics, steroids and pressors
-Pneumonia workup with Legionella, mycoplasma and strep. Blood cultures sputum culture.
-Continue milrinone and Yuri-Synephrine. Still on vasopressin
-Urgent echo this morning done on 07/06/2024 showing LVEF of 35% with severe aortic stenosis with low-flow low gradient
-Rotated cardiac chambers making otic flow gradient difficult to assess�likely higher than reported.
-Patient feels better this morning with WBC improved but still requiring high flow oxygen and worsening of chest x-ray.
-Arterial line in place now
-Severe peripheral artery disease making arterial line and cough blood pressure markedly different
-give Bumex as needed and as tolerated
# Severe
-undergoing TAVR eval
-Appears to be low-flow low gradient with severe .
-LVEF appears to be 35 to 40%.
-Last dose of Plavix on 09/05/2024-history of PAD and peripheral stent
-Continue Lovenox and aspirin
# Cardiomyopathy, EF 40%
-appears to be NICM, in setting of severe
-weaning pressors/inotropes; then add GDMT
# Severe COPD
-CT scan from [facility] was reviewed
-Discussed with pulmonary -Dr. Covarrubias
# PAD
-on plavix as outpatient: continue
# Hyperlipidemia
-statin
Physical Exam
Vital Signs/Labs
Vital Signs
Temp Pulse Resp BP Pulse Ox
98.2 F 102 26 80/60 96
09/06/24 11:00 09/06/24 12:00 09/06/24 12:00 09/05/24 13:15 09/06/24 12:00
09/05/24 09/06/24 09/07/24
06:59 06:59 06:59
Actual Weight 72.9 kg 66.9 kg
09/06/24 05:05
09/06/24 05:05
PT 15.4 Sec (11.4-14.6) H 09/04/24 16:59
INR 1.19 09/04/24 16:59
APTT 44.8 Sec (23.4-35.0) H 09/04/24 16:59
Magnesium 1.9 mg/dl (1.6-2.3) 09/06/24 05:05
Triglycerides 96 mg/dl (10-149) 09/05/24 03:57
LDL Cholesterol, Calc 56 mg/dl 09/05/24 03:57
VLDL Cholesterol, Calc 19 mg/dl (0-30) 09/05/24 03:57
HDL Cholesterol 50 mg/dl 09/05/24 03:57
09/05/24
00:11
Put-B-Pbvdbpelaja Pept 5060
LAB Results
09/04/24 09/05/24 09/05/24
16:59 00:11 05:22
Troponin I 0.389 H* 0.319 H* 0.334 H*
09/05/24 09/05/24 09/05/24
11:00 16:47 21:06
Troponin I Cancelled 7.100 H* 6.230 H*
09/06/24
05:05
Troponin I 6.470 H*
Physical Exam
Constitutional: No acute distress and Comfortable
Cardiovascular: Rhythm & rate is regular, Pedal edema is absent, JVD pressure is normal and Systolic murmur present
Respiratory: Wheeze Present, Crackles Present and Rhonchi Present
GI: Soft, Non tender and Normal bowel sounds
Neuro/Psych: Alert, Oriented and AO x 3
Data Reviewed
-
Date of Service: September 06, 2024
Medical Decision Making: Reviewed Test Results
EKG: Tracing Personally Visualized and interpreted
Echo: Tracing Personally Visualized and interpreted
Labs: Labs Reviewed by me
Old Records: Reviewed
Critical Care Time (in minutes): 45
[2024-09-06] MEDS: VANCOCIN 530 MG IV (14:28)
[2024-09-06] MEDS: MORPHINE SULFATE 2 MG IV (16:06)
--- NOTE | 2024-09-06 16:30 | PTCARENOTE ---
Pt reports feeling unable to breath. Respiratory rate 40's. Dr. Covarrubias notified, one time dose of morphine administered per order. Precedex titrated. Respiratory to bedside, high flow increased to 55L 100% FiO2. Pt remains ST with HR 107. BP
125/62 MAP 88. Pulse oximetry 96%. Pt remain on Yuri, Vaso, Milrinone, and Precedex.
[2024-09-06] MEDS: ATIVAN 0.5 MG PO (17:13)
[2024-09-06 17:48] LABS: B.E. -2.7 mmol/L; HCO3 21.7 mmol/L (21-28); PCO2 35 mmHg (35-48); PO2 186 mmHg (83-108)
--- NOTE | 2024-09-06 18:02 | PTCARENOTE ---
"Pt feeling SOB, reports that he is unable to breath. Having increased anxiety, pt reports to feel that he is going to tonight. PRN Ativan administered. Titrated Precedex. Contacted respiratory therapist, nonrebreather placed over high flow. "Jose"Satish contacted, was able to come talk with pt one time dose of Morphine ordered. "
[2024-09-06] MEDS: LOVENOX 40 MG SC (18:29)
[2024-09-06] MEDS: MORPHINE SULFATE 1 MG IV (18:34)
--- NOTE | 2024-09-06 18:34 | W.PN.HOSP.TC ---
Today's Communication/Plan
-
Hold Plavix
Steroids, antibiotics
Appreciate driver manager and bi data modeler
Assessment / Plan
Assessment / Plan
Physical Exam
General: Anxious
HEENT: Normocephalic
Respiratory: Decreased Breath Sounds bilaterally
Cardiac: S1/S2 and Regular Rhythm. Tachycardia.
GI: Soft, Non Tender and Normal Bowel Sounds
Musculoskeletal: No Cyanosis
Skin: Warm and Dry
Neuro: Awake, Alert and AO x 3
Psych: Anxious
Assessment/Plan
Severe aortic stenosis
Initial presentation to [facility] with abdominal and chest pain, with history of decreased PO intake, nausea, vomiting and regurgitation
Hypotensive (thought to be from dehydration), chest pain, respiratory distress, dizziness, and generalized weakness at [facility]
HFmrEF and Cardiac Hypokinesis
-Had cardiac cath at [facility], showed second major diagonal branch with a ostial 60 to 70% stenosis, mild diffuse atherosclerosis in some parts of the LAD system, mild elevation of pulmonary artery pressures
-Continue statin
-Hold Plavix for possible TAVR this week
-Patient was transferred to [facility] for cardiothoracic evaluation for severe aortic stenosis.
-Continue close monitoring in CVICU/ICU
-Avoid hypotension: continue vasopressors and milrinone, wean as tolerated
-Sales Performance Analyst, Cardiothoracic Surgery, and Cardiology all consulted, appreciate their evaluation and recommendations
-Repeat echo/[facility] pending for 09/07/24
-Precedex for anxiety/agitation as per driver manager
-Was given Bumex Drip overnight 09/04/24 to 09/05/24 but then it was stopped due to finding of volume depletion; continue Bumex prn and as tolerated
Bilateral Patchy Opacities on CXR, concern for Pneumonia
-Start cefepime, Zithromax + IV vancomycin since patient has been hospitalized for more than 2 days (was in [place] prior to coming here as well)
-If MRSA negative, can stop Vancomycin
Abdominal aortic aneurysm
Peripheral artery disease status post prior PCI of the left FSA stent in 2013 (Dr. Ng), left common femoral endarterectomy
Bilateral common iliac disease
Bilateral external iliac disease
Bilateral iliac stents
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
Occlusion of the SFA's
Right carotid endarterectomy
Bilateral carotid stenosis
-Continue Statin
-Holding Plavix for washout for TAVR
Anxiety/Agitation
-Continue Precedex
-He mentioned he wants to leave the hospital but he is hypoxic and his decision-making capacity is questionable
Leukocytosis (had leukocytosis at [facility] hospital as well)
-Monitor CBC and for any signs of infection
Coronary artery disease
-Continue statin
-Holding Plavix as above
Chronic obstructive pulmonary disease (former smoker)
-Continue Daliresp
-Continue with Symbicort + Spiriva while hospitalized and then resume Breztri upon discharge
-Systemic steroids with IV Solumedrol given wheezing, appreciate pulmonary
Prediabetes (A1c 6.2%)
-Carb-controlled diet
Hypertension
-For now trying to treat hypotension
Hyperlipidemia
-Continue statin
History of bleeding disorder?
DVT Prophylaxis: Lovenox
Code Status: Full Code
Precedex for agitation/anxiety and severe aortic stenosis needing pressors and Milrinone in the setting of heart failure and needing monitoring in the CVICU/ICU, is a high-risk encounter.
Anticipated Discharge: > 48 hours
Subjective/Interval History
-
Date of Service: September 06, 2024
Patient was seen and examined. He denied chest pain but still has shortness of breath.
Objective Data
-
Labs:
Laboratory Results
09/06/24 09/06/24
05:05 17:41
WBC 7.8
Hgb 8.1 L
Hct 25.5 L
Plt Count 192 D
HCO3 21.7
Vital Signs:
Vital Signs
Temp Pulse Resp BP Pulse Ox
98.2 F 105 38 80/60 100
09/06/24 15:00 09/06/24 18:15 09/06/24 18:15 09/05/24 13:15 09/06/24 18:15
I&O
09/05/24 09/06/24 09/07/24
06:59 06:59 06:59
Intake Total 616.1 / 616.1 1525.0 / 1561.0 986.7 / 986.7
Output Total 965 / 965 942.5 / 952.5 145 / 145
Balance -348.9 / -348.9 582.5 / 608.5 841.7 / 841.7
--- NOTE | 2024-09-06 21:15 | PTCARENOTE ---
Assumed care of pt from dayshift RN. Walking rounds completed. Pt is AAOx3. Anxious and restless. Precedex infusing as ordered. Pt sinus tach on the tele monitor. HR 100s. Murmur auscultated. BP 120s/60s. +1 B/L upper/lower extremity. B/L DP pulses
present via doppler. B/L radial pulses palpable. Pt on high flow nasal cannula at 55 L and 100%. POX 99%. Occasional harsh cough present. Abdomen soft/nontender. +BS. Decreased appetite. Manzo catheter C/D/I and draining robert urine at less than 30
ml/hr. Bruising on skin present. Right upper arm PICC C/D/I. Right brachial a-line C/D/I. A-line leveled, zeroed, and flushed. Left AC PIV C/D/I. Precedex, Vaso, Yuri, and Milrinone infusing as ordered. Pt resting in bed at this time and updated w/
plan for night. See worklist for full nursing assessment and interventions. Call villaseñor within reach.
[2024-09-07] MEDS: SOLU-MEDROL PF 40 MG IV ×4 (00:10→17:53)
[2024-09-07 00:11] VITALS: BP 105/71
[2024-09-07] MEDS: ATIVAN 0.5 MG PO (00:35)
[2024-09-07] MEDS: PRECEDEX 100 IV ×4 (00:58→12:58)
--- NOTE | 2024-09-07 01:01 | PTCARENOTE ---
Pt reassessed. Pt remains sinus tach on the tele monitor. HR 100s. BP 120-130s/60-70s. Titrating down vaso per protocol - per TRADING ANALYST Donald come down on vaso first. Pt on high flow NC at 55L and 100%. Pt w/ harsh cough. Pt intermittently tachypneic w/
RR in the 20-40s. Manzo catheter C/D/I. UO is robert and <30 ml/hr. Pt is anxious and frustrated. Emotional support provided. Yuri, Vaso, Precedex, and Milrinone infusing. Right brachial a-line intact, leveled/zeroed/flushed. Call villaseñor within reach.
[2024-09-07 03:04] VITALS: BP 92/65
[2024-09-07] MEDS: STERILE WATER FOR INJECTION 10 ML IV ×3 (03:09→20:36)
[2024-09-07] MEDS: MAXIPIME 2000 MG IV ×3 (03:09→20:36)
[2024-09-07 04:11] LABS: % Basophils 0.1 % (0-2); % Eosinophils 0.5 % (0-6); % Immature Granulocytes 0.7 % (0-0.5); % Lymphocytes 8.9 % (20.5-51.1); % Monocytes 5.2 % (1.7-9.3); % Neutrophils 84.6 % (42.2-75.2); Absolute Immature Granulocytes 0.1 10^3/uL (0-0.05); Absolute Lymphocytes 0.7 10^3/uL (1.2-3.4); Absolute Monocytes 0.4 10^3/uL (0.1-0.6); Hematocrit 28.6 % (39.0-52.0); Hemoglobin 9.3 g/dL (13.0-18.0); Mean Corp Hgb Conc. 32.5 g/dL (33.0-37.0); Mean Corpuscular Hgb 32.3 pg (27.0-31.0); Mean Corpuscular Volume 99.3 fL (80.0-94.0); Mean Platelet Volume 10.5 fL (7.4-10.4); Nucleated Red Blood Cells % 0 % (-); Platelet Count 254 10^3/uL (130-400); Red Blood Cell Count 2.88 10^6/uL (4.70-6.10); Red Cell Dist. Width 13.6 % (11.5-14.5); White Blood Cell Count 8.3 10^3/uL (4.8-10.8)
[2024-09-07 04:18] LABS: Blood Urea Nitrogen 35 mg/dl (9-20); Calcium 8.7 mg/dl (8.4-10.2); Carbon Dioxide 19 mmol/L (22-30); Chloride 102 mmol/L (98-107); Estimated Creatinine Clearance 68 ml/min; Glucose 162 mg/dl (70-99); Magnesium 2.1 mg/dl (1.6-2.3); Phosphorus 4.4 mg/dl (2.5-4.5); Sodium 133 mmol/L (135-145); eGFR > 60.00
--- NOTE | 2024-09-07 04:21 | PTCARENOTE ---
Pt reassessed. Pt is sinus tach on the tele monitor. HR 90-100s. BP 120-130s/60s. Pt remains on high flow NC. POX 100%. Harsh cough. Pt intermittently tachypneic. RR 20-30s. Manzo catheter C/D/I. Debora urine. UO ~20/hr. Pt repositioned in bed. Bed
weight obtained. Labs drawn and sent. Vaso titrated off. Yuri, milrinone, and Precedex infusing. Right brachial a-line leveled, zeroed, and flushed. Call villaseñor within reach.
[2024-09-07 04:45] VITALS: BMI 23.6
[2024-09-07 04:56] LABS: Procalcitonin 0.13 ng/ml (0.0-0.25)
[2024-09-07] MEDS: VANCOCIN 150 IV ×2 (06:02→17:53)
[2024-09-07] MEDS: XOPENEX 1.25 MG INHALANT SOLUTION INH ×3 (06:26→19:06)
--- NOTE | 2024-09-07 07:15 | PTCARENOTE ---
Assumed care of patient at 0700. Pt is drowsy at this time. Pt currently SR with HR 96. BP 137/65 MAP 92. Pt with weakly palpable radial pulses, pedal pulses present with Doppler. Pulse oximetry 100% on high flow 55L 100% FiO2. Pt with Manzo
catheter in place, improved urine output, 60mL for last hour. Pt is ecchymotic on arms. Right upper extremity double lumen PICC in place. Right brachial Bonnie intact. Pt remains on Milrinone 0.25mcg/kg/min, Yuri 25mcg/min, and Precedex 1.4mcg/kg/hr.
Pt currently resting calmly in bed.
[2024-09-07] MEDS: SPIRIVA RESPIMAT 2.5 MCG 2 PUFF INH (07:35)
[2024-09-07] MEDS: SYMBICORT 160/4.5 MCG INHALER 2 PUFF INH (07:35)
[2024-09-07] MEDS: MORPHINE SULFATE 1 MG IV (07:46)
--- NOTE | 2024-09-07 07:50 | PTCARENOTE ---
Respiratory therapist to bedside for breathing treatment. Pt awakened and become anxious and restless having coughing and increased work of breathing. PRN Morphine administered. High flow adjusted by respiratory therapist to 50L, 90% FiO2. Pulse
oximetry 97%.
[2024-09-07 08:56] LABS: NT-proBNP 18400 pg/ml
[2024-09-07] MEDS: SENOKOT 8.6 MG PO ×2 (09:14→20:36)
[2024-09-07] MEDS: TESSALON PERLES 200 MG PO ×3 (09:14→22:27)
[2024-09-07] MEDS: ZITHROMAX 250 MG PO (09:14)
[2024-09-07] MEDS: COLACE 100 MG PO ×2 (09:14→20:36)
[2024-09-07] MEDS: LIPITOR 20 MG PO (09:15)
[2024-09-07] MEDS: PROTONIX 40 MG PO (09:15)
[2024-09-07] MEDS: DALIRESP 500 MCG PO (09:15)
--- NOTE | 2024-09-07 09:19 | W.PN.UPDATE ---
Update Note
Progress Note Update
Patient seen today. Sitting upright in bed with NRB on and visibly SOB. Reviewed plan for inpatient TAVR with alternate access potentially Wed. as discussed with Dr. Stanley. Patient was supposed to have 3 lower teeth pulled last week but did not have
that completed. Upper Dentures. Called and left voicemail for his daughter to call back with dentist information in order to obtain outside records. Consult placed for Dr. Cramer to see inpt but patient does not appear stable enough for panorex at
this time. Patient has no complaints of abdominal pain currently. Vascular consulted (Dr. Manzo) to address previous abdominal pain and significant stenosis of his mesenteric vessels.
--- NOTE | 2024-09-07 10:11 | W.PN.UPDATE ---
Update Note
Progress Note Update
CARDIAC SURGERY ATTENDING:
It was my pleasure to meet with Mr. Phillip Contreras at his bedside this morning. He is a 74-year-old gentleman with a very complex medical history including extensive peripheral vascular disease status post bilateral common iliac stents (04/26/2023)
and left CERTIFIED RETINAL ANGIOGRAPHER endarterectomy (05/04/2024), high-grade short segment stenoses involving his celiac trunk origin, SMA origin, and left renal artery origin, bilateral carotid disease status post right CEA), mild infrarenal AAA, history of extensive
tobacco abuse (41-[id number] history quit in 2019), nonobstructive CAD, hypertension, hypercholesterolemia, cardiomyopathy with LVEF of 40%, COPD on home oxygen @ 2L, and reported history of FARNAZ (noncompliant with CPAP).
In addition, he was recently hospitalized from 08/04 to 08/06/2024 with diagnosis of COPD exacerbation and acute hypoxic respiratory insufficiency with sepsis secondary to community-acquired bacterial pneumonia. He was management with antibiotics,
mucolytics, inhalers, and steroids. He improved and was discharged. Unfortunately, he represented to [facility] on 09/02/2024 with complaints of chest pain and worsening shortness of breath. He was noted to be hypotensive, dizzy, and weak. Given concern
for potential ACS, a heparin drip was instituted. A transthoracic echocardiogram was obtained that demonstrated a moderately hypokinetic apex with distal lateral and distal septal moderate hypokinesis. His LVEF was 44%. He was noted to have
severe aortic valve stenosis with a mean gradient of 34.2 mmHg and a calculated MARGARETTE of 1.03. He subsequently had a left heart cath which demonstrated nonobstructive CAD and a right heart cath that demonstrated normal right heart pressures with only
mildly elevated pulmonary and wedge pressures (PCWP 16 mmHg, PADP: 17 mmHg). A CTA-C/A/P was obtained and on 09/04/2024, the patient was transferred to for ongoing medical management and consideration for potential TAVR. He required institution
of inotropic support, and is currently on milrinone at 0.25. He also required transient vasopressor support, but at present this has been weaned to off. His STS risk for SAVR was calculated and he is of prohibitive risk (mortality 21.6%, morbidity
and mortality 63.4%).
I would recommend continue with ongoing medical management to improve his pulmonary status. While undoubtably some of this is cardiac in nature as demonstrated by his improvement with inotrope therapy, his symptoms are clearly multifactorial in
nature and there could be a component of COPD exacerbation/ongoing pulmonary infection issues. The patient is not a candidate for SAVR, however, future TAVR could be considered. This would definitely have to be an alternative access approach and
would require additional imaging of his carotid and subclavian arteries. I have reviewed his TAVR measurements which demonstrated reasonable annular size and coronary heights. He will be discussed in ongoing multidisciplinary fashion.
Thank you,
David Valdez M.D.
[phone]
[2024-09-07 10:52] LABS: Lactic Acid 1.4 mmol/L (0.7-2.0)
--- NOTE | 2024-09-07 10:56 | RESPNOTE ---
Received orders for Bedside PFT, pt is on 55 LPM and 100% on High flow with 100% Non-rebreather oxygen.
pt unable to complete PFT at this time
will continue to wean pt from HF to perform his Bedside PFT safely.
Mohinder Humphrey and Vanesa Gallardo PA-C made aware.
--- NOTE | 2024-09-07 12:30 | W.PN.INTV ---
Today's Communication / Plan
Recommendations
Continue current antibiotics
Wait for MRSA screening-discontinue vancomycin if negative.
Wean off vasopressors as able.
Continue IV Solu-Medrol
Optimize nebulizer regimen
Decrease Precedex as able
Continue cardiac management
Continue oxygen supplementation
Assessment
-
Assessment: 74-year-old male with a past medical history of chronic HFrEF, severe aortic stenosis, PVD, history of COPD, former tobacco smoker and hyperlipidemia who presents as a transfer from [facility] for evaluation for TAVR. Patient
initially presented to [facility] on 09/02/24 with chest pain and worsening shortness of breath. A rapid response was called as he was hypotensive, dizzy and weak and was endorsing chest pain. ACS was suspected and heparin drip was started.
Transthoracic echo on 09/03/2024 showed moderately hypokinetic apex with distal lateral and distal septal moderate hypokinesis, with LVEF 44.4% with normal RV size and systolic function and severe aortic valve stenosis with MARGARETTE: 1.03 with mean
gradient of 34.2 mmHg. He underwent a left heart catheterization on 09/03/2024 showing mild�moderate nonobstructive CAD with mildly elevated pulmonary and wedge pressures with normal right heart catheterization (PCWP: 16mmHg, PADP: 17mmHg, RA:
11mmHg). CTA chest was performed at [facility] showing mild aneurysmal dilatation of the infrarenal abdominal aorta, patent bilateral iliac stents, high-grade short segment stenosis involving the celiac trunk origin, SMA origin, left renal artery origin
and a short segment of the left common femoral artery, as well as emphysematous changes and bronchitis. Patient was transferred here to [place] for evaluation for TAVR.
Chronic conditions CLIENT EXPERIENCE MANAGER: Chronic HFrEF, low gradient severe aortic stenosis, PVD, former tobacco smoker (quit 06/2019), history of severe COPD, hyperlipidemia, AAA
Impression:
#Severe aortic stenosis awaiting TAVR workup
#Chronic HFrEF
#Acute COPD exacerbation (on Breztri at home)
#PAD
#Hypotension suspected to be due to cardiogenic shock on vasopressors + milrinone
#Anemia
#Hypereosinophilia (absolute eosinophil count: 2100)
#Acute respiratory alkalosis
#Elevated troponin likely due to NSTEMI
#Abnormal urinalysis with +1 leukocyte esterase
#Former tobacco smoker (quit 06/2019 with >20 5�59-cyph-wlxg history)
#AAA
Plan:
Awaiting evaluation for TAVR
Repeat echo/[facility] pending (09/07)
Currently off vasopressors; continue milrinone and wean as tolerated and monitor for arrhythmias
Maintain MAP>65
Cardiology/CT surgery correspondence reviewed. Will optimize pulmonary status first.
Hold Plavix for washout for possible TAVR.
Continue with current nebulizer regimen:
Continue with supplemental oxygen and titrate to keep SpO2 88-95%
Continue Tessalon Perles with prn codeine cough syrup for bothersome dry cough
Continue daliresp
Patient is on Breztri as an outpatient
Continues to be bronchospastic 09/07/2024 and remains on high flow oxygen-continue systemic steroids (Solu-Medrol 40 mg IV q6hr) and wean as he clinically improves
- Maintain euglycemia while on high-dose steroid
Xopenex [id number]
Will add Atrovent 3 times a day
hold Spiriva-unable to perform inhaler maneuver properly.
Delirium.
Continue precedex given he is anxious and agitated at times; he told the nursing staff that he wants to leave the hospital but he is hypoxic and capacity to make decisions is questionable
prn morphine
Given that his CXR shows bilateral patchy opacities and he is not clinically volume overloaded, I will start treatment with antibiotics for suspected pneumonia
Afebrile without leukocytosis.
- Given that he has been hospitalized for >48 hours, cover for Pseudomonas + MRSA to cover for HAP
- S continue cefepime, Zithromax + IV vancomycin
- Check MRSA swab and if negative then can DC IV vancomycin
-All cultures negative so far-continue to follow
-Negative urine antigens for Legionella/strep pneumonia
If infiltrates do not improve, CT chest will be required.
Aspiration precautions
DVT prophylaxis: LMWH
Mechanical Design Technician/Pulmonary service will continue to follow along in CVICU while he is awaiting further TAVR workup to assess his candidacy.
Critical care statement: A total of 31 minutes of critical care time was provided for this patient today. This includes management of unstable vital signs, evaluation of the patient at bedside, reviewing the patient's pertinent medical records
including radiographs, microbiology, laboratory evaluations, and discussion with primary team, consultants, pharmacy, nutrition, physical therapy, case management, charge nurse, critical care nursing, and respiratory therapy.
Data:
CXR 09/05/2024: Possible slight progression of bilateral prominent interstitial markings which could represent worsening interstitial edema or pneumonitis.
CXR 09/06/2024 (compared to CXR from 09/04/2024): Bilateral pneumonia as described above. Significantly increased.
Subjective Dataa
Subjective Data
Date of Service:
Date of Service: September 07, 2024
Chief Complaint: Mechanical Design Technician Follow Up
Objective Data
Data Reviewed
Vital Signs / I&O / Oxygen:
Vital Signs
Temp Pulse Resp BP Pulse Ox
97.6 F 85 21 92/65 99
09/07/24 10:00 09/07/24 11:00 09/07/24 11:00 09/07/24 03:04 09/07/24 11:00
Intake and Output
09/06/24 09/07/24 09/08/24
06:59 06:59 06:59
Intake Total 1525.0 / 1561.0 1574.7 / 1613.2 159.2 / 159.2
Output Total 942.5 / 952.5 490 / 550 460 / 460
Balance 582.5 / 608.5 1084.7 / 1063.2 -300.8 / -300.8
SaO2 99
Nasal Cannula flow liters per 50
minute
Physical Exam
General: Respiratory Distress (mild), Chills (negative), Sweats (negative) and Other (Anxious appearing)
HEENT: Normocephalic and Anicteric
Cardiovascular: S1-S2, Murmur (JUAN JOSE heard best at RUSB), Rub (negative), Peripheral Edema (negative) and Other (Tachycardic)
Respiratory: Wheeze (Rankin upon expiration in the bases bilaterally), Crackles (negative), Rhonchi (negative), Non-Labored Respirations and Other (Diminished breath sounds bilaterally)
GI: Soft, Non Distended, Non Tender and Normal Bowel Sounds
Neurology: AO x 3 and Tremors (negative)
Skin: Warm, Dry, Cyanosis (negative) and Jaundice (negative)
Labs/Micro/Reports
Lab Data
09/07/24 03:21
09/07/24 03:21
Laboratory Results
09/06/24
17:41
pH 7.40
pCO2 35
pO2 186 H
HCO3 21.7
O2 Delivery Level
Microbiology
09/06/24 12:43 Sputum Respiratory Culture - Final
09/06/24 12:43 Sputum Gram Stain - Final
09/06/24 12:41 Urine Legionella Urinary Antigen - Final
Negative for Legionella pneumophila Serogroup 1 antigen.
A negative result does not rule out the possiblity of
Legionella infection due to other serogroups or species of
Legionella. Clinical correlation is recommended.
09/06/24 12:41 Urine Streptococcus pneumoniae Antigen (M - Final
Negative for Streptococcus pneumoniae antigen.
A negative result does not exclude infection with
Streptococcus pneumoniae. Clinical correlation is
recommended.
09/04/24 16:59 Urine Urine Culture - Final
NO GROWTH
--- NOTE | 2024-09-07 12:33 | PHA.VAN.FU ---
Vancomycin Assessment / Plan
- Assessment
Renal Function: SCR Increasing (steadily - 0.7->0.8->0.9)
WBC's are: WNL
In the past 24 hrs, patient has been: Afebrile
Concomitant Antimicrobials: cefepime
- Dosing Plan
Continue: vanc 750 mg q12h
- Monitoring Plan
No level(s) ordered at this time: consider levels 09/08 if continued
MRSA Screen: Ordered per protocol (PCR)
- Follow Up
Pharmacy will continue to follow.
Vancomycin Follow UP
- -
Patient Age: 74
Patient Sex: Male
Vancomycin Day #: 2
Indication: Pulmonary/Respiratory
Requesting Provider: Satish
Pertinent Antimicrobial Allergies:
Levofloxacin = 'feels closed in.'
Height / Weight:
Height 5 ft 7.5 in
Actual Weight 69.2 kg
IBW in k.3
Adjusted BW in kg: NA
- Vital Signs / Lab Results
Temp Pulse Resp BP Pulse Ox
97.6 F 85 21 92/65 99
09/07/24 10:00 09/07/24 11:00 09/07/24 11:00 09/07/24 03:04 09/07/24 11:00
Lab Results - Hematology
09/04/24 09/05/24 09/06/24
16:59 03:57 05:05
WBC 17.9 H 12.7 H 7.8
09/07/24
03:21
WBC 8.3
Lab Results - Chemistry
09/04/24 09/05/24 09/05/24
16:59 03:57 05:46
BUN 14 14 14
Creatinine 0.7 0.7 0.8
Estimated Creat Clear
Albumin 2.9 L
09/06/24 09/07/24
05:05 03:21
BUN 23 H 35 H
Creatinine 0.8 0.9
Estimated Creat Clear 68
Albumin
09/04/24 09/07/24
16:59 10:28
Lactic Acid 1.5 1.4
Microbiology Results
09/06/24 12:43 Respiratory Culture - Final
Sputum Gram Stain - Final
09/06/24 12:41 Legionella Urinary Antigen - Final
Urine Negative for Legionella pneumophila Serogroup 1 antigen.
A negative result does not rule out the possiblity of
Legionella infection due to other serogroups or species of
Legionella. Clinical correlation is recommended.
Streptococcus pneumoniae Antigen (M - Final
Negative for Streptococcus pneumoniae antigen.
A negative result does not exclude infection with
Streptococcus pneumoniae. Clinical correlation is
recommended.
09/04/24 16:59 Urine Culture - Final
Urine NO GROWTH
--- NOTE | 2024-09-07 13:00 | PTCARENOTE ---
Pt remains drowsy. Precedex gtt titrating down, currently Precedex at 0.6mcg/kg/hr. Remains SR HR 83. BP 107/53 MAP 73. Remains off Yuri gtt since 829. Milrinone 0.25mcg/kg/min continues. Pulse oximetry 96% on High Flow 50L, 80%.
--- NOTE | 2024-09-07 13:18 | W.PN.UPDATE ---
Update Note
Progress Note Update
Seen and evaluated. Full consultation to follow. Seen with LEGAL RECEPTIONIST's. 74-year-old male with extensive medical history including CAD, COPD on chronic nasal cannula, hypertension, hypercholesterolemia, diabetes, cardiac valvular disease, history of
right carotid endarterectomy ([facility] at [place]), PAD status post bilateral iliac stents and left femoral endarterectomy ([facility] at [place]), history of tobacco use quit 4 years ago. Transferred from [place] here for possible urgent TAVR.
Patient notes chronic postprandial abdominal pain. Has had pain every time he eats. He notes that it does not matter what he eats. No associated symptoms, no nausea/vomiting/diarrhea. No pain in the interval segments between meals or at any
other time. He does note a 6 pound weight loss as a result.
On exam/he is awake and alert. Head is normocephalic and atraumatic. His breathing is very labored on high flow nasal cannula oxygen supplementation. He had difficulty talking to me due to dyspnea. Abdomen is soft, nondistended, nontender. I
difficulty palpating bilateral upper extremity radial pulse. Right upper extremity brachial pulse possibly 1+. Slight difficulty on the left side. Palpable femoral pulses. Nonpalpable distally bilaterally. Feet are both warm and pink. No
rubor, no ulcerations.
CT angiogram reviewed. Significant celiac and SMA stenosis. SAURABH appears chronically occluded. Small abdominal aortic aneurysm also noted. Patent bilateral iliac artery (common iliac) kissing stents. Moderate to significant external iliac artery
disease especially on the right side causing moderate stenosis on the right side. Very distal left external iliac/proximal common femoral artery focal stenosis noted. Beyond here the femoral endarterectomy site appears patent.
Plan/
1. Chronic mesenteric ischemia�patient has symptoms consistent with chronic mesenteric ischemia with postprandial pain and some food fear/weight loss. I extensively discussed with the patient as well as his daughter who was on the phone findings
of CT scan and diagnosis of chronic mesenteric ischemia. Discussed management. Discussed recommendation ideally for revascularization, with initial attempt of endovascular therapy with stenting. Discussed if failed, the other option surgical
bypass. Discussed technical aspects of stenting procedure. Discussed access site from either groin or brachial. Of note, either due to patient being on Precedex or due to his oxygenation status, he somewhat seem to be dozing off during our
discussion. His daughter remained attentive on the phone. I discussed possible left brachial cutdown for access versus percutaneous femoral. However, I discussed that at the current time, he is not really a candidate for any procedure. His
respiratory status is so tenuous that I cannot do any procedure under sedation as he will likely go into respiratory failure and require urgent intubation for airway protection. If done under general anesthesia, I have concerns about his ability to
wean from the ventilator due to his underlying respiratory status. I think he may benefit from medical optimization, possibly including TAVR prior to proceeding with stenting procedure. I discussed this extensively with the patient's daughter on
the phone, as well as with TAVR coordinator/LEGAL RECEPTIONIST as well as with Dr. Stanley from cardiac surgery. Will await decision from cardiac team and can offer attempted revascularization if/when he is medically optimized or improved and can tolerate such a
procedure. He remains critically tenuous.
2. Small abdominal aortic aneurysm. No indication for any intervention at this time. Would continue surveillance on an annual basis.
3. History of right carotid endarterectomy. At some point should get surveillance carotid duplex imaging if he has not completed them recently.
4. Peripheral arterial disease. Patent iliac stents but he has obvious peripheral arterial disease. No symptoms of claudication currently (not walking likely as much), no rest pain/tissue loss. No indication for urgent intervention. However we
can continue to follow this is in the outpatient setting with serial surveillance ultrasound imaging.
--- NOTE | 2024-09-07 13:36 | CON.VAS ---
Consultation
Consultation Request
Performing Provider: Isma
Reason for Consultation: SMA stenosis
Medical History
-
Chief Complaint: Shortness of breath
History of Present Illness:
74-year-old male with extensive medical history including CAD, COPD on chronic nasal cannula, hypertension, hypercholesterolemia, diabetes, cardiac valvular disease, history of right carotid endarterectomy ([facility] at [place]), PAD status post
bilateral iliac stents and left femoral endarterectomy ([facility] [place]), history of tobacco use quit 4 years ago. Transferred from [place] here for possible urgent TAVR. Patient notes chronic postprandial abdominal pain. Has had pain every
time he eats. He notes that it does not matter what he eats. No associated symptoms, no nausea/vomiting/diarrhea. No pain in the interval segments between meals or at any other time. He does note a 6 pound weight loss as a result.
On exam/he is awake and alert. Head is normocephalic and atraumatic. His breathing is very labored on high flow nasal cannula oxygen supplementation. He had difficulty talking to me due to dyspnea. Abdomen is soft, nondistended, nontender. I
difficulty palpating bilateral upper extremity radial pulse. Right upper extremity brachial pulse possibly 1+. Slight difficulty on the left side. Palpable femoral pulses. Nonpalpable distally bilaterally. Feet are both warm and pink. No
rubor, no ulcerations.
CT angiogram reviewed. Significant celiac and SMA stenosis. SAURABH appears chronically occluded. Small abdominal aortic aneurysm also noted. Patent bilateral iliac artery (common iliac) kissing stents. Moderate to significant external iliac artery
disease especially on the right side causing moderate stenosis on the right side. Very distal left external iliac/proximal common femoral artery focal stenosis noted. Beyond here the femoral endarterectomy site appears patent.
Past Medical History
Past Medical History: CHF, COPD, Valvular Disease and Other (PVD, hyperlipidemia, AAA)
Past Surgical History: Other (Neurosurgery of the left hand, left femoral endarterectomy, PCI of the left SFA stent in 2012)
Social History
Tobacco: Former Smoker (Quit 2018)
Family History
Family History: Reviewed & Not Pertinent
Allergies / Home Medications
Allergy/AdvReac Type Severity Reaction Status Date / Time
levofloxacin [From Levaquin] Allergy 'feels Verified 09/04/24 15:24
closed in'
oxycodone [From Percocet] Allergy Unknown Verified 09/04/24 15:24
�Medication �Instructions �Recorded �Confirmed �Type
albuterol sulfate 2.5 mg/3 mL 2.5 mg inhalation R DAILY 08/04/24 09/04/24 History
(0.083 %) solution for nebulization Lung/Breathing Issues
albuterol sulfate 90 mcg/actuation 2 puff inhalation R Q4HPRN PRN sob 08/04/24 09/04/24 History
aerosol inhaler
budesonide 160 mcg-glycopyr 9 2 inh inhalation R BID 08/04/24 09/04/24 History
mcg-formot 4.8 mcg/actuation HFA Lung/Breathing Issues
inhaler (Breztri Aerosphere)
clopidogrel 75 mg tablet 75 mg PO DAILY Blood Clot 08/04/24 09/04/24 History
Prevention/Tx
lorazepam 0.5 mg tablet 0.5 mg PO DAILYPRN PRN anxiety 08/04/24 09/04/24 History
pantoprazole 40 mg tablet,delayed 40 mg PO DAILY GERD 08/04/24 09/04/24 History
release
roflumilast 500 mcg tablet 500 mcg PO DAILY Autoimmune 08/04/24 09/04/24 History
Disorder
sertraline 50 mg tablet 50 mg PO DAILY Mental 08/04/24 09/04/24 History
Health/Anxiety
simvastatin 40 mg tablet 40 mg PO DAILY High Cholesterol 08/04/24 09/04/24 History
tiotropium bromide 2.5 2 inh inhalation DAILY #4 grams 08/05/24 Rx
mcg/actuation mist for inhalation
(Spiriva Respimat)
spirometers and accessories #1 ea 08/06/24 Rx
azithromycin 250 mg tablet 250 mg PO DAILY PRN copd flair 09/04/24 09/04/24 History
montelukast 10 mg tablet 10 mg PO HS 09/04/24 09/04/24 History
(Singulair)
Review of Systems
-
History Source: Patient
All other systems: Negative unless noted
Constitutional: Reports No Symptoms
EENT: Reports No Symptoms
Respiratory: Reports Trouble Breathing
Cardiac: Reports No Symptoms
Vascular: Denies Leg Pain / Claudication
Abdomen/GI: Reports No Symptoms
: Reports No Symptoms
Skin: Reports No Symptoms
Neurological: Reports No Symptoms
Physical Exam
Vital Signs
Temp Pulse Resp BP Pulse Ox
97.6 F 82 18 92/65 96
09/07/24 10:00 09/07/24 13:00 09/07/24 13:00 09/07/24 03:04 09/07/24 13:00
Lab Results
09/07/24 03:21
09/07/24 03:21
Troponin I 6.470 ng/ml H* 09/06/24 05:05
Rsd-B-Khzacjnccwe Pept 10128 pg/ml 09/07/24 03:21
Physical Exam
General: Respiratory Distress (On high flow O2, COSBY)
HEENT: Normocephalic and Atraumatic
Respiratory: Other (On high flow, COSBY)
Cardiac: Other (None palpable radial pulses bilaterally); Negative JVD
GI: Soft and Non Tender
Musculoskeletal: No Clubbing and No Cyanosis
Skin: Warm and Dry
Neuro: Awake (But falls asleep during conversation)
Psych: Calm
Pulses: Bilateral Femoral: +2 and Bilateral Popliteal: Doppler (Nonpalpable distal pulses)
Assessment / Plan
-
Plan/
1. Chronic mesenteric ischemia�patient has symptoms consistent with chronic mesenteric ischemia with postprandial pain and some food fear/weight loss. I extensively discussed with the patient as well as his daughter who was on the phone findings
of CT scan and diagnosis of chronic mesenteric ischemia. Discussed management. Discussed recommendation ideally for revascularization, with initial attempt of endovascular therapy with stenting. Discussed if failed, the other option surgical
bypass. Discussed technical aspects of stenting procedure. Discussed access site from either groin or brachial. Of note, either due to patient being on Precedex or due to his oxygenation status, he somewhat seem to be dozing off during our
discussion. His daughter remained attentive on the phone. I discussed possible left brachial cutdown for access versus percutaneous femoral. However, I discussed that at the current time, he is not really a candidate for any procedure. His
respiratory status is so tenuous that I cannot do any procedure under sedation as he will likely go into respiratory failure and require urgent intubation for airway protection. If done under general anesthesia, I have concerns about his ability to
wean from the ventilator due to his underlying respiratory status. I think he may benefit from medical optimization, possibly including TAVR prior to proceeding with stenting procedure. I discussed this extensively with the patient's daughter on
the phone, as well as with TAVR coordinator/SUPERVISOR [employer]IL[employer]ESSING as well as with Dr. Stanley from cardiac surgery. Will await decision from cardiac team and can offer attempted revascularization if/when he is medically optimized or improved and can tolerate such a
procedure. He remains critically tenuous.
2. Small abdominal aortic aneurysm. No indication for any intervention at this time. Would continue surveillance on an annual basis.
3. History of right carotid endarterectomy. At some point should get surveillance carotid duplex imaging if he has not completed them recently.
4. Peripheral arterial disease. Patent iliac stents but he has obvious peripheral arterial disease. No symptoms of claudication currently (not walking likely as much), no rest pain/tissue loss. No indication for urgent intervention. However we
can continue to follow this is in the outpatient setting with serial surveillance ultrasound imaging.
Data Reviewed
-
Labs: Labs Reviewed by me
--- NOTE | 2024-09-07 13:50 | W.PN.HOSP.TC ---
Today's Communication/Plan
-
Off pressors
Wean Precedex
ECHO
Possible RHC today
Continue AB
Assessment / Plan
Assessment / Plan
History according to the chart
74-year-old patient presented to [facility] on 09/02/2024 with abdominal pain for weeks. Admitted with right upper and left lower lobe pneumonia was found to have leukocytosis. Then was found to be hypotensive rapid response was called. Was found
to have possible ACS and heparin drip was started. Echo 09/03/2024 was noted to have hypokinesis and EF of 44%. Also severe aortic valve stenosis. CTA chest showed mild aneurysmal dilatation of the infrarenal abdominal aorta and patent by lateral
iliac stents. High-grade short segment stenosis involving celiac trunk, SMA origin, left renal artery origin and short segment of left common femoral artery . CT also showed emphysematous changes and bronchitis cardiac cath performed at [facility]
showed minor luminal irregularities of the left main, LAD without any significant disease. Second major diagonal branch with 60 to 70% stenosis. Mild diffuse atherosclerosis. Left circumflex also found to have medium to large vessel with 4
marginal branches with minor luminal irregularities. Right coronary artery was codominant with minor luminal irregularities. Pulmonary artery pressures were elevated. Patient was transferred to [place] for cardiothoracic evaluation for urgent
TAVR.
EKG reviewed by me-sinus rhythm. Right bundle branch block
Chest x-ray reviewed by me-bilateral pneumonia
Awake and alert
Not agitated
CVS S1 S2 Appreciated. SM at [facility]
Chest Rales
Abd Soft NT
# Severe aortic stenosis-cardiothoracic evaluating for TAVR
Echo 09/05/2024-mildly reduced LV systolic function. EF 45%. Mitral annular calcification. Mild MR. Mild TR. Pulmonary artery pressure 40 to 45 mmHg.
Cardiothoracic surgery does not feel patient is a candidate for SAVR but future TAVR could be considered.
# Acute HFrEF with hypokinesis of heart muscle wall with EF of 44% possible nonischemic cardiomyopathy in the setting of severe . Goal-directed medical therapy when blood pressure better
Was given Bumex Drip overnight 09/04/24 to 09/05/24 but then it was stopped due to finding of volume depletion
For RHC today
# Shock-possibly cardiac-versus septic-started on milrinone . Off Levophed Yuri-Synephrine and vasopressin
# Community-acquired pneumonia-continue cefepime, vancomycin and Zithromax. Sputum cultures with possible
# TME-Better .On Precedex being weaned.
# Abdominal aortic aneurysm
# Coronary artery disease-nonobstructive coronary artery disease by catheter -continue Plavix, statin. ACS for which she was treated with heparin
# Peripheral artery disease with history of PCI of the left SFA stent 2013 Dr. Ng and left common femoral endarterectomy.
Bilateral common iliac and bilateral external iliac disease with bilateral iliac stents [facility] 04/18/2023
High-grade short segment stenosis of the celiac trunk origin, SMA origin, left renal artery origin and a short segment of the left common femoral artery as per CT at [facility]
Occlusion of the SFAs
History of right carotid endarterectomy [facility] 05/04/2024
Vascular evaluation
Continue Plavix and statin
# COPD with chronic respiratory failure on 2 L of oxygen Spiriva, Breztri, Singulair as outpatient. Also on Daliresp. Also on as needed albuterol.
On methylprednisolone for COPD exacerbation
Continue levalbuterol inhaler
# Anemia
# Mild hyponatremia
# Sleep apnea-noncompliant with CPAP
# Prediabetes with hemoglobin A1c 6.2
# Hypertension-blood pressure on the low side now
# Hyperlipidemia-continue statin
# GERD-PPI to be continued
# Anxiety/Depression-as needed lorazepam, sertraline
# Microscopic hematuria
# AAA
# Ex-smoker
# DVT prophylaxis-Lovenox
Total Critical Care Time 33 minutes. I was immediately available to the patient and staff. I personally examined, reviewed labs, diagnostic images/reports, interpretations, treatment plans, discussed patient care with other providers entered
orders as appropriate and documented the medical record.
Anticipated Discharge: > 48 hours
Subjective/Interval History
-
Date of Service: September 07, 2024
Objective Data
-
Labs:
Laboratory Results
09/07/24
03:21
WBC 8.3
Hgb 9.3 L
Hct 28.6 L
Plt Count 254 D
Sodium 133 L
Potassium 5.0
Chloride 102
Carbon Dioxide 19 L
BUN 35 H
Creatinine 0.9
Glucose 162 H
Calcium 8.7
Vital Signs:
Vital Signs
Temp Pulse Resp BP Pulse Ox
97.6 F 82 18 92/65 96
09/07/24 10:00 09/07/24 13:00 09/07/24 13:00 09/07/24 03:04 09/07/24 13:00
I&O
09/06/24 09/07/24 09/08/24
06:59 06:59 06:59
Intake Total 1525.0 / 1561.0 1574.7 / 1613.2 195.8 / 195.8
Output Total 942.5 / 952.5 490 / 550 585 / 585
Balance 582.5 / 608.5 1084.7 / 1063.2 -389.2 / -389.2
[2024-09-07] MEDS: ATROVENT NEBULES 0.5 MG INH ×2 (14:13→19:06)
[2024-09-07 15:04] LABS: Vitamin D, 25-OH*** < 12.8 ng/mL (30-80)
--- NOTE | 2024-09-07 15:08 | ITS.CL.PN ---
[employer] - Procedure Note
Procedure
Procedure Note:
RIGHT HEART CATHETERIZATION
Date of Procedure: 09/07/24
Referring: Dr. Waqar Stanley MD
INDICATION: cardiogenic shock
ACCESS: 5 [place]ian left antecubital fossa
CATHETERS: 5 [place] Balloon Wedge
HEMODYNAMICS (on milrinone 0.25, phenylephedrine 25):
AO 90/52 (mean 68) mmHg
RA 16 mmHg
RV 59/15 (EDP 19) mmHg
PA 60/31 (mean 43) mmHg
PCWP 25 mmHg
CO/CI 3.9/2.2 L/min/m2
SaO2 93.0%
SvO2 44.9%
PVR 4.7 Wood units
SVR 1077 dsc*-5
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
RECOMMENDATIONS:
1. Restart diuresis with bumex 4 IV
2. Cont. milrinone 0.25 for inotropic support
3. Cont. phenylephrine for MAP support for goal >65 mmHg
4. Ongoing multidisciplinary discussions regarding management of cardiogenic shock and severe acrotic stenosis
Signed: Tariq Daugherty MD, PhD
[2024-09-07 15:22] LABS: Ferritin 84.7 ng/ml (17.9-464.0)
[2024-09-07 15:23] LABS: Iron 46 ug/dl (49-181)
--- NOTE | 2024-09-07 15:31 | W.PN.CD ---
Today's Communication / Plan
-
high filling pressures on RHC
cont. bumex for goal negative 1-2L
cont. milrinone
cont. harriet and wean for MAP>65
ongoing discussions re: possible inpatient high risk TAVR
Impression / Plan
-
74 yo male with PMH of PAD, right CEA, HTN, hyperlipidemia, tobacco abuse presented to [facility] with chest pain. Went to [facility] [employer] and found to have non-obstructive CAD, mildly elevated PCW, CO/CI 4.1/2.4. Echo shows EF 40%, severe .
Became hypotensive, started on milrinone and levophed, and transferred here for urgent TAVR evaluation.
Here he has had ongoing cardiogenic shock, now on milrinone/phenylepherine. Received aggressive diuresis initially but then stopped and today with developing pulmonary edema. RHC today with volume overload, CI 2.2. Ongoing discussions regarding
risk/benefit/feasibiliy of TAVR in setting of severe vascular disease.
# Mixed cardiogenic/infectious/vascular shock
-favored to be result of aortic stenosis though seems potentially out of proportion to degree of ; no clear e/o infection but treating for HAP empirically while undergoing infectious workup
-echo repeated 07/06/2024 showing LVEF of 35% with severe low-flow low-gradient aortic stenosis (note: rotated cardiac chambers potentially resulting in underestimated gradients)
-worsened pulmonary edema yesterday and RHC today with elevated filling pressures
--> IV bumex for goal 1 L negative, 4 IV given now
--> cont. harriet for MAP goal >65
--> CI well supported on milrinone 0.25, continue
--> without alternative explanation for shock, if patient cannot be discharged will need to consider high risk inpatient TAVR vs. palliative care
# Severe
-Appears to be low-flow low gradient with severe, but not critical,
-undergoing TAVR eval; would need to be alt access either R axillary cutdown or transapical
-surgical considerations: high risk for GA from pulmonary standpoint, last dose of Plavix on 09/05/2024-history of PAD and peripheral stent
-ongoing multidisciplinary discussions
# Cardiomyopathy, EF 40%
-appears to be NICM, in setting of severe
-weaning pressors/inotropes; then add GDMT
# Severe COPD
-CT scan from [facility] was reviewed
-Discussed with pulmonary Dr. Covarrubias, treating with nebs/steroids
# PAD
-on plavix as outpatient, holding given possible surgical TAVR access
-vasular consulted for possible mesenteric ischemia - would defer any intervention until after cardiovascular issues resolved
-cont. asa
# Hyperlipidemia
-statin
Case discussed with CT surgery, vascular surgery, TAVR team
Critical care time 40 minutes
Physical Exam
Vital Signs/Labs
Vital Signs
Temp Pulse Resp BP Pulse Ox
36.6 C 82 21 92/65 94
09/07/24 14:00 09/07/24 14:30 09/07/24 14:30 09/07/24 03:04 09/07/24 14:30
09/06/24 09/07/24 09/08/24
06:59 06:59 06:59
Actual Weight 66.9 kg 69.2 kg
09/07/24 03:21
09/07/24 03:21
PT 15.4 Sec (11.4-14.6) H 09/04/24 16:59
INR 1.19 09/04/24 16:59
APTT 44.8 Sec (23.4-35.0) H 09/04/24 16:59
Magnesium 2.1 mg/dl (1.6-2.3) 09/07/24 03:21
Triglycerides 96 mg/dl (10-149) 09/05/24 03:57
LDL Cholesterol, Calc 56 mg/dl 09/05/24 03:57
VLDL Cholesterol, Calc 19 mg/dl (0-30) 09/05/24 03:57
HDL Cholesterol 50 mg/dl 09/05/24 03:57
09/05/24 09/07/24
00:11 03:21
Xbr-W-Pzfjieeqwxs Pept 5060 [id number]
LAB Results
09/04/24 09/05/24 09/05/24
16:59 00:11 05:22
Troponin I 0.389 H* 0.319 H* 0.334 H*
09/05/24 09/05/24 09/05/24
11:00 16:47 21:06
Troponin I Cancelled 7.100 H* 6.230 H*
09/06/24
05:05
Troponin I 6.470 H*
Physical Exam
Cardiovascular: Rhythm & rate is regular, Pedal edema is absent and JVD pressure is normal (midly elevated)
Respiratory: Labored respirations
Neuro/Psych: AO x 3
Data Reviewed
-
Date of Service: September 07, 2024
Medical Decision Making: Reviewed Test Results and Review of Case with other Provider
EKG: Tracing Personally Visualized and interpreted and Report Reviewed by me
Echo: Tracing Personally Visualized and interpreted and Report Reviewed by me
X-Ray/CT/US/MRI/NUC/PET: Image Personally Visualized and interpreted and Report Reviewed by me
Labs: Labs Reviewed by me
Critical Care Time (in minutes): 40
[2024-09-07 15:33] LABS: Percent Saturation 16 % (20-50); Total Iron Binding Capacity 272 ug/dl (261-462)
[2024-09-07 15:36] LABS: Vitamin B12 192 pg/ml (239-931)
[2024-09-07] MEDS: BUMEX 4 MG IV (16:02)
[2024-09-07] MEDS: PRIMACOR 20 MG 100 IV (16:03)
--- NOTE | 2024-09-07 16:15 | PTCARENOTE ---
Pt to aquatic life laborer for right heart cath at 1430. Report received. Pt arrived back to room at 1530. Accessed via left brachial, site CDI. Radial pulse weakly palpable. Pt remains on Precedex and Milrinone gtt. 40mg IV Bumex administered per order. Pt SR
with HR 81, BP 122/59 MAP 83. Pt remains on high flow 50L, 100% FiO2.
[2024-09-07] MEDS: LOVENOX 40 MG SC (17:53)
--- NOTE | 2024-09-07 18:09 | PTCARENOTE ---
Pt appears much more comfortable. Able to hold conversation without becoming overly dyspneic and no excessive coughing. Pt remains on high flow 50L, 100%. Pt on Precedex 0.2mcg/kg/hr. Milrinone 0.25mcg/kg/min. SR HR 80. BP 125/59 MAP 84. Pulse
oximetry 97%.
--- NOTE | 2024-09-07 21:00 | PTCARENOTE ---
Assumed care of pt from dayshift RN. Walking rounds completed. Pt is AAOx3. Slightly anxious. Pt is SR on the tele monitor. HR 80s. Murmur auscultated. BP 100-120s/40-50s. Right brachial a-line leveled/zeroed/flushed. Trace B/L upper extremity
edema. Bruising present in B/L arms. B/L DP pulses present via Doppler. Right radial pulse present via Doppler. Left radial pulse weak on palpation. Pt on high flow NC at 50 L and 90%. POX 96%. Occasional, harsh, productive cough present. Lung
sounds diminished. Abdomen soft/nontender. +BS. Pt reports decreased appetite. Manzo catheter C/D/I and draining clear/yellow urine. Right upper arm PICC C/D/I. Left brachial cath site C/D/I. Milrinone infusing as ordered. Pt repositioned in bed.
Updated with plan of care for the night. See worklist for full nursing assessment and interventions. Call villaseñor within reach.
[2024-09-08] MEDS: SOLU-MEDROL PF 40 MG IV ×4 (00:11→21:11)
--- NOTE | 2024-09-08 00:14 | PTCARENOTE ---
No acute change in assessment. Pt SR on the tele monitor. HR 80-90s. BP 100-120s/40-50s. Right brachial a-line leveled/zeroed/flushed. Pt on high flow NC at 50 L and 90%. POX 96-100%. Pt experiencing less coughing fits. Milrinone infusing as
ordered. Call villaseñor within reach.
--- NOTE | 2024-09-08 01:33 | PTCARENOTE ---
Noticed Manzo bag was slowly leaking urine onto ground. Manzo bag changed. Manzo care repeated.
[2024-09-08] MEDS: XOPENEX 1.25 MG INHALANT SOLUTION INH ×4 (01:36→19:23)
[2024-09-08] MEDS: STERILE WATER FOR INJECTION 10 ML IV ×3 (03:09→19:17)
[2024-09-08] MEDS: MAXIPIME 2000 MG IV ×3 (03:09→19:17)
[2024-09-08 03:11] VITALS: BMI 23.3
[2024-09-08 03:23] LABS: % Basophils 0.1 % (0-2); % Eosinophils 0.1 % (0-6); % Lymphocytes 9.7 % (20.5-51.1); % Monocytes 6.6 % (1.7-9.3); % Neutrophils 82.5 % (42.2-75.2); Absolute Immature Granulocytes 0.1 10^3/uL (0-0.05); Absolute Lymphocytes 0.8 10^3/uL (1.2-3.4); Absolute Monocytes 0.6 10^3/uL (0.1-0.6); Absolute Neutrophils 6.9 10^3/uL (1.4-6.5); Hematocrit 27.9 % (39.0-52.0); Hemoglobin 9.3 g/dL (13.0-18.0); Mean Corp Hgb Conc. 33.3 g/dL (33.0-37.0); Mean Corpuscular Hgb 32.3 pg (27.0-31.0); Mean Corpuscular Volume 96.9 fL (80.0-94.0); Mean Platelet Volume 10.3 fL (7.4-10.4); Nucleated Red Blood Cells % 0 % (-); Platelet Count 228 10^3/uL (130-400); Red Blood Cell Count 2.88 10^6/uL (4.70-6.10); Red Cell Dist. Width 13.3 % (11.5-14.5); White Blood Cell Count 8.4 10^3/uL (4.8-10.8)
[2024-09-08] MEDS: ATIVAN 0.5 MG PO ×4 (03:41→21:10)
[2024-09-08 04:00] LABS: Blood Urea Nitrogen 39 mg/dl (9-20); Calcium 8.6 mg/dl (8.4-10.2); Carbon Dioxide 26 mmol/L (22-30); Chloride 102 mmol/L (98-107); Estimated Creatinine Clearance 68 ml/min; Glucose 159 mg/dl (70-99); Magnesium 2.1 mg/dl (1.6-2.3); Potassium 3.4 mmol/L (3.5-5.1); Sodium 135 mmol/L (135-145); eGFR > 60.00
--- NOTE | 2024-09-08 04:00 | PTCARENOTE ---
Pt reassessed. Pt is SR to sinus tach on the tele monitor. HR 90-100s. BP 110s/50s. Right brachial a-line leveled/zeroed/flushed. Pt on high flow NC at 50 L and 80%. POX ~94%. Pt with intermittently tachypneic. Harsh productive cough. Respiratory at
bedside. PRN Xopenex treatmentx1. Manzo catheter C/D/I and draining clear yellow urine. Labs drawn and sent. Milrinone infusing as ordered. Pt anxious and frustrated. Emotional support provided. Call villaseñor within reach.
[2024-09-08] MEDS: MORPHINE SULFATE 1 MG IV (05:04)
[2024-09-08] MEDS: KCL 100 IV ×2 (05:05→12:14)
[2024-09-08] MEDS: VANCOCIN 150 IV (05:15)
--- NOTE | 2024-09-08 05:24 | PTCARENOTE ---
ICU HOEING ROW BOSS notified of potassium of 3.4 and pt coughing up some blood tinged sputum. KCl 40 meq administered as ordered. Pt increasingly restless, anxious, and having trouble breathing. Pt RR 30s-40s. HR 100s. 1 mg IV morphine STAT ordered - see NOV. Pt
now more calm and comfortable. Pt remains on high flow NC at 50 L and 80%. POX 94-97%.
--- NOTE | 2024-09-08 05:47 | W.PN.HOSP.TC ---
Today's Communication/Plan
-
wean precedex as tolerated
cont abx
wean O2 as tolerated
cont TAVR work up
milrinone/diuretics as per cardiology
steroid taper as per pulm
Assessment / Plan
Assessment / Plan
Physical Exam
General: mild moderate distress/frustration noted with length of stay otherwise appears relatively comfortable
HEENT: Normocephalic Atraumatic PERRLA
CVS S1 S2 NSR. 4/6 systolic murmur
Pulm: clear to auscultation
Abd: Soft NT bowel sounds present
Neuro: AOx3
Psych:mild agitation/frustration as above but otherwise cooperative
HPI: 74-year-old patient presented to [facility] on 09/02/2024 with abdominal pain for weeks. Admitted with right upper and left lower lobe pneumonia was found to have leukocytosis. Then was found to be hypotensive rapid response was called. Was
found to have possible ACS and heparin drip was started. Echo 09/03/2024 was noted to have hypokinesis and EF of 44%. Also severe aortic valve stenosis. CTA chest showed mild aneurysmal dilatation of the infrarenal abdominal aorta and patent by
lateral iliac stents. High-grade short segment stenosis involving celiac trunk, SMA origin, left renal artery origin and short segment of left common femoral artery . CT also showed emphysematous changes and bronchitis cardiac cath performed at
[facility] showed minor luminal irregularities of the left main, LAD without any significant disease. Second major diagonal branch with 60 to 70% stenosis. Mild diffuse atherosclerosis. Left circumflex also found to have medium to large vessel
with 4 marginal branches with minor luminal irregularities. Right coronary artery was codominant with minor luminal irregularities. Pulmonary artery pressures were elevated. Patient was transferred to [place] for cardiothoracic evaluation for
urgent TAVR.
EKG reviewed by me-sinus rhythm. Right bundle branch block
# Severe aortic stenosis-cardiothoracic evaluating for TAVR
Echo 09/05/2024-mildly reduced LV systolic function. EF 45%. Mitral annular calcification. Mild MR. Mild TR. Pulmonary artery pressure 40 to 45 mmHg.
Cardiothoracic surgery does not feel patient is a candidate for SAVR but future TAVR could be considered.
# Acute HFrEF with hypokinesis of heart muscle wall with EF of 44% possible nonischemic cardiomyopathy in the setting of severe . Goal-directed medical therapy when blood pressure better
briefly treated with Bumex gtt
09/07/04 RHC appreciated elevated biventricular filling pressures
-diuresis continued with Bumex IVP 4 mg with potassium as per Cardio
-cont milrinone gtt
-phenylephrine prn MAP>65 (weaned off)
# Shock-possibly cardiac-versus septic-started on milrinone. Weaned Off Levophed Yuri-Synephrine and vasopressin
# Community-acquired pneumonia-continue cefepime zithromax as per pulm, empiric vancomycin completed MRSA screen neg
# TME-cont precedex, wean as tolerated
# Abdominal aortic aneurysm
# Coronary artery disease-nonobstructive coronary artery disease by catheter -continue Plavix, statin. ACS for which he was treated with heparin gtt since completed
# Peripheral artery disease with history of PCI of the left SFA stent 2013 Dr. Ng and left common femoral endarterectomy.
Bilateral common iliac and bilateral external iliac disease with bilateral iliac stents [facility] 04/18/2023
High-grade short segment stenosis of the celiac trunk origin, SMA origin, left renal artery origin and a short segment of the left common femoral artery as per CT at [facility]
Occlusion of the SFAs
History of right carotid endarterectomy [facility] 05/04/2024
Vascular evaluation
Continue Plavix and statin
# COPD with chronic respiratory failure on 2 L of oxygen Debra Ricks Singulair as outpatient. Also on Daliresp. Also on as needed albuterol.
On methylprednisolone for COPD exacerbation
Continue levalbuterol inhaler
steroid tapered as per pulm
# Anemia
# Mild hyponatremia
# Sleep apnea-noncompliant with CPAP
# Prediabetes with hemoglobin A1c 6.2
# Hypertension-blood pressure on the low side now
# Hyperlipidemia-continue statin
# GERD-PPI to be continued
# Anxiety/Depression-as needed lorazepam, sertraline
# Microscopic hematuria
# AAA
# Ex-smoker
# DVT prophylaxis-Lovenox
Total Critical Care Time 40 minutes. I was immediately available to the patient and staff. I personally examined, reviewed labs, diagnostic images/reports, interpretations, treatment plans, discussed patient care with other providers entered
orders as appropriate and documented the medical record.
Anticipated Discharge: > 48 hours
Subjective/Interval History
-
Date of Service: September 08, 2024
Seen and examined at bedside in no acute distress sitting up in bed, appears dyspneic on high flow but relatively comfortable. Lethargic but arousable. mild moderate agitation/frustration with length of stay.
Objective Data
-
Labs:
Laboratory Results
09/08/24
03:15
WBC 8.4
Hgb 9.3 L
Hct 27.9 L
Plt Count 228
Sodium 135
Potassium 3.4 L D
Chloride 102
Carbon Dioxide 26
BUN 39 H
Creatinine 0.9
Glucose 159 H
Calcium 8.6
Vital Signs:
Vital Signs
Temp Pulse Resp BP Pulse Ox
97.9 F 123 37 92/65 95
09/08/24 04:00 09/08/24 05:00 09/08/24 05:00 09/07/24 03:04 09/08/24 05:00
I&O
09/06/24 09/07/24 09/08/24
06:59 06:59 06:59
Intake Total 1525.0 / 1561.0 1574.7 / 1613.2 304.0 / 304.0
Output Total 942.5 / 952.5 490 / 550 3960 / 3960
Balance 582.5 / 608.5 1084.7 / 1063.2 -3656.0 / -3656.0
[2024-09-08] MEDS: PRIMACOR 20 MG 100 IV ×2 (05:53→19:32)
[2024-09-08] MEDS: ATROVENT NEBULES 0.5 MG INH ×3 (08:08→19:26)
[2024-09-08] MEDS: DALIRESP 500 MCG PO (09:02)
[2024-09-08] MEDS: TESSALON PERLES 200 MG PO ×3 (09:15→21:10)
[2024-09-08] MEDS: SENOKOT 8.6 MG PO ×2 (09:15→19:16)
[2024-09-08] MEDS: PROTONIX 40 MG PO (09:16)
[2024-09-08] MEDS: ZITHROMAX 250 MG PO (09:16)
[2024-09-08] MEDS: COLACE 100 MG PO ×2 (09:16→19:16)
[2024-09-08] MEDS: LIPITOR 20 MG PO (09:17)
--- NOTE | 2024-09-08 09:28 | PTCARENOTE ---
extremely short of breath. agitated. panicking. says he wants to get the surgery done but doesnt want to wait anymore for anymore testing. doesnt care if he dies. explained he needs workup beforehand and that he wont make it if we dont get his
lungs optimized first. he said then let me . asked patient if he would like me to make him comfortable with ativan and morphine for his breathing. agreeable to this. patient is wanting comfort and to at this point. will pass along to team and
family members. starting to talk about his code status. wkill continue to monitor and provide emotional support.
[2024-09-08] MEDS: PRECEDEX 100 IV (11:18)
--- NOTE | 2024-09-08 11:37 | CM ---
Chart reviewed. Patient is independent of ADLS, live with his in a apartment, [address], 0 [address]. Patient has home 02 at home concentrator and POC Shoulder tank. Patient is not current with VN. Patient will need a PT evaluation to determine
level of care needs for discharge. CM to follow
--- NOTE | 2024-09-08 11:39 | W.PN.CD ---
Today's Communication / Plan
-
4 IV bumex, replete K
CXR to monitor pulmonary edema
cont. milrinone
ongoing discussions re: possible TAVR (Saturday earliest), needs dental first
Impression / Plan
-
74 yo male with PMH of PAD, right CEA, HTN, hyperlipidemia, tobacco abuse presented to [facility] with chest pain. Went to offset label rewinder and found to have non-obstructive CAD, mildly elevated PCW, CO/CI 4.1/2.4. Echo shows EF 40%, severe .
Became hypotensive, started on milrinone and levophed, and transferred here for urgent TAVR evaluation.
Here he has had ongoing cardiogenic shock, now on milrinone/phenylepherine. Received aggressive diuresis initially but then stopped and today with developing pulmonary edema. RHC today with volume overload, CI 2.2. Ongoing discussions regarding
risk/benefit/feasibiliy of TAVR in setting of severe vascular disease.
# Mixed cardiogenic/infectious/vascular shock
-favored to be result of aortic stenosis though seems potentially out of proportion to degree of ; no clear e/o infection but treating for HAP empirically while undergoing infectious workup
-echo repeated 07/06/2024 showing LVEF of 35% with severe low-flow low-gradient aortic stenosis (note: rotated cardiac chambers potentially resulting in underestimated gradients)
-worsened pulmonary edema yesterday and RHC today with elevated filling pressures
-breathing somewhat improved today after diuresis yesterday (3L negative), will give diuresis again today, monitor BMP
--> IV bumex for goal 1 L negative, 4 IV given now; 40 IV potassium
--> repeat daily CXR to monitor for resolution fo pulmonary edema
--> cont. harriet for MAP goal >65
--> CI well supported on milrinone 0.25, continue
--> without alternative explanation for shock, if patient cannot be discharged will need to consider high risk inpatient TAVR vs. palliative care
# Severe
-Appears to be low-flow low gradient with severe, but not critical,
-undergoing TAVR eval; would need to be alt access either R axillary cutdown or transapical
-surgical considerations: high risk for GA from pulmonary standpoint, last dose of Plavix on 09/05/2024-history of PAD and peripheral stent
-ongoing multidisciplinary discussions
# Cardiomyopathy, EF 40%
-appears to be NICM, in setting of severe
-weaning pressors/inotropes; then add GDMT
# Severe COPD
-CT scan from [facility] was reviewed
-Discussed with pulmonary Dr. Covarrubias, treating with nebs/steroids
# PAD
-on plavix as outpatient, holding given possible surgical TAVR access
-vasular consulted for possible mesenteric ischemia - would defer any intervention until after cardiovascular issues resolved
-cont. asa
# Hyperlipidemia
-statin
Long discussion with patient about medical plan.
Critical care time 35 minutes
Physical Exam
Vital Signs/Labs
Vital Signs
Temp Pulse Resp BP Pulse Ox
36.4 C 99 35 92/65 96
09/08/24 11:00 09/08/24 11:10 09/08/24 11:10 09/07/24 03:04 09/08/24 11:10
09/07/24 09/08/24 09/09/24
06:59 06:59 06:59
Actual Weight 69.2 kg 68.5 kg
09/08/24 03:15
09/08/24 03:15
PT 15.4 Sec (11.4-14.6) H 09/04/24 16:59
INR 1.19 09/04/24 16:59
APTT 44.8 Sec (23.4-35.0) H 09/04/24 16:59
Magnesium 2.1 mg/dl (1.6-2.3) 09/08/24 03:15
Triglycerides 96 mg/dl (10-149) 09/05/24 03:57
LDL Cholesterol, Calc 56 mg/dl 09/05/24 03:57
VLDL Cholesterol, Calc 19 mg/dl (0-30) 09/05/24 03:57
HDL Cholesterol 50 mg/dl 09/05/24 03:57
09/05/24 09/07/24
00:11 03:21
Yaz-G-Pslutrajlpu Pept 5060 [id number]
LAB Results
09/05/24 09/05/24 09/05/24
11:00 16:47 21:06
Troponin I Cancelled 7.100 H* 6.230 H*
09/06/24
05:05
Troponin I 6.470 H*
Physical Exam
Constitutional: Comfortable
Cardiovascular: Rhythm & rate is regular, Pedal edema is absent and Systolic murmur present
Respiratory: Labored respirations
Neuro/Psych: AO x 3
Data Reviewed
-
Date of Service: September 08, 2024
Medical Decision Making: Reviewed Test Results, Tests Ordered and Test Interpretation
Medical Tests (PFT, Pathology etc): Image Personally Visualized and interpreted
Labs: Labs Reviewed by me
Critical Care Time (in minutes): 35
[2024-09-08] MEDS: BUMEX 4 MG IV (12:14)
--- NOTE | 2024-09-08 13:09 | PTCARENOTE ---
updated on phone of patients condition and his current wishes. she states the family is not on board with 'giving up or hospice'. provided additional information on his status and his wishes and that he is of sound mind to make those decisions
now. states she will not be coming to visit today. pt will be transferred to medical ICU room 6087 when clean. awaiting transfer at this time.
--- NOTE | 2024-09-08 13:57 | W.PN.INTV ---
Today's Communication / Plan
Recommendations
Decrease steroids
Discontinue vancomycin
Continue cefepime and Zithromax for additional 2 days
Continue nebulizer therapy
Milrinone/diuretics per cardiology
Continue high flow oxygen and wean down as able
Continue Precedex for behavioral control
Assessment
-
Assessment: 74-year-old male with a past medical history of chronic HFrEF, severe aortic stenosis, PVD, history of COPD, former tobacco smoker and hyperlipidemia who presents as a transfer from [facility] for evaluation for TAVR. Patient
initially presented to [facility] on 09/02/24 with chest pain and worsening shortness of breath. A rapid response was called as he was hypotensive, dizzy and weak and was endorsing chest pain. ACS was suspected and heparin drip was started.
Transthoracic echo on 09/03/2024 showed moderately hypokinetic apex with distal lateral and distal septal moderate hypokinesis, with LVEF 44.4% with normal RV size and systolic function and severe aortic valve stenosis with MARGARETTE: 1.03 with mean
gradient of 34.2 mmHg. He underwent a left heart catheterization on 09/03/2024 showing mild�moderate nonobstructive CAD with mildly elevated pulmonary and wedge pressures with normal right heart catheterization (PCWP: 16mmHg, PADP: 17mmHg, RA:
11mmHg). CTA chest was performed at [facility] showing mild aneurysmal dilatation of the infrarenal abdominal aorta, patent bilateral iliac stents, high-grade short segment stenosis involving the celiac trunk origin, SMA origin, left renal artery origin
and a short segment of the left common femoral artery, as well as emphysematous changes and bronchitis. Patient was transferred here to [place] for evaluation for TAVR.
Chronic conditions MANAGER TRADING: Chronic HFrEF, low gradient severe aortic stenosis, PVD, former tobacco smoker (quit 06/2019), history of severe COPD, hyperlipidemia, AAA
Impression:
#Severe aortic stenosis awaiting TAVR workup
#Chronic HFrEF
#Acute COPD exacerbation (on Breztri at home)
#PAD
#Hypotension suspected to be due to cardiogenic shock on vasopressors + milrinone
#Anemia
#Hypereosinophilia (absolute eosinophil count: 2100)
#Acute respiratory alkalosis
#Elevated troponin likely due to NSTEMI
#Abnormal urinalysis with +1 leukocyte esterase
#Former tobacco smoker (quit 06/2019 with >20 5�07-iqli-hmyn history)
#AAA
Plan:
-
He remains critically ill requiring high flow oxygen. Complaining of shortness of breath.
Right heart catheterization noted with increased left and right filling pressures. Consistent with cardiogenic shock.
Suspect abnormal chest x-ray is a reflection of pulmonary edema, less likely pneumonia without fevers or leukocytosis.
-
Cardiology and CT surgery correspondence reviewed.
Milrinone
Diuretics IV will continue
Monitor renal function and electrolytes.
Hold Plavix for washout for possible TAVR next week.
From the COPD perspective: Today I did not appreciate significant bronchospasm. Continue with current regimen
Continue with current nebulizer regimen:
Continue with supplemental oxygen and titrate to keep SpO2 88-95%, wean down FiO2 as able.
Continue Tessalon Perles with prn codeine cough syrup for bothersome dry cough
Continue daliresp
Patient is on Breztri as an outpatient
Decrease Solu-Medrol 40 mg IV every 8. Decrease Solu-Medrol 40 mg IV every 8. Will continue to taper down as seen improved.
Xopenex [id number]
Continue Atrovent 3 times a day
hold Spiriva-unable to perform inhaler maneuver properly.
Continue to follow mental status closely.
Continue precedex given he is anxious and agitated at times; he told the nursing staff that he wants to leave the hospital but he is hypoxic and capacity to make decisions is questionable
prn morphine
Given that his CXR shows bilateral patchy opacities suspect pulmonary edema in view of his right heart catheterization numbers.
With lack of fever and leukocytosis less likely pneumonia.
Will complete 5 days of antibiotics
Discontinue vancomycin
Continue cefepime/Zithromax for additional 2 days 09/10/2024.
-All cultures negative so far-continue to follow
-Negative urine antigens for Legionella/strep pneumonia
Daily chest x-ray
Aspiration precautions
DVT prophylaxis: LMWH
Critical care statement: A total of 32 minutes of critical care time was provided for this patient today. This includes management of unstable vital signs, evaluation of the patient at bedside, reviewing the patient's pertinent medical records
including radiographs, microbiology, laboratory evaluations, and discussion with primary team, consultants, pharmacy, nutrition, physical therapy, case management, charge nurse, critical care nursing, and respiratory therapy.
Data:
CXR 09/05/2024: Possible slight progression of bilateral prominent interstitial markings which could represent worsening interstitial edema or pneumonitis.
CXR 09/06/2024 (compared to CXR from 09/04/2024): Bilateral pneumonia as described above. Significantly increased.
Subjective Dataa
Subjective Data
Date of Service:
Date of Service: September 08, 2024
Chief Complaint: Nurse Navigator Follow Up
Subjective:
Computers to report dyspnea, intermittent coughing.
No significant phlegm production.
Remains on high flow oxygen
Review of Systems
Cardiopulmonary: Dyspnea, Dyspnea on Exertion, Cough and Chest Pain (n)
Objective Data
Data Reviewed
Vital Signs / I&O / Oxygen:
Vital Signs
Temp Pulse Resp BP Pulse Ox
97.5 F 102 36 112/53 100
09/08/24 11:00 09/08/24 13:20 09/08/24 13:20 09/08/24 12:14 09/08/24 13:20
Intake and Output
09/07/24 09/08/24 09/09/24
06:59 06:59 06:59
Intake Total 1574.7 / 1613.2 313.2 / 324.2 273.2 / 273.2
Output Total 490 / 550 4020 / 4065 640 / 640
Balance 1084.7 / 1063.2 -3706.8 / -3740.8 -366.8 / -366.8
SaO2 100
Nasal Cannula flow liters per 50
minute
Physical Exam
General: Respiratory Distress (mild), Chills (negative), Sweats (negative) and Other (Anxious appearing)
HEENT: Normocephalic and Anicteric
Cardiovascular: S1-S2, Murmur (JUAN JOSE heard best at RUSB), Rub (negative), Peripheral Edema (negative) and Other (Tachycardic)
Respiratory: Wheeze ([place] upon expiration in the bases bilaterally), Crackles (negative), Rhonchi (negative), Non-Labored Respirations and Other (Diminished breath sounds bilaterally)
GI: Soft, Non Distended, Non Tender and Normal Bowel Sounds
Neurology: AO x 3 and Tremors (negative)
Skin: Warm, Dry, Cyanosis (negative) and Jaundice (negative)
Labs/Micro/Reports
Lab Data
09/08/24 03:15
09/08/24 03:15
Microbiology
09/06/24 13:05 Blood/Venous Blood Culture - Preliminary
No Growth in 48 hours- Final report to follow
09/06/24 12:41 Nose Nasal Screen MRSA (PCR) - Final
MRSA not detected - performed by PCR methodology.
09/06/24 12:43 Sputum Respiratory Culture - Final
09/06/24 12:43 Sputum Gram Stain - Final
09/06/24 12:41 Urine Legionella Urinary Antigen - Final
Negative for Legionella pneumophila Serogroup 1 antigen.
A negative result does not rule out the possiblity of
Legionella infection due to other serogroups or species of
Legionella. Clinical correlation is recommended.
09/06/24 12:41 Urine Streptococcus pneumoniae Antigen (M - Final
Negative for Streptococcus pneumoniae antigen.
A negative result does not exclude infection with
Streptococcus pneumoniae. Clinical correlation is
recommended.
09/04/24 16:59 Urine Urine Culture - Final
NO GROWTH
[2024-09-08 14:00] VITALS: BP 118/57
--- NOTE | 2024-09-08 14:03 | PTCARENOTE ---
Received patient to room 3365 from [facility]. PAtient is AAOx4, tachypneic, tachycardic. Oxygen saturation is 90% on high flow nasal cannula. Sinus tach on monitor. Right radial Bonnie zero'ed to atmospheric pressure and leveled at phlebostatic axis.
Patient complaints of not being able to breathe, is anxious. CHG bath completed, bowel movement cleaned, licona care complete. Bumex had been administered prior, will empthy licona catheter, will review orders.
[2024-09-08] MEDS: TESSALON PERLES PO (15:30)
--- NOTE | 2024-09-08 16:35 | W.CON.DEN ---
Dental Consultation
History of Present Illness
74 y.o pt is being seen for dental consult prior to heart surgery.
pt reports having no pain, his last dental visit was about 2 months ago. his upper denture is about 5 years old.
pt was supposed to go back to his dentist to extract remaining broken down teeth on the bottom arch.
#22 has very gross buccal decay, and both #26 and #25 are broken down w some mobility grade 1/2.
The seo has yet to be taken due to patients poor health.
At this time remaining #22/25/26 have very guarded prognosis.
Will review seo when it will be available.
Kajal Cramer DDS
Objective Data
Allergies
Allergy/AdvReac Type Severity Reaction Status Date / Time
levofloxacin [From Levaquin] Allergy 'feels Verified 09/04/24 15:24
closed in'
oxycodone [From Percocet] Allergy Unknown Verified 09/04/24 15:24
Vital Signs
Temp 97.5 F 09/08/24 15:00
Temp route: Oral 09/08/24 15:00
Pulse 91 09/08/24 15:00
Rhythm: Normal sinus rhythm 09/08/24 14:57
With- Sinus tachycardia 09/08/24 14:57
Resp Rate 22 09/08/24 15:00
Blood pressure 118/57 09/08/24 14:00
Blood pressure extremity used: Right calf 09/07/24 01:00
Position: Sitting 09/08/24 14:00
MAP (cuff-Annalee Monitor) 74 09/07/24 03:04
SaO2 92 09/08/24 15:11
Nasal Cannula flow liters per minute 50 09/08/24 15:11
Oxygen Mode of Delivery High Flow Nasal Cannula 09/08/24 15:02
Other oxygen comment and NRB 09/05/24 20:00
Flow liters per minute # 50 09/08/24 15:02
% Oxygen delivered 70 09/08/24 15:02
Can the patient verbally communicate their pain? Yes 09/08/24 14:57
Pain scale ratin 09/08/24 15:55
Arterial Systolic Pressure 105 09/08/24 15:00
Arterial Diastolic Pressure 51 09/08/24 15:00
MAP (P-Ykno-Hxogrmw Monitor) 69 09/08/24 15:00
MAP A-Line 88 09/05/24 03:01
Actual Weight 151 lb 0.266 oz 09/08/24 03:11
Body Mass Index (BMI) 23.3 09/08/24 03:11
Assessment/Plan
year old *male/female* consulted for . Based on physical and radiographic examination, I have recommended. We have discussed all risks, benefits, complications and alternatives including but not limited to bleeding, pain, infection,
swelling, oroantral communication, temporary or permanent damage to inferior alveolar nerve resulting in paresthesia, hypoesthesia, anesthesia, dysesthesia, or loss of taste, fracture of jaw, damage to adjacent teeth or tissues, dislodgement of
adjacent crowns or fillings etc. Patient is aware and understands all risks and complications. Consent signed and in chart.
- Encouraged oral hygiene maintenance daily
- Recommended
[2024-09-08] MEDS: LOVENOX 40 MG SC (17:23)
--- NOTE | 2024-09-08 20:11 | PTCARENOTE ---
Received pt from previous RN. Pt is AAOx3, anxious, drowsy @ times. NSR/sinus tach on the monitor, doppler pedal pulses. On highflow 50L 70%, O2 sat 98%, lungs diminished/rhonchi/coarse, tachypneic/COSBY and at rest. Pt with poor appetite. Manzo in
place, hygiene provided. SCDs in place. Oral care provided. Milrinone gtt and Precedex gtt infusing through right PICC line. Right mariano zeroed. Pt is laying in bed with call villaseñor in reach. Safe environment maintained.
--- NOTE | 2024-09-08 21:00 | PTCARENOTE ---
HEIDI Arora notified for pt MAP of 55-60, pt on Precedex @ 0.3mcg. Bonnie rezeroed and flushed. Yuri gtt started, per protocol (see worklist). PRN Ativan given for anxiety (see MAR).
[2024-09-08] MEDS: NEO-SYNEPHRINE 250 IV (21:01)
[2024-09-08] MEDS: TYLENOL 650 MG PO (22:56)
[2024-09-09] VITALS: BP 91/58
--- NOTE | 2024-09-09 00:06 | PTCARENOTE ---
Systems reviewed, no new changes in assessment. Milrinone, Yuri, and Precedex infusing per protocol (see worklist). Highflow 40L 60%, O2 sat 93%.
[2024-09-09] MEDS: PRECEDEX 100 IV ×3 (01:05→22:38)
[2024-09-09 03:42] VITALS: BMI 22.7
[2024-09-09] MEDS: STERILE WATER FOR INJECTION 10 ML IV ×3 (03:55→19:12)
[2024-09-09] MEDS: MAXIPIME 2000 MG IV ×3 (03:55→19:10)
--- NOTE | 2024-09-09 04:00 | PTCARENOTE ---
Systems reviewed. Milrinone, Precedex and Yuri infusing per protocol (see worklist). AM labs sent. CHG bath provided. Pt is laying in bed with call villaseñor in reach.
[2024-09-09 04:17] LABS: % Basophils 0.1 % (0-2); % Eosinophils 0.2 % (0-6); % Immature Granulocytes 1.6 % (0-0.5); % Lymphocytes 9.5 % (20.5-51.1); % Monocytes 8.9 % (1.7-9.3); % Neutrophils 79.7 % (42.2-75.2); Absolute Immature Granulocytes 0.2 10^3/uL (0-0.05); Absolute Neutrophils 8.5 10^3/uL (1.4-6.5); Hematocrit 28.7 % (39.0-52.0); Hemoglobin 9.7 g/dL (13.0-18.0); Mean Corp Hgb Conc. 33.8 g/dL (33.0-37.0); Mean Corpuscular Hgb 32.4 pg (27.0-31.0); Mean Platelet Volume 10.2 fL (7.4-10.4); Nucleated Red Blood Cells % 0.2 % (-); Platelet Count 297 10^3/uL (130-400); Red Blood Cell Count 2.99 10^6/uL (4.70-6.10); Red Cell Dist. Width 13.4 % (11.5-14.5); White Blood Cell Count 10.7 10^3/uL (4.8-10.8)
[2024-09-09 04:37] LABS: Blood Urea Nitrogen 51 mg/dl (9-20); Calcium 8.7 mg/dl (8.4-10.2); Carbon Dioxide 27 mmol/L (22-30); Chloride 99 mmol/L (98-107); Estimated Creatinine Clearance 61 ml/min; Glucose 193 mg/dl (70-99); Magnesium 2.3 mg/dl (1.6-2.3); Phosphorus 3.5 mg/dl (2.5-4.5); Potassium 3.8 mmol/L (3.5-5.1); Sodium 134 mmol/L (135-145); eGFR > 60.00
[2024-09-09] MEDS: SOLU-MEDROL PF 40 MG IV ×2 (05:06→18:19)
--- NOTE | 2024-09-09 07:01 | W.PN.HOSP.TC ---
Addendum entered and electronically signed by Judy Gill MD 09/10/24 08:58:
Acute on Chronic Respiratory Failure with Hypoxia.
Addendum entered and electronically signed by Judy Gill MD 09/10/24 05:15:
Acute on Chronic Respiratory Failure
NSTEMI
Original Note:
Today's Communication/Plan
-
wean precedex as tolerated
cont abx
wean O2 as tolerated
cont TAVR work up
milrinone/diuretics as per cardiology
steroid taper as per pulm
Assessment / Plan
Assessment / Plan
Physical Exam
General: mild moderate distress/frustration noted with length of stay otherwise appears relatively comfortable
HEENT: Normocephalic Atraumatic PERRLA on High Flow
CVS S1 S2 NSR. 4/6 systolic murmur
Pulm: clear to auscultation
Abd: Soft NT bowel sounds present
Neuro: AOx3
Psych:mild agitation/frustration as above but otherwise cooperative
HPI: 74-year-old patient presented to [facility] on 09/02/2024 with abdominal pain for weeks. Admitted with right upper and left lower lobe pneumonia was found to have leukocytosis. Then was found to be hypotensive rapid response was called. Was
found to have possible ACS and heparin drip was started. Echo 09/03/2024 was noted to have hypokinesis and EF of 44%. Also severe aortic valve stenosis. CTA chest showed mild aneurysmal dilatation of the infrarenal abdominal aorta and patent by
lateral iliac stents. High-grade short segment stenosis involving celiac trunk, SMA origin, left renal artery origin and short segment of left common femoral artery . CT also showed emphysematous changes and bronchitis cardiac cath performed at
[facility] showed minor luminal irregularities of the left main, LAD without any significant disease. Second major diagonal branch with 60 to 70% stenosis. Mild diffuse atherosclerosis. Left circumflex also found to have medium to large vessel
with 4 marginal branches with minor luminal irregularities. Right coronary artery was codominant with minor luminal irregularities. Pulmonary artery pressures were elevated. Patient was transferred to [facility] for cardiothoracic evaluation for
urgent TAVR.
EKG reviewed by me-sinus rhythm. Right bundle branch block
# Severe aortic stenosis-cardiothoracic evaluating for TAVR
Echo 09/05/2024-mildly reduced LV systolic function. EF 45%. Mitral annular calcification. Mild MR. Mild TR. Pulmonary artery pressure 40 to 45 mmHg.
Cardiothoracic surgery does not feel patient is a candidate for SAVR but future TAVR could be considered.
# Acute HFrEF with hypokinesis of heart muscle wall with EF of 44% possible nonischemic cardiomyopathy in the setting of severe . Goal-directed medical therapy when blood pressure better
briefly treated with Bumex gtt
09/07/04 RH appreciated elevated biventricular filling pressures
-diuresis as per Cardio
-cont milrinone gtt
-phenylephrine prn MAP>65
# Shock likely cardiogenic-started on milrinone. Weaned Off Levophed and vasopressin, intermittently requiring phenylephrine wean off as tolerated
# Community-acquired pneumonia-continue cefepime zithromax as per pulm, empiric vancomycin completed MRSA screen neg
# TME-cont precedex, wean as tolerated
# Abdominal aortic aneurysm
# Coronary artery disease-nonobstructive coronary artery disease by catheter -continue Plavix, statin. ACS for which he was treated with heparin gtt since completed
# Peripheral artery disease with history of PCI of the left SFA stent 2013 Dr. Ng and left common femoral endarterectomy.
Bilateral common iliac and bilateral external iliac disease with bilateral iliac stents [facility] 04/18/2023
High-grade short segment stenosis of the celiac trunk origin, SMA origin, left renal artery origin and a short segment of the left common femoral artery as per CT at [facility]
Occlusion of the SFAs
History of right carotid endarterectomy [facility] 05/04/2024
Vascular evaluation
Continue statin
Plavix on hold in anticipation surgical intervention as above
# COPD with chronic respiratory failure on 2 L of oxygen Debra Ricks Singulair as outpatient. Also on Daliresp. Also on as needed albuterol.
On methylprednisolone for COPD exacerbation
Continue levalbuterol inhaler
steroid tapered as per pulm
# Anemia
# Mild hyponatremia
# Sleep apnea-noncompliant with CPAP
# Prediabetes with hemoglobin A1c 6.2
# Hypertension-blood pressure on the low side now
# Hyperlipidemia-continue statin
# GERD-PPI to be continued
# Anxiety/Depression-as needed lorazepam, sertraline
# Microscopic hematuria
# AAA
# Ex-smoker
# DVT prophylaxis-Lovenox
Total Critical Care Time 40 minutes. I was immediately available to the patient and staff. I personally examined, reviewed labs, diagnostic images/reports, interpretations, treatment plans, discussed patient care with patient, patient's daughter
Florinda, and other providers entered orders as appropriate and documented the medical record.
Anticipated Discharge: > 48 hours
Subjective/Interval History
-
Date of Service: September 09, 2024
Seen and examined at bedside in no acute distress sitting up comfortably in bed. Remains on High flow though weaning down. Back on phenylephrine pressor support though low dose.
Objective Data
-
Labs:
Laboratory Results
09/09/24
03:53
WBC 10.7
Hgb 9.7 L
Hct 28.7 L
Plt Count 297 D
Sodium 134 L
Potassium 3.8
Chloride 99
Carbon Dioxide 27
BUN 51 H
Creatinine 1.0
Glucose 193 H
Calcium 8.7
Vital Signs:
Vital Signs
Temp Pulse Resp BP Pulse Ox
97.5 F 77 19 91/58 95
09/09/24 03:19 09/09/24 06:30 09/09/24 06:30 09/09/24 00:00 09/09/24 06:30
I&O
09/08/24 09/09/24 09/10/24
06:59 06:59 06:59
Intake Total 313.2 / 324.2 1079.3 / 1079.3
Output Total 4020 / 4065 2633 / 2633
Balance -3706.8 / -3740.8 -1553.7 / -1553.7
[2024-09-09] MEDS: XOPENEX 1.25 MG INHALANT SOLUTION INH ×4 (07:13→19:46)
[2024-09-09] MEDS: ATROVENT NEBULES 0.5 MG INH ×3 (07:14→19:46)
[2024-09-09 08:00] VITALS: BP 82/47
--- NOTE | 2024-09-09 08:00 | PTCARENOTE ---
Assumed care of patient. Pt rec'd A&Ox3. Pleasant w/ periods of anxiety and agitation. Disappointed in prolonged hospitalization. Denies pain at present. S1 S2 reg w/ NSR/BBC/prolonged QT on monitor. Pulses by doppler. Trace edema in
upper/lower extremities. Knee hi SCD's on. On HFNC 40L/60%...sats 94%. Lungs diminished throughout w/ I/E throughout posteriorly. Moist harsh PC for thick clear secretions. Sats decreased to 88% when coughing. Abdomen round...hypo BS. Poor
appetite. Able to swallow pills whole w/o issue. Manzo draining yellow urine. Skin pale in color. Drsg dry and intact on left brachial site. Right brachial mariano...flushed and zeroed. Right DL PICC w/ neosynephrine, primacor, and precedex
infusing...see interventions. VS documented. Call villaseñor within reach. Will continue to monitor closely.
[2024-09-09] MEDS: DALIRESP 500 MCG PO (08:53)
[2024-09-09] MEDS: ZITHROMAX 250 MG PO (08:53)
[2024-09-09] MEDS: PROTONIX 40 MG PO (08:54)
[2024-09-09] MEDS: COLACE 100 MG PO ×2 (08:54→19:09)
[2024-09-09] MEDS: TESSALON PERLES 200 MG PO ×3 (08:55→22:04)
[2024-09-09] MEDS: LIPITOR 20 MG PO (08:55)
[2024-09-09] MEDS: SENOKOT 8.6 MG PO ×2 (08:55→19:09)
--- NOTE | 2024-09-09 09:16 | W.PN.CD ---
Today's Communication / Plan
-
Pulmonary edema improving. Slight LUCY.
Bumex 1 mg IV today.
Continue milrinone 0.25 and phenylephrine for goal MAP >65
Ongoing discussions re: possible inpatient TAVR
Impression / Plan
-
74 yo male with PMH of PAD, right CEA, HTN, hyperlipidemia, tobacco abuse presented to [facility] with chest pain. Went to director of cath lab and found to have non-obstructive CAD, mildly elevated PCW, CO/CI 4.1/2.4. Echo shows EF 40%, severe .
Became hypotensive, started on milrinone and levophed, and transferred here for urgent TAVR evaluation.
Here he has had ongoing cardiogenic shock, now on milrinone/phenylepherine. Received aggressive diuresis initially but then stopped. RHC 09/07 with PCWP 25 (69.2 kg), CI 2.2. Ongoing discussions regarding risk/benefit/feasibiliy of TAVR in setting of
severe vascular disease.
# Mixed cardiogenic/infectious/vascular shock
-favored to be result of aortic stenosis though seems potentially out of proportion to degree of ; no clear e/o infection but treating for HAP empirically while undergoing infectious workup
-echo repeated 07/06/2024 showing LVEF of 35% with severe low-flow low-gradient aortic stenosis (note: rotated cardiac chambers potentially resulting in underestimated gradients)
-RHC 09/07 with elevated filling pressures
-breathing improved today after aggressive diuresis, but is now developing LUCY
--> Slow down on diuresis given developing LUCY (Cr 0.7 -> 1, BUN 14 -> 51); Bumex 1mg IV today
--> repeat daily CXR to monitor for resolution of pulmonary edema (vastly improved today)
--> cont. harriet for MAP goal >65
--> CI well supported on milrinone 0.25, continue
--> without alternative explanation for shock, if patient cannot be discharged will need to consider high risk inpatient TAVR vs. palliative care
# LUCY
-Likely due to aggressive diuresis
-Will slow down and give 1 mg IV Bumex as above
-Trend daily BMPs
# Severe
-Appears to be low-flow low gradient with severe, but not critical,
-undergoing TAVR eval; would need to be alt access either R axillary cutdown or transapical
-surgical considerations: high risk for GA from pulmonary standpoint, last dose of Plavix on 09/05/2024-history of PAD and peripheral stent
-ongoing multidisciplinary discussions
-Await dental eval
# Cardiomyopathy, EF 40%
-appears to be NICM, in setting of severe
-weaning pressors/inotropes; then add GDMT
# Severe COPD
-CT scan from [facility] was reviewed
-Discussed with pulmonary Dr. Covarrubias, treating with nebs/steroids
# PAD
-on plavix as outpatient, holding given possible surgical TAVR access
-vasular consulted for possible mesenteric ischemia - would defer any intervention until after cardiovascular issues resolved
-cont. asa
# Hyperlipidemia
-statin
Subjective: Patient is frustrated this morning. Wants to know when his surgery will be performed. Says he feels great today. Remains on high flow nasal cannula and milrinone 0.25. Weight by bed scale is 66.7 kg from 68.5 kg yesterday. He
received Bumex 4 mg IV once yesterday and was net neg 1.5L. BUN today is 51 from 39 creatinine is 1 from 0.9. Telemetry with sinus rhythm, heart rate in the 80s mostly. No events. He was seen by dental yesterday but has not been able to get
panoramic x-ray due to critical illness.
Physical Exam
Vital Signs/Labs
Vital Signs
Temp Pulse Resp BP Pulse Ox
97.5 F 84 34 91/58 94
09/09/24 03:19 09/09/24 07:16 09/09/24 07:16 09/09/24 00:00 09/09/24 07:16
09/08/24 09/09/24 09/10/24
06:59 06:59 06:59
Actual Weight 68.5 kg 66.7 kg
09/09/24 03:53
09/09/24 03:53
PT 15.4 Sec (11.4-14.6) H 09/04/24 16:59
INR 1.19 09/04/24 16:59
APTT 44.8 Sec (23.4-35.0) H 09/04/24 16:59
Magnesium 2.3 mg/dl (1.6-2.3) 09/09/24 03:53
Triglycerides 96 mg/dl (10-149) 09/05/24 03:57
LDL Cholesterol, Calc 56 mg/dl 09/05/24 03:57
VLDL Cholesterol, Calc 19 mg/dl (0-30) 09/05/24 03:57
HDL Cholesterol 50 mg/dl 09/05/24 03:57
09/05/24 09/07/24
00:11 03:21
Xor-U-Eviumimnpds Pept 5060 [id number]
Physical Exam
Constitutional: Comfortable
Cardiovascular: Rhythm & rate is regular, Pedal edema is absent, Systolic murmur present and S1S2 is normal
Respiratory: Respiratory effort normal and Wheeze Present
Data Reviewed
-
Date of Service: September 09, 2024
Medical Decision Making: Reviewed Test Results, Independent Historian Assessment, Test Interpretation and Review of Case with other Provider
EKG: Tracing Personally Visualized and interpreted
Echo: Report Reviewed by me
X-Ray/CT/US/MRI/NUC/PET: Image Personally Visualized and interpreted
Labs: Labs Reviewed by me
--- NOTE | 2024-09-09 11:28 | PN.CDI ---
CDI
- -
CDI:
Physician Documentation Request
Admit Date: 09/04/24 14:42
Dear Doctor Jairo,
Hospitalist progress notes state ' COPD with chronic respiratory failure on 2 L of oxygen '
Documented vital signs show patient to be on midflow oxygen progressing to high flow oxygen during his hospitalization.
Please clarify the type and acuity of respiratory failure:
Type Acuity
Respiratory failure with hypoxia Acute on chronic
Respiratory failure with hypercapnia Chronic
Respiratory failure with hypoxia and hypercapnia
Other, please specify
Use of terms such as suspected, likely, concern for, or probable (associated with a specific diagnosis that is being evaluated, monitored, or treated as if it exists) are acceptable and can be coded in the inpatient setting, when documented at the
time of discharge.
Thank you,
Florinda Arambula RN, BSN
CDI Specialist
tiger text
Please use your independent medical judgment in providing your response.
--- NOTE | 2024-09-09 11:33 | PN.CDI ---
CDI
- -
CDI:
Physician Documentation Request
Admit Date: 09/04/24 14:42
Dear Doctor Jairo,
Please review the following and provide your response in the progress notes.
Clinical Indicators:
The diagnosis of NSTEMI was documented in [employer] progress notes , but is not noted in other provider's notes. 'Elevated troponin likely due to NSTEMI'
Per H&P 'Cardiac Cath was performed at [facility], showed 'minor luminal irregularities of the left main, LAD w/o any significant disease. Second major diagonal branch with a ostial 60 to 70% stenosis. The remainder of the LAD system with
mild diffuse atherosclerosis. The left circumflex was found to be a medium to large vessel with 4 marginal branches with minor luminal irregularities. The right coronary artery was codominant with minor luminal irregularities. The pulmonary artery
pressures were mildly elevated.'
Cardiology progress note state 'Cardiomyopathy, EF 40% - appears to be NICM, in setting of severe '
Trop results:
Laboratory Tests
09/04/24 09/05/24 09/05/24
16:59 00:11 05:22
Troponin I 0.389 H* 0.319 H* 0.334 H*
09/05/24 09/05/24 09/06/24
16:47 21:06 05:05
Troponin I 7.100 H* 6.230 H* 6.470 H*
Please clarify the following:
____ - NSTEMI was present
____ - NSTEMI was ruled out
____ - Other
Use of terms such as suspected, likely, concern for, or probable (associated with a specific diagnosis that is being evaluated, monitored, or treated as if it exists) are acceptable and can be coded in the inpatient setting, when documented at the
time of discharge.
Thank you,
Florinda Arambula RN, BSN
CDI Specialist
tiger text
Please use your independent medical judgment in providing your response.
[2024-09-09] MEDS: KCL 40 MEQ PO (11:54)
--- NOTE | 2024-09-09 12:00 | PTCARENOTE ---
Remains on HFNC 40L/60%...sats 94%. No major changes in physical assessment. Wean harriet gtt to off. Call villaseñor within reach. Will continue to monitor closely.
--- NOTE | 2024-09-09 12:08 | W.PN.INTV ---
Today's Communication / Plan
Recommendations
Continue diuretics per cardiology
Milrinone
Yuri-Synephrine, wean off as able
Decrease steroids today, transition to prednisone tomorrow
Continue nebulizer therapy
Complete antibiotics tomorrow
Continue to follow chest x-ray that is clearing
Continue to wean down oxygen
Assessment
-
Assessment: 74-year-old male with a past medical history of chronic HFrEF, severe aortic stenosis, PVD, history of COPD, former tobacco smoker and hyperlipidemia who presents as a transfer from [facility] for evaluation for TAVR. Patient
initially presented to [facility] on 09/02/24 with chest pain and worsening shortness of breath. A rapid response was called as he was hypotensive, dizzy and weak and was endorsing chest pain. ACS was suspected and heparin drip was started.
Transthoracic echo on 09/03/2024 showed moderately hypokinetic apex with distal lateral and distal septal moderate hypokinesis, with LVEF 44.4% with normal RV size and systolic function and severe aortic valve stenosis with MARGARETTE: 1.03 with mean
gradient of 34.2 mmHg. He underwent a left heart catheterization on 09/03/2024 showing mild�moderate nonobstructive CAD with mildly elevated pulmonary and wedge pressures with normal right heart catheterization (PCWP: 16mmHg, PADP: 17mmHg, RA:
11mmHg). CTA chest was performed at [facility] showing mild aneurysmal dilatation of the infrarenal abdominal aorta, patent bilateral iliac stents, high-grade short segment stenosis involving the celiac trunk origin, SMA origin, left renal artery origin
and a short segment of the left common femoral artery, as well as emphysematous changes and bronchitis. Patient was transferred here to [place] for evaluation for TAVR.
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
Impression:
#Severe aortic stenosis awaiting TAVR workup
#Chronic HFrEF
#Acute COPD exacerbation (on Breztri at home)
#PAD
#Hypotension suspected to be due to cardiogenic shock on vasopressors + milrinone
#Anemia
#Hypereosinophilia (absolute eosinophil count: 2100)
#Acute respiratory alkalosis
#Elevated troponin likely due to NSTEMI
#Abnormal urinalysis with +1 leukocyte esterase
#Former tobacco smoker (quit 06/2019 with >20 5�49-wydh-ksqn history)
#AAA
Plan:
-
Oxygen requirements improved, remains on high flow 60%.
Continues to report intermittent anxiety due to increased shortness of breath.
Right heart catheterization noted with increased left and right filling pressures. Consistent with cardiogenic shock.
Suspect abnormal chest x-ray is a reflection of pulmonary edema, less likely pneumonia without fevers or leukocytosis.
-
Cardiology and CT surgery correspondence reviewed.
Milrinone/Yuri-Synephrine
Diuretics IV will continue
Seems to be responding
Monitor renal function and electrolytes.
Hold Plavix for washout for possible TAVR next week.
From the COPD perspective: Not bronchospastic on exam 09/09/2024.
Continue with current nebulizer regimen:
Continue with supplemental oxygen and titrate to keep SpO2 88-95%, wean down FiO2 as able. Currently on high flow oxygen.
Continue Tessalon Perles with prn codeine cough syrup for bothersome dry cough.
Continue daliresp
Patient is on Breztri as an outpatient
Decrease Solu-Medrol to every 12 hours. Transition to prednisone tomorrow if he continues to improve.
Xopenex [id number]
Continue Atrovent 3 times a day
hold Spiriva-unable to perform inhaler maneuver properly.
Intermittent anxiety.
Continue to follow mental status closely.
Continue Precedex will continue to decrease as able
Ativan as needed
Chest x-ray 09/09/2024: Continues to improved, consistent with pulmonary edema
With lack of fever and leukocytosis less likely pneumonia. Cefepime/azithromycin.
He will complete antibiotics 09/10/2024
Discontinued vancomycin-negative MRSA
-All cultures negative so far-continue to follow
-Negative urine antigens for Legionella/strep pneumonia
Daily chest x-ray
Aspiration precautions
DVT prophylaxis: LMWH
Critical care statement: A total of 31 minutes of critical care time was provided for this patient today. This includes management of unstable vital signs, evaluation of the patient at bedside, reviewing the patient's pertinent medical records
including radiographs, microbiology, laboratory evaluations, and discussion with primary team, consultants, pharmacy, nutrition, physical therapy, case management, charge nurse, critical care nursing, and respiratory therapy.
Data:
CXR 09/05/2024: Possible slight progression of bilateral prominent interstitial markings which could represent worsening interstitial edema or pneumonitis.
CXR 09/06/2024 (compared to CXR from 09/04/2024): Bilateral pneumonia as described above. Significantly increased.
Subjective Dataa
Subjective Data
Date of Service:
Date of Service: September 09, 2024
Chief Complaint: Quarantine Officer Follow Up
Subjective:
Continues to report shortness of breath with activity
Remains on high flow oxygen
Continues to have intermittent anxiety
Denies phlegm production
Review of Systems
General: Fever (n)
Cardiopulmonary: Dyspnea, Dyspnea on Exertion, Cough and Wheezing (n)
GI: Abdominal Pain (n)
Neuro: Headache (n)
Objective Data
Data Reviewed
Vital Signs / I&O / Oxygen:
Vital Signs
Temp Pulse Resp BP Pulse Ox
97.5 F 88 18 91/58 92
09/09/24 03:19 09/09/24 10:43 09/09/24 10:43 09/09/24 00:00 09/09/24 11:18
Intake and Output
09/08/24 09/09/24 09/10/24
06:59 06:59 06:59
Intake Total 313.2 / 324.2 1079.3 / 1079.3
Output Total 4020 / 4065 2633 / 2633
Balance -3706.8 / -3740.8 -1553.7 / -1553.7
SaO2 92
Nasal Cannula flow liters per 40
minute
Physical Exam
General: Respiratory Distress (mild), Chills (negative), Sweats (negative) and Other (Anxious appearing)
HEENT: Normocephalic and Anicteric
Cardiovascular: S1-S2, Murmur (JUAN JOSE heard best at RUSB), Rub (negative), Peripheral Edema (negative) and Other (Tachycardic)
Respiratory: Wheeze (Jackson upon expiration in the bases bilaterally), Crackles (negative), Rhonchi (negative), Non-Labored Respirations and Other (Diminished breath sounds bilaterally)
GI: Soft, Non Distended, Non Tender and Normal Bowel Sounds
Neurology: AO x 3 and Tremors (negative)
Skin: Warm, Dry, Cyanosis (negative) and Jaundice (negative)
Labs/Micro/Reports
Lab Data
09/09/24 03:53
09/09/24 03:53
Microbiology
09/06/24 13:05 Blood/Venous Blood Culture - Preliminary
No Growth in 48 hours- Final report to follow
09/06/24 12:41 Nose Nasal Screen MRSA (PCR) - Final
MRSA not detected - performed by PCR methodology.
09/06/24 12:43 Sputum Respiratory Culture - Final
09/06/24 12:43 Sputum Gram Stain - Final
09/06/24 12:41 Urine Legionella Urinary Antigen - Final
Negative for Legionella pneumophila Serogroup 1 antigen.
A negative result does not rule out the possiblity of
Legionella infection due to other serogroups or species of
Legionella. Clinical correlation is recommended.
09/06/24 12:41 Urine Streptococcus pneumoniae Antigen (M - Final
Negative for Streptococcus pneumoniae antigen.
A negative result does not exclude infection with
Streptococcus pneumoniae. Clinical correlation is
recommended.
[2024-09-09 12:11] LABS: Glucose - Point of Care 281 mg/dl (70-99)
[2024-09-09] MEDS: NOVOLOG FLEXPEN-LOW RESISTANCE 3 UNITS SC (12:43)
[2024-09-09] MEDS: BUMEX 1 MG IV (14:02)
[2024-09-09] MEDS: ATIVAN 0.5 MG PO ×2 (14:11→20:01)
[2024-09-09] MEDS: PRIMACOR 20 MG 100 IV (14:15)
--- NOTE | 2024-09-09 16:00 | PTCARENOTE ---
Remains on HFNC 40L/60%...sats 95%. Increased urine output since bumex IV given. Family at bedside...all questions answered. Will continue to monitor closely.
[2024-09-09] MEDS: NOVOLOG FLEXPEN-LOW RESISTANCE 2 UNITS SC (16:30)
[2024-09-09 16:39] LABS: Glucose - Point of Care 213 mg/dl (70-99)
[2024-09-09 17:49] LABS: Glucose - Point of Care 199 mg/dl (70-99)
[2024-09-09] MEDS: LOVENOX 40 MG SC (18:21)
--- NOTE | 2024-09-09 19:48 | PTCARENOTE ---
Received pt from previous RN. Pt is AAox3, anxious, drowsy @ times. NSR on the monitor, doppler pedal pulses. Pt on highflow 60%, 40L O2 sat 99%, lungs coarse/wheezing/diminished. Pt tachypneic, orthopneic, labored, COSBY and at rest. Pt with poor
appetite, no BM scheduled Colace and Senokot given (see MAR). Manzo in place, hygiene provided. Left brachial dressing c/d/i, weak left radial pulse. Received pt on Milrinone and Precedex gtt through right DL PICC (see worklist). HEIDI Arora notified
about pt MAP of 55, Yuri gtt restarted @ 20 mcg/min. Right brachial mariano zeroed and transduced. Pt is laying in bed with call villaseñor in reach. Safe environment maintained.
[2024-09-09 22:27] LABS: Glucose - Point of Care 223 mg/dl (70-99)
--- NOTE | 2024-09-09 23:26 | PTCARENOTE ---
Pt remains on highflow 40L 60%, O2 sat 97%. Systems reviewed, no new changes in assessment. CHG bath provided. Q2T provided. Safe environment maintained.
[2024-09-10] VITALS: BP 89/57
[2024-09-10] MEDS: XOPENEX 1.25 MG INHALANT SOLUTION INH ×4 (01:53→19:46)
[2024-09-10] MEDS: STERILE WATER FOR INJECTION 10 ML IV ×3 (04:20→20:36)
[2024-09-10] MEDS: MAXIPIME 2000 MG IV ×3 (04:20→20:36)
[2024-09-10 04:31] VITALS: BMI 22.5
[2024-09-10 04:38] LABS: % Basophils 0.1 % (0-2); % Eosinophils 0.6 % (0-6); % Immature Granulocytes 1.3 % (0-0.5); % Lymphocytes 12.7 % (20.5-51.1); % Monocytes 7.8 % (1.7-9.3); % Neutrophils 77.5 % (42.2-75.2); Absolute Eosinophils 0.1 10^3/uL (0-0.7); Absolute Immature Granulocytes 0.1 10^3/uL (0-0.05); Absolute Lymphocytes 1.4 10^3/uL (1.2-3.4); Absolute Monocytes 0.8 10^3/uL (0.1-0.6); Absolute Neutrophils 8.4 10^3/uL (1.4-6.5); Hematocrit 28.2 % (39.0-52.0); Hemoglobin 9.4 g/dL (13.0-18.0); Mean Corp Hgb Conc. 33.3 g/dL (33.0-37.0); Mean Corpuscular Hgb 32.2 pg (27.0-31.0); Mean Corpuscular Volume 96.6 fL (80.0-94.0); Nucleated Red Blood Cells % 0 % (-); Platelet Count 258 10^3/uL (130-400); Red Blood Cell Count 2.92 10^6/uL (4.70-6.10); Red Cell Dist. Width 13.5 % (11.5-14.5); White Blood Cell Count 10.8 10^3/uL (4.8-10.8)
--- NOTE | 2024-09-10 04:48 | PTCARENOTE ---
Yuri gtt off per protocol MAP 75. Systems reviewed, no new changes in assessment.
[2024-09-10 05:04] LABS: Blood Urea Nitrogen 48 mg/dl (9-20); Calcium 8.6 mg/dl (8.4-10.2); Carbon Dioxide 27 mmol/L (22-30); Chloride 101 mmol/L (98-107); Estimated Creatinine Clearance 67 ml/min; Glucose 196 mg/dl (70-99); Magnesium 2.3 mg/dl (1.6-2.3); Phosphorus 3.4 mg/dl (2.5-4.5); Potassium 4.2 mmol/L (3.5-5.1); Sodium 133 mmol/L (135-145); eGFR > 60.00
--- NOTE | 2024-09-10 05:14 | PTCARENOTE ---
Yuri gtt restarted for MAP of 59 @ 20 mcgs, HEIDI Arora notified.
[2024-09-10] MEDS: SOLU-MEDROL PF 40 MG IV (05:37)
--- NOTE | 2024-09-10 07:07 | W.PN.HOSP.TC ---
Today's Communication/Plan
-
wean precedex as tolerated
cont abx
wean O2 as tolerated
cont TAVR work up
milrinone/diuretics as per cardiology
steroid taper as per pulm
Assessment / Plan
Assessment / Plan
Physical Exam
General: no acute distress, appears comfortable at this time
HEENT: Normocephalic Atraumatic PERRLA on High Flow
CVS S1 S2 NSR. 4/6 systolic murmur
Pulm: clear to auscultation
Abd: Soft NT bowel sounds present
Neuro: AOx3
Psych: calm
HPI: 74-year-old patient presented to [facility] on 09/02/2024 with abdominal pain for weeks. Admitted with right upper and left lower lobe pneumonia was found to have leukocytosis. Then was found to be hypotensive rapid response was called. Was
found to have possible ACS and heparin drip was started. Echo 09/03/2024 was noted to have hypokinesis and EF of 44%. Also severe aortic valve stenosis. CTA chest showed mild aneurysmal dilatation of the infrarenal abdominal aorta and patent by
lateral iliac stents. High-grade short segment stenosis involving celiac trunk, SMA origin, left renal artery origin and short segment of left common femoral artery . CT also showed emphysematous changes and bronchitis cardiac cath performed at
[facility] showed minor luminal irregularities of the left main, LAD without any significant disease. Second major diagonal branch with 60 to 70% stenosis. Mild diffuse atherosclerosis. Left circumflex also found to have medium to large vessel
with 4 marginal branches with minor luminal irregularities. Right coronary artery was codominant with minor luminal irregularities. Pulmonary artery pressures were elevated. Patient was transferred to [place] for cardiothoracic evaluation for
urgent TAVR.
EKG reviewed by me-sinus rhythm. Right bundle branch block
# Severe aortic stenosis-cardiothoracic evaluating for TAVR
Echo 09/05/2024-mildly reduced LV systolic function. EF 45%. Mitral annular calcification. Mild MR. Mild TR. Pulmonary artery pressure 40 to 45 mmHg.
Cardiothoracic surgery does not feel patient is a candidate for SAVR but future TAVR could be considered.
OMF eval appreciated
orthopantogram noted no acute infections
# Acute HFrEF with hypokinesis of heart muscle wall with EF of 44% possible nonischemic cardiomyopathy in the setting of severe . Goal-directed medical therapy when blood pressure better
briefly treated with Bumex gtt
09/07/04 RHC appreciated elevated biventricular filling pressures
-cont milrinone gtt and diuresis as per Cardio
-phenylephrine prn MAP>65
# Shock likely cardiogenic-started on milrinone. Weaned Off Levophed and vasopressin, intermittently requiring phenylephrine wean off as tolerated
# Community-acquired pneumonia-continue cefepime zithromax as per pulm, empiric vancomycin completed MRSA screen neg
# TME-cont precedex, wean as tolerated
# Abdominal aortic aneurysm
#NSTEMI treated with hep gtt since completed
# Coronary artery disease
-troponin trended to peak 7.100
-nonobstructive coronary artery disease by catheter
-cont statin
-Plavix on hold in anticipation surgical intervention as above
# Peripheral artery disease with history of PCI of the left SFA stent 2012 Dr. Ng and left common femoral endarterectomy.
Bilateral common iliac and bilateral external iliac disease with bilateral iliac stents [facility] 04/18/2023
High-grade short segment stenosis of the celiac trunk origin, SMA origin, left renal artery origin and a short segment of the left common femoral artery as per CT at [facility]
Occlusion of the SFAs
History of right carotid endarterectomy [facility] 05/04/2024
Vascular evaluation appreciated
Continue statin
Plavix on hold in anticipation surgical intervention as above
# COPD with chronic respiratory failure on 2 L of oxygen Spiriva, Breztri, Singulair as outpatient. Also on Daliresp. Also on as needed albuterol.
#Acute on Chronic Respiratory Failure with Hypoxia likely 2/2 heart failure as above
treated with steroids for COPD exacerbation
Continue levalbuterol inhaler
steroids tapered to prednisone as per pulm
required high Flow weaning down.
# Anemia
# Mild hyponatremia
# Sleep apnea-noncompliant with CPAP
# Prediabetes with hemoglobin A1c 6.2
# Hypertension-blood pressure on the low side now
# Hyperlipidemia-continue statin
# GERD-PPI to be continued
# Anxiety/Depression-as needed lorazepam, sertraline
# Microscopic hematuria
# AAA
# Ex-smoker
# DVT prophylaxis-Lovenox
Total Critical Care Time 35 minutes. I was immediately available to the patient and staff. I personally examined, reviewed labs, diagnostic images/reports, interpretations, treatment plans, discussed patient care with patient and other providers
entered orders as appropriate and documented the medical record.
Anticipated Discharge: > 48 hours
Subjective/Interval History
-
Date of Service: September 10, 2024
No acute distress. Sitting up comfortably in bed. Weaning down on oxygen supplementation. Low dose phenylephrine pressor support.
Objective Data
-
Labs:
Laboratory Results
09/10/24
04:30
WBC 10.8
Hgb 9.4 L
Hct 28.2 L
Plt Count 258
Sodium 133 L
Potassium 4.2
Chloride 101
Carbon Dioxide 27
BUN 48 H
Creatinine 0.9
Glucose 196 H
Calcium 8.6
Vital Signs:
Vital Signs
Temp Pulse Resp BP Pulse Ox
96.7 F L 82 25 89/57 95
09/10/24 03:36 09/10/24 04:40 09/10/24 04:40 09/10/24 00:00 09/10/24 04:40
I&O
09/09/24 09/10/24 09/11/24
06:59 06:59 06:59
Intake Total 1079.3 / 1099.9 1749.4 / 1749.4
Output Total 2633 / 2703 1644 / 1644
Balance -1553.7 / -1603.1 105.4 / 105.4
[2024-09-10] MEDS: ATROVENT NEBULES 0.5 MG INH ×3 (07:20→19:46)
[2024-09-10 08:00] VITALS: BP 85/57
[2024-09-10] MEDS: PRIMACOR 20 MG 100 IV (08:34)
[2024-09-10] MEDS: PRECEDEX 100 IV (08:35)
[2024-09-10] MEDS: DALIRESP 500 MCG PO (08:36)
[2024-09-10] MEDS: PROTONIX 40 MG PO (08:36)
[2024-09-10] MEDS: LIPITOR 20 MG PO (08:37)
[2024-09-10] MEDS: ZITHROMAX 250 MG PO (08:37)
[2024-09-10] MEDS: TESSALON PERLES 200 MG PO ×2 (08:37→21:23)
[2024-09-10] MEDS: NOVOLOG FLEXPEN-MODERATE RESISTANCE 1 UNITS SC ×2 (08:39→17:58)
[2024-09-10] MEDS: SENOKOT PO (08:40)
[2024-09-10] MEDS: COLACE PO (08:40)
[2024-09-10 08:45] LABS: Glucose - Point of Care 155 mg/dl (70-99)
--- NOTE | 2024-09-10 09:13 | PTCARENOTE ---
recd pt 0730, systems reviewed, gtts verified. remains on harriet, milrinone, precedex. tolerating high flow, breakfast ordered, lungs wheezing. notes feels somewhat better. states 'I want these teeth pulled today.' plan reviewed, agreeable to get
OOB later, presently resting. attempted to titrate harriet down briefly, MAP 60, gtt increased again. call villaseñor close by, presently cooperative and though he reports feeling anxious, calmer and less fidgety/labile than yesterday. denies pain.
[2024-09-10] MEDS: PULMICORT 0.5 MG INH ×2 (09:24→19:46)
--- NOTE | 2024-09-10 10:46 | PTCARENOTE ---
transitioned earlier to midflow 10 l, oob to wc, taken to radiology for panelipse xray, tolerated. back to bed, initially dangled several minutes then repositioned into bed. drips remain as previously, verbalizing appropriately re: plan,
expectations.
[2024-09-10] MEDS: NEO-SYNEPHRINE 250 IV (11:28)
[2024-09-10 13:03] LABS: Glucose - Point of Care 234 mg/dl (70-99)
--- NOTE | 2024-09-10 13:04 | W.PN.INTV ---
Today's Communication / Plan
Recommendations
Continue milrinone and Yuri-Synephrine per cardiology
IV diuretics
Monitor electrolytes and renal function
Dental work ongoing
Transition to prednisone
Continue nebulizer
Complete antibiotics today 09/10/2024
Repeat chest x-ray tomorrow 09/11/2024
Wean down oxygen
Continue critical care monitoring
Assessment
-
Assessment: 74-year-old male with a past medical history of chronic HFrEF, severe aortic stenosis, PVD, history of COPD, former tobacco smoker and hyperlipidemia who presents as a transfer from [facility] for evaluation for TAVR. Patient
initially presented to [facility] on 09/02/24 with chest pain and worsening shortness of breath. A rapid response was called as he was hypotensive, dizzy and weak and was endorsing chest pain. ACS was suspected and heparin drip was started.
Transthoracic echo on 09/03/2024 showed moderately hypokinetic apex with distal lateral and distal septal moderate hypokinesis, with LVEF 44.4% with normal RV size and systolic function and severe aortic valve stenosis with MARGARETTE: 1.03 with mean
gradient of 34.2 mmHg. He underwent a left heart catheterization on 09/03/2024 showing mild�moderate nonobstructive CAD with mildly elevated pulmonary and wedge pressures with normal right heart catheterization (PCWP: 16mmHg, PADP: 17mmHg, RA:
11mmHg). CTA chest was performed at [facility] showing mild aneurysmal dilatation of the infrarenal abdominal aorta, patent bilateral iliac stents, high-grade short segment stenosis involving the celiac trunk origin, SMA origin, left renal artery origin
and a short segment of the left common femoral artery, as well as emphysematous changes and bronchitis. Patient was transferred here to [place] for evaluation for TAVR.
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
Impression:
#Severe aortic stenosis awaiting TAVR workup
#Chronic HFrEF
#Acute COPD exacerbation (on Breztri at home)
#PAD
#Hypotension suspected to be due to cardiogenic shock on vasopressors + milrinone
#Anemia
#Hypereosinophilia (absolute eosinophil count: 2100)
#Acute respiratory alkalosis
#Elevated troponin likely due to NSTEMI
#Abnormal urinalysis with +1 leukocyte esterase
#Former tobacco smoker (quit 06/2019 with >20 5�76-nyrk-tgpg history)
#AAA
Plan:
-
Oxygen requirements improved, remains on high flow 50%. Will continue to wean down, hopefully can transition to mid flow today.
Continues to report intermittent anxiety due to increased shortness of breath.
-
Right heart catheterization noted with increased left and right filling pressures. Consistent with cardiogenic shock.
Suspect abnormal chest x-ray is a reflection of pulmonary edema, less likely pneumonia without fevers or leukocytosis.
-
Cardiology and CT surgery correspondence reviewed.
Milrinone/Rqt-Rzncmjdzwr-ijnqmvral can wean off soon.
Continue IV diuresis as able
Weight trending lower
Repeat chest x-ray tomorrow 09/11/2024
Monitor renal function and electrolytes.
On evaluation for possible TAVR
Dental work ongoing.
Plavix on hold to allow washout
From the COPD perspective: Not bronchospastic on exam 09/10/2024.
Continue with current nebulizer regimen:
Continue with supplemental oxygen and titrate to keep SpO2 88-95%, wean down FiO2 as able. Currently on high flow oxygen.
Continue antitussives.
Continue daliresp
Patient is on Breztri as an outpatient
Transition to prednisone 09/10/2024. 40 mg and decrease by 10 mg every 72 hours to off.
Xopenex [id number]
Continue Atrovent 3 times a day
hold Spiriva-unable to perform inhaler maneuver properly.
Intermittent anxiety.
Continue to follow mental status closely.
Continue Precedex will continue to decrease as able, hopefully can be weaned off. Still requiring low-dose.
Ativan as needed
Chest x-ray 09/09/2024: Continues to improved, consistent with pulmonary edema
With lack of fever and leukocytosis less likely pneumonia. Cefepime/azithromycin.
He will complete antibiotics 09/10/2024
Discontinued vancomycin-negative MRSA
-All cultures negative so far-continue to follow
-Negative urine antigens for Legionella/strep pneumonia
Daily chest x-ray
Aspiration precautions
DVT prophylaxis: LMWH
Critical care statement: A total of 31 minutes of critical care time was provided for this patient today. This includes management of unstable vital signs, evaluation of the patient at bedside, reviewing the patient's pertinent medical records
including radiographs, microbiology, laboratory evaluations, and discussion with primary team, consultants, pharmacy, nutrition, physical therapy, case management, charge nurse, critical care nursing, and respiratory therapy.
Data:
CXR 09/05/2024: Possible slight progression of bilateral prominent interstitial markings which could represent worsening interstitial edema or pneumonitis.
CXR 09/06/2024 (compared to CXR from 09/04/2024): Bilateral pneumonia as described above. Significantly increased.
Subjective Dataa
Subjective Data
Date of Service:
Date of Service: September 10, 2024
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
Subjective:
Denies any new complaints
No significant phlegm production
Continues to have occasional coughing
Remains on high flow oxygen
Review of Systems
Cardiopulmonary: Dyspnea, Dyspnea on Exertion (improved), Cough and Chest Pain (n)
GI: Abdominal Pain (n) and Nausea (n)
Objective Data
Data Reviewed
Vital Signs / I&O / Oxygen:
Vital Signs
Temp Pulse Resp BP Pulse Ox
97.7 F 73 34 85/57 98
09/10/24 11:18 09/10/24 10:50 09/10/24 10:50 09/10/24 08:00 09/10/24 10:50
Intake and Output
09/09/24 09/10/24 09/11/24
06:59 06:59 06:59
Intake Total 1079.3 / 1099.9 1749.4 / 1770.0 357.7 / 357.7
Output Total 2633 / 2703 1644 / 1644 275 / 275
Balance -1553.7 / -1603.1 105.4 / 126.0 82.7 / 82.7
SaO2 98
Nasal Cannula flow liters per 40
minute
Physical Exam
General: Respiratory Distress (mild), Chills (negative), Sweats (negative) and Other (Anxious appearing)
HEENT: Normocephalic and Anicteric
Cardiovascular: S1-S2, Murmur (JUAN JOSE heard best at RUSB), Rub (negative), Peripheral Edema (negative) and Other (Tachycardic)
Respiratory: Wheeze (Mcintosh upon expiration in the bases bilaterally), Crackles (negative), Rhonchi (negative), Non-Labored Respirations and Other (Diminished breath sounds bilaterally)
GI: Soft, Non Distended, Non Tender and Normal Bowel Sounds
Neurology: AO x 3 and Tremors (negative)
Skin: Warm, Dry, Cyanosis (negative) and Jaundice (negative)
Labs/Micro/Reports
Lab Data
09/10/24 04:30
09/10/24 04:30
Microbiology
09/06/24 13:05 Blood/Venous Blood Culture - Preliminary
No Growth in 72 hours- Final report to follow
09/06/24 12:41 Nose Nasal Screen MRSA (PCR) - Final
MRSA not detected - performed by PCR methodology.
[2024-09-10 14:00] VITALS: BP 80/50
[2024-09-10] MEDS: NOVOLOG FLEXPEN-MODERATE RESISTANCE 3 UNITS SC (14:19)
[2024-09-10 14:29] VITALS: BP 119/46; BP 120/57
[2024-09-10 14:42] VITALS: BP 119/46; PULSE 83; O2SAT 98
--- NOTE | 2024-09-10 15:04 | PTCARENOTE ---
oob in chair, family visiting.
--- NOTE | 2024-09-10 15:20 | W.PN.CD ---
Today's Communication / Plan
-
1 IV bumex for goal even to mildly negative
cont. milrinone 0.25
TAVR planning / dental clearance
Impression / Plan
-
74 yo male with PMH of PAD, right CEA, HTN, hyperlipidemia, tobacco abuse presented to [facility] with chest pain. 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 Echo shows EF 40%, severe .
Became hypotensive, started on milrinone and levophed, and transferred here for urgent TAVR evaluation.
Here he has had ongoing cardiogenic shock, now on milrinone/phenylepherine. Received aggressive diuresis initially but then stopped. RHC 09/07 with PCWP 25 (69.2 kg), CI 2.2. Ongoing discussions regarding risk/benefit/feasibiliy of TAVR in setting of
severe vascular disease.
# Cardiogenic shock
-favored to be result of aortic stenosis though seems potentially out of proportion to degree of ; no clear e/o infection but treating for HAP empirically while undergoing infectious workup
-echo repeated 07/06/2024 showing LVEF of 35% with severe low-flow low-gradient aortic stenosis (note: rotated cardiac chambers potentially resulting in underestimated gradients)
-RHC 09/07 with elevated filling pressures, index 2.2 on milrinone 0.25
-breathing continues to imporve after aggressive diuresis, developed LUCY but now improving
--> CXR 09/09 with significantly improved pulmonary edema, would continue diuresis for goal even to 500 negative each day
--> cont. harriet for MAP goal >65
--> CI well supported on milrinone 0.25, would potentially tolerante weaning but given possible valve replacement Saturday favor leaving at current dose until TAVR
--> plan tentatively for R axillary TAVR Saturday, pending dental clearance
# LUCY
-Likely due to aggressive diuresis
-Will slow down and give 1 mg IV Bumex again today for goal even to mildly negative
-Trend daily BMPs
# Severe
-Appears to be low-flow low gradient with severe, but not critical,
-undergoing TAVR eval; would need to be alt access either R axillary cutdown or transapical
-surgical considerations: high risk for GA from pulmonary standpoint, last dose of Plavix on 09/05/2024-history of PAD and peripheral stent
-ongoing multidisciplinary discussions
-Await dental eval
# Cardiomyopathy, EF 40%
-appears to be NICM, in setting of severe
-weaning pressors/inotropes; then add GDMT (likely post TAVR)
# Severe COPD
-CT scan from [facility] was reviewed
-Discussed with pulmonary Dr. Covarrubias, treated with nebs/steroids
# PAD
-on plavix as outpatient, holding given possible surgical TAVR access
-vasular consulted for possible mesenteric ischemia - would defer any intervention until after cardiovascular issues resolved
-cont. asa
# Hyperlipidemia
-statin
Subjective: Patient is frustrated this morning. Wants to know when his surgery will be performed. Says he feels great today. Remains on high flow nasal cannula and milrinone 0.25. Weight by bed scale is 66.7 kg from 68.5 kg yesterday. He
received Bumex 4 mg IV once yesterday and was net neg 1.5L. BUN today is 51 from 39 creatinine is 1 from 0.9. Telemetry with sinus rhythm, heart rate in the 80s mostly. No events. He was seen by dental yesterday but has not been able to get
panoramic x-ray due to critical illness.
Physical Exam
Vital Signs/Labs
Vital Signs
Temp Pulse Resp BP Pulse Ox
36.2 C 90 37 80/50 95
09/10/24 15:20 09/10/24 15:10 09/10/24 15:10 09/10/24 14:00 09/10/24 14:55
09/09/24 09/10/24 09/11/24
06:59 06:59 06:59
Actual Weight 66.7 kg 66.2 kg
09/10/24 04:30
09/10/24 04:30
PT 15.4 Sec (11.4-14.6) H 09/04/24 16:59
INR 1.19 09/04/24 16:59
APTT 44.8 Sec (23.4-35.0) H 09/04/24 16:59
Magnesium 2.3 mg/dl (1.6-2.3) 09/10/24 04:30
Triglycerides 96 mg/dl (10-149) 09/05/24 03:57
LDL Cholesterol, Calc 56 mg/dl 09/05/24 03:57
VLDL Cholesterol, Calc 19 mg/dl (0-30) 09/05/24 03:57
HDL Cholesterol 50 mg/dl 09/05/24 03:57
09/05/24 09/07/24
00:11 03:21
[id number] Pept [id number]
Physical Exam
Constitutional: No acute distress
Cardiovascular: Rhythm & rate is regular
Respiratory: Respiratory effort normal and Other (distant lung sounds)
Neuro/Psych: AO x 3
Data Reviewed
-
Date of Service: September 10, 2024
Medical Decision Making: Reviewed Test Results
X-Ray/CT/US/MRI/NUC/PET: Image Personally Visualized and interpreted
Labs: Labs Reviewed by me
Critical Care Time (in minutes): 35
--- NOTE | 2024-09-10 15:44 | PTCARENOTE ---
back to bed, precedex off, reviewed plan with pt, denies need for ativan at this time but aware of its availability.
[2024-09-10] MEDS: BUMEX 1 MG IV (16:03)
[2024-09-10 17:36] LABS: Glucose - Point of Care 176 mg/dl (70-99)
[2024-09-10] MEDS: LOVENOX 40 MG SC (17:58)
--- NOTE | 2024-09-10 18:55 | PTCARENOTE ---
positioned for comfort, occas productive cough, no bloody secretions. pleasant and cooperative after dinner. call villaseñor at bedside. licona draining, pale yellow. gtts as noted.
[2024-09-10] MEDS: COLACE 100 MG PO (20:36)
[2024-09-10] MEDS: SENOKOT 8.6 MG PO (20:36)
[2024-09-10] MEDS: ATIVAN 0.5 MG PO (20:36)
--- NOTE | 2024-09-10 21:41 | PTCARENOTE ---
Addendum entered by Lanie Lynch RN 09/10/24 22:23:
Pt. reports anxiety significantly improved after ativan. HR remains 110s, discussed with JULIA Bennett - monitoring for now. BP stable off yuri gtt.
Original Note:
Received pt ~2044 from previous RN. Pt. AAOx3, pleasant, c/o anxiety. PRN ativan given- will monitor. ST on tele with PVCs, HR 100-110s. + murmur. R brachial A line transduced and zeroed. Yuri gtt turned off due to MAP >65. Will monitor. Milrinone
gtt continues per orders. DP and PT pulses by doppler. Trace UE and LE edema. Afebrile. On 4L NC, spo2 93-94%. Lungs diminished. Frequent productive cough noted- tessalon pearls ordered and given. + bowel sounds. Reports LBM today. Manzo draining
yellow urine - see I&O. Scattered UE bruising present. R DL PICC with milrinone gtt. Manzo care given, bathed with CHG. Monitoring
[2024-09-10 21:44] LABS: Glucose - Point of Care 125 mg/dl (70-99)
[2024-09-10] MEDS: NSS (PRESERVATIVE FREE) 0.25 ML IV (23:12)
[2024-09-10] MEDS: ATIVAN 0.5 MG IV (23:12)
[2024-09-10 23:33] LABS: Blood Urea Nitrogen 45 mg/dl (9-20); Calcium 8.8 mg/dl (8.4-10.2); Carbon Dioxide 29 mmol/L (22-30); Chloride 100 mmol/L (98-107); Estimated Creatinine Clearance 67 ml/min; Glucose 133 mg/dl (70-99); Potassium 3.2 mmol/L (3.5-5.1); Sodium 135 mmol/L (135-145); eGFR > 60.00
[2024-09-10] MEDS: KCL 100 IV (23:40)
--- NOTE | 2024-09-10 23:43 | PTCARENOTE ---
Pt with more frequent PVCs on tele. BMP ordered and drawn. K 3.2- repletion ordered and infusing. Pt. reported mild ongoing anxiety despite prior PO ativan. HR 110s still. BEVEL GEAR GENERATOR OPERATOR notified- ordered IV ativan. Milrinone continues, harreit gtt remains off.
--- NOTE | 2024-09-11 01:06 | W.PN.UPDATE ---
Update Note
Progress Note Update
Updated Dr. Michael, system development manager about patient's heart rate sinus tachycardia 110-120s sustaining, now off vasopressor (harriet gtt), BP 110s. Urine output tapering off was earlier 200cc/hr but now 50cc/hr, overall output -1600 for 24 hours. Lytes
recently checked for PVCs, K 3.2 and currently receiving repletion. Recommendations to decreased milrinone to 0.125 and hold next diuretic dose until reassessment, check CBC.
--- NOTE | 2024-09-11 01:14 | PTCARENOTE ---
HR continues 110s-120, CINDER SNAPPER aware. Cardiology contacted. Orders to decrease milrinone gtt to 0.125mcg/kg/min. BP 100-110s/40s-50s, MAP >65. Urine output slowed to 50-60ml/hr.
[2024-09-11] MEDS: ROBITUSSIN 200 MG PO (01:23)
[2024-09-11] MEDS: PRIMACOR 20 MG 100 IV (01:25)
[2024-09-11] MEDS: ATIVAN 0.5 MG PO (02:34)
[2024-09-11] MEDS: XOPENEX 1.25 MG INHALANT SOLUTION INH ×4 (03:15→19:46)
[2024-09-11] MEDS: STERILE WATER FOR INJECTION 10 ML IV (03:55)
[2024-09-11] MEDS: PHENERGAN WITH CODEINE SYRUP 5 ML PO (03:55)
[2024-09-11] MEDS: MAXIPIME 2000 MG IV (03:55)
--- NOTE | 2024-09-11 04:13 | PTCARENOTE ---
Pt. having frequent, harsh coughing attacks. Tessalon pearls and robitussin given with little to no effect. Most recently, pt. coughing so much he vomited a small amount onto his chest. Pt. reported mild nausea due to coughing/gagging. THROUGH FREIGHT ENGINEER aware.
Phenergan/codeine ordered and administered. Given ativan PRN anxiety through the night. Otherwise, pt without complaints. Remains on 4L NC, spo2 >93%. Lungs diminished, no wheezing. Remains ST 100-110s. BP stable off harriet. AM labs drawn.
[2024-09-11 04:27] LABS: Hematocrit 32.2 % (39.0-52.0); Hemoglobin 10.7 g/dL (13.0-18.0); Mean Corp Hgb Conc. 33.2 g/dL (33.0-37.0); Mean Corpuscular Hgb 32.2 pg (27.0-31.0); Mean Platelet Volume 10.6 fL (7.4-10.4); Platelet Count 240 10^3/uL (130-400); Red Blood Cell Count 3.32 10^6/uL (4.70-6.10); Red Cell Dist. Width 13.9 % (11.5-14.5); White Blood Cell Count 12.6 10^3/uL (4.8-10.8)
[2024-09-11 04:48] LABS: Blood Urea Nitrogen 44 mg/dl (9-20); Calcium 8.8 mg/dl (8.4-10.2); Carbon Dioxide 26 mmol/L (22-30); Chloride 103 mmol/L (98-107); Estimated Creatinine Clearance 67 ml/min; Glucose 118 mg/dl (70-99); Magnesium 2.2 mg/dl (1.6-2.3); Phosphorus 2.2 mg/dl (2.5-4.5); Potassium 3.9 mmol/L (3.5-5.1); Sodium 136 mmol/L (135-145); eGFR > 60.00
[2024-09-11] MEDS: MORPHINE SULFATE 2 MG IV (05:35)
--- NOTE | 2024-09-11 05:54 | PTCARENOTE ---
Coughing improved since phenergan/codeine but pt. reports feeling lousy. Moaning and groaning at times. Pt. unable to report exact cause of discomfort and denies any pain. Tachypneic, RR high 30s-40. Reports feeling SOB but he also is pulling out O2
NC at times and desats to 86%. On 5L NC, spo2 96%. LOOM CHECKER aware of all events of the night. 2mg IV morphine ordered and given.
[2024-09-11 06:00] VITALS: BMI 22.1
--- NOTE | 2024-09-11 06:55 | W.PN.UPDATE ---
Update Note
Progress Note Update
Reviewed Mr. Contreras with the heart team in the SDM meeting. After review of cardiac catheterization, there is LM ostial lesion that needs to be addressed and reassess post ARTHUR. The heart team is agreeable to place TAVR on pause.
[2024-09-11] MEDS: ATROVENT NEBULES 0.5 MG INH ×3 (07:12→19:46)
[2024-09-11] MEDS: PULMICORT 0.5 MG INH ×2 (07:12→19:46)
[2024-09-11 08:00] VITALS: BP 83/58
[2024-09-11 08:27] VITALS: BP 83/58
[2024-09-11] MEDS: PROTONIX 40 MG PO (08:57)
[2024-09-11] MEDS: COLACE 100 MG PO ×2 (08:57→21:24)
[2024-09-11] MEDS: DELTASONE 40 MG PO (08:57)
[2024-09-11] MEDS: TYLENOL 650 MG PO (08:57)
[2024-09-11] MEDS: NOVOLOG FLEXPEN-MODERATE RESISTANCE SC ×3 (08:57→17:48)
[2024-09-11] MEDS: LIPITOR 20 MG PO (08:58)
[2024-09-11] MEDS: DALIRESP 500 MCG PO (08:58)
[2024-09-11] MEDS: SENOKOT 8.6 MG PO ×2 (08:59→21:24)
[2024-09-11 09:09] LABS: Glucose - Point of Care 88 mg/dl (70-99)
--- NOTE | 2024-09-11 09:15 | PTCARENOTE ---
Rec'd pt at 0800 awake alert and oriented resting in bed. States ' I just don't feel good'. C/O his back hurting and an 8/10 headache. Back pain improved with repositioning and medicated with Tylenol 650 mg po at 0900 for the headache. HURTADO. Speech
is clear. Denies dizziness. Skin is pale wm and dry. L brachial dressing is D+I. Respirs are shallow and tachypnic on 4l nc with sats of 92-93%. Does get orthopnic. Coughing a frequent sometimes moist/sometimes hacky harsh cough. Non-prod currently.
BS are mostly just decreased at the bases. Monitor ST. + pulses as documented. PT and DP pulses with the doppler. Tr UE and LE edema. Rec'd pt on Milrinone at 0.125 mcg via R arm DL picc-site wnl. R brachial a line intact-site wnl. Good CMS checks
to distal extrem. Zeroed and recalibrated. Not congruent with L cuff Bp Cuff 83/58, A line 124/51. Abd is soft with + BS. Denies nausea. Stated he wasn't hungry then made NPO for cardiac cath later today. Manzo intact for yellow urine. Skin and
mouth care given. Repositioned. Plan of care reviewed with pt and call villaseñor in reach.
[2024-09-11] MEDS: POTASSIUM PHOSPHATE 259.0909 MEQ IV (09:52)
--- NOTE | 2024-09-11 10:00 | PTCARENOTE ---
40 meq KPhos rider hung via R arm DL Picc.
--- NOTE | 2024-09-11 10:00 | PTCARENOTE ---
States headache is better post Tylenol. No other changes.
--- NOTE | 2024-09-11 11:00 | PTCARENOTE ---
1040 Pt assisted oob to the BSC for no results- just passed flatus. Gait is weak but able to bear wt and transfer with assist of 1. No c/o dizziness. Pt for greenskeeper laborer procedure. Report called to greenskeeper laborer and currently pt sent via bed to greenskeeper laborer with
4L nc O2 and greenskeeper laborer staff. Milrinone and Kphos continue. No other changes
--- NOTE | 2024-09-11 11:21 | W.PN.HOSP.TC ---
Today's Communication/Plan
-
wean O2 as tolerated
TAVR plans on hold in favor of ARTHUR placement severe ostial Left Main Disease
milrinone/diuretics DAPT as per cardiology
steroid taper as per pulm
Assessment / Plan
Assessment / Plan
Physical Exam
General: no acute distress, appears comfortable at this time
HEENT: Normocephalic Atraumatic PERRLA on Nasal Cannula
CVS S1 S2 NSR. 4/6 systolic murmur
Pulm: clear to auscultation
Abd: Soft NT bowel sounds present
Neuro: AOx3
Psych: calm
HPI: 74-year-old patient presented to [place] on 09/02/2024 with abdominal pain for weeks. Admitted with right upper and left lower lobe pneumonia was found to have leukocytosis. Then was found to be hypotensive rapid response was called. Was
found to have possible ACS and heparin drip was started. Echo 09/03/2024 was noted to have hypokinesis and EF of 44%. Also severe aortic valve stenosis. CTA chest showed mild aneurysmal dilatation of the infrarenal abdominal aorta and patent by
lateral iliac stents. High-grade short segment stenosis involving celiac trunk, SMA origin, left renal artery origin and short segment of left common femoral artery . CT also showed emphysematous changes and bronchitis cardiac cath performed at
[place] showed minor luminal irregularities of the left main, LAD without any significant disease. Second major diagonal branch with 60 to 70% stenosis. Mild diffuse atherosclerosis. Left circumflex also found to have medium to large vessel
with 4 marginal branches with minor luminal irregularities. Right coronary artery was codominant with minor luminal irregularities. Pulmonary artery pressures were elevated. Patient was transferred to [place] for cardiothoracic evaluation for
urgent TAVR.
EKG reviewed by me-sinus rhythm. Right bundle branch block
# Severe aortic stenosis-cardiothoracic evaluating for TAVR
Echo 09/05/2024-mildly reduced LV systolic function. EF 45%. Mitral annular calcification. Mild MR. Mild TR. Pulmonary artery pressure 40 to 45 mmHg.
Cardiothoracic surgery does not feel patient is a candidate for SAVR but future TAVR could be considered.
OMF eval appreciated
orthopantogram noted no acute infections
Plans for TAVR placed on hold in favor of placing ARTHUR severe ostial left main disease first, as below.
# Acute HFrEF with hypokinesis of heart muscle wall with EF of 44% possible nonischemic cardiomyopathy in the setting of severe . Goal-directed medical therapy when blood pressure better
briefly treated with Bumex gtt
09/07/04 [facility] appreciated elevated biventricular filling pressures
-cont milrinone gtt and diuresis as per Cardio
-phenylephrine prn MAP>65
# Shock likely cardiogenic-started on milrinone. Weaned Off Levophed and vasopressin, intermittently requiring phenylephrine wean off as tolerated
# Community-acquired pneumonia- completed 5 days cefepime/zithromax as per pulm, empiric vancomycin discontinued MRSA screen neg
# TME-cont precedex, wean as tolerated
# Abdominal aortic aneurysm
#NSTEMI treated with hep gtt since completed
# Coronary artery disease
#severe ostial left main disease
-troponin trended to peak 7.100
-nonobstructive coronary artery disease by catheter
-cont statin
-Plavix prev held for possible TAVR resumed for DAPT new ARTHUR stent placement 09/11/24
# Peripheral artery disease with history of PCI of the left SFA stent 2012 Dr. Ng and left common femoral endarterectomy.
Bilateral common iliac and bilateral external iliac disease with bilateral iliac stents [facility] 04/18/2023
High-grade short segment stenosis of the celiac trunk origin, SMA origin, left renal artery origin and a short segment of the left common femoral artery as per CT at [facility]
Occlusion of the SFAs
History of right carotid endarterectomy [facility] 05/04/2024
Vascular evaluation appreciated
Continue statin
cont Plavix
# COPD with chronic respiratory failure on 2 L of oxygen Spiriva, Breztri, Singulair as outpatient. Also on Daliresp. Also on as needed albuterol.
#Acute on Chronic Respiratory Failure with Hypoxia likely 2/2 heart failure as above
treated with steroids for COPD exacerbation
Continue levalbuterol inhaler
steroids tapered to prednisone as per pulm
required high Flow eventually weaned down to nasal cannula
# Anemia
# Mild hyponatremia
# Sleep apnea-noncompliant with CPAP
# Prediabetes with hemoglobin A1c 6.2
# Hypertension-blood pressure on the low side now
# Hyperlipidemia-continue statin
# GERD-PPI to be continued
# Anxiety/Depression-as needed lorazepam, sertraline
# Microscopic hematuria
# AAA
# Ex-smoker
# DVT prophylaxis-Lovenox
PT/OT appreciated SNF rehab
Total Critical Care Time 35 minutes. I was immediately available to the patient and staff. I personally examined, reviewed labs, diagnostic images/reports, interpretations, treatment plans, discussed patient care with patient and other providers
entered orders as appropriate and documented the medical record.
Anticipated Discharge: > 48 hours
Subjective/Interval History
-
Date of Service: September 11, 2024
No acute distress sitting up comfortably in bed on nasal cannula oxygen supplementation 4L. Overall reports feeling well. Denies new acute issues.
Objective Data
-
Labs:
Laboratory Results
09/10/24 09/11/24
23:09 04:07
WBC 12.6 H
Hgb 10.7 L
Hct 32.2 L
Plt Count 240
Sodium 135 136
Potassium 3.2 L 3.9
Chloride 100 103
Carbon Dioxide 29 26
BUN 45 H 44 H
Creatinine 0.9 0.9
Glucose 133 H 118 H
Calcium 8.8 8.8
Vital Signs:
Vital Signs
Temp Pulse Resp BP Pulse Ox
97.9 F 118 29 83/58 95
09/11/24 08:17 09/11/24 10:00 09/11/24 10:00 09/11/24 08:27 09/11/24 10:00
I&O
09/10/24 09/11/24 09/12/24
06:59 06:59 06:59
Intake Total 1749.4 / 1770.0 720.0 / 722.7 175.5 / 175.5
Output Total 1644 / 1644 2590 / 2590 280 / 280
Balance 105.4 / 126.0 -1870.0 / -1867.3 -104.5 / -104.5
[2024-09-11 12:17] LABS: ACT-LR - POC 192 Seconds (116-155)
[2024-09-11 12:24] LABS: ACT-LR - POC 279 Seconds (116-155)
[2024-09-11 12:48] LABS: ACT-LR - POC 322 Seconds (116-155)
--- NOTE | 2024-09-11 12:57 | W.PN.INTV ---
Today's Communication / Plan
Recommendations
Continue milrinone
Arterial line in place
Continue nebulizer therapy
Prednisone taper
Wean down FiO2
Eventual diuresis
For left heart catheterization today
TAVR evaluation on hold as the patient likely will need stent placement.
Assessment
-
Assessment: 74-year-old male with a past medical history of chronic HFrEF, severe aortic stenosis, PVD, history of COPD, former tobacco smoker and hyperlipidemia who presents as a transfer from [facility] for evaluation for TAVR. Patient
initially presented to [facility] on 09/02/24 with chest pain and worsening shortness of breath. A rapid response was called as he was hypotensive, dizzy and weak and was endorsing chest pain. ACS was suspected and heparin drip was started.
Transthoracic echo on 09/03/2024 showed moderately hypokinetic apex with distal lateral and distal septal moderate hypokinesis, with LVEF 44.4% with normal RV size and systolic function and severe aortic valve stenosis with MARGARETTE: 1.03 with mean
gradient of 34.2 mmHg. He underwent a left heart catheterization on 09/03/2024 showing mild�moderate nonobstructive CAD with mildly elevated pulmonary and wedge pressures with normal right heart catheterization (PCWP: 16mmHg, PADP: 17mmHg, RA:
11mmHg). CTA chest was performed at [facility] showing mild aneurysmal dilatation of the infrarenal abdominal aorta, patent bilateral iliac stents, high-grade short segment stenosis involving the celiac trunk origin, SMA origin, left renal artery origin
and a short segment of the left common femoral artery, as well as emphysematous changes and bronchitis. Patient was transferred here to [place] for evaluation for TAVR.
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
Impression:
#Severe aortic stenosis awaiting TAVR workup
#Chronic HFrEF
#Acute COPD exacerbation (on Breztri at home)
#PAD
#Hypotension suspected to be due to cardiogenic shock on vasopressors + milrinone
#Anemia
#Hypereosinophilia (absolute eosinophil count: 2100)
#Acute respiratory alkalosis
#Elevated troponin likely due to NSTEMI
#Abnormal urinalysis with +1 leukocyte esterase
#Former tobacco smoker (quit 06/2019 with >20 5�39-[id number]-[id number] history)
#AAA
Plan:
-
Patient down to nasal cannula oxygen.
Continues to report some coughing and shortness of breath with cough paroxysms.
He feels tired
-
Right heart catheterization noted with increased left and right filling pressures. Consistent with cardiogenic shock.
Suspect abnormal chest x-ray is a reflection of pulmonary edema, less likely pneumonia without fevers or leukocytosis.
Cardiology/correspondence reviewed-patient has coronary artery disease with ostial main lesion that we will need left heart catheterization today for possible stenting.
-
Cardiology and CT surgery correspondence reviewed.
Yuri-Synephrine has been weaned off
Continue milrinone
Arterial line in place-noninvasive blood pressure does not correlate. Hopefully can discontinue soon
Continue IV diuresis as able-holding today as patient is going for cardiac cath.
Weight trending lower
Chest x-ray 09/12/2024: Still with pulmonary edema.
Monitor renal function and electrolytes.
On evaluation for possible TAVR on hold.
Dental work ongoing.
Plavix was held on admission. If a stent is placed it may need to be restarted
From the COPD perspective: Not bronchospastic on exam 09/10/2024.
Continue with current nebulizer regimen: Levalbuterol/ipratropium/budesonide.
Continue antitussives.
Continue daliresp-for bronchitic symptoms.
Patient is on Breztri as an outpatient
Transition to prednisone 09/10/2024. 40 mg and decrease by 10 mg every 72 hours to off.
Xopenex [id number]
Continue Atrovent 3 times a day
hold Spiriva-unable to perform inhaler maneuver properly.
Intermittent anxiety.
Continue to follow mental status closely.
Precedex discontinued.
Ativan as needed
Chest x-ray 09/09/2024: Continues to improved, consistent with pulmonary edema
With lack of fever and leukocytosis less likely pneumonia. Cefepime/azithromycin completed 5 days 09/10/2024.
Leukocytosis likely driven by steroids.
He is afebrile.
negative MRSA screening
-All cultures negative so far-continue to follow
-Negative urine antigens for Legionella/strep pneumonia
Eventual repeat chest x-ray
Aspiration precautions
DVT prophylaxis: LMWH
Critical care statement: A total of 31 minutes of critical care time was provided for this patient today. This includes management of unstable vital signs, evaluation of the patient at bedside, reviewing the patient's pertinent medical records
including radiographs, microbiology, laboratory evaluations, and discussion with primary team, consultants, pharmacy, nutrition, physical therapy, case management, charge nurse, critical care nursing, and respiratory therapy.
Data:
CXR 09/05/2024: Possible slight progression of bilateral prominent interstitial markings which could represent worsening interstitial edema or pneumonitis.
CXR 09/06/2024 (compared to CXR from 09/04/2024): Bilateral pneumonia as described above. Significantly increased.
Subjective Dataa
Subjective Data
Date of Service:
Date of Service: September 11, 2024
Chief Complaint: Mold Changer Follow Up
Subjective:
Continues to have intermittent coughing.
Denies phlegm production.
Patient feels tired.
Not sleeping well
Continues to have occasional cough paroxysms per
Review of Systems
Cardiopulmonary: Dyspnea, Dyspnea on Exertion and Cough
GI: Abdominal Pain (n) and Nausea (n)
Objective Data
Data Reviewed
Vital Signs / I&O / Oxygen:
Vital Signs
Temp Pulse Resp BP Pulse Ox
97.9 F 118 29 83/58 95
09/11/24 12:14 09/11/24 10:00 09/11/24 10:00 09/11/24 08:27 09/11/24 10:00
Intake and Output
09/10/24 09/11/24 09/12/24
06:59 06:59 06:59
Intake Total 1749.4 / 1770.0 720.0 / 722.7 329.9 / 329.9
Output Total 1644 / 1644 2590 / 2590 280 / 280
Balance 105.4 / 126.0 -1870.0 / -1867.3 49.9 / 49.9
SaO2 95
Nasal Cannula flow liters per 4
minute
Physical Exam
General: Respiratory Distress (mild), Chills (negative), Sweats (negative) and Other (Anxious appearing)
HEENT: Normocephalic and Anicteric
Cardiovascular: S1-S2, Murmur (JUAN JOSE heard best at RUSB), Rub (negative), Peripheral Edema (negative) and Other (Tachycardic)
Respiratory: Wheeze ([place] upon expiration in the bases bilaterally), Crackles (negative), Rhonchi (negative), Non-Labored Respirations and Other (Diminished breath sounds bilaterally)
GI: Soft, Non Distended, Non Tender and Normal Bowel Sounds
Neurology: AO x 3 and Tremors (negative)
Skin: Warm, Dry, Cyanosis (negative) and Jaundice (negative)
Labs/Micro/Reports
Lab Data
09/11/24 04:07
09/11/24 04:07
Microbiology
09/06/24 13:05 Blood/Venous Blood Culture - Preliminary
No Growth in 4 days- Final report to follow
[2024-09-11 14:00] LABS: Glucose - Point of Care 95 mg/dl (70-99)
--- NOTE | 2024-09-11 14:30 | PTCARENOTE ---
Rec'd pt back from laborer tanbark at 1345, awake alert and oriented. No c/o pain or shortness of breath. O2 4l nc with sats of 95%. Hands and feet are sl cool but cap refill <2 sec and extremities in themselves are warm. R groin dressing is intact- small
spot of bloody drainage on dressing, no swelling or hematoma. NSS hung per protocol via R DL Picc at 97 ml/hr x 5 hrs. Milrinone continues to infuse at 0.125 mcg. Picc site wnl. Call villaseñor in reach and pt aware of need to keep leg staight and that
nursing will raise the head of his bed.
--- NOTE | 2024-09-11 14:59 | CM ---
Addendum entered by Meche Son 09/14/24 10:40:
pt DOES have medicare A and B, and aetna as a secondary-
Addendum entered by Curry Dill 09/11/24 15:13:
Pt started he does not have insurance, does not qualify for Medicare.
[facility]SI following.
Original Note:
CM following re: discharge planning.
Discussed in Rounds, reviewed pt's chart, met with pt and spoke to pt's daughter Lilia over the phone to update on discharge plan progress.
PT and OT evaluations noted - SNF level of care recommended. pt is aware, expressed not happy feelings and in the beginning requested home PT and daughters support and they are RN. Pt's daughter Lilia encouraged her father to go to a SNF and pt
expressed his agreement especially after the explanation the differences between SNF and home PT/OT.
A list of SNFs provided. Following SNFs preferred: [facility], [facility]. A referral to above SNFs made.
Per daughter number 1 choice - [facility].
D/c plan: preferred SNF.
CM will follow to assist pt with discharge to a preferred SNF.
--- NOTE | 2024-09-11 15:30 | PTCARENOTE ---
Pt also made aware that with his coughing to hold pressure on the R groin site. Verbalized and demonstrated understanding.
--- NOTE | 2024-09-11 15:49 | W.PN.CD ---
Today's Communication / Plan
-
s/p LM PCI, well tolerated
cont. DAPT with ASA/Plavix
goal for wean of milrinone tomorrow and discharge
is euvolemic, PRN diuresis to keep him there
Impression / Plan
-
74 yo male with PMH of PAD, right CEA, HTN, hyperlipidemia, tobacco abuse presented to [facility] with chest pain. Went to laboratory chemist and found to have non-obstructive CAD, mildly elevated PCW, CO/CI 4.1/2.4. Echo shows EF 40%, severe .
Became hypotensive, started on milrinone and levophed, and transferred here for urgent TAVR evaluation.
Discussed in multidisciplinary TAVR meeting today. Concern on re-review of angiogram for possible ostial left main disease. Taken to laboratory chemist for further evaluation with demonstrate severe ostial left main disease and also full valve interrogation
consistent with severe . LM stented successfully with 4.5x12 ARTHUR with excellent result. Goal now will be to wean patient from milrinone and dischage to home if possible with plan for interval TAVR in 1 month. If unable to discharge will need to
consider inpatient TAVR.
Extensive discussion with multiple providers and family regarding ongoing plans.
# CAD, s/p LM PCI
- cont. DAPT with ASA/Plavix (given 600 mg load in lab 09/11)
# Cardiogenic shock
-favored to be result of aortic stenosis +/- LM disease; no clear e/o infection but treated for HAP empirically while undergoing infectious workup
-improved with aggressive diuresis, now euvolemic per [facility]HC today, continue diuresis PRN for goal even
-wean milrinone tomorrow (keep on overnight in case some cardiac stunning from LM PCI)
# LUCY, improving
-Likely due to aggressive diuresis
-hold diuresis today
# Severe
-based on cath hemos, is definitively severe
-plan for alt ax tavr after about 1 month post-PCI if possible
# Cardiomyopathy, EF 40%
-mixed ICM/NICM
-GDMT once able
# Severe COPD
-CT scan from [facility] was reviewed
-Discussed with pulmonary Dr. Covarrubias, treated with nebs/steroids
# PAD
-on plavix as outpatient, now restarted
-vasular consulted for possible mesenteric ischemia - would defer any intervention until after cardiovascular issues resolved
-cont. asa
# Hyperlipidemia
-statin
Subjective: patient tolerated LM PCI well
Physical Exam
Vital Signs/Labs
Vital Signs
Temp Pulse Resp BP Pulse Ox
36.6 C 101 26 83/58 95
09/11/24 12:14 09/11/24 15:00 09/11/24 15:00 09/11/24 08:27 09/11/24 10:00
09/10/24 09/11/24 09/12/24
06:59 06:59 06:59
Actual Weight 66.2 kg 64.9 kg
09/11/24 04:07
09/11/24 04:07
PT 15.4 Sec (11.4-14.6) H 09/04/24 16:59
INR 1.19 09/04/24 16:59
APTT 44.8 Sec (23.4-35.0) H 09/04/24 16:59
Magnesium 2.2 mg/dl (1.6-2.3) 09/11/24 04:07
Triglycerides 96 mg/dl (10-149) 09/05/24 03:57
LDL Cholesterol, Calc 56 mg/dl 09/05/24 03:57
VLDL Cholesterol, Calc 19 mg/dl (0-30) 09/05/24 03:57
HDL Cholesterol 50 mg/dl 09/05/24 03:57
09/05/24 09/07/24
00:11 03:21
Pwl-N-Bqxkhguzvfh Pept [id number]
Physical Exam
Constitutional: No acute distress
Cardiovascular: Systolic murmur present
Respiratory: Other (lung sounds distant)
Neuro/Psych: AO x 3
Data Reviewed
-
Date of Service: September 11, 2024
Medical Decision Making: Reviewed Test Results
EKG: Tracing Personally Visualized and interpreted
Labs: Labs Reviewed by me
Critical Care Time (in minutes): 40
[2024-09-11 16:29] VITALS: BP 104/63
--- NOTE | 2024-09-11 17:14 | PTCARENOTE ---
Overall no changes- HOB slowly raised up to 20-30'. R groin site- with bloody oozing on dressing but not past dressing. . No swelling or hematoma. No complaints. Still with cough but less so as the day has gone on. Milrinone and NSS continue
[2024-09-11 17:17] LABS: Glucose - Point of Care 137 mg/dl (70-99)
--- NOTE | 2024-09-11 18:21 | ITS.CL.PN ---
Kitchen Work Supervisor - Procedure Note
Procedure
Procedure Note:
CARDIAC CATHETERIZATION REPORT
Date of Procedure: 09/11/2024
Referring: Dr. Magan Stanley MD
Indication: LM disease, severe
PROCEDURE:
1. Right heart catheterization
2. Left heart catheterization
3. Coronary angiography
4. IVUS of left main
5. Stent with ARTHUR to left main
ACCESS:
5 [place] right femoral vein (manual hemostasis)
6 [place] right common femoral artery (Perclose)
CATHETERS:
1. 5 [place] balloon wedge
2. 6 [place] JL3.5 guide
HEMODYNAMIC DATA
LV 144/11 (EDP 16) mmHg
AO 126/64 (mean 90) mmHg
RA 8 mmHg
RV 41/6 (EDP 10) mmHg
PA 35/21 (mean 27) mmHg
PCWP 12 mmHg
SaO2 93.6%
SvO2 60.2%
CO/CI 4.5/2.6 L/min/m2
SVR 1455 dsc*-5
PVR 3.3 Wood units
mean pressure gradient 37 mmHg
valve area (Gorlin) 0.67 cm2 (0.38 indexed)
CORONARY ANGIOGRAPHY
Left Main: severe calcified ostial stenosis with pressure dampening on engagement, severe ST elevations, and corresponding systemic hypotension
LAD: large vessel giving rise to a small D1, moderate caliber D2/D3/D4. There is mild non-obstructive disease.
LCx: large vessel giving rise to a large branching OM1 and providing several distal LPL branches. There is focal moderate disease just before the takeoff of the large OM1.
INTERVENTION - IVUS-guided LM PCI
Heparin was given to achieve ACT>300. The LM was engaged with a JL3.5 guide catheter and wires placed in the LCx and LAD. IVUS was performed and confirmed presence of severe LM disease with MLA ~6 mm and moderate non-concentric calcification.
Pre-dilation was performed serially with a 3.5x12 mm NC balloon with full expansion. A 4.5x12 mm ARTHUR was selected and deployed in left cranial projection. On inflation there was mild proximal migration of the stent resulting in ~3 mm aorto-ostial
protrusion. The lesion was full covered and stent full expanded angiographically. Post-dilation and flaring was performed with a 5.0 mm NC. Final IVUS demonstrated full expansion and apposition with massive MLA. Wires and guide were removed and the
patient loaded with 600 Plavix. Femoral artery was closed with Perclose x1 with good distal pulses noted after closure.
RADIATION:
Radiation dose (mGy): 885
DAP (cm2.Gy): 55
Fluoroscopy time (minutes): 18.1
CONCLUSIONS:
1. Right heart catheterization with mildly elevated filling pressures, mild pre-capillary pulmonary hypertension, and normal cardiac index on milrinone 0.125 with mildly elevated SVR.
2. Left heart catheterization with simultaneous pressure measurement via dual lumen catheter demonstrates severe aortic stenosis with mean gradient 37 mmHg and valve area 0.67 cm2.
3. Coronary angiography demonstrates severe angiographic ostial left main disease
4. LM IVUS demonstrates severe ostial LM disease with non-concentric calcification and MLA ~6 mm
5. Successful PCI of the left main with placement of a 4.5x12 mm ARTHUR post-dilated proximally to 5.0 mm
RECOMMENDATIONS:
1. Expectant management after cardiac catheterization via right common femoral artery approach.
2. DAPT with ASA/Plavix for at least 1 year
3. Goal will be to wean milrinone over the weekend, maintain euvolemia with diuresis, and wean O2.
4. If able to discharge will plan for high risk R axillary TAVR under general anesthesia in 1 month. If unable to discharge will perform TAVR inpatient.
Copy to: Dr. Kameron Green MD (public administration professor); Dr. Abdi Paez MD (PCP)
Signed: Tariq Daugherty MD, PhD
[2024-09-11] MEDS: LOVENOX 40 MG SC (18:22)
[2024-09-11] MEDS: TESSALON PERLES 200 MG PO (18:23)
--- NOTE | 2024-09-11 18:30 | PTCARENOTE ---
Ate some dinner. Is having some increased coughing. Tessalon Perrles given per order. Repositioned. Pulses unchanged. R groin dressing is covered with bloody drainage but drainage contained within the dressing. No swelling or hematoma. Reminded to
hold pressure when he coughs. Call villaseñor in reach
[2024-09-11 21:39] LABS: Glucose - Point of Care 179 mg/dl (70-99)
--- NOTE | 2024-09-11 22:26 | PTCARENOTE ---
Assumed care of pt at 1900. Pt is A/O x4, forgetful at times. No c/o pain. Received pt on Milrinone drip at 0.125 mcg/kg/min, not titrating. Pt has been ST on monitor, 100s-130s, occasional PVCs. BP via right brachial arterial line, zeroed at start
of shift. Pt on 4LNC with SpO2 94-95%. Occasional cough noted but pt says it is not bothersome and it is better than it has been. Neurovascular checks done in tandem with offgoing RN. Right groin dressing is saturated with blood but this was
unchanged from previous RN's assessment and has not worsened. See nursing shift assessment flowsheet for full physical assessment details.
[2024-09-12] VITALS (9 sets, daily range): BP systolic 90–129; BP diastolic 53–70; BMI 21.9
--- NOTE | 2024-09-12 00:15 | PTCARENOTE ---
Midnight assessment unchanged. Continues on Milrinone infusion. ST low 100s on monitor. 95-96% on 4LNC. Pt resting with eyes closed.
--- NOTE | 2024-09-12 04:02 | PTCARENOTE ---
Assessment unchanged. Neurovascular check to RLE unchanged, as is right groin dressing. SR 90s-ST low 100s on monitor.
[2024-09-12 04:33] LABS: Hematocrit 29.9 % (39.0-52.0); Hemoglobin 9.7 g/dL (13.0-18.0); Mean Corp Hgb Conc. 32.4 g/dL (33.0-37.0); Mean Corpuscular Hgb 31.7 pg (27.0-31.0); Mean Corpuscular Volume 97.7 fL (80.0-94.0); Mean Platelet Volume 10.4 fL (7.4-10.4); Platelet Count 240 10^3/uL (130-400); Red Blood Cell Count 3.06 10^6/uL (4.70-6.10); Red Cell Dist. Width 14.3 % (11.5-14.5); White Blood Cell Count 11.9 10^3/uL (4.8-10.8)
[2024-09-12 05:10] LABS: Blood Urea Nitrogen 35 mg/dl (9-20); Calcium 8.3 mg/dl (8.4-10.2); Carbon Dioxide 27 mmol/L (22-30); Chloride 105 mmol/L (98-107); Estimated Creatinine Clearance 74 ml/min; Glucose 117 mg/dl (70-99); Magnesium 2.3 mg/dl (1.6-2.3); Phosphorus 3.3 mg/dl (2.5-4.5); Sodium 137 mmol/L (135-145); eGFR > 60.00
[2024-09-12] MEDS: XOPENEX 1.25 MG INHALANT SOLUTION INH ×3 (07:18→19:50)
[2024-09-12] MEDS: ATROVENT NEBULES 0.5 MG INH ×3 (07:18→19:50)
[2024-09-12] MEDS: PULMICORT 0.5 MG INH ×2 (07:18→19:50)
--- NOTE | 2024-09-12 07:20 | W.PN.HOSP.TC ---
Today's Communication/Plan
-
wean O2 as tolerated
milrinone/diuretics DAPT as per cardiology
steroid taper as per pulm
PT/OT
Assessment / Plan
Assessment / Plan
Physical Exam
General: no acute distress, appears comfortable at this time
HEENT: Normocephalic Atraumatic PERRLA on Nasal Cannula
CVS S1 S2 NSR. 4/6 systolic murmur
Pulm: clear to auscultation
Abd: Soft NT bowel sounds present
Neuro: AOx3
Psych: calm
HPI: 74-year-old patient presented to [place] on 09/02/2024 with abdominal pain for weeks. Admitted with right upper and left lower lobe pneumonia was found to have leukocytosis. Then was found to be hypotensive rapid response was called. Was
found to have possible ACS and heparin drip was started. Echo 09/03/2024 was noted to have hypokinesis and EF of 44%. Also severe aortic valve stenosis. CTA chest showed mild aneurysmal dilatation of the infrarenal abdominal aorta and patent by
lateral iliac stents. High-grade short segment stenosis involving celiac trunk, SMA origin, left renal artery origin and short segment of left common femoral artery . CT also showed emphysematous changes and bronchitis cardiac cath performed at
[place] showed minor luminal irregularities of the left main, LAD without any significant disease. Second major diagonal branch with 60 to 70% stenosis. Mild diffuse atherosclerosis. Left circumflex also found to have medium to large vessel
with 4 marginal branches with minor luminal irregularities. Right coronary artery was codominant with minor luminal irregularities. Pulmonary artery pressures were elevated. Patient was transferred to [facility] for cardiothoracic evaluation for
urgent TAVR.
EKG reviewed by me-sinus rhythm. Right bundle branch block
# Severe aortic stenosis-cardiothoracic evaluating for TAVR
Echo 09/05/2024-mildly reduced LV systolic function. EF 45%. Mitral annular calcification. Mild MR. Mild TR. Pulmonary artery pressure 40 to 45 mmHg.
Cardiothoracic surgery does not feel patient is a candidate for SAVR but future TAVR could be considered.
OMF eval appreciated
orthopantogram noted no acute infections
Plans for TAVR placed on hold in favor of placing ARTHUR severe ostial left main disease first, as below.
# Acute HFrEF with hypokinesis of heart muscle wall with EF of 44% possible nonischemic cardiomyopathy in the setting of severe . Goal-directed medical therapy when blood pressure better
briefly treated with Bumex gtt
09/07/04 [facility] appreciated elevated biventricular filling pressures
-cont milrinone gtt and diuresis as per Cardio
-phenylephrine prn MAP>65
# Shock likely cardiogenic-started on milrinone. Weaned Off Levophed and vasopressin, intermittently requiring phenylephrine wean off as tolerated
# Community-acquired pneumonia- completed 5 days cefepime/zithromax as per pulm, empiric vancomycin discontinued MRSA screen neg
# TME-cont precedex, wean as tolerated
# Abdominal aortic aneurysm
#NSTEMI treated with hep gtt since completed
# Coronary artery disease
#severe ostial left main disease
-troponin trended to peak 7.100
-nonobstructive coronary artery disease by catheter
-cont statin
-Plavix prev held for possible TAVR resumed for DAPT new ARTHUR stent placement Left Main Disease 09/11/24
# Peripheral artery disease with history of PCI of the left SFA stent 2012 Dr. Ng and left common femoral endarterectomy.
Bilateral common iliac and bilateral external iliac disease with bilateral iliac stents [facility] 04/18/2023
High-grade short segment stenosis of the celiac trunk origin, SMA origin, left renal artery origin and a short segment of the left common femoral artery as per CT at [facility]
Occlusion of the SFAs
History of right carotid endarterectomy [facility] 05/04/2024
Vascular evaluation appreciated
Continue statin
cont Plavix
# COPD with chronic respiratory failure on 2 L of oxygen Debra Ricks Singulair as outpatient. Also on Daliresp. Also on as needed albuterol.
#Acute on Chronic Respiratory Failure with Hypoxia likely 2/2 heart failure as above
treated with steroids for COPD exacerbation
Continue levalbuterol inhaler
steroids tapered to prednisone as per pulm
required high Flow eventually weaned down to nasal cannula
# Anemia
# Mild hyponatremia
# Sleep apnea-noncompliant with CPAP
# Prediabetes with hemoglobin A1c 6.2
# Hypertension-blood pressure on the low side now
# Hyperlipidemia-continue statin
# GERD-PPI to be continued
# Anxiety/Depression-as needed lorazepam, sertraline
# Microscopic hematuria
# AAA
# Ex-smoker
# DVT prophylaxis-Lovenox
PT/OT appreciated SNF rehab
I spent a total of 50 minutes with the patient or on the floor. More than 50% of this time involved counseling and coordination of care.
Anticipated Discharge: 24 - 48 hours
Subjective/Interval History
-
Date of Service: September 12, 2024
Overall reports feeling well. remains on milrinone gtt and nasal cannula supplementation. Denies new acute issues.
Objective Data
-
Labs:
Laboratory Results
09/12/24
04:13
WBC 11.9 H
Hgb 9.7 L
Hct 29.9 L
Plt Count 240
Sodium 137
Potassium 4.0
Chloride 105
Carbon Dioxide 27
BUN 35 H
Creatinine 0.8
Glucose 117 H
Calcium 8.3 L
Vital Signs:
Vital Signs
Temp Pulse Resp BP Pulse Ox
98.1 F 92 25 104/63 98
09/12/24 03:13 09/12/24 06:00 09/12/24 06:00 09/11/24 16:29 09/12/24 06:00
I&O
09/11/24 09/12/24 09/13/24
06:59 06:59 06:59
Intake Total 720.0 / 722.7 1128.2 / 1128.2
Output Total 2590 / 2590 1480 / 1480
Balance -1870.0 / -1867.3 -351.8 / -351.8
[2024-09-12 08:17] LABS: Glucose - Point of Care 108 mg/dl (70-99)
[2024-09-12] MEDS: NOVOLOG FLEXPEN-MODERATE RESISTANCE SC ×2 (08:34→12:35)
[2024-09-12] MEDS: SENOKOT 8.6 MG PO (08:34)
[2024-09-12] MEDS: LOW STRENGTH ASPIRIN 81 MG PO (08:35)
[2024-09-12] MEDS: PROTONIX 40 MG PO (08:35)
[2024-09-12] MEDS: LIPITOR 20 MG PO (08:35)
[2024-09-12] MEDS: DALIRESP 500 MCG PO (08:35)
[2024-09-12] MEDS: COLACE 100 MG PO (08:35)
[2024-09-12] MEDS: DELTASONE 40 MG PO (08:35)
[2024-09-12] MEDS: PLAVIX 75 MG PO (08:35)
[2024-09-12] MEDS: ROBITUSSIN 200 MG PO (08:37)
--- NOTE | 2024-09-12 09:02 | W.PN.INTV ---
Addendum entered and electronically signed by Bishnu Russo MD 09/12/24 09:22:
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
Original Note:
Today's Communication / Plan
Recommendations
Continue with cardiac management
Discontinue arterial line
Milrinone ongoing-wean off per cardiology
Continue nebulizers while in the hospital-transition to usual inhaler upon discharge
Prednisone taper as noted
Increase mobility once arterial line has been discontinued
Discharge planning per cardiology.
Assessment
-
Assessment: 74-year-old male with a past medical history of chronic HFrEF, severe aortic stenosis, PVD, history of COPD, former tobacco smoker and hyperlipidemia who presents as a transfer from [facility] for evaluation for TAVR. Patient
initially presented to [facility] on 09/02/24 with chest pain and worsening shortness of breath. A rapid response was called as he was hypotensive, dizzy and weak and was endorsing chest pain. ACS was suspected and heparin drip was started.
Transthoracic echo on 09/03/2024 showed moderately hypokinetic apex with distal lateral and distal septal moderate hypokinesis, with LVEF 44.4% with normal RV size and systolic function and severe aortic valve stenosis with MARGARETTE: 1.03 with mean
gradient of 34.2 mmHg. He underwent a left heart catheterization on 09/03/2024 showing mild�moderate nonobstructive CAD with mildly elevated pulmonary and wedge pressures with normal right heart catheterization (PCWP: 16mmHg, PADP: 17mmHg, RA:
11mmHg). CTA chest was performed at [facility] showing mild aneurysmal dilatation of the infrarenal abdominal aorta, patent bilateral iliac stents, high-grade short segment stenosis involving the celiac trunk origin, SMA origin, left renal artery origin
and a short segment of the left common femoral artery, as well as emphysematous changes and bronchitis. Patient was transferred here to [place] for evaluation for TAVR.
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
Impression:
#Severe aortic stenosis awaiting TAVR workup
# Coronary artery disease: Status post left main stent placement 09/11/2024
#Chronic HFrEF
#Acute COPD exacerbation (on Breztri at home)
#PAD
#Hypotension suspected to be due to cardiogenic shock on vasopressors + milrinone
#Anemia
#Hypereosinophilia (absolute eosinophil count: 2100)
#Elevated troponin likely due to NSTEMI
#Abnormal urinalysis with +1 leukocyte esterase
#Former tobacco smoker (quit 06/2019 with >20 5�01-deow-cvdi history)
#AAA
Plan:
-
Status post cardiac catheterization-report noted.
Drug-eluting stent placed on left main ostial lesion.
Tolerated well.
-
Status post right heart catheterization noted with increased left and right filling pressures. Consistent with cardiogenic shock. Hemodynamics improved on repeat cath 09/11/2024.
Suspect abnormal chest x-ray is a reflection of pulmonary edema, less likely pneumonia without fevers or leukocytosis.
-
Cardiology and CT surgery correspondence reviewed.
TAVR has been delayed for months given stent placement on 09/11/2024.
Yuri-Synephrine has been weaned off
Continue milrinone-per cardiology. Hopefully can be weaned off soon
Discontinue arterial line today.
Diuresis per cardiology-Renal function normal. Electrolytes are balanced.
Weight trending lower
Chest x-ray 09/11/2024: Still with pulmonary edema. But improved.
Dental work ongoing.
Antiplatelets per cardiology.
From the COPD perspective: Not bronchospastic on exam 09/12/2024.
Patient has chronic bronchitic symptoms.
Continue with current nebulizer regimen while in the hospital: Levalbuterol/ipratropium/budesonide. Restart Breztri upon DC.
Continue antitussives.
Continue daliresp/Singulair.
Patient is on Breztri as an outpatient
Transitioned to prednisone 09/10/2024. 40 mg and decrease by 10 mg every 72 hours to off.
-
Home oxygen assessment prior to discharge-will place an order for tomorrow 09/13/2024.
Currently on low rate supplemental oxygen.
-
Intermittent anxiety. Improved.
Continue to follow mental status closely.
Precedex discontinued.
Ativan as needed
Chest x-ray 09/09/2024: Continues to improved, consistent with pulmonary edema
With lack of fever and leukocytosis less likely pneumonia. Cefepime/azithromycin completed 5 days 09/10/2024.
Leukocytosis likely driven by steroids. Improved.
He is afebrile.
negative MRSA screening
-All cultures negative so far-continue to follow
-Negative urine antigens for Legionella/strep pneumonia
Eventual repeat chest x-ray in the outpatient setting
Anemia noted. Stable. No evidence for bleeding.
Likely contributing to symptoms as well.
Follow-up with primary care in the outpatient
Aspiration precautions
DVT prophylaxis: LMWH
-
Discharge planning hopefully in the next 48 hours-Per cardiology.

Data:
CXR 09/05/2024: Possible slight progression of bilateral prominent interstitial markings which could represent worsening interstitial edema or pneumonitis.
CXR 09/06/2024 (compared to CXR from 09/04/2024): Bilateral pneumonia as described above. Significantly increased.
Subjective Dataa
Subjective Data
Date of Service:
Date of Service: September 12, 2024
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
Subjective:
No new complaints
Patient asking to go home
Denies any chest pain
Continues to have intermittent coughing
Review of Systems
Cardiopulmonary: Dyspnea, Cough and Wheezing (n)
GI: Abdominal Pain (n) and Nausea (n)
Objective Data
Data Reviewed
Vital Signs / I&O / Oxygen:
Vital Signs
Temp Pulse Resp BP Pulse Ox
98.4 F 95 26 104/63 97
09/12/24 07:52 09/12/24 07:30 09/12/24 07:30 09/11/24 16:29 09/12/24 07:30
Intake and Output
09/11/24 09/12/24 09/13/24
06:59 06:59 06:59
Intake Total 720.0 / 722.7 1128.2 / 1130.9 5.4 / 5.4
Output Total 2590 / 2590 1480 / 1480 130 / 130
Balance -1870.0 / -1867.3 -351.8 / -349.1 -124.6 / -124.6
SaO2 97
Nasal Cannula flow liters per 4
minute
Physical Exam
General: Respiratory Distress (mild), Chills (negative), Sweats (negative) and Other (Anxious appearing)
HEENT: Normocephalic and Anicteric
Cardiovascular: S1-S2, Murmur (JUAN JOSE heard best at RUSB), Rub (negative), Peripheral Edema (negative) and Other (Tachycardic)
Respiratory: Wheeze ([place] upon expiration in the bases bilaterally), Crackles (negative), Rhonchi (negative), Non-Labored Respirations and Other (Diminished breath sounds bilaterally)
GI: Soft, Non Distended, Non Tender and Normal Bowel Sounds
Neurology: AO x 3 and Tremors (negative)
Skin: Warm, Dry, Cyanosis (negative) and Jaundice (negative)
Labs/Micro/Reports
Lab Data
09/12/24 04:13
09/12/24 04:13
Microbiology
09/06/24 13:05 Blood/Venous Blood Culture - Final
No Growth - Final Report
--- NOTE | 2024-09-12 09:54 | W.PN.CD ---
Today's Communication / Plan
-
wean milrinone
keep even
check bp on the right side
cbc in afternoon
Impression / Plan
-
74 yo male with PMH of PAD, right CEA, HTN, hyperlipidemia, tobacco abuse presented to [facility] with chest pain. Went to pathology lab technician and found to have non-obstructive CAD, mildly elevated PCW, CO/CI 4.1/2.4. Echo shows EF 40%, severe .
Became hypotensive, started on milrinone and levophed, and transferred here for urgent TAVR evaluation.
# CAD, s/p LM PCI
- cont. DAPT with ASA/Plavix (given 600 mg load in lab 09/11)
# Cardiogenic shock
-favored to be result of aortic stenosis +/- LM disease; no clear e/o infection but treated for HAP empirically while undergoing infectious workup
-improved with aggressive diuresis, now euvolemic per RHC, continue diuresis PRN for goal even
-wean milrinone
-BP check right side, lt subclavian stenosis present
# Severe
-plan for alt ax tavr after about 1 month post-PCI if possible
# Anemia
-post procedure 1 gram drop
-RFA site is soft, no hematoma, dressing CDI
-no back pain
-repeat this afternoon
# Acute HF r EF :Cardiomyopathy, EF 40%
-mixed ICM/NICM
-keep even
-hold lasix today
-GDMT once able
# Severe COPD
-CT scan from [facility] was reviewed
-Discussed with pulmonary Dr. Covarrubias, treated with nebs/steroids
# PAD
-on plavix as outpatient, now restarted
-vasular consulted for possible mesenteric ischemia - would defer any intervention until after cardiovascular issues resolved
-cont. asa
# LUCY,resolved
# Hyperlipidemia
-statin
Subjective: He is feeling better is asking to go home
Critical care time spent in his care directly at the bedside, reviewing record, developing a plan and discussing plan with critical care nursing and senior portfolio analyst 35 minutes
HEMODYNAMIC DATA---performed on 0.125 Milrinone
LV 144/11 (EDP 16) mmHg
AO 126/64 (mean 90) mmHg
RA 8 mmHg
RV 41/6 (EDP 10) mmHg
PA 35/21 (mean 27) mmHg
PCWP 12 mmHg
SaO2 93.6%
SvO2 60.2%
CO/CI 4.5/2.6 L/min/m2
SVR 1455 dsc*-5
PVR 3.3 Wood units
mean pressure gradient 37 mmHg
valve area (Gorlin) 0.67 cm2 (0.38 indexed)
CORONARY ANGIOGRAPHY
Left Main: severe calcified ostial stenosis with pressure dampening on engagement, severe ST elevations, and corresponding systemic hypotension
LAD: large vessel giving rise to a small D1, moderate caliber D2/D3/D4. There is mild non-obstructive disease.
LCx: large vessel giving rise to a large branching OM1 and providing several distal LPL branches. There is focal moderate disease just before the takeoff of the large OM1.
INTERVENTION - IVUS-guided LM PCI
Heparin was given to achieve ACT>300. The LM was engaged with a JL3.5 guide catheter and wires placed in the LCx and LAD. IVUS was performed and confirmed presence of severe LM disease with MLA ~6 mm and moderate non-concentric calcification.
Pre-dilation was performed serially with a 3.5x12 mm NC balloon with full expansion. A 4.5x12 mm ARTHUR was selected and deployed in left cranial projection. On inflation there was mild proximal migration of the stent resulting in ~3 mm aorto-ostial
protrusion. The lesion was full covered and stent full expanded angiographically. Post-dilation and flaring was performed with a 5.0 mm NC. Final IVUS demonstrated full expansion and apposition with massive MLA. Wires and guide were removed and the
patient loaded with 600 Plavix. Femoral artery was closed with Perclose x1 with good distal pulses noted after closure.
CONCLUSIONS:
1. Right heart catheterization with mildly elevated filling pressures, mild pre-capillary pulmonary hypertension, and normal cardiac index on milrinone 0.125 with mildly elevated SVR.
2. Left heart catheterization with simultaneous pressure measurement via dual lumen catheter demonstrates severe aortic stenosis with mean gradient 37 mmHg and valve area 0.67 cm2.
3. Coronary angiography demonstrates severe angiographic ostial left main disease
4. LM IVUS demonstrates severe ostial LM disease with non-concentric calcification and MLA ~6 mm
5. Successful PCI of the left main with placement of a 4.5x12 mm ARTHUR post-dilated proximally to 5.0 mm
RECOMMENDATIONS:
1. Expectant management after cardiac catheterization via right common femoral artery approach.
2. DAPT with ASA/Plavix for at least 1 year
3. Goal will be to wean milrinone over the weekend, maintain euvolemia with diuresis, and wean O2.
4. If able to discharge will plan for high risk R axillary TAVR under general anesthesia in 1 month. If unable to discharge will perform TAVR inpatient.
Physical Exam
Vital Signs/Labs
Vital Signs
Temp Pulse Resp BP Pulse Ox
98.4 F 95 26 104/63 95
09/12/24 07:52 09/12/24 07:30 09/12/24 07:30 09/11/24 16:29 09/12/24 09:35
09/11/24 09/12/24 09/13/24
06:59 06:59 06:59
Actual Weight 64.9 kg 64.3 kg
09/12/24 04:13
09/12/24 04:13
PT 15.4 Sec (11.4-14.6) H 09/04/24 16:59
INR 1.19 09/04/24 16:59
APTT 44.8 Sec (23.4-35.0) H 09/04/24 16:59
Magnesium 2.3 mg/dl (1.6-2.3) 09/12/24 04:13
Triglycerides 96 mg/dl (10-149) 09/05/24 03:57
LDL Cholesterol, Calc 56 mg/dl 09/05/24 03:57
VLDL Cholesterol, Calc 19 mg/dl (0-30) 09/05/24 03:57
HDL Cholesterol 50 mg/dl 09/05/24 03:57
09/05/24 09/07/24
00:11 03:21
Nbi-B-Qecxcsmwthi Pept [id number]
Physical Exam
Constitutional: No acute distress
Cardiovascular: Rhythm & rate is regular and Systolic murmur absent (2/6 crescendo decrescendo murmur in the right upper sternal border)
Respiratory: Respiratory effort normal and Crackles Present (Bibasilar line)
Other: Cath Site (Right femoral artery site soft, no hematoma no ecchymosis. Dressing clean dry and intact. Normal distal DP pulses)
Data Reviewed
-
Date of Service: September 12, 2024
Medical Decision Making: Review of Case with other Provider (Critical care nursing Chey and Dr. Sosa we will wean milrinone, monitoring urine output, CBC this afternoon and hopefully get him to IVU tomorrow or later today)
EKG: Tracing Personally Visualized and interpreted (Sinus rhythm with incomplete right bundle branch block nonspecific ST changes no change from 09/11/2024.) and Other
Medical Tests (PFT, Pathology etc): Other (Cath report and note)
--- NOTE | 2024-09-12 09:54 | W.PN.UPDATE ---
Update Note
Progress Note Update
Patient states that he uses oxygen at home. He has a portable oxygen concentrator
Currently he is down to 2 L nasal cannula
No need to do home oxygen assessment prior to discharge.
Hopefully if arterial line is discontinued we can transfer to IVU later today.
--- NOTE | 2024-09-12 10:01 | W.PN.UPDATE ---
Update Note
Progress Note Update
Arterial monitoring no longer required. INR WNL. Right brachail a-line r removed without sifficulty. Pressure applied with adequate hemostasis. Bandage applied. Right hand +CMS and radial pulse intact.
--- NOTE | 2024-09-12 11:39 | PTCARENOTE ---
Pt AAOx3. Milrinone gtt rate decreased per order. A-line d/c'd. BP via right forearm d/t inaccurate on left arm.
Sinus rhythm to sinus tach. HR up to 140 transferring to [facility]. Now 110 while OOB in chair.
Attempted to wean off O2. SpO2 87% on room air. Now 94% on 1L NC.
Urine output 40-50ml/hr. +BM today.
All other assessments unchanged.
[2024-09-12 12:16] LABS: Glucose - Point of Care 128 mg/dl (70-99)
--- NOTE | 2024-09-12 13:35 | W.PN.UPDATE ---
Update Note
Progress Note Update
Arterial line has been discontinued
Milrinone being tapered down to off per cardiology
Transferred to IVU
Pulmonary will continue to follow briefly
--- NOTE | 2024-09-12 16:17 | CHAP ---
Visited Phillip at 11:45am. He said he was doing well. Emotional and spiritual support provided, along with assurance of our on-going availability.
[2024-09-12 16:23] LABS: Hematocrit 34.1 % (39.0-52.0); Hemoglobin 10.9 g/dL (13.0-18.0); Mean Corpuscular Hgb 31.8 pg (27.0-31.0); Mean Corpuscular Volume 99.4 fL (80.0-94.0); Mean Platelet Volume 10.4 fL (7.4-10.4); Platelet Count 269 10^3/uL (130-400); Red Blood Cell Count 3.43 10^6/uL (4.70-6.10); Red Cell Dist. Width 14.3 % (11.5-14.5); White Blood Cell Count 10.1 10^3/uL (4.8-10.8)
[2024-09-12 17:30] LABS: Glucose - Point of Care 153 mg/dl (70-99)
[2024-09-12] MEDS: NOVOLOG FLEXPEN-MODERATE RESISTANCE 1 UNITS SC (18:14)
[2024-09-12] MEDS: LOVENOX 40 MG SC (18:14)
[2024-09-12] MEDS: SENOKOT PO (22:03)
[2024-09-12] MEDS: COLACE PO (22:03)
[2024-09-12 23:17] LABS: Glucose - Point of Care 163 mg/dl (70-99)
[2024-09-13] VITALS (7 sets, daily range): BP systolic 103–132; BP diastolic 44–72; BMI 21.5
[2024-09-13 04:54] LABS: Hematocrit 31.2 % (39.0-52.0); Hemoglobin 10.3 g/dL (13.0-18.0); Mean Corpuscular Hgb 32.6 pg (27.0-31.0); Mean Corpuscular Volume 98.7 fL (80.0-94.0); Mean Platelet Volume 10.4 fL (7.4-10.4); Platelet Count 270 10^3/uL (130-400); Red Blood Cell Count 3.16 10^6/uL (4.70-6.10); Red Cell Dist. Width 14.2 % (11.5-14.5); White Blood Cell Count 12.4 10^3/uL (4.8-10.8)
--- NOTE | 2024-09-13 05:10 | PTCARENOTE ---
Assumed care of the pt @ 1900 AAOx3 SR/ST on the monitor VSS licona in place ENRIQUE PICAureliano. CHG completed.Call villaseñor within reach
[2024-09-13 05:25] LABS: Blood Urea Nitrogen 34 mg/dl (9-20); Calcium 8.6 mg/dl (8.4-10.2); Carbon Dioxide 27 mmol/L (22-30); Chloride 105 mmol/L (98-107); Estimated Creatinine Clearance 72 ml/min; Glucose 95 mg/dl (70-99); Magnesium 2.3 mg/dl (1.6-2.3); Potassium 4.1 mmol/L (3.5-5.1); Sodium 139 mmol/L (135-145); eGFR > 60.00
[2024-09-13] MEDS: XOPENEX 1.25 MG INHALANT SOLUTION INH ×3 (06:16→18:31)
[2024-09-13] MEDS: ATROVENT NEBULES 0.5 MG INH ×3 (06:16→18:31)
[2024-09-13] MEDS: PULMICORT 0.5 MG INH ×2 (06:16→18:31)
--- NOTE | 2024-09-13 07:16 | W.PN.HOSP.TC ---
Today's Communication/Plan
-
Manzo dc, trial of void
Daily weight I/O
prednisone taper as per pulm
prn diuresis as per Cardio
wean O2 as tolerated
PT/OT
safe discharge planning (discharge on hold as patient is significantly symptomatic dyspnea on exertion and sinus tachy 140s-150s with light activity, significant safety considerations with regards to discharge home apt with 13 steps to enter)
Assessment / Plan
Assessment / Plan
Physical Exam
General: no acute distress, appears comfortable at this time
HEENT: Normocephalic Atraumatic PERRLA on Nasal Cannula
CVS S1 S2 NSR. 4/6 systolic murmur
Pulm: clear to auscultation
Abd: Soft NT bowel sounds present
Neuro: AOx3
Psych: calm
HPI: 74-year-old patient presented to [facility] on 09/02/2024 with abdominal pain for weeks. Admitted with right upper and left lower lobe pneumonia was found to have leukocytosis. Then was found to be hypotensive rapid response was called. Was
found to have possible ACS and heparin drip was started. Echo 09/03/2024 was noted to have hypokinesis and EF of 44%. Also severe aortic valve stenosis. CTA chest showed mild aneurysmal dilatation of the infrarenal abdominal aorta and patent by
lateral iliac stents. High-grade short segment stenosis involving celiac trunk, SMA origin, left renal artery origin and short segment of left common femoral artery . CT also showed emphysematous changes and bronchitis cardiac cath performed at
[facility] showed minor luminal irregularities of the left main, LAD without any significant disease. Second major diagonal branch with 60 to 70% stenosis. Mild diffuse atherosclerosis. Left circumflex also found to have medium to large vessel
with 4 marginal branches with minor luminal irregularities. Right coronary artery was codominant with minor luminal irregularities. Pulmonary artery pressures were elevated. Patient was transferred to [facility] for cardiothoracic evaluation for
urgent TAVR.
EKG reviewed by oh-sinus rhythm. Right bundle branch block
# Severe aortic stenosis-cardiothoracic evaluating for TAVR
Echo 09/05/2024-mildly reduced LV systolic function. EF 45%. Mitral annular calcification. Mild MR. Mild TR. Pulmonary artery pressure 40 to 45 mmHg.
Cardiothoracic surgery does not feel patient is a candidate for SAVR but future TAVR could be considered.
OMF eval appreciated
orthopantogram noted no acute infections
Plans for TAVR placed on hold in favor of placing ARTHUR severe ostial left main disease first, as below.
# Acute HFrEF with hypokinesis of heart muscle wall with EF of 44% possible nonischemic cardiomyopathy in the setting of severe . Goal-directed medical therapy when blood pressure better
briefly treated with Bumex gtt
09/07/04 RH appreciated elevated biventricular filling pressures
-weaned off Milrinone
-cont diuresis as per Cardio
-weaned off phenylephrine
-Manzo for acute I/O discontinued, passed trial of void
# Shock likely cardiogenic-weaned off milrinone Levophed, vasopressin, phenylephrine, Downgraded from ICU to IVU
# Community-acquired pneumonia- completed 5 days cefepime/zithromax as per pulm, empiric vancomycin discontinued MRSA screen neg
# TME-weaned off precedex
# Abdominal aortic aneurysm
#NSTEMI treated with hep gtt since completed
# Coronary artery disease
#severe ostial left main disease
-troponin trended to peak 7.100
-nonobstructive coronary artery disease by catheter
-cont statin
-Plavix prev held for possible TAVR resumed for DAPT new ARTHUR stent placement Left Main Disease 09/11/24
# Peripheral artery disease with history of PCI of the left SFA stent 2013 Dr. Ng and left common femoral endarterectomy.
Bilateral common iliac and bilateral external iliac disease with bilateral iliac stents [facility] 04/18/2023
High-grade short segment stenosis of the celiac trunk origin, SMA origin, left renal artery origin and a short segment of the left common femoral artery as per CT at [facility]
Occlusion of the SFAs
History of right carotid endarterectomy [facility] 05/04/2024
Vascular evaluation appreciated
Continue statin
cont Plavix
# COPD with chronic respiratory failure on 2 L of oxygen Debra Ricks Singulair as outpatient. Also on Daliresp. Also on as needed albuterol.
#Acute on Chronic Respiratory Failure with Hypoxia likely 2/2 heart failure as above
treated with steroids for COPD exacerbation
Continue levalbuterol inhaler
steroids tapered to prednisone as per pulm, prednisone taper reduce by 10 after every 3rd dose
required high Flow eventually weaned down to nasal cannula baseline 2L
# Anemia
# Mild hyponatremia
# Sleep apnea-noncompliant with CPAP
# Prediabetes with hemoglobin A1c 6.2
#Hx Hypertension
-Off antihypertensives, BP stable
# Hyperlipidemia-continue statin
# GERD-PPI to be continued
# Anxiety/Depression-as needed lorazepam, sertraline
# Microscopic hematuria
# AAA
# Ex-smoker
# DVT prophylaxis-Lovenox
PT/OT appreciated SNF rehab
I spent a total of 50 minutes with the patient or on the floor. More than 50% of this time involved counseling and coordination of care.
Anticipated Discharge: 24 - 48 hours
Subjective/Interval History
-
Date of Service: September 13, 2024
No acute distress, appears comfortable, very eager to go home. Passed trial of void however significant physical decompensation noted as per nurse. Patient going into sinus tach 140's-150s with short ambulation, from bed to bathroom, very
tachypneic, dyspnea on exertion, following light activity, though saturating remains stable on 2L. Lives in an apt with that has 13 steps to enter. Noted prior PT/OT recommendation for SNF rehab. Significant concerns regarding safety of
discharge home.
Objective Data
-
Labs:
Laboratory Results
09/13/24
04:39
WBC 12.4 H
Hgb 10.3 L
Hct 31.2 L
Plt Count 270
Sodium 139
Potassium 4.1
Chloride 105
Carbon Dioxide 27
BUN 34 H
Creatinine 0.8
Glucose 95
Calcium 8.6
Vital Signs:
Vital Signs
Temp Pulse Resp BP Pulse Ox
98.2 F 95 18 118/54 95
09/13/24 04:30 09/13/24 06:19 09/13/24 06:19 09/13/24 04:29 09/13/24 06:19
I&O
09/12/24 09/13/24 09/14/24
06:59 06:59 06:59
Intake Total 1128.2 / 1130.9 356.4 / 356.4
Output Total 1480 / 1480 617 / 617
Balance -351.8 / -349.1 -260.6 / -260.6
[2024-09-13 08:36] LABS: Glucose - Point of Care 99 mg/dl (70-99)
--- NOTE | 2024-09-13 09:21 | W.PN.CD ---
Addendum entered and electronically signed by Henry Michael MD 09/13/24 11:26:
Patient primary inventory administrator is Dr. Austin Orellana [facility], will have TAVR coordinator reach out to him this week with follow-up plan.
Original Note:
Today's Communication / Plan
-
Okay to discharge home later today if blood pressure remained stable for 24 hours after milrinone last stopped.
Would send home with Bumex 1 mg p.o. daily as needed for weight gain of 3 pounds in a day or 5 pounds in 5 days.
GDMT has been limited by blood pressure, will add as able.
Plan is for TAVR in a month.
Impression / Plan
-
74 yo male with PMH of PAD, right CEA, HTN, hyperlipidemia, tobacco abuse presented to [facility] with chest pain. Went to manager cardiac cath and found to have non-obstructive CAD, mildly elevated PCW, CO/CI 4.1/2.4. Echo shows EF 40%, severe .
Became hypotensive, started on milrinone and levophed, and transferred here for urgent TAVR evaluation.
# CAD, s/p LM PCI
- cont. DAPT with ASA/Plavix (given 600 mg load in lab 09/11)
# Cardiogenic shock
-favored to be result of aortic stenosis +/- LM disease; no clear e/o infection but treated for HAP empirically while undergoing infectious workup
-improved with aggressive diuresis, now euvolemic per RHC, continue diuresis PRN for goal even
-weaned off milrinone BP 90-118/50-60
-BP check right side, lt subclavian stenosis present
# Severe
-plan for alt ax tavr after about 1 month post-PCI if possible
# Anemia
-post procedure 1 gram drop increased on repeat without intervention
-RFA site is soft, no hematoma, dressing CDI
# Acute HF r EF :Cardiomyopathy, EF 40%
-mixed ICM/NICM
-keep even
-hold Bumex today, would send home on as needed Bumex dosing, 1 mg daily for weight gain of greater than 3 pounds in a day or 5 pounds in 5 days.
-GDMT once able
# Severe COPD
-CT scan from [facility] was reviewed
-Discussed with pulmonary Dr. Covarrubias, treated with nebs/steroids
# PAD
-on plavix as outpatient, now restarted
-vasular consulted for possible mesenteric ischemia - would defer any intervention until after cardiovascular issues resolved
-cont. asa
# LUCY,resolved
# Hyperlipidemia
-statin
Subjective: He is feeling better is asking to go home, no chest pain or shortness of breath.
HEMODYNAMIC DATA---performed on 0.125 Milrinone
LV 144/11 (EDP 16) mmHg
AO 126/64 (mean 90) mmHg
RA 8 mmHg
RV 41/6 (EDP 10) mmHg
PA 35/21 (mean 27) mmHg
PCWP 12 mmHg
SaO2 93.6%
SvO2 60.2%
CO/CI 4.5/2.6 L/min/m2
SVR 1455 dsc*-5
PVR 3.3 Wood units
mean pressure gradient 37 mmHg
valve area (Gorlin) 0.67 cm2 (0.38 indexed)
CORONARY ANGIOGRAPHY
Left Main: severe calcified ostial stenosis with pressure dampening on engagement, severe ST elevations, and corresponding systemic hypotension
LAD: large vessel giving rise to a small D1, moderate caliber D2/D3/D4. There is mild non-obstructive disease.
LCx: large vessel giving rise to a large branching OM1 and providing several distal LPL branches. There is focal moderate disease just before the takeoff of the large OM1.
INTERVENTION - IVUS-guided LM PCI
Heparin was given to achieve ACT>300. The LM was engaged with a JL3.5 guide catheter and wires placed in the LCx and LAD. IVUS was performed and confirmed presence of severe LM disease with MLA ~6 mm and moderate non-concentric calcification.
Pre-dilation was performed serially with a 3.5x12 mm NC balloon with full expansion. A 4.5x12 mm ARTHUR was selected and deployed in left cranial projection. On inflation there was mild proximal migration of the stent resulting in ~3 mm aorto-ostial
protrusion. The lesion was full covered and stent full expanded angiographically. Post-dilation and flaring was performed with a 5.0 mm NC. Final IVUS demonstrated full expansion and apposition with massive MLA. Wires and guide were removed and the
patient loaded with 600 Plavix. Femoral artery was closed with Perclose x1 with good distal pulses noted after closure.
CONCLUSIONS:
1. Right heart catheterization with mildly elevated filling pressures, mild pre-capillary pulmonary hypertension, and normal cardiac index on milrinone 0.125 with mildly elevated SVR.
2. Left heart catheterization with simultaneous pressure measurement via dual lumen catheter demonstrates severe aortic stenosis with mean gradient 37 mmHg and valve area 0.67 cm2.
3. Coronary angiography demonstrates severe angiographic ostial left main disease
4. LM IVUS demonstrates severe ostial LM disease with non-concentric calcification and MLA ~6 mm
5. Successful PCI of the left main with placement of a 4.5x12 mm ARTHUR post-dilated proximally to 5.0 mm
RECOMMENDATIONS:
1. Expectant management after cardiac catheterization via right common femoral artery approach.
2. DAPT with ASA/Plavix for at least 1 year
3. Goal will be to wean milrinone over the weekend, maintain euvolemia with diuresis, and wean O2.
4. If able to discharge will plan for high risk R axillary TAVR under general anesthesia in 1 month. If unable to discharge will perform TAVR inpatient.
Physical Exam
Vital Signs/Labs
Vital Signs
Temp Pulse Resp BP Pulse Ox
98.4 F 95 20 118/54 96
09/13/24 07:41 09/13/24 06:19 09/13/24 07:41 09/13/24 04:29 09/13/24 07:41
09/12/24 09/13/24 12
06:59 06:59 06:59
Actual Weight 64.3 kg 63.2 kg
09/13/24 04:39
09/13/24 04:39
PT 15.4 Sec (11.4-14.6) H 09/04/24 16:59
INR 1.19 09/04/24 16:59
APTT 44.8 Sec (23.4-35.0) H 09/04/24 16:59
Magnesium 2.3 mg/dl (1.6-2.3) 09/13/24 04:39
Triglycerides 96 mg/dl (10-149) 09/05/24 03:57
LDL Cholesterol, Calc 56 mg/dl 09/05/24 03:57
VLDL Cholesterol, Calc 19 mg/dl (0-30) 09/05/24 03:57
HDL Cholesterol 50 mg/dl 09/05/24 03:57
09/05/24 09/07/24
00:11 03:21
Aio-M-Cjmlgdwhrhf Pept [id number]
Physical Exam
Constitutional: No acute distress
Cardiovascular: Rhythm & rate is regular, Pedal edema is absent and Systolic murmur present (2 out of 6 crescendo decrescendo murmur, lung sounds caudally displaced)
Respiratory: Respiratory effort normal, Lungs clear to auscul., Wheeze Absent, Crackles Absent and Rhonchi Absent
Neuro/Psych: AO x 3
Data Reviewed
-
Date of Service: September 13, 2024
Medical Decision Making: Review of Case with other Provider (Discussed with Dr. Gill,if blood pressure remains stable okay for discharge today. IVU nursing Spring also updated.)
EKG: Other (Telemetry shows sinus rhythm)
[2024-09-13] MEDS: NOVOLOG FLEXPEN-MODERATE RESISTANCE SC ×3 (10:07→18:13)
[2024-09-13] MEDS: DALIRESP 500 MCG PO (10:08)
[2024-09-13] MEDS: PROTONIX 40 MG PO (10:08)
[2024-09-13] MEDS: COLACE 100 MG PO (10:08)
[2024-09-13] MEDS: LOW STRENGTH ASPIRIN 81 MG PO (10:08)
[2024-09-13] MEDS: SENOKOT 8.6 MG PO (10:09)
[2024-09-13] MEDS: PLAVIX 75 MG PO (10:09)
[2024-09-13] MEDS: LIPITOR 20 MG PO (10:09)
[2024-09-13] MEDS: DELTASONE 40 MG PO (10:09)
--- NOTE | 2024-09-13 10:33 | PTCARENOTE ---
Addendum entered by Spring Alexander RN 09/13/24 10:46:
Room air pulse ox 77%. Nasal cannula O2 at 2 liters. Pulse ox 97% on 2 liters after recovering at rest.
Original Note:
Pt's heart rate 143 when ambulatory. Pt extremely COSBY on room air. Pt assisted back to bed and nasal cannula at 1 liter resumed. Pt remained in [facility] Will monitor.
--- NOTE | 2024-09-13 11:25 | W.PN.INTV ---
Today's Communication / Plan
Recommendations
Restart inhalers upon discharge
Prednisone taper as noted
Patient already has oxygen at home and is at baseline
Agree with discharge planning
Follow-up at [facility] pulmonary as previous admission
Sign off
Assessment
-
Assessment: 74-year-old male with a past medical history of chronic HFrEF, severe aortic stenosis, PVD, history of COPD, former tobacco smoker and hyperlipidemia who presents as a transfer from [facility] for evaluation for TAVR. Patient
initially presented to [facility] on 09/02/24 with chest pain and worsening shortness of breath. A rapid response was called as he was hypotensive, dizzy and weak and was endorsing chest pain. ACS was suspected and heparin drip was started.
Transthoracic echo on 09/03/2024 showed moderately hypokinetic apex with distal lateral and distal septal moderate hypokinesis, with LVEF 44.4% with normal RV size and systolic function and severe aortic valve stenosis with MARGARETTE: 1.03 with mean
gradient of 34.2 mmHg. He underwent a left heart catheterization on 09/03/2024 showing mild�moderate nonobstructive CAD with mildly elevated pulmonary and wedge pressures with normal right heart catheterization (PCWP: 16mmHg, PADP: 17mmHg, RA:
11mmHg). CTA chest was performed at [facility] showing mild aneurysmal dilatation of the infrarenal abdominal aorta, patent bilateral iliac stents, high-grade short segment stenosis involving the celiac trunk origin, SMA origin, left renal artery origin
and a short segment of the left common femoral artery, as well as emphysematous changes and bronchitis. Patient was transferred here to [place] for evaluation for TAVR.
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
Impression:
#Severe aortic stenosis awaiting TAVR workup
# Coronary artery disease: Status post left main stent placement 09/11/2024
#Chronic HFrEF
#Acute COPD exacerbation (on Breztri at home)
#PAD
#Hypotension suspected to be due to cardiogenic shock on vasopressors + milrinone
#Anemia
#Hypereosinophilia (absolute eosinophil count: 2100)
#Elevated troponin likely due to NSTEMI
#Abnormal urinalysis with +1 leukocyte esterase
#Former tobacco smoker (quit 06/2019 with >20 5�78-[id number] history)
#AAA
Plan:
-
Stable overnight
Clinically improved
-
Status post right heart catheterization noted with increased left and right filling pressures. Consistent with cardiogenic shock. Hemodynamics improved on repeat cath 09/11/2024.
Suspect abnormal chest x-ray is a reflection of pulmonary edema, less likely pneumonia without fevers or leukocytosis.
-
Cardiology and CT surgery correspondence reviewed.
TAVR has been delayed for months given stent placement on 09/11/2024.
Milrinone and Yuri-Synephrine discontinued
Discontinue arterial line today.
Diuretics per cardio
Chest x-ray 09/11/2024: Still with pulmonary edema. But improved.
Dental work ongoing.
Antiplatelets per cardiology.
For TAVR in the month
From the COPD perspective: Not bronchospastic on exam 09/12/2024.
Patient has chronic bronchitic symptoms.
Continue with current nebulizer regimen while in the hospital: Levalbuterol/ipratropium/budesonide. Restart Breztri upon DC.
Continue antitussives.
Continue daliresp/Singulair.
Patient is on Breztri as an outpatient
Patient has oxygen supplementation at home already. Is on his baseline.
Transitioned to prednisone 09/10/2024. 40 mg and decrease by 10 mg every 72 hours to off.
Follow-up at [facility] for pulmonary as before admission.
-
Intermittent anxiety. Improved.
Continue to follow mental status closely.
Precedex discontinued.
Ativan as needed
Chest x-ray 09/09/2024: Continues to improved, consistent with pulmonary edema
With lack of fever and leukocytosis less likely pneumonia. Cefepime/azithromycin completed 5 days 09/10/2024.
Leukocytosis likely driven by steroids. Improved.
He is afebrile.
negative MRSA screening
-All cultures negative so far-continue to follow
-Negative urine antigens for Legionella/strep pneumonia
Eventual repeat chest x-ray in the outpatient setting
Aspiration precautions
DVT prophylaxis: LMWH
-
Discharge planning
Critical care team will sign off

Data:
CXR 09/05/2024: Possible slight progression of bilateral prominent interstitial markings which could represent worsening interstitial edema or pneumonitis.
CXR 09/06/2024 (compared to CXR from 09/04/2024): Bilateral pneumonia as described above. Significantly increased.
Subjective Dataa
Subjective Data
Date of Service:
Date of Service: September 13, 2024
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
Subjective:
Feels better
Denies significant cough or phlegm production
Objective Data
Data Reviewed
Vital Signs / I&O / Oxygen:
Vital Signs
Temp Pulse Resp BP Pulse Ox
98.4 F 123 20 103/60 94
09/13/24 07:41 09/13/24 10:30 09/13/24 07:41 09/13/24 07:43 09/13/24 07:43
Intake and Output
09/12/24 09/13/24 09/14/24
06:59 06:59 06:59
Intake Total 1128.2 / 1130.9 356.4 / 356.4
Output Total 1480 / 1480 617 / 617
Balance -351.8 / -349.1 -260.6 / -260.6
SaO2 94
Nasal Cannula flow liters per 2
minute
Physical Exam
General: Respiratory Distress (mild), Chills (negative), Sweats (negative) and Other (Anxious appearing)
HEENT: Normocephalic and Anicteric
Cardiovascular: S1-S2, Murmur (JUAN JOSE heard best at RUSB), Rub (negative), Peripheral Edema (negative) and Other (Tachycardic)
Respiratory: Wheeze ([place] upon expiration in the bases bilaterally), Crackles (negative), Rhonchi (negative), Non-Labored Respirations and Other (Diminished breath sounds bilaterally)
GI: Soft, Non Distended, Non Tender and Normal Bowel Sounds
Neurology: AO x 3 and Tremors (negative)
Skin: Warm, Dry, Cyanosis (negative) and Jaundice (negative)
Labs/Micro/Reports
Lab Data
09/13/24 04:39
09/13/24 04:39
Microbiology
09/06/24 13:05 Blood/Venous Blood Culture - Final
No Growth - Final Report
--- NOTE | 2024-09-13 14:40 | PTCARENOTE ---
Pt's heart rate 145 as he is sitting at bedside urinating. Pt's heart rate back to 89, NSR at rest.
[2024-09-13 14:49] LABS: Glucose - Point of Care 129 mg/dl (70-99)
[2024-09-13] MEDS: ATIVAN 0.5 MG PO (15:26)
[2024-09-13 17:38] LABS: Glucose - Point of Care 124 mg/dl (70-99)
[2024-09-13] MEDS: LOVENOX 40 MG SC (18:14)
--- NOTE | 2024-09-13 19:17 | PTCARENOTE ---
Pt continues to go into a sinus tach, 140's-150's with ambulation. Will monitor.
[2024-09-13] MEDS: COLACE PO (20:56)
[2024-09-13] MEDS: SENOKOT PO (20:56)
[2024-09-13 21:12] LABS: Glucose - Point of Care 194 mg/dl (70-99)
--- NOTE | 2024-09-14 02:24 | PTCARENOTE ---
received patient at the change of shift. AAOx3. denies any cp/sob. dyspnea on exertion noted. 100% on 1L. ST on tele 110-120s. increased heart rate with movement. bp stable. ambulating to the bathroom independently. reviewed plan of care with
patient and verbalized understanding. eager to go home.
educated patient and (via phone) on importance of daily morning weights. both state better understanding of the importance.
[2024-09-14 04:14] VITALS: BP 121/54
[2024-09-14 05:13] LABS: Hematocrit 29.4 % (39.0-52.0); Hemoglobin 9.9 g/dL (13.0-18.0); Mean Corp Hgb Conc. 33.7 g/dL (33.0-37.0); Mean Corpuscular Hgb 32.6 pg (27.0-31.0); Mean Corpuscular Volume 96.7 fL (80.0-94.0); Mean Platelet Volume 10.5 fL (7.4-10.4); Platelet Count 271 10^3/uL (130-400); Red Blood Cell Count 3.04 10^6/uL (4.70-6.10); Red Cell Dist. Width 14.4 % (11.5-14.5)
[2024-09-14 05:24] LABS: Blood Urea Nitrogen 29 mg/dl (9-20); Calcium 8.4 mg/dl (8.4-10.2); Carbon Dioxide 28 mmol/L (22-30); Chloride 105 mmol/L (98-107); Estimated Creatinine Clearance 83 ml/min; Glucose 86 mg/dl (70-99); Magnesium 2.3 mg/dl (1.6-2.3); Phosphorus 3.7 mg/dl (2.5-4.5); Potassium 3.7 mmol/L (3.5-5.1); Sodium 139 mmol/L (135-145); eGFR > 60.00
[2024-09-14] MEDS: NOVOLOG FLEXPEN-MODERATE RESISTANCE SC ×2 (07:00→13:26)
[2024-09-14] MEDS: ATROVENT NEBULES 0.5 MG INH ×2 (07:19→12:50)
[2024-09-14] MEDS: XOPENEX 1.25 MG INHALANT SOLUTION INH ×2 (07:19→12:50)
[2024-09-14] MEDS: PULMICORT 0.5 MG INH (07:19)
[2024-09-14 07:25] VITALS: BP 106/58
--- NOTE | 2024-09-14 07:42 | W.PN.HOSP.TC ---
Today's Communication/Plan
-
Okay to discharge patient today, as per cardiology
Assessment / Plan
Assessment / Plan
Physical Exam
General: Not in acute distress
HEENT: Normocephalic Atraumatic. On 2 L Nasal Cannula
Cardio: S1 S2 NSR. 4/6 systolic murmur
Pulm: clear to auscultation bilaterally
Abd: Soft NT bowel sounds present
Neuro: AAOx3
Psych: calm
Assessment/Plan
HPI: 74-year-old patient presented to [facility] on 09/02/2024 with abdominal pain for weeks. Admitted with right upper and left lower lobe pneumonia was found to have leukocytosis. Then was found to be hypotensive rapid response was called. Was
found to have possible ACS and heparin drip was started. Echo 09/03/2024 was noted to have hypokinesis and EF of 44%. Also severe aortic valve stenosis. CTA chest showed mild aneurysmal dilatation of the infrarenal abdominal aorta and patent by
lateral iliac stents. High-grade short segment stenosis involving celiac trunk, SMA origin, left renal artery origin and short segment of left common femoral artery . CT also showed emphysematous changes and bronchitis cardiac cath performed at
[facility] showed minor luminal irregularities of the left main, LAD without any significant disease. Second major diagonal branch with 60 to 70% stenosis. Mild diffuse atherosclerosis. Left circumflex also found to have medium to large vessel
with 4 marginal branches with minor luminal irregularities. Right coronary artery was codominant with minor luminal irregularities. Pulmonary artery pressures were elevated. Patient was transferred to [place] for cardiothoracic evaluation for
urgent TAVR.
# Severe aortic stenosis-cardiothoracic evaluating for TAVR
Echo 09/05/2024-mildly reduced LV systolic function. EF 45%. Mitral annular calcification. Mild MR. Mild TR. Pulmonary artery pressure 40 to 45 mmHg.
Cardiothoracic surgery does not feel patient is a candidate for SAVR but future TAVR could be considered.
OMF eval appreciated
Orthopantogram noted no acute infections
Plan for TAVR after about 1 month post-PCI if possible
Follow-up with dental team Kajal Cramer DDS prior to TAVR
# Acute HFrEF with hypokinesis of heart muscle wall with EF of 44% possible nonischemic cardiomyopathy in the setting of severe . Goal-directed medical therapy when blood pressure better
briefly treated with Bumex gtt
-09/07/04 [facility] appreciated elevated biventricular filling pressures
-weaned off Milrinone
-weaned off phenylephrine
-Manzo for acute I/O discontinued, passed trial of void
-Continue diuresis as needed Bumex dosing, 1 mg daily for weight gain of greater than 3 pounds in 1 day or 5 pounds in 5 days
# Shock likely cardiogenic-weaned off milrinone Levophed, vasopressin, phenylephrine, Downgraded from ICU to IVU
# Concern for Community-Acquired Pneumonia- completed 5 days cefepime/zithromax as per pulm, empiric vancomycin discontinued MRSA screen neg
# Toxic Metabolic Encephalopathy - weaned off Precedex
# Abdominal aortic aneurysm
#NSTEMI treated with hep gtt since completed
#Coronary artery disease
#Severe ostial left main disease
-troponin trended to peak 7.100
-nonobstructive coronary artery disease by catheter
-cont statin
-Plavix prev held for possible TAVR resumed for DAPT new ARTHUR stent placement Left Main Disease 09/11/24
-Continue DAPT with ASA/Plavix (given 600 mg load in lab 09/11) for at least 1 year
# Peripheral artery disease with history of PCI of the left SFA stent 2012 Dr. Ng and left common femoral endarterectomy.
Bilateral common iliac and bilateral external iliac disease with bilateral iliac stents [facility] 04/18/2023
High-grade short segment stenosis of the celiac trunk origin, SMA origin, left renal artery origin and a short segment of the left common femoral artery as per CT at [facility]
Occlusion of the SFAs
History of right carotid endarterectomy [facility] 05/04/2024
Chronic Mesenteric Ischemia
Small Abdominal Aortic Aneurysm
-Vascular evaluation appreciated
-Continue statin
-Continue DAPT as above
-Outpatient follow-up with Dr. Ashby of Vascular
-BP check right side, subclavian stenosis present
# COPD with chronic respiratory failure on 2 L of oxygen
#Acute on Chronic Respiratory Failure with Hypoxia likely 2/2 heart failure as above
-treated with steroids for COPD exacerbation
-Continue Levalbuterol/ipratropium/budesonide
-Steroids tapered to prednisone as per pulmonary, prednisone taper reduce by 10 after every 3rd dose
-Restart Breztri at the time of discharge
-Continue Daliresp/Singulair
-Required high Flow eventually weaned down to nasal cannula baseline 2L
-Follow-up at [facility] for pulmonary as before admission.
# Anemia
# Mild hyponatremia
# Sleep apnea-noncompliant with CPAP
# Prediabetes with hemoglobin A1c 6.2
#History of Hypertension
# Hyperlipidemia-continue statin
# GERD-PPI to be continued
# Anxiety/Depression-as needed lorazepam, sertraline
# Microscopic hematuria
# AAA
# Ex-smoker
# DVT prophylaxis-Lovenox
PT/OT appreciated SNF rehab
Patient is severely physically deconditioned with significant sinus tachycardia, plus dyspnea on exertion with the lightest activity.
Patient clearly stated to me that he wants to go home today. I spoke with patient's Lilia who is in agreement with the patient going home today.
More than 30 minutes spent in discharge including
Final examination of the patient
Summarizing hospital stay
Instructions for continuing care to all relevant caregivers
Preparation of discharge records, prescriptions, and referral forms
Total time spent (in minutes): 37
Anticipated Discharge: Today
Subjective/Interval History
-
Date of Service: September 14, 2024
Patient was seen and examined. He denied chest pain, shortness of breath, or any other new symptoms. He was adamant in saying that he wants to go home today, and strongly refused to go to any rehab facility.
Objective Data
-
Labs:
Laboratory Results
09/14/24
04:15
WBC 11.0 H
Hgb 9.9 L
Hct 29.4 L
Plt Count 271
Sodium 139
Potassium 3.7
Chloride 105
Carbon Dioxide 28
BUN 29 H
Creatinine 0.7
Glucose 86
Calcium 8.4
Vital Signs:
Vital Signs
Temp Pulse Resp BP Pulse Ox
97.8 F 88 20 121/54 95
09/14/24 07:23 09/14/24 07:21 09/14/24 07:23 09/14/24 04:14 09/14/24 07:23
I&O
09/13/24 09/14/24 09/15/24
06:59 06:59 06:59
Intake Total 356.4 / 356.4 340 / 340
Output Total 617 / 617 450 / 450
Balance -260.6 / -260.6 -110 / -110
[2024-09-14 07:44] VITALS: BMI 21.5
--- NOTE | 2024-09-14 08:00 | PTCARENOTE ---
ST, 98% 2L. SOB exert. coarse rhonchii thoughout junky cough. Trace edema. Pulses weakly palpable. skin intact. PICC patent. Will continue to monitor.
[2024-09-14] MEDS: DALIRESP 500 MCG PO (08:58)
[2024-09-14] MEDS: DELTASONE 30 MG PO (08:58)
[2024-09-14] MEDS: LIPITOR 20 MG PO (08:59)
[2024-09-14] MEDS: PLAVIX 75 MG PO (08:59)
[2024-09-14] MEDS: SENOKOT 8.6 MG PO (08:59)
[2024-09-14] MEDS: LOW STRENGTH ASPIRIN 81 MG PO (09:00)
[2024-09-14] MEDS: COLACE 100 MG PO (09:00)
[2024-09-14] MEDS: PROTONIX 40 MG PO (09:02)
--- NOTE | 2024-09-14 09:06 | W.PN.CD ---
Today's Communication / Plan
-
safe for discharge from a cardiovascular standpoint with close outpatient cardiology follow up
we will coordinate TAVR in 1 month
patient should be given weight based diuretic instructions as per note
Impression / Plan
-
74 yo male with PMH of PAD, right CEA, HTN, hyperlipidemia, tobacco abuse presented to [facility] with chest pain. Went to [facility] labor delivery and found to have non-obstructive CAD, mildly elevated PCW, CO/CI 4.1/2.4. Echo shows EF 40%, severe .
Became hypotensive, started on milrinone and levophed, and transferred here for urgent TAVR evaluation.
# CAD, s/p LM PCI
- cont. DAPT with ASA/Plavix (given 600 mg load in lab 09/11)
# Cardiogenic shock
-favored to be result of aortic stenosis +/- LM disease; no clear e/o infection but treated for HAP empirically while undergoing infectious workup
-improved with aggressive diuresis, now euvolemic per [facility], continue diuresis PRN for goal even
-weaned off milrinone BP 90-118/50-60
-BP check right side, subclavian stenosis present
# Severe
-plan for alt ax tavr after about 1 month post-PCI if possible
# Anemia
-post procedure 1 gram drop increased on repeat without intervention
-RFA site is soft, no hematoma, dressing CDI
# Acute HF r EF :Cardiomyopathy, EF 40%
-mixed ICM/NICM
-keep even
-evamines euvolemic, hold Bumex today, would send home on as needed Bumex dosing, 1 mg daily for weight gain of greater than 3 pounds in a day or 5 pounds in 5 days.
-GDMT once able
# Severe COPD
-CT scan from [facility] was reviewed
-Discussed with pulmonary Dr. Covarrubias, treated with nebs/steroids
# PAD
-on plavix as outpatient, now restarted
-vasular consulted for possible mesenteric ischemia - would defer any intervention until after cardiovascular issues resolved
-cont. asa
# LUCY,resolved
# Hyperlipidemia
-statin
Subjective: He is feeling better is asking to go home, no chest pain or shortness of breath.
HEMODYNAMIC DATA---performed on 0.125 Milrinone
LV 144/11 (EDP 16) mmHg
AO 126/64 (mean 90) mmHg
RA 8 mmHg
RV 41/6 (EDP 10) mmHg
PA 35/21 (mean 27) mmHg
PCWP 12 mmHg
SaO2 93.6%
SvO2 60.2%
CO/CI 4.5/2.6 L/min/m2
SVR 1455 dsc*-5
PVR 3.3 Wood units
mean pressure gradient 37 mmHg
valve area ([place]) 0.67 cm2 (0.38 indexed)
CORONARY ANGIOGRAPHY
Left Main: severe calcified ostial stenosis with pressure dampening on engagement, severe ST elevations, and corresponding systemic hypotension
LAD: large vessel giving rise to a small D1, moderate caliber D2/D3/D4. There is mild non-obstructive disease.
LCx: large vessel giving rise to a large branching OM1 and providing several distal LPL branches. There is focal moderate disease just before the takeoff of the large OM1.
INTERVENTION - IVUS-guided LM PCI
Heparin was given to achieve ACT>300. The LM was engaged with a JL3.5 guide catheter and wires placed in the LCx and LAD. IVUS was performed and confirmed presence of severe LM disease with MLA ~6 mm and moderate non-concentric calcification.
Pre-dilation was performed serially with a 3.5x12 mm NC balloon with full expansion. A 4.5x12 mm ARTHUR was selected and deployed in left cranial projection. On inflation there was mild proximal migration of the stent resulting in ~3 mm aorto-ostial
protrusion. The lesion was full covered and stent full expanded angiographically. Post-dilation and flaring was performed with a 5.0 mm NC. Final IVUS demonstrated full expansion and apposition with massive MLA. Wires and guide were removed and the
patient loaded with 600 Plavix. Femoral artery was closed with Perclose x1 with good distal pulses noted after closure.
CONCLUSIONS:
1. Right heart catheterization with mildly elevated filling pressures, mild pre-capillary pulmonary hypertension, and normal cardiac index on milrinone 0.125 with mildly elevated SVR.
2. Left heart catheterization with simultaneous pressure measurement via dual lumen catheter demonstrates severe aortic stenosis with mean gradient 37 mmHg and valve area 0.67 cm2.
3. Coronary angiography demonstrates severe angiographic ostial left main disease
4. LM IVUS demonstrates severe ostial LM disease with non-concentric calcification and MLA ~6 mm
5. Successful PCI of the left main with placement of a 4.5x12 mm ARTHUR post-dilated proximally to 5.0 mm
RECOMMENDATIONS:
1. Expectant management after cardiac catheterization via right common femoral artery approach.
2. DAPT with ASA/Plavix for at least 1 year
3. Goal will be to wean milrinone over the weekend, maintain euvolemia with diuresis, and wean O2.
4. If able to discharge will plan for high risk R axillary TAVR under general anesthesia in 1 month. If unable to discharge will perform TAVR inpatient.
Physical Exam
Vital Signs/Labs
Vital Signs
Temp Pulse Resp BP Pulse Ox
36.6 C 99 20 106/58 95
09/14/24 07:23 09/14/24 08:30 09/14/24 07:23 09/14/24 07:25 09/14/24 07:23
09/13/24 09/14/24 09/15/24
06:59 06:59 06:59
Actual Weight 63.2 kg
09/14/24 04:15
09/14/24 04:15
PT 15.4 Sec (11.4-14.6) H 09/04/24 16:59
INR 1.19 09/04/24 16:59
APTT 44.8 Sec (23.4-35.0) H 09/04/24 16:59
Magnesium 2.3 mg/dl (1.6-2.3) 09/14/24 04:15
Triglycerides 96 mg/dl (10-149) 09/05/24 03:57
LDL Cholesterol, Calc 56 mg/dl 09/05/24 03:57
VLDL Cholesterol, Calc 19 mg/dl (0-30) 09/05/24 03:57
HDL Cholesterol 50 mg/dl 09/05/24 03:57
09/05/24 09/07/24
00:11 03:21
[id number] Pept [id number]
Physical Exam
Constitutional: No acute distress
Cardiovascular: Rhythm & rate is regular
Respiratory: Respiratory effort normal
Neuro/Psych: AO x 3
Data Reviewed
-
Date of Service: September 14, 2024
Medical Decision Making: Reviewed Test Results
Labs: Labs Reviewed by me
[2024-09-14 11:16] VITALS: BP 92/57
[2024-09-14 11:43] VITALS: BP 108/69
[2024-09-14 11:50] VITALS: BP 108/69; BP 92/57; PULSE 97; O2SAT 91
--- NOTE | 2024-09-14 16:23 | W.DCSUMMARY ---
Discharge Summary
Discharge Data
Date of Admission: 09/04/24
Date of Discharge: 09/14/24
Total time spent discharging patient (in min): 37
-
Pending Results: No
Hospital Course
74-year-old male with a past medical history of chronic HFrEF, severe aortic stenosis, peripheral vascular disease with stents, COPD, former tobacco smoker and hyperlipidemia who presented as a transfer from [facility] for evaluation for TAVR.
Patient initially presented to [facility] on 09/02/24 with chest pain and worsening shortness of breath. A rapid response was called as he was hypotensive, dizzy and weak, along with chest pain - Heparin Drip was started for suspected acute
coronary syndrome. Transthoracic echo on 09/03/2024 showed moderately hypokinetic apex with distal lateral and distal septal moderate hypokinesis, with LVEF 44.4% with normal RV size and systolic function and severe aortic valve stenosis with MARGARETTE:
1.03 with mean gradient of 34.2 mmHg. He underwent a left heart catheterization on 09/03/2024 showing mild�moderate nonobstructive CAD with mildly elevated pulmonary and wedge pressures with normal right heart catheterization. CTA chest was
performed at [facility] showed mild aneurysmal dilatation of the infrarenal abdominal aorta, patent bilateral iliac stents, high-grade short segment stenosis involving the celiac trunk origin, SMA origin, left renal artery origin and a short segment of the
left common femoral artery, as well as emphysematous changes and bronchitis. Patient was transferred here to [facility] for evaluation for TAVR.
Patient was continued on Levophed and Milrinone, later Vasopressin was added and Levophed was changed to Yuri-Synephrine all for mixed cardiogenic/infectious/vascular shock. Cardiothoracic surgery, cardiology and sales manager prearranged funerals were all consulted.
Patient had en echocardiogram which showed left ventricular ejection fraction is 45%, mitral annular calcification, mild mitral regurgitation, mild tricuspid regurgitation, calcified aortic valve, and mean gradients across the aortic valve 26mmHg
and estimated pulmonary artery pressure of 40-45 mmHg. Patient was started on Precedex for agitation and anxiety, his decision-making capacity at the time was questionable. Patient was started on antibiotics and steroids for COPD exacerbation and
pneumonia.
Vascular surgery was consulted given patient's significant peripheral vascular disease, and significant celiac and SMA stenosis. It was determined that patient was either not a candidate for any procedure at the time or needed a procedure; patient
would need vascular surgery follow-up outpatient. Right heart cath showed elevated filling pressures, so patient was restarted on intravenous Bumex. Later left and right heart cath were done, and stent was placed into the left main coronary artery.
Patient was started on dual antiplatelet regimen with Aspirin and Plavix. Patient was soon stable for discharge with close outpatient follow-up appointments. TAVR along with associated pre-admission testing was scheduled for September 2024.
Discharge Plan
-
Patient Disposition: Home with Home Care
Discharge Diagnosis/Procedures: #Severe aortic stenosis awaiting TAVR workup
#Coronary artery disease: Status post left main stent placement 09/11/2024
#Angioplasty and stent to Left Main artery (09/11/24)
#Chronic HFrEF
#Cardiogenic Shock - RESOLVED
#Toxic Metabolic Encephalopathy - RESOLVED
#Acute COPD exacerbation (on Breztri at home)
#Peripheral Artery Disease with history of iliac stents
#History of right carotid endarterectomy
#Chronic Mesenteric Ischemia
#Small Abdominal Aortic Aneurysm
#Hypotension suspected to be due to cardiogenic shock on vasopressors + milrinone
#Anemia
#Hypereosinophilia (absolute eosinophil count: 2100)
#Elevated troponin likely due to NSTEMI
#Abnormal urinalysis with +1 leukocyte esterase
#Former tobacco smoker (quit 06/2019 with >20 5�86-wuev-ccdx history)
#Abdominal Aortic Aneurysm
Diet: Low Fat, Low Cholesterol, Low Sodium, No added salt and Restrict fluids to 64 oz
Blood Work: CBC, BMP and Magnesium check with your PCP in 3 to 4 days
Other Services: Cardiac Rehab
Specialty Instructions: Weigh Daily- Call MD for wt gain/loss 3 lbs overnight/5 lbs in 1 week
Activity Restrictions/Additional Instructions:
Blood pressure check on the right side, subclavian stenosis is present.
Continue using your home oxygen and check your oxygen levels at home to maintain the amount of oxygenation needed, as recommended by your [facility] pulmonary physician.
Instructions: *PCP/Other Instructor Modeling Heart Failure Instructions
Stand Alone Forms: DC Instructions- Cath/EP Lab
Referrals:
[facility] [Outside] (RN/PT/OT)
Edith Darnell CRNP [Specified Professional Personl] -
Kajal Cramer DDS [Active] - in one to two weeks (Pre-TAVR heart surgery evaluation)
Josh Manzo III, MD [Active] - 10/07/24 10:00 am (Vascular follow up)
Abdi Paez MD [Family Provider] -
Austin Orellana MD [Non-Admitting Privileges] - in three to four weeks (Cardiology followup appointment)
Additional Discharge Medication Instructions: Please call and schedule an appointment for Dental Clearance as soon as possible
Do not stop your aspirin and Plavix for any reason without speaking to your training manager.
Your TAVR procedure is scheduled for 10/15/2024 at [facility]. Your pre-admission testing appointment is 10/05/2024 at 12:00 (noon)- Ground floor of the [facility]. You may have a light breakfast
and drink water up until arrival. You visit will last for about 1 1/2-2 hours.
Prescriptions:
New
docusate sodium 100 mg Capsule
100 mg PO BID Qty: 60 0RF
prednisone 10 mg tablet
10 mg PO DIRECTED Qty: 15 0RF
Rx Instructions:
30 mg/d x2 days; 20 mg/d x3 days; 10 mg/d x3 days
aspirin 81 mg Tablet,Chewable
81 mg PO DAILY Qty: 30 11RF
sennosides [Senna Laxative] 8.6 mg Tablet
8.6 mg PO BID Qty: 60 0RF
bumetanide 1 mg tablet
1 mg PO DAILY PRN (Reason: weight gain of >3 lbs in 1 day or >5 lbs in 5 days) Qty: 20 0RF
Continued
simvastatin 40 mg Tablet
40 mg PO DAILY
lorazepam 0.5 mg Tablet
0.5 mg PO DAILYPRN PRN (Reason: anxiety)
pantoprazole 40 mg Tablet,Delayed Release (Dr/Ec)
40 mg PO DAILY
roflumilast 500 mcg Tablet
500 mcg PO DAILY
Breztri Aerosphere 160-9-4.8 mcg/actuation Hfa Aerosol Inhaler
2 inh INHALATION R BID
(DME) spirometers and accessories Device
See Rx Instructions .Route Qty: 1 0RF
Rx Instructions:
inhale 10 times per hour as many times a day as possible
montelukast [Singulair] 10 mg Tablet
10 mg PO HS
clopidogrel 75 mg Tablet
75 mg PO DAILY Qty: 30 11RF
Held
sertraline 50 mg Tablet
50 mg PO DAILY
Hold Instructions: Resume on 11/18/24. Discuss with your primary care provider regarding if and when to resume this medication.
Spiriva Respimat 2.5 mcg/actuation mist
2 inh inhalation DAILY Qty: 4 3RF
Hold Instructions: Resume on 11/04/24. Discuss with your pulmonary physician regarding whether you should resume this medication.
azithromycin 250 mg tablet
250 mg PO DAILY PRN (Reason: copd flair)
Hold Instructions: Resume on 11/18/24. Ask you pulmonary physician at [facility] if and when you should resume this medication.
Discontinued
albuterol sulfate 2.5 mg /3 mL (0.083 %) Solution For Nebulization
2.5 mg INHALATION R DAILY
albuterol sulfate 90 mcg/actuation Hfa Aerosol Inhaler
2 puff INHALATION R Q4HPRN PRN (Reason: sob)
Discharge Orders:
Discharge Patient (As Directed); Ordered 09/14/24
Ordered By: Qasim Hood
Care Plan Goals
Care Plan Goals:
Problem: Readiness for enhanced knowledge related to diagnosis and treatment plan
Goal: Understand your diagnosis and treatment plan needs, including medications if applicable.
Instructions: Know your diagnosis, underlying causes and treatment plan options, including medications if applicable. Consult with your health care team to learn about your diagnosis and treatment plan, including medications if applicable.
Discharge Date and Time
Discharge Date/Time: 09/14/24 17:49
Print Language: CUBAN
--- NOTE | 2024-09-14 16:41 | W.PN.UPDATE ---
Update Note
Progress Note Update
Spoke to patient and family about TAVR procedure scheduled for 10/15/2024 with pre-admission testing 10/05/2024 at noon. Provided with copy of TAVR booklet, contact information and dental contact. Patient was consented by Dr. Valdez and risks were
reviewed. Allowed for and answered questions.
[2024-09-14] MEDS: PREVNAR 20 0.5 ML IM (17:15)
--- NOTE | 2024-09-14 17:50 | PTCARENOTE ---
d/c in wheelchair. dorcas tover all instructions with patient and his and daughter at bedside. left with all paperwork. IV removed from IVT RN.
--- NOTE | 2024-09-15 09:20 | W.HF.CON ---
Heart Failure
- LV Function
Left ventricular function study result: LV Ejection fraction 41-49%
Ejection Fraction Percentage: 45-50
- ARNI
Patient already on ARNI: No
Heart Failure ARNI Contraindication: Hypotension, Severe Aortic Stenosis
- ACEI/ARB
Patient already on ACEI/ARB: No
Heart Failure ACEI/ARB Contraindication: Hypotension, Severe Aortic Stenosis
- Beta Luciano
Patient already on Evidence Based Beta Luciano: No
Heart Failure Evidence Based Beta Luciano: Hypotension, Recent Inotropic Agent
- Mineralocorticord Receptor Antagonist
Patient already on MRA: No
Heart Failure MRA Contraindication: Hypotension
- SGLT-2 Inhibitor
Patient already on SGLT-2 Inhibitor: No
Heart Failure SGLT-2 Inhibitor Not Indicated: LV Ejection Fraction >40%
- NYHA CHF Classification
NYHA CHF Classification Level: Class III - Symptoms w/ min exertion, interferes w/ nml daily activity (COPD)
- ACC/AHA Stage
ACC/AHA Stage: Stage C: Symptomatic Heart Failure
== END 2024-09-14 17:49 | disposition home health service (06) | DRG 321 ==
LOC: IVU 14:42
PROVIDERS: Internal Medicine; Internal Medicine Cardiovascular Disease; Nurse Practitioner; Nurse Practitioner Family; Nurse Practitioner Primary Care; Physician Assistant Medical; Radiology Diagnostic Radiology; Student in an Organized Health Care Education/Training Program; ADMITTING PHYSICIAN Thoracic Surgery (Cardiothoracic Vascular Surgery); ATTENDING PHYSICIAN Hospitalist; CONSULT PHYSICIAN Internal Medicine; CONSULT PHYSICIAN Internal Medicine Critical Care Medicine; FAMILY PHYSICIAN Family Medicine; OTHER PHYSICIAN Student in an Organized Health Care Education/Training Program; OTHER PHYSICIAN Surgery Vascular Surgery
PROC: 03HB33Z Insertion of Infusion Device into Right Radial Artery, Percutaneous Approach (ICD-10-PCS; 2024-09-04)
PROC: 02HV33Z Insertion of Infusion Device into Superior Vena Cava, Percutaneous Approach (ICD-10-PCS; 2024-09-04)
PROC: 5A0945A Assistance with Respiratory Ventilation, 24-96 Consecutive Hours, High Flow/Velocity Cannula (ICD-10-PCS; 2024-09-06)
PROC: 4A023N6 Measurement of Cardiac Sampling and Pressure, Right Heart, Percutaneous Approach (ICD-10-PCS; 2024-09-07)
PROC: 4A023N8 Measurement of Cardiac Sampling and Pressure, Bilateral, Percutaneous Approach (ICD-10-PCS; 2024-09-11)
PROC: B240ZZ3 Ultrasonography of Single Coronary Artery, Intravascular (ICD-10-PCS; 2024-09-11)
PROC: 027034Z Dilation of Coronary Artery, One Artery with Drug-eluting Intraluminal Device, Percutaneous Approach (ICD-10-PCS; 2024-09-11)
PROC: B2111ZZ Fluoroscopy of Multiple Coronary Arteries using Low Osmolar Contrast (ICD-10-PCS; 2024-09-11)
PROC: 3E0234Z Introduction of Serum, Toxoid and Vaccine into Muscle, Percutaneous Approach (ICD-10-PCS; 2024-09-14)
DX: I21.4 Non-ST elevation (NSTEMI) myocardial infarction (principal); G92.8 Other toxic encephalopathy; R57.0 Cardiogenic shock; J96.21 Acute and chronic respiratory failure with hypoxia; J18.9 Pneumonia, unspecified organism; I50.23 Acute on chronic systolic (congestive) heart failure; E87.3 Alkalosis; K55.1 Chronic vascular disorders of intestine; J44.1 Chronic obstructive pulmonary disease with (acute) exacerbation; I42.8 Other cardiomyopathies; E87.1 Hypo-osmolality and hyponatremia; N17.9 Acute kidney failure, unspecified; J44.0 Chronic obstructive pulmonary disease with (acute) lower respiratory infection; I35.0 Nonrheumatic aortic (valve) stenosis; I25.10 Atherosclerotic heart disease of native coronary artery without angina pectoris; G47.33 Obstructive sleep apnea (adult) (pediatric); E78.00 Pure hypercholesterolemia, unspecified; I11.0 Hypertensive heart disease with heart failure; K21.9 Gastro-esophageal reflux disease without esophagitis; D72.829 Elevated white blood cell count, unspecified; R73.03 Prediabetes; I65.23 Occlusion and stenosis of bilateral carotid arteries; I70.203 Unspecified atherosclerosis of native arteries of extremities, bilateral legs; F41.0 Panic disorder [episodic paroxysmal anxiety]; I70.8 Atherosclerosis of other arteries; K02.9 Dental caries, unspecified; I27.29 Other secondary pulmonary hypertension; D64.9 Anemia, unspecified; R45.1 Restlessness and agitation; I71.43 Infrarenal abdominal aortic aneurysm, without rupture; R31.29 Other microscopic hematuria; I45.10 Unspecified right bundle-branch block; Z99.81 Dependence on supplemental oxygen; Z91.199 Patient's noncompliance with other medical treatment and regimen due to unspecified reason; Z87.891 Personal history of nicotine dependence; Z87.01 Personal history of pneumonia (recurrent); Z88.6 Allergy status to analgesic agent; Z88.1 Allergy status to other antibiotic agents; Z88.5 Allergy status to narcotic agent; Z79.02 Long term (current) use of antithrombotics/antiplatelets; Z79.51 Long term (current) use of inhaled steroids; Z79.52 Long term (current) use of systemic steroids; Z82.41 Family history of sudden cardiac death; Z23 Encounter for immunization
CPT/HCPCS: 93308; 70355; 71045; 80048; 80053; 80061; 81003; 81015; 82306; 82330; 82607; 82728; 82805; 82962; 83036; 83540; 83550; 83605; 83735; 83880; 84100; 84132; 84145; 84302; 84484; 85025; 85027; 85347; 85610; 85730; 86140; 87040; 87070; 87086; 87205; 87449; 87641; 87899; 90677; 92978; 93005; 93306; 93321; 93325; 93451; 93458; 93930; 94640; 94660; 97116; 97163; 97167; 97530; 97535; C1725; C1753; C1760; C1769; C1874; C1894; C9600; G0009; J2260; P9047; Q9967

== ENCOUNTER 2024-09-27 08:54 | Inpatient (IN) | payer MEDICARE, OTHER, SELFPAY ==
[2024-09-27] VITALS (62 sets, daily range): BP systolic 64–124; BP diastolic 34–67; BMI 22.6; BMI 21.9
[2024-09-27 04:50] LABS: % Basophils 0.5 % (0-2); % Eosinophils 6.5 % (0-6); % Immature Granulocytes 0.4 % (0-0.5); % Lymphocytes 27.3 % (20.5-51.1); % Monocytes 8.4 % (1.7-9.3); % Neutrophils 56.9 % (42.2-75.2); Absolute Eosinophils 0.5 10^3/uL (0-0.7); Absolute Lymphocytes 2.3 10^3/uL (1.2-3.4); Absolute Monocytes 0.7 10^3/uL (0.1-0.6); Absolute Neutrophils 4.8 10^3/uL (1.4-6.5); Hematocrit 29.2 % (39.0-52.0); Hemoglobin 9.4 g/dL (13.0-18.0); Mean Corp Hgb Conc. 32.2 g/dL (33.0-37.0); Mean Corpuscular Hgb 32.3 pg (27.0-31.0); Mean Corpuscular Volume 100.3 fL (80.0-94.0); Mean Platelet Volume 10.5 fL (7.4-10.4); Nucleated Red Blood Cells % 0 % (-); Platelet Count 213 10^3/uL (130-400); Red Blood Cell Count 2.91 10^6/uL (4.70-6.10); Red Cell Dist. Width 15.4 % (11.5-14.5); White Blood Cell Count 8.4 10^3/uL (4.8-10.8)
[2024-09-27 05:06] LABS: ALT (SGPT) 20 U/L (0-50); AST (SGOT) 22 U/L (17-59); Albumin 3.2 g/dl (3.5-5.0); Alkaline Phosphatase 73 U/L (38-126); Blood Urea Nitrogen 18 mg/dl (9-20); Calcium 8.8 mg/dl (8.4-10.2); Carbon Dioxide 26 mmol/L (22-30); Chloride 102 mmol/L (98-107); Estimated Creatinine Clearance 87 ml/min; Glucose 98 mg/dl (70-99); Potassium 3.6 mmol/L (3.5-5.1); Sodium 134 mmol/L (135-145); Total Bilirubin 0.5 mg/dl (0.2-1.3); Total Protein 5.8 g/dl (6.3-8.2); eGFR > 60.00
[2024-09-27 05:18] LABS: Troponin I 0.072 ng/ml
[2024-09-27 05:33] LABS: NT-proBNP 5300 pg/ml
--- NOTE | 2024-09-27 05:47 | ED.GENMED ---
History of Present Illness
General
Chief Complaint: Breathing Problem
Source: patient and family
Exam Limitations: none
Time Seen by Provider: 09/27/24 05:37
Nursing documentation reviewed up to this point in time: agreed with
History of Present Illness
History of Present Illness:
Pleasant 74-year-old male presents to the emergency department with increased difficulty breathing. Patient is normally on 2 to 3 L via nasal cannula for his COPD. He has also been diagnosed with congestive heart failure. According to
catheterization report dated 09/11/2024, patient had a right and left heart catheterization. He had a stent to the left main during that procedure. He left the hospital feeling well. Tonight he returned to the hospital with similar symptoms prior
to his stenting. He was originally a transfer from [facility] for evaluation for TAVR. In addition, patient has a past medical history significant for , chronic HFrEF, severe aortic stenosis, PVD, history of COPD, former tobacco smoker and
hyperlipidemia
Past History
Past History
ED Past Medical History: COPD and Psychiatric
Social History
Tobacco: Former smoker
Alcohol: None
Personal:
Living: with family
Phy Exam
General Physical Exam
General Presentation: moderate distress
General age: appears older than age
General Skin: warm and cool
General Habitus: elderly
General Mental: alert
General Hydration: appears well hydrated
Cardiovascular Exam
Cardiovascular Exam: regular rate/rhythm
Pulmonary Exam
Pulmonary Exam: accessory muscle use and generalized wheezing
Oxygen Status: oxygen 2 liters via NC
Respirations: mild increase in effort
Breath Sounds: Wheeze: generalized
Gastrointestinal Exam
Gastrointestinal Exam: normal bowel sounds, non tender, soft and non distended
Neurological Exam
Neurological Exam: alert and oriented x3
Musculoskeletal Exam
Musculoskeletal Exam: full ROM and edema (1+ bilateral lower extremity)
Psychiatric Exam
Psychiatric Exam: normal mood/affect and anxious
Scores
Heart Failure Risk
Heart Failure Risk Score: Yes
History of Stroke or TIA: No
History of intubation for respiratory distress: No
Heart rate on ED arrival >/= 110: No
SaO2 <90% on arrival on room air: No
HR >/=110 during 3min walk test (or too ill to perform test): Yes
ECG has acute ischemic changes: No
Urea >/=12mmol/L (BUN 33.6mg/dL): No
Serum CO2>/=35mmol/L: No
Troponin I or T elevated to AL Level (0.4mg/dL): No
NT-proBNP >/=5,000ng/L (5,000pg/ml): Yes
HF Risk Score: 3
Admission Status: HIGH RISK 15.9% Consider SNF treatment or admission to hospital
Course
Orders/Labs/Results
Orders:
Orders
09/27/24 04:16
EKG [Electrocardiogram (*1)] Urgent
Reason for Study: Shortness of Breath
09/27/24 04:17
EKG- Treatment ONCE
09/27/24 04:24
Complete Blood Count/With Diff Urgent
Comprehensive Metabolic Panel Urgent
NT-proBNP Urgent
Troponin I Urgent
09/27/24 05:58
Troponin I Urgent
09/27/24 08:30
Admit/Transfer Patient As Directed
Co-Sign Provider:
Level of Care: Inpatient admission
Assign to:: ICU
Physician / Group: Hospitalist
Diagnosis: cardiogenic shock
Reason for Hospitalization: .
Expected length of stay greater than two midnights?: Yes
ELOS- Estimated Length of Stay in days: 3
I certify the patient meets the requirements for IP care: Yes
Consult Cardiology [CARDIOLOGY CONSULT] Routine
Consulting Provider: Duncan Loya
Was physician already notified: Yes
Reason for consult: SOB
09/27/24 08:31
PRN Pain Medication Management As Directed
May give lesser potent ordered pain med per pt: Yes
preference::
Protocol:: Medication orders for pain may be administered in a
manner that supports deferring to patient preference
when the pt is:
- Requesting an ordered lesser potent pain medication.
Least to most potent pain medications are defined
as: acetaminophen < NSAID < tramadol < opioids
(morphine, oxycodone, hydromorphone).
- Requesting a lesser dose of the same medication IF
ORDERED.
- Requesting a less intrusive route of administration
if both routes are prescribed by the provider (PO <
IV).
09/27/24 12:31
Consult Supervising Fire Marshal [Supervising Fire Marshal Consult] Routine
Consulting Provider: Asim Sales
Was physician already notified: Yes
Reason for consult: cardiogenic shock
DX Deep Vein Thrombosis Video Routine
09/27/24 20:00
Heparin 5,000 units SC Q12
Abnormal Lab Results
09/27/24 09/27/24
04:24 05:58
RBC 2.91 L 10^6/uL
(4.70-6.10)
Hgb 9.4 L g/dL
(13.0-18.0)
Hct 29.2 L %
(39.0-52.0)
MCV 100.3 H fL
(80.0-94.0)
MCH 32.3 H pg
(27.0-31.0)
MCHC 32.2 L g/dL
(33.0-37.0)
RDW 15.4 H %
(11.5-14.5)
MPV 10.5 H fL
(7.4-10.4)
Absolute Monos (auto) 0.7 H 10^3/uL
(0.1-0.6)
Eosinophils % 6.5 H %
(0-6)
Sodium 134 L mmol/L
(135-145)
Troponin I 0.072 H* ng/ml 0.079 H* ng/ml
Total Protein 5.8 L g/dl
(6.3-8.2)
Albumin 3.2 L g/dl
(3.5-5.0)
09/27/24 04:24
09/27/24 04:24
Vital Signs
Initial and Last Documented VS:
Initial Vital Signs
BP
88/53
09/27/24 04:01
Last Documented Vital Signs
Temp Pulse Resp BP Pulse Ox
97.7 F 77 18 92/55 99
09/27/24 20:00 09/27/24 21:16 09/27/24 21:16 09/27/24 21:16 09/27/24 21:20
MDM/Problems Addressed
Acute Exacerbation and/or Progression of Chronic Illness:
Severe aortic stenosis awaiting TAVR workup
Chronic HFrEF
Acute COPD exacerbation (on Breztri at home)
PAD
Hypotension suspected to be due to cardiogenic shock on vasopressors + milrinone
Anemia
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
Acute respiratory alkalosis
Elevated troponin likely due to NSTEMI
Abnormal urinalysis with +1 leukocyte esterase
Former tobacco smoker (quit 06/2019 with >20 5�86-aotx-hcpt history)
AAA
*Critical Care Note
Total Time (30-74mins, 75-104mins- exclusive of procedures): Not Applicable
Update Note
Update Note:
74-year-old male presents with new onset chest pain. He is resides at home with his and had difficulty breathing last night. He does have a history of COPD and CHF. Patient states that the chest pain and wheezing, reminiscent of his previous
symptoms prior to having a catheterization in mid August. He has severe aortic stenosis and is due to be evaluated for TAVR. This was derailed when he had a hypotensive episode and brought to the Planning Official. Spoke with Dr. Loya, cardiology
who recommended admitting patient to hospital. Patient is on aspirin and Plavix. He does not recommend further anticoagulation. Patient will be seen by the cardiology team and possibly evaluated for TAVR.
ED Attending Note
-
Portions of this chart may have been created with voice recognition software.� Occasional wrong word or��sound alike� substitutions may have occurred due to the inherent limitations of voice recognition software.
Discharge Plan
Departure
Patient Disposition: Admit
Date of Disposition: 09/27/24
Time of Disposition: 07:13
Admit to: Telemetry
Presentation/result/management discussed w/ accepting MD/DO: Hospitalist
Discharge Problem:
Chest pain
Interventions
Interventions:
*Risk Screen - Suicide Last Done: 09/27/24 12:20
*General Assessment Last Done: 09/27/24 04:02
*Neglect/Abuse Screening Last Done: 09/27/24 04:02
ED- Fall Risk Assessment Last Done: 09/27/24 04:03
*ED COVID-19 Vaccine History Last Done: 09/27/24 12:20
ED- Cardiac Assessment Last Done: 09/27/24 04:03
ED- Pulmonary Assessment Last Done: 09/27/24 04:03
Discharge Date and Time
Discharge Date/Time: 09/27/24 12:10
[2024-09-27 06:28] LABS: Troponin I 0.079 ng/ml
--- NOTE | 2024-09-27 08:29 | HPS.HSE ---
Family Physician
-
Family Physician: Abdi Paez
Chief Complaint
-
Chest pain with shortness of breath for a few hours during
History of Present Illness
74-year-old male came from home. Patient went to bed last night feeling normal. He is on 3 L of oxygen. He woke up around 3 to 4 AM in the morning feeling severe shortness of breath and chest heaviness. He felt uncomfortable for couple hours
then he woke up his . In the emergency room, EKG was abnormal with right bundle branch block. He was noted to have low blood pressure with systolic between 80 and 90. Patient reported that he was compliant with his medications and diet. No
fever. No chills. No leukocytosis. Troponin 0.079.
Medical History
Past Medical History
Past Medical History: Reports CAD, CHF, COPD, Hypercholesterolemia and Other (, PAD, AAA, TME, anxiety, depression, Sleep apnea. )
Past Surgical History: Reports Other
Social History
Tobacco: Former Smoker
Alcohol: None
Drug: None
Personal:
Living: With Family
Employment: Retired
Family History
Family History: Other (His mother of epilepsy. His father of some sort of cancer. No heart disease in the family)
Allergies / Home Medications
Allergies reflects when Allergies were last updated in [email or web address].
Home Medications with original date entered in [email or web address]
Allergy/Medication List:
Allergies
Allergy/AdvReac Type Severity Reaction Status Date / Time
levofloxacin [From Levaquin] Allergy 'feels Verified 09/04/24 15:24
closed in'
oxycodone [From Percocet] Allergy Unknown Verified 09/04/24 15:24
Home Medications
budesonide 160 mcg-glycopyr 9 mcg-formot 4.8 mcg/actuation HFA inhaler (Breztri Aerosphere) 2 inh inhalation R BID Lung/Breathing Issues 08/04/24
lorazepam 0.5 mg tablet 0.5 mg PO DAILYPRN PRN anxiety 08/04/24
pantoprazole 40 mg tablet,delayed release 40 mg PO DAILY GERD 08/04/24
roflumilast 500 mcg tablet 500 mcg PO DAILY Autoimmune Disorder 08/04/24
sertraline 50 mg tablet 50 mg PO DAILY Mental Health/Anxiety 08/04/24
simvastatin 40 mg tablet 40 mg PO DAILY High Cholesterol 08/04/24
tiotropium bromide 2.5 mcg/actuation mist for inhalation (Spiriva Respimat) 2 inh inhalation DAILY #4 grams 08/05/24
spirometers and accessories #1 ea 08/06/24
azithromycin 250 mg tablet 250 mg PO DAILY PRN copd flair 09/04/24
montelukast 10 mg tablet (Singulair) 10 mg PO HS Lung/Breathing Issues 09/04/24
aspirin 81 mg chewable tablet 81 mg PO DAILY #30 tabs 09/14/24
bumetanide 1 mg tablet 1 mg PO DAILY PRN weight gain of >3 lbs in 1 day or >5 lbs in 5 days #20 tabs 09/14/24
clopidogrel 75 mg tablet 75 mg PO DAILY Blood Clot Prevention/Tx #30 tabs 09/14/24
docusate sodium 100 mg capsule 100 mg PO BID #60 caps 09/14/24
prednisone 10 mg tablet 10 mg PO DIRECTED #15 tabs 09/14/24
sennosides 8.6 mg tablet (Senna Laxative) 8.6 mg PO BID #60 tabs 09/14/24
Review of Systems
-
History Source: Patient
A 12 point ROS was completed and negative except as noted: Yes
Constitutional: Denies Fever
EENT: Denies Sore Throat or Runny Nose
Respiratory: Reports Trouble Breathing
Cardiac: Reports Chest Pain
Abdomen/GI: Denies Abdominal Pain or Nausea
: Denies Dysuria
Musculoskeletal: Denies Joint Pain or Joint Swelling
Neurological: Denies Headache
Endocrine: Denies Temp Intolerance
Hematologic/Lymphatic: Denies Bruising
Psych: Denies Panic Disorder
Physical Exam
Vital Signs
Vital Signs
Temp Pulse Resp BP Pulse Ox
97.7 F 77 17 90/41 96
09/27/24 04:02 09/27/24 06:30 09/27/24 06:30 09/27/24 06:30 09/27/24 06:30
Physical Exam
General: No Apparent Distress
HEENT: Moist mucous membranes and Atraumatic
Respiratory: Clear
Cardiac: S1/S2 and Murmur
GI: Soft and Non Tender
Rectal: No Maroon Stools
Genito-urinary: Clear Urine and No costovertebral tender
Musculoskeletal: No Clubbing, No Cyanosis and No Edema
Skin: Warm; No Jaundice
Neuro: AO x 3 and Nonfocal/grossly intact
Psych: Calm and Intact Judgment/Insight
Laboratory Results
-
09/27/24 04:24
09/27/24 04:24
Laboratory Results
Total Bilirubin 0.5 mg/dl (0.2-1.3) 09/27/24 04:24
AST 22 U/L (17-59) 09/27/24 04:24
ALT 20 U/L (0-50) 09/27/24 04:24
Alkaline Phosphatase 73 U/L (38-126) 09/27/24 04:24
Troponin I 0.079 ng/ml H* 09/27/24 05:58
Impression/Plan
-
74 years old male presented with chest pain and shortness of breath
#Cardiogenic shock
Patient has underlying significant valvular heart disease, acute on chronic systolic heart failure, significant coronary heart disease.
Echo 09/05/2024-mildly reduced LV systolic function. EF 45%.
Admit the patient to ICU
Start the patient on pressure support including Levophed and milrinone drips as blood pressure tolerates
The goal is to introduce intravenous Bumex to slowly as his blood pressure tolerates
His admission troponin is mildly positive but we will trend it. Continue with antiplatelet therapy with aspirin and Plavix. If troponin starts to go up /chest pain, we will do intravenous heparin
# Severe aortic stenosis-cardiothoracic evaluating for TAVR
Echo 09/05/2024-mildly reduced LV systolic function. EF 45%.
Mitral annular calcification. Mild MR. Mild TR. Pulmonary artery pressure 40 to 45 mmHg.
Cardiothoracic surgery does not feel patient is a candidate for SAVR but future TAVR could be considered.
Eventual TAVR evaluation.
# Abdominal aortic aneurysm
No abdominal pain
#Coronary artery disease
#Severe ostial left main disease
s/p ARTHUR stent placement Left Main Disease 09/11/24
# Peripheral artery disease with history of PCI of the left SFA stent 2013 Dr. Ng and left common femoral endarterectomy.
Bilateral common iliac and bilateral external iliac disease with bilateral iliac stents [facility] 04/18/2023
High-grade short segment stenosis of the celiac trunk origin, SMA origin, left renal artery origin and a short segment of the left common femoral artery as per CT at [facility]
Occlusion of the SFAs
History of right carotid endarterectomy [facility] 05/04/2024
Chronic Mesenteric Ischemia
Small Abdominal Aortic Aneurysm
-Continue statin
-Continue DAPT as above
-Outpatient follow-up with Dr. Ashby of Vascular
-BP check right side, subclavian stenosis present
# COPD with chronic hypoxic respiratory failure on 3 L of oxygen
Patient denied cough or fever. No leukocytosis.
[facility] for pulmonary as OP.
#Chronic anemia, no history of bleeding
# hyponatremia
# Sleep apnea-noncompliant with CPAP
# Hyperlipidemia-continue statin
# GERD
# Anxiety/Depression-as needed lorazepam, sertraline
# Microscopic hematuria
# DVT prophylaxis-heparin
Total time spent to see the patient, examine the patient, review data and lab results, discuss the treatment plan with patient, ER doctor, consultants, nursing staff around 85 minutes
[2024-09-27] MEDS: LEVOPHED 250 IV ×2 (10:46→20:38)
--- NOTE | 2024-09-27 11:09 | EDRN ---
1030 While in another patient room, patient's came to the door informing this RN that the patient was having severe SOB. Upon assessment the patient was HYPOtensive and since inpatient, this RN needed to call a CODE 9. TT to the hospitalist
while NSS bolus and norepi infusion started. Patient was saying it felt his throat was closing. SPO2 was 98-100% while on 3 liters O2 via nasal. ER nurses responded for assistance and ICU nurses notified they would not need to come to ER as there
were nurses to assist. Dr. Harrington gave orders and respiratory monitored the situation.
[2024-09-27 11:10] LABS: Troponin I 0.067 ng/ml
[2024-09-27] MEDS: MORPHINE SULFATE 2 MG IV (11:24)
--- NOTE | 2024-09-27 11:57 | CON.CAR ---
Consultation
Consultation Request
Date/Time Consultation Requested: September 27, 2024 7 AM
Date/Time Consultation Performed: September 27, 2024 9 AM
Requesting Provider: Hospitalist and emergency room
Performing Provider: Duncan Loya
Reason for Consultation: Chest pain
Medical History
-
Chief Complaint: Chest pain shortness of breath
History of Present Illness:
74-year-old male with past medical history of chronic hypoxic respiratory failure on 3 L home oxygen, COPD, CAD with recent left main stenting, dyslipidemia, severe who is here for chest discomfort and shortness of breath. He tells me over the
last several days he has had chest discomfort and heaviness associated with some shortness of breath. It has not gotten better and given the severity of symptoms he decided to come to the emergency room. He has had a 6 pound weight gain since last
being seen. Additionally, he has had an increased oxygen requirement. At time of interview he said he was feeling much improved, shortly thereafter, he then was more hypotensive and required Levophed. Initial troponin is elevated at 0.7.
Past Medical History
Past Medical History: CAD, CHF, COPD and Other (, PAD, AAA, TME, anxiety, depression, Sleep apnea.)
Past Surgical History: Other (R CEA; Bilateral common iliac stent grafts([facility] 04/26/2023), Left [employer] endarterectomy ([facility] 05/04/2024))
Social History
Tobacco: Former Smoker (quit around 2019 after 50 pack years)
Personal:
Living: With Family
Family History
Family History: Reviewed & Not Pertinent
Allergies / Home Medications
Allergy/AdvReac Type Severity Reaction Status Date / Time
levofloxacin [From Levaquin] Allergy 'feels Verified 09/04/24 15:24
closed in'
oxycodone [From Percocet] Allergy Unknown Verified 09/04/24 15:24
�Medication �Instructions �Recorded �Confirmed �Type
budesonide 160 mcg-glycopyr 9 2 inh inhalation R BID 08/04/24 09/04/24 History
mcg-formot 4.8 mcg/actuation HFA Lung/Breathing Issues
inhaler (Breztri Aerosphere)
lorazepam 0.5 mg tablet 0.5 mg PO DAILYPRN PRN anxiety 08/04/24 09/04/24 History
pantoprazole 40 mg tablet,delayed 40 mg PO DAILY GERD 08/04/24 09/04/24 History
release
roflumilast 500 mcg tablet 500 mcg PO DAILY Autoimmune 08/04/24 09/04/24 History
Disorder
sertraline 50 mg tablet 50 mg PO DAILY Mental 08/04/24 09/04/24 History
Health/Anxiety
simvastatin 40 mg tablet 40 mg PO DAILY High Cholesterol 08/04/24 09/04/24 History
tiotropium bromide 2.5 2 inh inhalation DAILY #4 grams 08/05/24 Rx
mcg/actuation mist for inhalation
(Spiriva Respimat)
spirometers and accessories #1 ea 08/06/24 Rx
azithromycin 250 mg tablet 250 mg PO DAILY PRN copd flair 09/04/24 09/04/24 History
montelukast 10 mg tablet 10 mg PO HS Lung/Breathing Issues 09/04/24 09/04/24 History
(Singulair)
aspirin 81 mg chewable tablet 81 mg PO DAILY #30 tabs 09/14/24 Rx
bumetanide 1 mg tablet 1 mg PO DAILY PRN weight gain of 09/14/24 Rx
>3 lbs in 1 day or >5 lbs in 5
days #20 tabs
clopidogrel 75 mg tablet 75 mg PO DAILY Blood Clot 09/14/24 Rx
Prevention/Tx #30 tabs
docusate sodium 100 mg capsule 100 mg PO BID #60 caps 09/14/24 Rx
prednisone 10 mg tablet 10 mg PO DIRECTED #15 tabs 09/14/24 Rx
sennosides 8.6 mg tablet (Senna 8.6 mg PO BID #60 tabs 09/14/24 Rx
Laxative)
Review of Systems
-
All other systems: Negative unless noted
Physical Exam
Vital Signs
Temp Pulse Resp BP Pulse Ox
97.7 F 78 22 98/43 100
09/27/24 04:02 09/27/24 10:35 09/27/24 10:35 09/27/24 10:35 09/27/24 10:35
Lab Results
09/27/24 04:24
09/27/24 04:24
Troponin I 0.067 ng/ml H* 09/27/24 10:18
Dvt-E-Wvppajaxaxk Pept 5300 pg/ml 09/27/24 04:24
Physical Exam
General: Well Developed, Well Nourished and No Apparent Distress
HEENT: Normocephalic
Respiratory: Other (poor air movement b/l )
Cardiac: S1/S2, Regular Rhythm and Murmur
GI: Soft
Musculoskeletal: No Cyanosis and No Edema
Skin: Warm and Dry
Neuro: AO x 3
Psych: Calm
Impression / Plan
-
74 yo male with PMH of PAD, right CEA, HTN, hyperlipidemia, tobacco abuse presented to [facility] with chest pain. Went to director of cardiac cath lab and found to have non-obstructive CAD, mildly elevated PCW, CO/CI 4.1/2.4. Echo shows EF 40%, severe .
Became hypotensive, started on milrinone and levophed, and transferred here for urgent TAVR evaluation.
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
-start levophed and milrinone
- IV diuresis
- Severe likely contributing will discuss with interventional team
- GDMT limited by hypotension
# Severe
-undergoing TAVR eval
# CAD, s/p LM PCI
- cont. DAPT with ASA/Plavix
- Troponin minimally elevated and peaked, likely non-ischemic myocardial injury in setting of HF and severe
Severe COPD
- would treat for COPD exacerbation as well
# PAD
-on plavix as outpatient: continue
# Hyperlipidemia
-check lipids to advise on statin dosing
Anemia
- monitor
PAD
- on DAPT
Dyslipidemia
- statin
Data Reviewed
-
EKG: Tracing Personally Visualized and interpreted
Medical Tests (Nuc Med, Echo etc): Report Reviewed by me
Labs: Labs Reviewed by me
Critical Care Time (in minutes): 36
--- NOTE | 2024-09-27 12:30 | PTCARENOTE ---
Pt arrived to CVICU around 1200. Pt is awake, alert, and oriented. No complaints of pain. Pt remains SR with HR 74. BP 116/56 MAP 70. Pulse oximetry 100% on 3L nasal cannula. Pt arrived on Levo 8mcg/min.
--- NOTE | 2024-09-27 14:02 | CON.INTV ---
Consultation
Consultation Request
Date/Time Consultation Requested: 09/27
Date/Time Consultation Performed: 09/27
Reason for Consultation: Critical care
Medical History
-
History of Present Illness:
History obtained from the chart, hospital records and the patient. Patient is a 74-year-old male who was recently discharged 09/14/2024, where he was treated for shortness of breath. Patient initially was transferred from [facility], history of heart
failure, severe arctic stenosis, peripheral vascular disease with stent, COPD. Patient had presyncopal symptoms and chest pain. Echocardiogram showed hypokinesis with EF of 44%, valve area 1.03 cm�. Catheterization showed moderate nonobstructive
disease with normal right heart catheterization. Patient was transferred to [facility] from [facility], treated with norepinephrine and milrinone, vasopressin and neosynephrine. Patient was also treated with antibiotics and steroids for COPD
exacerbation. It was determined that patient was not a candidate given multi organ dysfunction and significant vascular disease.
Patient now returns with similar symptoms of shortness of breath. He states he was feeling well until he woke up at around 1:30 in the morning with shortness of breath and burning in the chest. He was being evaluated for TAVR in September. Upon
arrival to [facility], afebrile, pulse 77, breathing at 17, blood pressure 90/41, 96%. Patient was evaluated by cardiology. Patient was started on norepinephrine and milrinone. Diuresis was started. We are asked to help from critical
care standpoint
.
PMH: COPD, hypertension, hyperlipidemia, coronary disease status post left main stent, severe aortic stenosis, anemia, peripheral arterial disease, AAA. History of left common femoral endarterectomy, PCI and stent of left SFA 2012
Past Medical History
Past Medical History: None (See above)
Past Surgical History: None (See above)
Social History
Tobacco: Former Smoker (Quit 2018 likely 25+ pack-year)
Alcohol: None
Drug: None
Personal:
Living: With Family
Employment: Retired
Family History
Family History: Other (Family history positive for sudden cardiac and epilepsy. 13 siblings were healthy)
Allergies / Home Medications
Allergies
Allergy/AdvReac Type Severity Reaction Status Date / Time
levofloxacin [From Levaquin] Allergy 'feels Verified 09/04/24 15:24
closed in'
oxycodone [From Percocet] Allergy Unknown Verified 09/04/24 15:24
Home Medications
�Medication �Instructions �Recorded �Confirmed �Last Taken �Type
budesonide 160 mcg-glycopyr 9 2 inh inhalation R BID 08/04/24 09/04/24 09/26/24 20:00 History
mcg-formot 4.8 mcg/actuation HFA Lung/Breathing Issues
inhaler (Breztri Aerosphere)
lorazepam 0.5 mg tablet 0.5 mg PO DAILYPRN PRN anxiety 08/04/24 09/04/24 Unknown History
pantoprazole 40 mg tablet,delayed 40 mg PO DAILY GERD 08/04/24 09/04/24 09/26/24 08:00 History
release
roflumilast 500 mcg tablet 500 mcg PO DAILY Autoimmune 08/04/24 09/04/24 09/26/24 20:00 History
Disorder
sertraline 50 mg tablet 50 mg PO DAILY Mental 08/04/24 09/04/24 09/04/24 08:00 History
Health/Anxiety
simvastatin 40 mg tablet 40 mg PO DAILY High Cholesterol 08/04/24 09/04/24 09/26/24 08:00 History
tiotropium bromide 2.5 2 inh inhalation DAILY #4 grams 08/05/24 09/04/24 08:00 Rx
mcg/actuation mist for inhalation
(Spiriva Respimat)
azithromycin 250 mg tablet 250 mg PO DAILY PRN copd flair 09/04/24 09/04/24 09/04/24 08:00 History
montelukast 10 mg tablet 10 mg PO HS Lung/Breathing Issues 09/04/24 09/04/24 09/26/24 08:00 History
(Singulair)
aspirin 81 mg chewable tablet 81 mg PO DAILY #30 tabs 09/14/24 09/26/24 08:00 Rx
bumetanide 1 mg tablet 1 mg PO DAILY PRN weight gain of 09/14/24 Unknown Rx
>3 lbs in 1 day or >5 lbs in 5
days #20 tabs
clopidogrel 75 mg tablet 75 mg PO DAILY Blood Clot 09/14/24 09/26/24 08:00 Rx
Prevention/Tx #30 tabs
docusate sodium 100 mg capsule 100 mg PO BID #60 caps 09/14/24 09/25/24 Rx
prednisone 10 mg tablet 10 mg PO DIRECTED #15 tabs 09/14/24 Unknown Rx
sennosides 8.6 mg tablet (Senna 8.6 mg PO BID #60 tabs 09/14/24 Unknown Rx
Laxative)
Review of Systems
-
All other systems: Negative unless noted
Vitals / Labs / Diagnostic Testing
Vital Signs
Temp Pulse Resp BP Pulse Ox
97.7 F 77 25 114/51 100
09/27/24 04:02 09/27/24 13:00 09/27/24 13:00 09/27/24 13:00 09/27/24 13:00
Lab Data
09/27/24 04:24
09/27/24 04:24
Diagnostic Testing:
Physical Exam
-
HEENT: Normocephalic, Anicteric and Other (Poor dentition)
Cardiovascular: S1/S2, Regular Rhythm, Murmur (2/6 systolic murmur), Peripheral Edema (n) and Calf Tenderness (n)
Respiratory: Wheeze (n), Rales (n), Rhonchi (n) and Non-Labored Respirations
GI: Soft, Non Distended and Non Tender
Neurology: Awake, Alert and No Motor Deficits
Skin: Good Color and Other (Mild clubbing)
General: Comfortable
Assessment
-
74-year-old male with a past medical history of chronic HFrEF, severe aortic stenosis, PVD, history of COPD, former tobacco smoker and hyperlipidemia who was just discharged from [facility] 09/15/2024, being evaluated for TAVR. He woke up
at around 1:30 in the morning with shortness of breath and chest burning. Upon arrival to [facility], found to be hypotensive. He is admitted to CVICU for further management of severe aortic stenosis. Of note he had a recent left main
stent placed 2 weeks ago.
Hypotension, suspected cardiogenic
Cardiomyopathy, EF 45%
Severe aortic stenosis awaiting TAVR workup
Valve area 1 cm�
Coronary artery disease: Status post left main stent placement 09/11/2024
Anemia
Elevated troponin
History of heart failure, chronic
History of COPD (on Breztri at home)
Peripheral arterial disease
Anemia
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
Former tobacco smoker (quit 06/2019 with >64-89-jfta-year history)
History of AAA, peripheral vascular disease
Plan/recommendations:
At this time, patient is critically ill but appears to be comfortable. He is on nasal cannula oxygen.
She is on norepinephrine, milrinone, Bumex
He remains on aspirin, Plavix. Recent left main stent noted 09/11
He was scheduled for TAVR in the next month
He was scheduled to have lower teeth removed due to poor dentition
Given recurrence of symptoms, will defer to cardiology further management. Unclear whether TAVR may need to be considered sooner
Patient admits to dietary compliance, avoiding salt
There is no evidence of COPD exacerbation at this time
No evidence of bronchospasm
Continue with nebulizer regimen while in the hospital: Levalbuterol/ipratropium/budesonide.
Can hold daliresp/Singulair for now
Patient is on Breztri as an outpatient
Patient has oxygen supplementation at home already. Is on his baseline.
No indication for steroids
Follow-up at [facility] for pulmonary as before admission.
Poor dentition noted
Aspiration precautions
DVT prophylaxis: Remains on subcutaneous heparin
Reviewed with patient, at bedside
Reviewed with cardiology, primary service
Will follow
TCCT 31 min

Data:
CXR 09/05/2024: Possible slight progression of bilateral prominent interstitial markings which could represent worsening interstitial edema or pneumonitis.
CXR 09/06/2024 (compared to CXR from 09/04/2024): Bilateral pneumonia as described above. Significantly increased
[2024-09-27] MEDS: PRIMACOR 20 MG 100 IV (15:16)
[2024-09-27] MEDS: BUMEX 1 MG IV (15:21)
[2024-09-27] MEDS: ATROVENT NEBULES 0.5 MG INH ×2 (15:42→20:05)
[2024-09-27] MEDS: PULMICORT 0.5 MG INH (15:42)
[2024-09-27] MEDS: ATIVAN 0.5 MG IV (16:12)
[2024-09-27] MEDS: NSS (PRESERVATIVE FREE) 0.25 ML IV (16:12)
--- NOTE | 2024-09-27 17:11 | PTCARENOTE ---
Pt remains SR with HR 60's-70's. BP 111/54 MAP 72. Currently on Levo 5mcg/min, Milrinone 0.125mcg/kg/min. Pulse oximetry 97% on 3L nasal cannula. Pt voiding in urinal without issue.
--- NOTE | 2024-09-27 20:00 | PTCARENOTE ---
assumed care of pt from previous RN. pt A&Ox4, resting in bed at time of assessment. SR on tele-monitor, occasional PVCs. POX 100% on 2 L NC. abd s/n, +BS. no c/o pain at this time. voiding clear, yellow urine in urinal. PIVx2 intact. see worklist
for complete nursing assessment, interventions, VS, and I&Os.
[2024-09-27] MEDS: KCL 40 MEQ PO (20:10)
[2024-09-27] MEDS: HEPARIN 5000 UNITS SC (20:10)
[2024-09-28] VITALS (60 sets, daily range): BP systolic 73–121; BP diastolic 35–75; BMI 21.1
--- NOTE | 2024-09-28 | PTCARENOTE ---
assessment remains unchanged. BP supported w/ levophed. POX 98-100% on 2 L NC. no c/o pain at this time.
[2024-09-28] MEDS: BUMEX 1 MG IV ×3 (00:18→15:33)
[2024-09-28 03:34] LABS: Hematocrit 32.4 % (39.0-52.0); Hemoglobin 10.4 g/dL (13.0-18.0); Mean Corp Hgb Conc. 32.1 g/dL (33.0-37.0); Mean Corpuscular Hgb 31.9 pg (27.0-31.0); Mean Corpuscular Volume 99.4 fL (80.0-94.0); Mean Platelet Volume 10.4 fL (7.4-10.4); Platelet Count 265 10^3/uL (130-400); Red Blood Cell Count 3.26 10^6/uL (4.70-6.10); Red Cell Dist. Width 15.3 % (11.5-14.5)
[2024-09-28 04:00] LABS: ALT (SGPT) 20 U/L (0-50); AST (SGOT) 19 U/L (17-59); Albumin 3.8 g/dl (3.5-5.0); Alkaline Phosphatase 93 U/L (38-126); Blood Urea Nitrogen 16 mg/dl (9-20); Carbon Dioxide 27 mmol/L (22-30); Chloride 97 mmol/L (98-107); Estimated Creatinine Clearance 73 ml/min; Glucose 142 mg/dl (70-99); Sodium 136 mmol/L (135-145); Total Bilirubin 0.5 mg/dl (0.2-1.3); Total Protein 6.6 g/dl (6.3-8.2); eGFR > 60.00
--- NOTE | 2024-09-28 04:00 | PTCARENOTE ---
no acute changes. weaning levophed down as tolerated per order. SR w/ occasional PVCs on tele-monitor.
--- NOTE | 2024-09-28 07:57 | W.PN.HOSP.TC ---
Addendum entered and electronically signed by Elias Davis MD 09/28/24 15:21:
Acute on chronic HFrEF exacerbation precipitating cardiogenic shock requiring pressor support and inotropic support.
-Transition diuretics to p.o. from IV
-Discontinue inotropic and pressor support per cardiology
-Monitor overnight
-If stable will plan to discharge home.
Severe aortic stenosis being evaluated for TAVR
-Plan per October 15, 2023
-Outpatient cardiology/cardiothoracic surgery follow-up
CAD s/p LM PCI (09/11/2024)
-Continue DAPT and statin/40
--- On simvastatin 40 mg. This is not considered at high intensity statin. Should be switched over to Lipitor 40/80 mg at bedtime or/Crestor 20/40 mg at bedtime
--- Unable to provide beta-blockade due to hypotension
Original Note:
Today's Communication/Plan
-
.
Assessment / Plan
Assessment / Plan
Mr. Phillip Contreras is a 74yo M pmh HFrEF, CAD, severe aortic stenosis, PAD, COPD on home 2-3L O2 NC, and HLD admitted for chest pain.
Cardiogenic shock
HFrEF
- Echo 09/05/2024-mildly reduced LV systolic function. EF 45%.
- wean pressure support as tolerated - Levophed and milrinone drips
- goal to introduce IV bumex as BP tolerates
- cont ASA, plavix
- troponins downtrending
- echo pending
Severe aortic stenosis-cardiothoracic evaluating for TAVR
- Echo 09/05/2024-Mitral annular calcification. Mild MR. Mild TR. Pulmonary artery pressure 40 to 45 mmHg.
- TAVR evaluation.
Abdominal aortic aneurysm
- stable, no abdominal pain
Coronary artery disease
Severe ostial left main disease
- s/p ARTHUR stent placement Left Main Disease 09/11/24
Peripheral artery disease
- extensive, multiple interventions performed
- History of right carotid endarterectomy [facility] 05/04/2024
- Outpatient follow-up with Dr. Ashby
-BP check right side, subclavian stenosis present
COPD with chronic hypoxic respiratory failure on 2-3 L of oxygen at home
- [facility] for pulmonary as OP.
Chronic anemia
- stable
- no history of bleeding
hyponatremia
- resolved
Sleep apnea
-noncompliant with CPAP
Hyperlipidemia
- continue statin
Anxiety/Depression
- sertraline, as needed lorazepam
Diet: regular
DVT prophylaxis-heparin
Cod status - FULL CODE
Anticipated Discharge: 24 - 48 hours
Subjective/Interval History
-
Date of Service: September 28, 2024
Mr. Phillip Contreras is a 74yo M h HFrEF, severe aortic stenosis, PAD, COPD on home 2-3L O2 NC, and HLD admitted for chest pain. Tele overnight significant for SR w occasional PVCs. Currently asymptomatic and would rather be home.
Objective Data
-
Labs:
Laboratory Results
09/28/24
02:49
WBC 9.0
Hgb 10.4 L
Hct 32.4 L
Plt Count 265 D
Sodium 136
Potassium 4.0
Chloride 97 L
Carbon Dioxide 27
BUN 16
Creatinine 0.8
Glucose 142 H
Calcium 9.0
Total Bilirubin 0.5
AST 19
ALT 20
Alkaline Phosphatase 93
Vital Signs:
Vital Signs
Temp Pulse Resp BP Pulse Ox
97.7 F 81 18 102/66 100
09/28/24 00:00 09/28/24 06:30 09/28/24 06:30 09/28/24 06:30 09/28/24 06:30
I&O
09/27/24 09/28/24 09/29/24
06:59 06:59 06:59
Intake Total 402.7 / 402.7
Output Total 2315 / 5
Balance -3 / -
Review of Systems
-
History Source: Patient and Records
Constitutional: Reports No Symptoms
EENT: Reports No Symptoms Reported
Respiratory: Reports No Symptoms
Cardiac: Reports No Symptoms
Abdomen/GI: Reports No Symptoms
Musculoskeletal: Reports No Symptoms
Neuro: Reports No Symptoms
Physical Exam
-
General: Well Developed, Well Nourished and Conversant
HEENT: Normocephalic, Atraumatic, Moist Mucous Membranes, Anicteric and Oxygen (2L O2 NC)
Respiratory: Clear to Auscultation
Cardiac: Regular Rhythm, S1/S2 and Murmur
GI: Soft, Nontender, Nondistended and Normal Bowel Sounds
Musculoskeletal: No Clubbing, No Cyanosis and No Edema
Skin: Warm and Dry
Neuro: AO x 3
Psych: Calm
[2024-09-28] MEDS: ATROVENT NEBULES 0.5 MG INH ×4 (08:14→19:10)
[2024-09-28] MEDS: PULMICORT 0.5 MG INH ×2 (08:14→19:10)
--- NOTE | 2024-09-28 08:45 | PTCARENOTE ---
Assumed care of patient. Walking rounds completed with previous RN. Pt assessed while he was sitting in the chair. Pt alert and oriented x4. Pt denies pain, shortness of breath, and nausea. HURTADO with equal strength throughout. SR with RBBB with
occasional PVCs with rates in the 80s-90s. BP supported with levophed and milrinone 102/50. +murmur. Bilateral radial and DP pulses palpable. No edema noted. POX 99% on 2L NC, titrated to RA, POX 97%. Lungs diminished in the bases. Abdomen soft,
nontender. +BS +BM. Voiding adequate amounts of clear yellow urine in the urinal. Scattered bruising noted. Right AC and Right wrist PIVs intact. See MAR for medication administration. See worklist for complete nursing assessment. Plan of care
reviewed and patient in agreement.
[2024-09-28] MEDS: LOW STRENGTH ASPIRIN 81 MG PO (08:49)
[2024-09-28] MEDS: PROTONIX 40 MG PO (08:49)
[2024-09-28] MEDS: PLAVIX 75 MG PO (08:50)
[2024-09-28] MEDS: HEPARIN 5000 UNITS SC ×2 (08:50→19:46)
--- NOTE | 2024-09-28 08:51 | VNURNOTE ---
Chart reviewed. Patient is current with [facility] nursing and PT. Will continue to follow hospital course and DC plans.
--- NOTE | 2024-09-28 12:00 | PTCARENOTE ---
Pt reassessed. Dr. Daugherty at bedside to speak with patient concerning plan of care. Repeat Echo ordered. Levo titrated off for MAP >65. Milrinone to stay at 0.[address] Daugherty. Encouraged patient to ask all questions to Dr. Daugherty, it appears
as all of his questions were answered. NSR-ST on tele with rates in the 80s-100s. BP 99/61 on levo at 1. POX 99% on 2L NC. Attempted to titrate to RA, but pt c/o sob. Voiding clear yellow urine in the urinal. No acute changes from previous
assessment.
[2024-09-28] MEDS: ATIVAN 0.5 MG PO ×2 (12:06→18:26)
--- NOTE | 2024-09-28 13:37 | W.PN.INTV ---
Today's Communication / Plan
Recommendations
Wean down milrinone and Levophed as able
Continue cardiac management
Continue nebulizer therapy
Oxygen supplementation as able
Will follow
Assessment
-
74-year-old male with a past medical history of chronic HFrEF, severe aortic stenosis, PVD, history of COPD, former tobacco smoker and hyperlipidemia who was just discharged from [facility] 09/15/2024, being evaluated for TAVR. He woke up
at around 1:30 in the morning with shortness of breath and chest burning. Upon arrival to [facility], found to be hypotensive. He is admitted to CVICU for further management of severe aortic stenosis. Of note he had a recent left main
stent placed 2 weeks ago.
Hypotension, suspected cardiogenic
Cardiomyopathy, EF 45%
Severe aortic stenosis awaiting TAVR workup
Valve area 1 cm�
Coronary artery disease: Status post left main stent placement 09/11/2024
Anemia
Elevated troponin
History of heart failure, chronic
History of COPD (on Breztri at home)
Peripheral arterial disease
Anemia
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
Former tobacco smoker (quit 06/2019 with >88-87-dljn-year history)
History of AAA, peripheral vascular disease
Plan/recommendations:
Critically ill: on norepinephrine, milrinone, Bumex due to cardiogenic shock.
He remains on aspirin, Plavix. Recent left main stent noted 09/11
He was scheduled for TAVR in the next month-reevaluation ongoing.
He was scheduled to have lower teeth removed due to poor dentition
Continue cardiac management
Await for TAVR evaluation follow renal function electrolytes
-Continue to titrate Levophed to off if possible, continue low-dose milrinone.
-
History of severe COPD without acute exacerbation. Chronic hypoxemic respiratory failure
No evidence of bronchospasm
Continue with nebulizer regimen while in the hospital: Levalbuterol/ipratropium/budesonide.
Can hold daliresp/Singulair for now
Patient is on Breztri as an outpatient
Patient has oxygen supplementation at home already. Is on his baseline.
No indication for steroids
Follow-up at [facility] for pulmonary as before admission.
-
-
Aspiration precautions
DVT prophylaxis: Remains on subcutaneous heparin
Reviewed with cardiology, primary service
Critical care statement: A total of 31 minutes of critical care time was provided for this patient today. This includes management of unstable vital signs, evaluation of the patient at bedside, reviewing the patient's pertinent medical records
including ventilator settings, arterial blood gases, radiographs, microbiology, laboratory evaluations and discussion with primary team, critical care nursing, and respiratory therapy.

Data:
CXR 09/05/2024: Possible slight progression of bilateral prominent interstitial markings which could represent worsening interstitial edema or pneumonitis.
CXR 09/06/2024 (compared to CXR from 09/04/2024): Bilateral pneumonia as described above. Significantly increased
Subjective Dataa
Subjective Data
Date of Service:
Date of Service: September 28, 2024
Chief Complaint: [facility] Follow Up (Acute hypoxemic respiratory failure/cardiogenic shock)
Subjective:
No new complaints
Remains on inotropes/vasopressors
Denies phlegm production or wheeze
Review of Systems
Cardiopulmonary: Dyspnea, Dyspnea on Exertion and Cough
Objective Data
Data Reviewed
Vital Signs / I&O / Oxygen:
Vital Signs
Temp Pulse Resp BP Pulse Ox
97.8 F 92 16 73/42 99
09/28/24 12:00 09/28/24 12:16 09/28/24 12:16 09/28/24 12:16 09/28/24 12:00
Intake and Output
09/27/24 09/28/24 09/29/24
06:59 06:59 06:59
Intake Total 402.7 / 416.4 427.1 / 427.1
Output Total 2315 / 2515 550 / 550
Balance -1912.3 / -2098.6 -122.9 / -122.9
SaO2 99
Nasal Cannula flow liters per 2
minute
Physical Exam
General: Comfortable
HEENT: Normocephalic
Cardiovascular: S1-S2
Respiratory: Wheeze (n) and Non-Labored Respirations
GI: Non Distended
Neurology: Awake, Alert, AO x 3 and No Motor Deficits
Skin: Warm
Labs/Micro/Reports
Lab Data
09/28/24 02:49
09/28/24 02:49
--- NOTE | 2024-09-28 13:40 | W.PN.CD ---
Today's Communication / Plan
-
improved, will stop milrinone and norepi and monitor overnight
bumex 1 mg PO qD, extra dose PRN for weight gain as outpatient
repeat tte
plan for discharge to home tomorrow if doing well
Impression / Plan
-
74 yo male with PMH of CAD s/p LM PCI 08/1324, severe pending axillary TAVR 10/15/24, PAD, s/p right CEA, HTN, hyperlipidemia, severe COPD on home O2, who presented from home with shortness of breath and chest heaviness and 6 pound weight gain.
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
-wean levo and milrinone off and closely monitor blood pressure, renal function
-weight back to prior discharge baseline after IV diuresis, return to home bumex dosing of 1 mg qD with weight based discharge instructions to take second dose for weight gain >3 pounds 1 day or >5 pounds 1 week
-CXR with clear lung cody
-looks comfortable today on 2L O2
# Severe
-undergoing TAVR eval, plan for axillary TAVR 10/15/24
# CAD, s/p LM PCI
- cont. DAPT with ASA/Plavix
- Troponin minimally elevated and flat, likely non-ischemic myocardial injury in setting of HF and severe
Severe COPD
- would treat for COPD exacerbation as well
# PAD
-on plavix as outpatient: continue
Anemia
- monitor
PAD
- on DAPT
Dyslipidemia
- statin
Physical Exam
Vital Signs/Labs
Vital Signs
Temp Pulse Resp BP Pulse Ox
36.6 C 92 16 73/42 99
09/28/24 12:00 09/28/24 12:16 09/28/24 12:16 09/28/24 12:16 09/28/24 12:00
09/27/24 09/28/24 09/29/24
06:59 06:59 06:59
Actual Weight 66.4 kg 61.1 kg
09/28/24 02:49
09/28/24 02:49
09/27/24
04:24
Xrb-R-Tjvzkfmnuqu Pept 5300
LAB Results
09/27/24 09/27/24 09/27/24
04:24 05:58 10:18
Troponin I 0.072 H* 0.079 H* 0.067 H*
09/27/24 09/28/24 09/28/24
15:30 00:30 03:30
Troponin I Cancelled Cancelled Cancelled
Physical Exam
Constitutional: No acute distress
Cardiovascular: Rhythm & rate is regular
Respiratory: Respiratory effort normal
Neuro/Psych: AO x 3
Data Reviewed
-
Date of Service: September 28, 2024
Medical Decision Making: Reviewed Test Results
EKG: Tracing Personally Visualized and interpreted
Labs: Labs Reviewed by me
--- NOTE | 2024-09-28 16:00 | PTCARENOTE ---
Pt reassessed. SR with RBBB with rates in the 90s. BP stable off gtts 101/58. POX 99% on 2L, maintained per patient request & comfort. Pt resting in bed awaiting echo.
--- NOTE | 2024-09-28 17:28 | CM ---
spoke to pt in room, he is prev indep, lives with his in an apt with 10 steps to enter. he has home O2 at 2-3 liters and has portable tanks at home. he denies any dc planning needs. plan is for dc to home when medically stable.
[2024-09-28] MEDS: LIPITOR 40 MG PO (18:26)
[2024-09-28 19:02] LABS: Hepatitis C Antibody Negative (Negative)
--- NOTE | 2024-09-28 19:30 | PTCARENOTE ---
received pt from previous rn. pt AAOx4, VSS, NSR w/ RBB per tele monitor, HR 90s, +pulses, +murmur, pox 99% on 2L, lungs diminished at the bases, occasional non-productive cough , +bs, voids clear yellow urine in urinal, Scattered bruising noted.
Right AC and Right wrist PIVs intact. plan of care discussed questions encouraged
[2024-09-29] VITALS (17 sets, daily range): BP systolic 98–125; BP diastolic 39–98; BMI 20.8
[2024-09-29] MEDS: BUMEX 1 MG IV ×2 (00:02→08:37)
--- NOTE | 2024-09-29 00:13 | PTCARENOTE ---
VSS, NSR w/ RBB per tele monitor, assessment remains unchanged otherwise.
--- NOTE | 2024-09-29 03:38 | PTCARENOTE ---
routine labs obtained, VSS, NSR per tele monitor, assessment remains unchanged
[2024-09-29 03:40] LABS: Hematocrit 33.9 % (39.0-52.0); Hemoglobin 11.2 g/dL (13.0-18.0); Mean Corpuscular Hgb 32.7 pg (27.0-31.0); Mean Corpuscular Volume 98.8 fL (80.0-94.0); Mean Platelet Volume 10.2 fL (7.4-10.4); Platelet Count 253 10^3/uL (130-400); Red Blood Cell Count 3.43 10^6/uL (4.70-6.10); Red Cell Dist. Width 15.2 % (11.5-14.5); White Blood Cell Count 7.8 10^3/uL (4.8-10.8)
[2024-09-29 03:58] LABS: Blood Urea Nitrogen 23 mg/dl (9-20); Calcium 9.5 mg/dl (8.4-10.2); Carbon Dioxide 31 mmol/L (22-30); Chloride 94 mmol/L (98-107); Estimated Creatinine Clearance 56 ml/min; Glucose 111 mg/dl (70-99); Magnesium 2.1 mg/dl (1.6-2.3); Potassium 3.7 mmol/L (3.5-5.1); Sodium 135 mmol/L (135-145); eGFR > 60.00
[2024-09-29] MEDS: KCL 40 MEQ PO (06:16)
[2024-09-29] MEDS: PULMICORT 0.5 MG INH (07:32)
[2024-09-29] MEDS: ATROVENT NEBULES 0.5 MG INH ×2 (07:32→11:31)
--- NOTE | 2024-09-29 07:33 | W.PN.HOSP.TC ---
Addendum entered and electronically signed by Elias Davis MD 09/29/24 16:29:
transtion to po diuretics
dc home
Original Note:
Today's Communication/Plan
-
.
Assessment / Plan
Assessment / Plan
Mr. Phillip Contreras is a 74yo M pmh HFrEF, CAD, severe aortic stenosis, PAD, COPD on home 2-3L O2 NC, and HLD admitted for chest pain.
Cardiogenic shock
HFrEF
- Echo 09/28/2024- EF 40%.
- weaned off Levophed and milrinone drips
- cont ASA, plavix
- troponins downtrending
- cardiology following - transition to PO bumex 1 mg/day + prn dose for weight gain
Severe aortic stenosis-cardiothoracic evaluating for TAVR
- Echo 09/28/2024-Calcific aortic valve with moderate to severe low-flow low gradient aortic stenosis. Peak/mean gradients across the aortic valve are 62/35 mmHg. Moderate aortic regurgitation.
- TAVR evaluation - plan is axillary TAVR 10/15/24
Abdominal aortic aneurysm
- stable, no abdominal pain
Coronary artery disease
Severe ostial left main disease
- s/p ARTHUR stent placement Left Main Disease 09/11/24
Peripheral artery disease
- extensive, multiple interventions performed
- History of right carotid endarterectomy [facility] 05/04/2024
- Outpatient follow-up with Dr. Ashby
-BP check right side, subclavian stenosis present
COPD with chronic hypoxic respiratory failure on 2-3 L of oxygen at home
- [facility] for pulmonary as OP.
Chronic anemia
- stable
- no history of bleeding
hyponatremia
- resolved
Sleep apnea
-noncompliant with CPAP
Hyperlipidemia
- continue statin
Anxiety/Depression
- sertraline, as needed lorazepam
Diet: cholesterol lowering
DVT prophylaxis-heparin
Cod status - FULL CODE
Anticipated Discharge: Today
Subjective/Interval History
-
Date of Service: September 29, 2024
Mr. Phillip Contreras is a 74yo M h HFrEF, CAD, severe aortic stenosis, PAD, COPD on home 2-3L O2 NC, and HLD admitted for chest pain. No acute overnight events.
Objective Data
-
Labs:
Laboratory Results
09/29/24
03:22
WBC 7.8
Hgb 11.2 L
Hct 33.9 L
Plt Count 253
Sodium 135
Potassium 3.7
Chloride 94 L
Carbon Dioxide 31 H
BUN 23 H
Creatinine 1.0
Glucose 111 H
Calcium 9.5
Vital Signs:
Vital Signs
Temp Pulse Resp BP Pulse Ox
97.9 F 87 19 111/50 99
09/29/24 03:38 09/29/24 07:00 09/29/24 07:00 09/29/24 07:00 09/29/24 07:00
I&O
09/28/24 09/29/24 09/30/24
06:59 06:59 06:59
Intake Total 402.7 / 416.4 527.1 / 527.1
Output Total 2315 / 2515 1825 / 1825
Balance -1912.3 / -2098.6 -1297.9 / -1297.9
Review of Systems
-
History Source: Patient
Constitutional: Reports No Symptoms
EENT: Reports No Symptoms Reported
Respiratory: Reports No Symptoms
Cardiac: Reports No Symptoms
Abdomen/GI: Reports No Symptoms
Musculoskeletal: Reports No Symptoms
Skin: Reports No Symptoms
Neuro: Reports No Symptoms
Endocrine: Reports No Symptoms
Physical Exam
-
General: Well Developed, Well Nourished and No Apparent Distress
HEENT: Normocephalic, Atraumatic, Moist Mucous Membranes, Anicteric and Oxygen (2L O2 via NC)
Respiratory: Clear to Auscultation
Cardiac: Regular Rhythm, S1/S2 and Murmur
GI: Soft, Nontender, Nondistended and Normal Bowel Sounds
Musculoskeletal: No Clubbing, No Cyanosis and No Edema
Skin: Warm and Dry
Neuro: AO x 3
Psych: Calm
[2024-09-29] MEDS: PROTONIX 40 MG PO (08:37)
[2024-09-29] MEDS: HEPARIN 5000 UNITS SC (08:37)
[2024-09-29] MEDS: PLAVIX 75 MG PO (08:37)
[2024-09-29] MEDS: LOW STRENGTH ASPIRIN 81 MG PO (08:37)
--- NOTE | 2024-09-29 09:17 | PTCARENOTE ---
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 NSR via cm, SaO2 @ 98% on 2lnc. RAC, R wrist PIV noted, patent. Patient updated to plan of care for the shift, in agreement. See work list for full assessment and
interventions performed.
--- NOTE | 2024-09-29 09:52 | W.PN.CD ---
Today's Communication / Plan
-
-Weaned off of Levophed and milrinone off yesterday.
-Can discharge to home today on Bumex 1 mg daily; take a second dose for weight gain >3 pounds 1 day or >5 pounds 1 week.
-Undergoing TAVR evaluation; plan is for axillary TAVR 10/15/24.
-Patient has a left main stent and should be on a heart healthy diet.
-Patient appears to be relatively stable from a cardiac standpoint; can be discharged with Cardiology follow-up as outpatient as scheduled.
Impression / Plan
-
74 yo male with PMH of CAD s/p LM PCI 08/1324, severe pending axillary TAVR 10/15/24, PAD, s/p right CEA, HTN, hyperlipidemia, severe COPD on home O2, who presented from home with shortness of breath and chest heaviness and 6 pound weight gain.
Primary Cardiac Exercise Specialist: Dr. Davis
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
-Weaned off of Levophed and milrinone off yesterday.
-Can discharge to home today on Bumex 1 mg daily; take a second dose for weight gain >3 pounds 1 day or >5 pounds 1 week.
# Severe
-Undergoing TAVR evaluation; plan is for axillary TAVR 10/15/24.
# CAD, s/p LM PCI
-Continue DAPT with ASA/Plavix.
-Troponin minimally elevated and flat, likely acute non-ischemic myocardial injury in setting of HF and severe .
-Continue atorvastatin.
-Patient has a left main stent and should be on a heart healthy diet.
Severe COPD
-Management as per primary team/pulmonary.
# PAD
-on plavix as outpatient: continue
PAD
- on DAPT
Dyslipidemia
-Continue statin
Physical Exam
Vital Signs/Labs
Vital Signs
Temp Pulse Resp BP Pulse Ox
97.7 F 115 28 125/74 98
09/29/24 08:28 09/29/24 09:31 09/29/24 09:31 09/29/24 09:31 09/29/24 08:29
09/28/24 09/29/24 09/30/24
06:59 06:59 06:59
Actual Weight 61.1 kg 60.1 kg
09/29/24 03:22
09/29/24 03:22
Magnesium 2.1 mg/dl (1.6-2.3) 09/29/24 03:22
09/27/24
04:24
Kvh-A-Xnnheovfiic Pept 5300
LAB Results
09/27/24 09/27/24 09/27/24
04: 05:58 10:18
Troponin I 0.072 H* 0.079 H* 0.067 H*
09/27/24 09/28/24 09/28/24
15:30 00:30 03:30
Troponin I Cancelled Cancelled Cancelled
Physical Exam
Constitutional: No acute distress and Comfortable
EENT: Anicteric and Moist mucous membranes
Cardiovascular: Rhythm & rate is regular, Pedal edema is absent, Systolic murmur present (2/6) and S1S2 is normal
Respiratory: Respiratory effort normal and Lungs clear to auscul.
GI: Soft
Neuro/Psych: AO x 3
Other: Skin (Warm, dry, intact)
Data Reviewed
-
Date of Service: September 29, 2024
EKG: Report Reviewed by me (Telemetry: Sinus rhythm)
Medical Tests (PFT, Pathology etc): Discussed with Nurse and Discussed with Patient
Labs: Labs Reviewed by me
Critical Care Time (in minutes): 35
--- NOTE | 2024-09-29 12:00 | W.PN.INTV ---
Today's Communication / Plan
Recommendations
Continue cardiac management
Plan to return in mid September for TAVR
Restart outpatient pulmonary medications as before discharge
Outpatient pulmonary follow-up at [facility]
Discharge planning
Sign off
Assessment
-
74-year-old male with a past medical history of chronic HFrEF, severe aortic stenosis, PVD, history of COPD, former tobacco smoker and hyperlipidemia who was just discharged from [facility] 09/15/2024, being evaluated for TAVR. He woke up
at around 1:30 in the morning with shortness of breath and chest burning. Upon arrival to [facility], found to be hypotensive. He is admitted to CVICU for further management of severe aortic stenosis. Of note he had a recent left main
stent placed 2 weeks ago.
Hypotension, suspected cardiogenic
Cardiomyopathy, EF 45%
Severe aortic stenosis awaiting TAVR workup
Valve area 1 cm�
Coronary artery disease: Status post left main stent placement 09/11/2024
Anemia
Elevated troponin
History of heart failure, chronic
History of COPD (on Breztri at home)
Peripheral arterial disease
Anemia
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
Former tobacco smoker (quit 06/2019 with >88-27-vubj-year history)
History of AAA, peripheral vascular disease
Plan/recommendations:
Patient has been weaned off of milrinone and Levophed.
Cardiology correspondence reviewed
Recommended adjusting diuresis in the outpatient
Discharge planning
Plan is for TAVR October 15, 2024
-
History of severe COPD without acute exacerbation. Chronic hypoxemic respiratory failure
No evidence of bronchospasm
Continue with nebulizer regimen while in the hospital: Levalbuterol/ipratropium/budesonide.
Restart Daliresp upon discharge
Continue Singulair
Restart Breztri upon discharge
Patient has oxygen supplementation at home already. Is on his baseline.
No indication for steroids
Follow-up at [facility] for pulmonary as before admission.
-
-
Aspiration precautions
DVT prophylaxis: Remains on subcutaneous heparin
Agree with discharge planning
No additional recommendation from the critical care perspective
Sign off

Data:
CXR 09/05/2024: Possible slight progression of bilateral prominent interstitial markings which could represent worsening interstitial edema or pneumonitis.
CXR 09/06/2024 (compared to CXR from 09/04/2024): Bilateral pneumonia as described above. Significantly increased
Subjective Dataa
Subjective Data
Date of Service:
Date of Service: September 29, 2024
Chief Complaint: Heavy [employer] Follow Up (Acute hypoxemic respiratory failure/cardiogenic shock)
Subjective:
No overnight events
Weaned off of inotropes yesterday
Denies cough or wheezing
Objective Data
Data Reviewed
Vital Signs / I&O / Oxygen:
Vital Signs
Temp Pulse Resp BP Pulse Ox
97.7 F 104 24 113/98 98
09/29/24 08:28 09/29/24 11:32 09/29/24 11:32 09/29/24 10:00 09/29/24 08:29
Intake and Output
09/28/24 09/29/24 09/30/24
06:59 06:59 06:59
Intake Total 402.7 / 416.4 527.1 / 527.1 150 / 150
Output Total 2315 / 2515 1825 / 1825 275 / 275
Balance -1912.3 / -2098.6 -1297.9 / -1297.9 -125 / -125
SaO2 98
Nasal Cannula flow liters per 1
minute
Physical Exam
General: Comfortable
HEENT: Normocephalic
Cardiovascular: S1-S2
Respiratory: Wheeze (n) and Non-Labored Respirations
GI: Non Distended
Neurology: Awake, Alert, AO x 3 and No Motor Deficits
Skin: Warm
Labs/Micro/Reports
Lab Data
09/29/24 03:22
09/29/24 03:22
[2024-09-29] MEDS: TUMS CHEWABLE TABLET 200 MG PO (12:11)
--- NOTE | 2024-09-29 13:25 | PTCARENOTE ---
Discharge instructions thoroughly reviewed w/patient, spouse, and daughter - all questions answered. PIV x 2 removed. Home O2 applied. Patient transported to waiting vehicle for d/c home w/family.
--- NOTE | 2024-09-29 16:16 | W.DCSUMMARY ---
Discharge Summary
Discharge Data
Date of Admission: 09/27/24
Date of Discharge: 09/29/24
-
Pending Results: No
Hospital Course
Discharging Physician : Dr. Teresa Lizarraga, Dr. Elias Davis
Disposition : home
Primary care physician : Abdi Paez
Principal Discharge diagnosis : Cardiogenic shock in the setting of CHF
Chronic Discharge diagnosis : HFrEF, CAD, severe aortic stenosis, PAD, COPD on home 2-3L O2 NC, and HLD
Hospital Course : Admitted 09/27 for cardiogenic shock. Placed on pressure support with levophed and milrinone. Weaned over a couple days and transitioned to IV bumex. IV bumex transitioned to PO bumex. Echo shows worsening EF, from 45-50% to 40%.
Pt hemodynamically stable, afebrile.
Important imaging findings :
CXR: Improving pneumonitis/pulmonary edema. Background emphysema and possible pulmonary fibrosis.
Echo: Normal LV size with mildly mild to moderately reduced systolic function. LVEF is approximately 40% by visual estimation. Inferolateral hypokinesis. Normal right ventricular size and function. Calcific aortic valve with moderate to severe
low-flow low gradient aortic stenosis. Peak/mean gradients across the aortic valve are 62/35 mmHg. Moderate aortic regurgitation. Compared to prior from September 07, 2024, overall LV function is slightly lower with mild to moderately reduced EF
approximately 40%, previously 45-50%, and mean gradient through the aortic valve is higher at 35 mmHg, previously 23 mmHg. Aortic regurgitation is moderate, previously mild.
Procedure findings : n/a
Discharge Plan
-
Patient Disposition: Home (Routine Discharge)
Discharge Diagnosis/Procedures: Cardiogenic shock, HFrEF exacerbation
Condition: Good
Diet: Low Sodium
Activity: As tolerated
Driving Restrictions: As prior to admission
Bathing Restrictions: None
Activity Restrictions/Additional Instructions:
Please keep your scheduled follow up appointment with your curriculum assistant.
Instructions: Heart failure in adults - Discharge instructions, *[facility] Heart Failure Instructions
Referrals:
Abdi Paez MD [Family Provider] - in one week
Bienvenido Ashby MD [Active] - in two to three weeks
Additional Discharge Medication Instructions: Bumex 1 mg daily; take a second dose for weight gain >3 pounds in 1 day or >5 pounds in 1 week.
Prescriptions:
New
bumetanide 1 mg Tablet
1 mg PO DAILY Qty: 30 0RF
Continued
simvastatin 40 mg Tablet
40 mg PO DAILY
lorazepam 0.5 mg Tablet
0.5 mg PO DAILYPRN PRN (Reason: anxiety)
pantoprazole 40 mg Tablet,Delayed Release (Dr/Ec)
40 mg PO DAILY
roflumilast 500 mcg Tablet
500 mcg PO DAILY
Breztri Aerosphere 160-9-4.8 mcg/actuation Hfa Aerosol Inhaler
2 inh INHALATION R BID
Spiriva Respimat 2.5 mcg/actuation mist
2 inh inhalation DAILY Qty: 4 3RF
montelukast [Singulair] 10 mg Tablet
10 mg PO HS
docusate sodium 100 mg Capsule
100 mg PO BID Qty: 60 0RF
aspirin 81 mg Tablet,Chewable
81 mg PO DAILY Qty: 30 11RF
sennosides [Senna Laxative] 8.6 mg Tablet
8.6 mg PO BID Qty: 60 0RF
clopidogrel 75 mg Tablet
75 mg PO DAILY Qty: 30 11RF
bumetanide 1 mg tablet
1 mg PO DAILY PRN (Reason: weight gain of >3 lbs in 1 day or >5 lbs in 5 days) Qty: 20 0RF
Held
sertraline 50 mg Tablet
50 mg PO DAILY
Hold Instructions: Resume on 11/18/24. Discuss with your primary care provider regarding if and when to resume this medication.
azithromycin 250 mg tablet
250 mg PO DAILY PRN (Reason: copd flair)
Hold Instructions: Resume on 11/18/24. Ask you pulmonary physician at [facility] if and when you should resume this medication.
Discontinued
prednisone 10 mg tablet
10 mg PO DIRECTED Qty: 15 0RF
Rx Instructions:
30 mg/d x2 days; 20 mg/d x3 days; 10 mg/d x3 days
Discharge Orders:
Discharge Patient (As Directed); Ordered 09/29/24
Ordered By: Elias Davis
Care Plan Goals
Care Plan Goals:
Problem: Readiness for enhanced knowledge related to diagnosis and treatment plan
Goal: Understand your diagnosis and treatment plan needs, including medications if applicable.
Instructions: Know your diagnosis, underlying causes and treatment plan options, including medications if applicable. Consult with your health care team to learn about your diagnosis and treatment plan, including medications if applicable.
Discharge Date and Time
Discharge Date/Time: 09/29/24 14:35
Print Language: IRAQI
== END 2024-09-29 14:35 | disposition home or self-care (01) | DRG 291 ==
LOC: CVICU 08:54
PROVIDERS: ADMITTING PHYSICIAN Internal Medicine; ATTENDING PHYSICIAN Hospitalist; CONSULT PHYSICIAN Internal Medicine Cardiovascular Disease; CONSULT PHYSICIAN Internal Medicine Critical Care Medicine; EMERGENCY PHYSICIAN Student in an Organized Health Care Education/Training Program; FAMILY PHYSICIAN Family Medicine
DX: I11.0 Hypertensive heart disease with heart failure (principal); I50.23 Acute on chronic systolic (congestive) heart failure; R57.0 Cardiogenic shock; J96.21 Acute and chronic respiratory failure with hypoxia; K55.1 Chronic vascular disorders of intestine; J44.1 Chronic obstructive pulmonary disease with (acute) exacerbation; E87.1 Hypo-osmolality and hyponatremia; E87.3 Alkalosis; E78.00 Pure hypercholesterolemia, unspecified; I5A Non-ischemic myocardial injury (non-traumatic); I42.9 Cardiomyopathy, unspecified; I35.0 Nonrheumatic aortic (valve) stenosis; I25.10 Atherosclerotic heart disease of native coronary artery without angina pectoris; I73.9 Peripheral vascular disease, unspecified; I71.40 Abdominal aortic aneurysm, without rupture, unspecified; D64.9 Anemia, unspecified; G47.30 Sleep apnea, unspecified; K21.9 Gastro-esophageal reflux disease without esophagitis; F41.9 Anxiety disorder, unspecified; F32.A Depression, unspecified; R31.29 Other microscopic hematuria; I25.5 Ischemic cardiomyopathy; Z79.52 Long term (current) use of systemic steroids; Z79.02 Long term (current) use of antithrombotics/antiplatelets; Z79.82 Long term (current) use of aspirin; Z79.899 Other long term (current) drug therapy; Z82.0 Family history of epilepsy and other diseases of the nervous system; Z87.891 Personal history of nicotine dependence; Z91.198 Patient's noncompliance with other medical treatment and regimen for other reason; Z95.5 Presence of coronary angioplasty implant and graft; Z99.81 Dependence on supplemental oxygen
CPT/HCPCS: 93308; 71046; 80048; 80053; 83735; 83880; 84484; 85025; 85027; 86803; 93005; 93321; 93325; 94640; 99285; J2260

== ENCOUNTER 2024-10-02 18:01 | Inpatient (IN) | payer MEDICARE, OTHER, SELFPAY ==
[2024-10-02] VITALS (20 sets, daily range): BP systolic 80–132; BP diastolic 45–70; PULSE 2–84; BMI 21.6
--- NOTE | 2024-10-02 11:11 | ED.GENMED ---
ED Provider Triage
<Phillip Matson PA-C - Last Filed: 10/02/24 11:18>
-
Patient seen by provider in Triage?: Seen in Triage
74 yo male presents for evaluation of sudden onset SOB. Was admitted here end of August due to HFrEF/cardiogenic shock. Planned for TAVR 10/15. Denies weight gain. Arrives via EMS. Complaint with home meds.
In acute resp distress, 5-6 word dyspnea. No chest pain. Lungs clear, does not look overloaded. concern for PE
Check cardiac labs, PE study
History of Present Illness
<Phillip Matson PA-C - Last Filed: 10/02/24 11:18>
General
Chief Complaint: Breathing Problem
Time Seen by Provider: 10/02/24 12:00
<Wade Guthrie MD - Last Filed: 10/02/24 15:23>
General
Source: patient, records and ambulance crew
Exam Limitations: none
Nursing documentation reviewed up to this point in time: agreed with
History of Present Illness
History of Present Illness:
74-year-old male with past medical history of COPD, chronic respiratory failure (on 2 L of oxygen at nighttime only at home), hypertension, hyperlipidemia, CAD, PVD status pop Ambriz bypass, CHF, aortic stenosis, AAA who presents to the emergency
department via EMS for evaluation of shortness of breath. Patient reports acute onset of symptoms this morning and they have been constant. He reports increased shortness of breath as well as chest pain. He describes a pressure sensation
substernal. He denies any recent swelling in the legs. He denies any recent cough or fever. He denies any dizziness or lightheadedness. He denies any other complaints. He is set to have a TAVR on 10/15/2024 for significant aortic stenosis. He
did have a recent admission 09/27 until 09/29 for cardiogenic shock and pulmonary edema required vasopressors and diuresis. Sees [facility].
Past History
<Phillip Matson PA-C - Last Filed: 10/02/24 11:18>
Past History
ED Past Medical History: COPD and Psychiatric
Social History
Tobacco: Former smoker
Alcohol: None
Personal:
Living: with family
Review of Systems
<Wade Guthrie MD - Last Filed: 10/02/24 15:23>
Review of Systems
All Other Systems: ROS reviewed and negative except as documented in HPI and ROS
Constitutional: Denies fever or chills
Respiratory: Reports trouble breathing; Denies cough
Cardiac: Reports chest pain; Denies palpitations or syncope
ABD/GI: Denies abdominal pain, nausea or vomiting
: Denies flank pain
Musculoskeletal: Denies edema, neck pain or back pain
Neurological: Denies dizzy or headache
Phy Exam
<Wade Guthrie MD - Last Filed: 10/02/24 15:23>
Physical Exam
Physical Exam:
General: Awake, alert, oriented x3; mild respiratory distress
Head: Normocephalic, atraumatic
Eyes: Conjunctiva normal, sclera anicteric
Throat: Airway intact, handling secretions
Neck: Trachea midline, no JVD noted
Lungs: Patient has mild tachypnea with a respiratory rate of 25, scattered wheezing throughout all lung cody, hypoxic requiring 4 L nasal cannula
Heart: Regular rate and rhythm, systolic murmur
Abd: Soft, non distended, nontender
Neuro: No gross deficits
Extremities: No edema in extremities, equal pulses in all extremities
Scores
<Wade Guthrie MD - Last Filed: 10/02/24 15:23>
Heart Failure Risk
Heart Failure Risk Score: Not Applicable
Heart Score for Chest Pain Patients
STEMI patient?: Not applicable
Withdrawal Assessment of Alcohol
Withdrawal Assessment Completed?: Not applicable
Course
<Phillip Matson PA-C - Last Filed: 10/02/24 11:18>
Orders/Labs/Results
Orders:
Orders
10/02/24 11:14
Electrocardiogram (*1) Urgent
Reason for Study: Shortness of Breath
CT Chest PE Study Urgent
Comment:
Reason For Exam: SOB
EKG- Treatment ONCE
10/02/24 12:07
Complete Blood Count/With Diff Urgent
Comprehensive Metabolic Panel Urgent
NT-proBNP Urgent
Troponin I Urgent
10/02/24 12:08
Ipratropium/Albuterol Sulfate [Duoneb] 3 ml .ROUTE .STK-MED ONE
CR Chest Portable - 1 View Urgent
Comment:
Reason For Exam: sob
Reason Study Needs to be Portable: Unable to Transport
10/02/24 12:12
Ipratropium/Albuterol Sulfate [Duoneb] 3 ml INH R NOW ONE
10/02/24 13:16
MethylPREDNISolone PF [Solu-Medrol Pf] 125 mg IV NOW STA
10/02/24 13:28
Potassium Chloride [KCl] 20 meq 0.9% Sodium Chloride 250 ml [Nss] 250 ml IV NOW
10/02/24 13:30
ABG [Arterial Blood Gas] Urgent
%Oxygen/Room Air: 88
10/02/24 14:30
NORepinephrine 4 MG/250 ML [Levophed] 4 mg in 250 ml IV PER PROTOCOL
Initial dose in mcg/min, then titrate:: 2
Titrate to keep:: MAP > 65 mmHg
Titrate by mcg/min:: 1-2 mcg/min
Frequency of titrations (minutes):: 5
Maximum dose in ICU in mcg/min:: 30
Maximum dose in IMU in mcg/min:: 8
Maximum dose in IVU in mcg/min:: 4
Begin to taper infusion when:: Remained at goal for 4hrs
Taper by mcg/min:: 1-2 mcg/min
Frequency of taper (minutes) if patient maintains goal:: 30
Taper to off?: Yes
If infusion off & no longer maintaining goal:: Contact Provider
10/02/24 15:04
Troponin I Urgent
10/02/24 15:15
Lorazepam [Ativan] 0.5 mg .ROUTE .STK-MED ONE
10/02/24 15:16
Lorazepam [Ativan] 0.5 mg PO NOW STA
10/02/24 15:20
CefTRIAXone [Rocephin] 1,000 mg IV NOW STA
Doxycycline Hyclate [Vibramycin] 100 mg 0.9% Sodium Chloride 250 ml [Nss] 250 ml IV NOW
Abnormal Lab Results
10/02/24 10/02/24
12:07 13:30
RBC 3.40 L 10^6/uL
(4.70-6.10)
Hgb 11.0 L g/dL
(13.0-18.0)
Hct 35.0 L %
(39.0-52.0)
MCV 102.9 H fL
(80.0-94.0)
MCH 32.4 H pg
(27.0-31.0)
MCHC 31.4 L g/dL
(33.0-37.0)
RDW 14.8 H %
(11.5-14.5)
Absolute Monos (auto) 0.8 H 10^3/uL
(0.1-0.6)
Monocytes % 10.6 H %
(1.7-9.3)
pH 7.49 H
(7.35-7.45)
pO2 120 H mmHg
(83-108)
HCO3 29.0 H mmol/L
(21-28)
ABG O2 Sat (Measured) 99.4 H %
(94-98)
Potassium 3.3 L mmol/L
(3.5-5.1)
Chloride 92 L mmol/L
(98-107)
Glucose 167 H mg/dl
(70-99)
Troponin I 0.049 H* ng/ml
10/02/24 12:07
10/02/24 12:07
Vital Signs
Initial and Last Documented VS:
Initial Vital Signs
Temp Pulse Resp BP Pulse Ox
36.4 C 107 25 82/51 99
10/02/24 11:12 10/02/24 11:12 10/02/24 11:12 10/02/24 11:12 10/02/24 11:12
Last Documented Vital Signs
Temp Pulse Resp BP Pulse Ox
36.4 C 88 25 131/48 100
10/02/24 11:12 10/02/24 14:45 10/02/24 14:45 10/02/24 14:08 10/02/24 14:45
<Wade Guthrie MD - Last Filed: 10/02/24 15:23>
Orders/Labs/Results
Orders:
Orders
10/02/24 11:14
Electrocardiogram (*1) Urgent
Reason for Study: Shortness of Breath
CT Chest PE Study Urgent
Comment:
Reason For Exam: SOB
EKG- Treatment ONCE
10/02/24 12:07
Complete Blood Count/With Diff Urgent
Comprehensive Metabolic Panel Urgent
NT-proBNP Urgent
Troponin I Urgent
10/02/24 12:08
Ipratropium/Albuterol Sulfate [Duoneb] 3 ml .ROUTE .STK-MED ONE
CR Chest Portable - 1 View Urgent
Comment:
Reason For Exam: sob
Reason Study Needs to be Portable: Unable to Transport
10/02/24 12:12
Ipratropium/Albuterol Sulfate [Duoneb] 3 ml INH R NOW ONE
10/02/24 13:16
MethylPREDNISolone PF [Solu-Medrol Pf] 125 mg IV NOW STA
10/02/24 13:28
Potassium Chloride [KCl] 20 meq 0.9% Sodium Chloride 250 ml [Nss] 250 ml IV NOW
10/02/24 13:30
ABG [Arterial Blood Gas] Urgent
%Oxygen/Room Air: 88
10/02/24 14:30
NORepinephrine 4 MG/250 ML [Levophed] 4 mg in 250 ml IV PER PROTOCOL
Initial dose in mcg/min, then titrate:: 2
Titrate to keep:: MAP > 65 mmHg
Titrate by mcg/min:: 1-2 mcg/min
Frequency of titrations (minutes):: 5
Maximum dose in ICU in mcg/min:: 30
Maximum dose in IMU in mcg/min:: 8
Maximum dose in IVU in mcg/min:: 4
Begin to taper infusion when:: Remained at goal for 4hrs
Taper by mcg/min:: 1-2 mcg/min
Frequency of taper (minutes) if patient maintains goal:: 30
Taper to off?: Yes
If infusion off & no longer maintaining goal:: Contact Provider
10/02/24 15:04
Troponin I Urgent
10/02/24 15:15
Lorazepam [Ativan] 0.5 mg .ROUTE .STK-MED ONE
10/02/24 15:16
Lorazepam [Ativan] 0.5 mg PO NOW STA
10/02/24 15:20
CefTRIAXone [Rocephin] 1,000 mg IV NOW STA
Doxycycline Hyclate [Vibramycin] 100 mg 0.9% Sodium Chloride 250 ml [Nss] 250 ml IV NOW
Abnormal Lab Results
10/02/24 10/02/24
12:07 13:30
RBC 3.40 L 10^6/uL
(4.70-6.10)
Hgb 11.0 L g/dL
(13.0-18.0)
Hct 35.0 L %
(39.0-52.0)
MCV 102.9 H fL
(80.0-94.0)
MCH 32.4 H pg
(27.0-31.0)
MCHC 31.4 L g/dL
(33.0-37.0)
RDW 14.8 H %
(11.5-14.5)
Absolute Monos (auto) 0.8 H 10^3/uL
(0.1-0.6)
Monocytes % 10.6 H %
(1.7-9.3)
pH 7.49 H
(7.35-7.45)
pO2 120 H mmHg
(83-108)
HCO3 29.0 H mmol/L
(21-28)
ABG O2 Sat (Measured) 99.4 H %
(94-98)
Potassium 3.3 L mmol/L
(3.5-5.1)
Chloride 92 L mmol/L
(98-107)
Glucose 167 H mg/dl
(70-99)
Troponin I 0.049 H* ng/ml
10/02/24 12:07
10/02/24 12:07
Vital Signs
Initial and Last Documented VS:
Initial Vital Signs
Temp Pulse Resp BP Pulse Ox
36.4 C 107 25 82/51 99
10/02/24 11:12 10/02/24 11:12 10/02/24 11:12 10/02/24 11:12 10/02/24 11:12
Last Documented Vital Signs
Temp Pulse Resp BP Pulse Ox
36.4 C 88 25 131/48 100
10/02/24 11:12 10/02/24 14:45 10/02/24 14:45 10/02/24 14:08 10/02/24 14:45
<Wade Guthrie MD - Last Filed: 10/02/24 15:23>
MDM/Problems Addressed
Differential Diagnosis Includes:
COPD exacerbation, pneumothorax, PE, CHF, aortic stenosis, ACS, aortic dissection less likely
MDM/Problems Addressed:
74-year-old male presents to the emergency room for evaluation of chest pain and shortness of breath started rather abruptly this morning. He does have a recent history of cardiogenic shock and CHF and is scheduled for TAVR for severe in 2
weeks. He arrived was hypotensive, tachycardic, tachypneic, hypoxic; he is afebrile. Physical exam as above. Large-bore IV placed labs sent off including a CBC and a CMP, troponin, proBNP. Will send coags. Check stat portable chest x-ray and
EKG. Plan to send for CTA to rule out PE or dissection pending chest x-ray. Will treat with a DuoNeb given history of COPD and scattered wheezing but low suspicion that symptoms are primarily from acute COPD exacerbation based on exam--he is
moving good air generally and is not coughing. Monitor very closely plan for likely admission.
EKG shows sinus rhythm rate 100, right bundle branch block with anterior lateral T wave inversions similar to prior EKG. Stat chest x-ray reviewed by me shows no acute pathology�no pneumonia, no pneumothorax, no clear pulmonary edema. Will proceed
with labs and CT chest as above.
Chest x-ray radiology report reviewed: Question mild pneumonia but no other clear acute pathology�his clinical picture would not fit with pneumonia as the symptoms started rather abruptly and he has no fever or leukocytosis. Awaiting results of CT
chest. On clinical reassessment although oxygenation is acceptable on supplemental oxygen his rate of breathing and his work of breathing have increased. Will treat with steroid as well given history of COPD. Transition to BiPAP. Check blood
gas. Expedite CT.
Patient appears much better on BiPAP, can wean off. CTA negative for PE but does confirm possible developing pneumonia. Will cover with antibiotics. Already given DuoNebs and steroids. Will admit for continued treatment and monitoring for acute
on chronic respiratory failure with hypoxia secondary to acute COPD exacerbation and pneumonia. Case discussed with hospitalist.
Chronic conditions affecting care:
CHF, COPD, CAD
<Wade Guthrie MD - Last Filed: 10/02/24 15:23>
*Radiology
Radiology exam reviewed: preliminary read by ED provider and radiology read reviewed
*Pulse Oximetry
Patient hypoxic: yes
*EKG
Interpreted by ED Provider?: Yes
Comparison EKG: no changes
Heart Rate: 100
Rate: tachycardiac
Rhythm: sinus and sinus tachycardia
[place]: normal axis
Interval: first degree heart block
QRS Pattern: right bundle branch block
Ischemia: non-specific ST changes
*Critical Care Note
Total Time (30-74mins, 75-104mins- exclusive of procedures): 31
comment:
Critical care statement: A total of 31 minutes of critical care time was provided for this patient. This includes management of unstable vital signs, evaluation of the patient at bedside, frequent reassessment, discussion with
consultants/hospitalist, and review of pertinent medical records. This time was separate from time utilized to perform any aforementioned documented procedures
Data Reviewed
Review of Other/Old Records Reveals: Labs, Records and Discharge Summary
Source: patient, records, family and ambulance crew
<Wade Guthrie MD - Last Filed: 10/02/24 15:23>
Patient Management
Discussion with other providers: Hospitalist (Discussed with hospitalist)
Escalation/DeEscalation of care consider admission/obs:
Admission indicated
ED Attending Note
<Phillip Matson PA-C - Last Filed: 10/02/24 11:18>
-
Portions of this chart may have been created with voice recognition software.� Occasional wrong word or��sound alike� substitutions may have occurred due to the inherent limitations of voice recognition software.
Discharge Plan
Departure
Patient Disposition: Admit
Date of Disposition: 10/02/24
Time of Disposition: 15:23
Admit to doctor: Sigrid
Presentation/result/management discussed w/ accepting MD/DO: Hospitalist
Discharge Problem:
Acute on chronic hypoxic respiratory failure, Pneumonia, COPD exacerbation
Prescriptions:
No Action
simvastatin 40 mg Tablet
40 mg PO DAILY
lorazepam 0.5 mg Tablet
0.5 mg PO DAILYPRN PRN (Reason: anxiety)
pantoprazole 40 mg Tablet,Delayed Release (Dr/Ec)
40 mg PO DAILY
roflumilast 500 mcg Tablet
500 mcg PO DAILY
Breztri Aerosphere 160-9-4.8 mcg/actuation Hfa Aerosol Inhaler
2 inh INHALATION R BID
montelukast [Singulair] 10 mg Tablet
10 mg PO HS
clopidogrel 75 mg Tablet
75 mg PO DAILY Qty: 30 11RF
albuterol sulfate [ProAir HFA] 90 mcg/actuation Hfa Aerosol Inhaler
2 puff INHALATION 6XD PRN (Reason: copd)
sennosides [Senna Laxative] 8.6 mg tablet
8.6 mg PO BIDPRN PRN (Reason: constipation)
bumetanide 1 mg tablet
1 mg PO DAILYPRN PRN (Reason: weight gain of >3 lbs in 1 day or >5 lbs in 5 days)
aspirin 81 mg tablet,chewable
81 mg PO DAILY
bumetanide 1 mg tablet
1 mg PO DAILY
Spiriva Respimat 2.5 mcg/actuation mist
2 inh inhalation DAILY
Referrals:
Abdi Paez MD [Family Provider] -
Interventions
Interventions:
*Risk Screen - Suicide Last Done: 10/02/24 14:24
*General Assessment Last Done: 10/02/24 11:12
*Neglect/Abuse Screening Last Done: 10/02/24 14:24
*ED COVID-19 Vaccine History Last Done: 10/02/24 14:24
ED- Cardiac Assessment Last Done: 10/02/24 14:25
ED- Pulmonary Assessment Last Done: 10/02/24 14:25
Discharge Date and Time
Print Language: THAI
[2024-10-02] MEDS: DUONEB 3 ML INH (12:12)
[2024-10-02 12:17] LABS: % Basophils 0.4 % (0-2); % Eosinophils 2.2 % (0-6); % Immature Granulocytes 0.3 % (0-0.5); % Lymphocytes 25.9 % (20.5-51.1); % Monocytes 10.6 % (1.7-9.3); % Neutrophils 60.6 % (42.2-75.2); Absolute Eosinophils 0.2 10^3/uL (0-0.7); Absolute Lymphocytes 1.9 10^3/uL (1.2-3.4); Absolute Monocytes 0.8 10^3/uL (0.1-0.6); Absolute Neutrophils 4.5 10^3/uL (1.4-6.5); Mean Corp Hgb Conc. 31.4 g/dL (33.0-37.0); Mean Corpuscular Hgb 32.4 pg (27.0-31.0); Mean Corpuscular Volume 102.9 fL (80.0-94.0); Mean Platelet Volume 9.9 fL (7.4-10.4); Nucleated Red Blood Cells % 0 % (-); Platelet Count 255 10^3/uL (130-400); Red Cell Dist. Width 14.8 % (11.5-14.5); White Blood Cell Count 7.4 10^3/uL (4.8-10.8)
[2024-10-02 12:39] LABS: ALT (SGPT) 18 U/L (0-50); AST (SGOT) 22 U/L (17-59); Albumin 4.2 g/dl (3.5-5.0); Alkaline Phosphatase 95 U/L (38-126); Blood Urea Nitrogen 20 mg/dl (9-20); Calcium 9.9 mg/dl (8.4-10.2); Carbon Dioxide 29 mmol/L (22-30); Chloride 92 mmol/L (98-107); Glucose 167 mg/dl (70-99); Potassium 3.3 mmol/L (3.5-5.1); Sodium 135 mmol/L (135-145); Total Bilirubin 0.3 mg/dl (0.2-1.3); eGFR > 60.00
[2024-10-02 12:46] LABS: NT-proBNP 5420 pg/ml; Troponin I 0.049 ng/ml
[2024-10-02] MEDS: SOLU-MEDROL PF 125 MG IV (13:26)
[2024-10-02 13:40] LABS: B.E. 5.3 mmol/L; O2 Saturation % 99.4 % (94-98); PCO2 38 mmHg (35-48); PO2 120 mmHg (83-108); pH 7.49 (7.35-7.45)
[2024-10-02] MEDS: KCL 260 MEQ IV (14:20)
[2024-10-02] MEDS: ATIVAN 0.5 MG PO (15:17)
--- NOTE | 2024-10-02 15:24 | HPS.HSE ---
Family Physician
-
Family Physician: Abdi Paez
Chief Complaint
-
cob
chest pain
History of Present Illness
74-year-old male with past medical history of COPD, chronic respiratory failure (on 2 L of oxygen at nighttime only at home), hypertension, hyperlipidemia, CAD, PVD status pop Ambriz bypass, CHF, aortic stenosis, AAA who presents to the emergency
department via EMS for evaluation of shortness of breath since last night. sob worse with exertion. patient complaining of mid sternum chest pain, which is non radiating and non exertional. denied cough, runny nose, congestion. He denies any
dizziness or lightheadedness. patient has chronic abdominal pain from aortic aneurysm. stated nauseous this morning. denied diarrhea. denied dysuria or hematuria. He is set to have a TAVR on 10/15/2024 for significant aortic stenosis. He did have
a recent admission 09/27 until 09/29 for cardiogenic shock and pulmonary edema required vasopressors and diuresis. Sees [facility] cardiology.
CT with pneumonia. patient received iv ceftriaxone and doxy, solu Medrol.admitting for further management.
Medical History
Past Medical History
Past Medical History: Reports Other
Additional Past Medical History:
CAD, CHF, COPD, Hypercholesterolemia and Other (, PAD, AAA, TME, anxiety, depression, Sleep apnea
Past Surgical History: Reports None
Social History
Tobacco: Former Smoker
Alcohol: None
Drug: None
Personal:
Living: With Family
Family History
Family History: Not pertinent
Allergies / Home Medications
Allergies reflects when Allergies were last updated in [facility].
Home Medications with original date entered in [facility]
Allergy/Medication List:
Allergies
Allergy/AdvReac Type Severity Reaction Status Date / Time
levofloxacin [From Levaquin] Allergy 'feels Verified 10/02/24 11:12
closed in'
oxycodone [From Percocet] Allergy anxious, Verified 10/02/24 11:12
restless
Home Medications
budesonide 160 mcg-glycopyr 9 mcg-formot 4.8 mcg/actuation HFA inhaler (Breztri Aerosphere) 2 inh inhalation R BID Lung/Breathing Issues 08/04/24
lorazepam 0.5 mg tablet 0.5 mg PO DAILYPRN PRN anxiety 08/04/24
pantoprazole 40 mg tablet,delayed release 40 mg PO DAILY GERD 08/04/24
roflumilast 500 mcg tablet 500 mcg PO DAILY Autoimmune Disorder 08/04/24
simvastatin 40 mg tablet 40 mg PO DAILY High Cholesterol 08/04/24
montelukast 10 mg tablet (Singulair) 10 mg PO HS Lung/Breathing Issues 09/04/24
clopidogrel 75 mg tablet 75 mg PO DAILY Blood Clot Prevention/Tx #30 tabs 09/14/24
albuterol sulfate 90 mcg/actuation aerosol inhaler 2 puff inhalation 6XD PRN copd 10/01/24
aspirin 81 mg chewable tablet 81 mg PO DAILY Blood Clot Prevention/Tx 10/02/24
bumetanide 1 mg tablet 1 mg PO DAILY Fluid Retention/Swelling 10/02/24
bumetanide 1 mg tablet 1 mg PO DAILYPRN PRN weight gain of >3 lbs in 1 day or >5 lbs in 5 days 10/02/24
sennosides 8.6 mg tablet (Senna Laxative) 8.6 mg PO BIDPRN PRN constipation 10/02/24
tiotropium bromide 2.5 mcg/actuation mist for inhalation (Spiriva Respimat) 2 inh inhalation DAILY Lung/Breathing Issues 10/02/24
Review of Systems
-
Constitutional: Reports No Symptoms
EENT: Reports No Symptoms
Respiratory: Reports Trouble Breathing
Cardiac: Reports Chest Pain
Abdomen/GI: Reports No Symptoms
: Reports No Symptoms
Musculoskeletal: Reports No Symptoms
Skin: Reports No Symptoms
Neurological: Reports No Symptoms
Endocrine: Reports No Symptoms
Hematologic/Lymphatic: Reports No Symptoms
Psych: Reports No Symptoms
Physical Exam
Vital Signs
Vital Signs
Temp Pulse Resp BP Pulse Ox
97.5 F 88 25 131/48 100
10/02/24 11:12 10/02/24 14:45 10/02/24 14:45 10/02/24 14:08 10/02/24 14:45
Physical Exam
General: Well Developed, Well Nourished and No Apparent Distress
HEENT: NormoCephalic, Moist mucous membranes and Atraumatic
Respiratory: Clear and Decreased Breath Sounds
Cardiac: S1/S2 and Regular Rhythm; No Murmur or Rub
GI: Soft, Non Tender, Non Distended and Normal Bowel Sounds; No Organomegaly
Rectal: Deferred by Provider
Musculoskeletal: No Clubbing, No Cyanosis and No Edema
Skin: No Rash
Neuro: AO x 3 and Nonfocal/grossly intact
Psych: Calm
Laboratory Results
-
10/02/24 12:07
10/02/24 12:07
Laboratory Results
pH 7.49 (7.35-7.45) H 10/02/24 13:30
pCO2 38 mmHg (35-48) 10/02/24 13:30
pO2 120 mmHg (83-108) H 10/02/24 13:30
HCO3 29.0 mmol/L (21-28) H 10/02/24 13:30
Total Bilirubin 0.3 mg/dl (0.2-1.3) 10/02/24 12:07
AST 22 U/L (17-59) 10/02/24 12:07
ALT 18 U/L (0-50) 10/02/24 12:07
Alkaline Phosphatase 95 U/L (38-126) 10/02/24 12:07
Troponin I 0.049 ng/ml H* 10/02/24 12:07
Data Reviewed
-
Diagnostic Radiology: Report Reviewed by me
CT Scan: Report Reviewed by me
Lab Data: Labs Reviewed by me
Impression/Plan
-
# Acute on chronic respiratory failure secondary to pneumonia
# COPD exacerbation
-IV antibiotics continue
-IV steroids continued
-continue supplemental oxygen to keep sat >92
-wean as tolerated
-ceftriaxone and doxy continued
-patient requiring 3l of oxygen
-continue supplemental oxygen to keep sat >92
-wean as tolerated
-CTA with no PE. severe emphysematous disease.New left upper and lower lobe findings probably developing pneumonia considering the acute development. Repeat exam in 3-4 weeks recommended after treatment.New mild right upper lobe atelectasis.
-Chest x-ray with impression Mildly improved left suprahilar and right infrahilar findings suggesting pneumonia.Stable right upper lobe atelectasis versus scarring.
#non occlusive DVT of left femoral vein
-heparin drip
-vascular consulted
-duplex of LE ordered
-CT with CT: Central low-attenuation intraluminal filling defect in the left femoral vein suggesting acute nonocclusive deep venous thrombosis.
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
Fusiform infrarenal abdominal aortic aneurysm (2.9 cm AP dimension).
Bilateral iliac artery stents in place.
Severe calcific atherosclerotic plaque in the iliac and femoral arteries.
Mildly enlarged prostate gland.
Severe calcification in the aortic valve.
Severe emphysema in the lungs.
Severe discogenic degenerative disease in the lumbar spine.
# Severe aortic stenosis
-Patient is due for TAVR next week
-Echo 09/28/2024-Calcific aortic valve with moderate to severe low-flow low gradient aortic stenosis. Peak/mean gradients across the aortic valve are 62/35 mmHg. Moderate aortic regurgitation.
#CHF
-Bumex continued
# Anemia likely from chronic disease
-Hemoglobin stable at 11.9
-No active bleeding
-Continue monitor
# Hypokalemia likely from diuretics.
-K3.3
-Supplemented with iv kcl
-Monitor BMP in a.m.
# Elevated Trop likely demand ischemia
-Trop 0.049,
-Denies chest pain
-Continue to trend Trope
#Abdominal aortic aneurysm
- stable, no abdominal pain
#Coronary artery disease
#Severe ostial left main disease
- s/p ARTHUR stent placement Left Main Disease 09/11/24
#Peripheral artery disease
- extensive, multiple interventions performed
- History of right carotid endarterectomy [facility] 05/04/2024
- Outpatient follow-up with Dr. Ashby
-hold Plavix
-asa continued
#Sleep apnea
cpap
#Hyperlipidemia
- continue statin
#Anxiety/Depression
-, as needed lorazepam
#GERD
-PPI continued
#DVT prophylaxis-heparin
[2024-10-02] MEDS: PROTONIX IV 40 MG IV (15:44)
[2024-10-02] MEDS: NSS (PRESERVATIVE FREE) 10 ML IV (15:44)
[2024-10-02] MEDS: ROCEPHIN 1000 MG IV (15:44)
[2024-10-02] MEDS: VIBRAMYCIN 260 MG IV (15:49)
[2024-10-02] MEDS: NITROSTAT (SUBLINGUAL) 0.4 MG SL (16:48)
[2024-10-02 17:28] LABS: COVID-19 Antigen Negative (Negative)
[2024-10-02 17:38] LABS: Troponin I 0.048 ng/ml
[2024-10-02 17:46] LABS: Procalcitonin < 0.05 ng/ml (0.0-0.25)
--- NOTE | 2024-10-02 19:25 | W.PN.UPDATE ---
Update Note
Progress Note Update
This note serves as an addendum to the H&P by sole blacker JOSE
Anne JUJU
HPI
74-year-old male with a past medical history of chronic HFrEF, severe aortic stenosis, PVD, history of COPD, former tobacco smoker and hyperlipidemia who was just discharged from [facility] 09/15/2024, being evaluated for TAVR via EMS for
evaluation of shortness of breath since last night. sob worse with exertion. patient complaining of mid sternum chest pain, which is non radiating and non exertional. denied cough, runny nose, congestion.
PHX; see above
Reviewed VS:
Vital Signs
Pulse Resp BP Pulse Ox
62 16 123/77 97
10/02/24 13:15 10/02/24 13:15 10/02/24 13:15 10/02/24 13:15
PE
Gen: No Apparent Distress, on NC O2 3 L
HEENT: Moist mucous membranes and Atraumatic
Neck: supple
Lungs: symmetric AE, decreased AE , Not wheezy
Cor: S1/S2 and RRR No Murmur
Abdomen: Soft, Non Tender, Non Distended and Normal Bowel Sounds
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
MS: No Edema
Psych: Calm
Abnormal Lab Results
10/02/24
09:04
MCH 31.3 H
Absolute Neuts (auto) 6.6 H
Creatinine 0.5 L
Glucose 112 H
CTC PE study
New left upper and lower lobe findings probably developing pneumonia considering the acute development.
Repeat exam in 3-4 weeks recommended after treatment.
New mild right upper lobe atelectasis.
CXR
Mildly improved left suprahilar and right infrahilar findings suggesting pneumonia.
Stable right upper lobe atelectasis versus scarring.
ASSESSMENT & PLAN
Acute on chronic RF due to PNA @ [facility] presumed CAP
Afebrile. Nl WCC
- check PCT
- agree with IV CFTX and PO Doxy
- Titrate O2 ; Goal PO > 92
COPD flare in setting of PNA
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
- IV ABx as above
- IV Decadron 4mg Q12H
- supplemental O2 to keep sat >92; wean as tolerated
Elevated Trop likely demand ischemia
Reports burning Chest
- trend TPNI
Severe aortic stenosis
09/28/24 Echo;
Calcific aortic valve with moderate to severe low-flow low gradient aortic stenosis.
Peak/mean gradients across the aortic valve are 62/35 mmHg. Moderate aortic regurgitation.
- Valve area 1 cm�
- due for TAVR next week
Anemia likely from chronic disease
- Hemoglobin stable at 11.9
- No active bleeding
Hypokalemia likely from diuretics.
-K3.3
-Supplemented with IV KCL
- f/u K in AM
Elevated Trop likely demand ischemia
- Trop 0.049,
- Denies CP
- to trend TPNI
HX Hypotension, suspected cardiogenic
HX Chr HFrEF
HX Cardiomyopathy, EF 45%
CAD Status post left main stent placement 09/11/2024
HX COPD (on Breztri at home)
Peripheral arterial disease
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
Former tobacco smoker (quit 06/2019 with >36-29-fcmd-year history)
History of AAA, peripheral vascular disease
DVT Px: SQH
Full code
IP TLM
[2024-10-02 19:44] LABS: APTT 28.8 Sec (23.4-35.0)
[2024-10-02] MEDS: HEPARIN 25000 UNITS/250 ML IV (20:58)
[2024-10-02] MEDS: SINGULAIR 10 MG PO (21:05)
[2024-10-02] MEDS: TYLENOL 650 MG PO (21:05)
[2024-10-02] MEDS: VIBRAMYCIN 100 MG PO (21:06)
[2024-10-02 21:53] LABS: Troponin I 0.042 ng/ml
--- NOTE | 2024-10-02 22:30 | PTCARENOTE ---
Pt admitted to rm 319-1 from ED. Ambulated to bed from stretcher. VSS upon admission. Pt AAOx3, pleasant/cooperative. Dgtr present for admission as well. Heparin gtt running at 12ml/hr (started at 2130), next PTT in for 0. Tele in place, SR in
80s w/ BBB on monitor. Pt oriented to room and POC, verbalized understanding of all instructions. Call villaseñor in reach and explained. Pt c/o severe heart burn discomfort, asking for TUMs - TT to TRAFFIC COURT REFEREE, ordered one time order.
[2024-10-02] MEDS: TUMS CHEWABLE TABLET 200 MG PO (22:46)
[2024-10-03] MEDS: DECADRON 4 MG IV ×2 (02:23→13:05)
[2024-10-03 03:14] VITALS: BP 127/56
[2024-10-03 06:06] VITALS: BMI 21.6
[2024-10-03 07:00] VITALS: BP 103/56
[2024-10-03] MEDS: PROTONIX 40 MG PO (08:53)
[2024-10-03] MEDS: ATIVAN 0.5 MG PO (08:53)
[2024-10-03] MEDS: LIPITOR 20 MG PO (08:53)
[2024-10-03] MEDS: VIBRAMYCIN 100 MG PO (08:53)
[2024-10-03] MEDS: BUMEX 1 MG PO (08:53)
[2024-10-03] MEDS: LOW STRENGTH ASPIRIN 81 MG PO (08:53)
--- NOTE | 2024-10-03 09:39 | W.PN.VS ---
Today's Communication / Plan
-
no acute vascular intervention needed
Assessment/Plan
-
PVD
- no acute intervention needed
- no signs of ischemia
- can follow up in office as outpatient
Subjective Data
-
Date of Service: October 03, 2024
Asked to see patient for history of vascular disease
Patient denies any abdominal or lower extremity pain
history of iliac stents placed at [place] years ago
denies claudication, rest pain or wounds
Objective Data
-
Vital Signs
Temp Pulse Resp BP Pulse Ox
98 F 81 16 103/56 99
10/03/24 07:00 10/03/24 08:53 10/03/24 07:00 10/03/24 08:53 10/03/24 07:00
Intake and Output
10/02/24 10/03/24 10/04/24
06:59 06:59 06:59
Intake Total 480 / 480
Output Total 350 / 350
Balance 130 / 130
Intake:
Oral fluids 480 / 480
Output:
Urine, Voided 350 / 350
Calcium 9.9 mg/dl (8.4-10.2) 10/02/24 12:07
Total Bilirubin 0.3 mg/dl (0.2-1.3) 10/02/24 12:07
AST 22 U/L (17-59) 10/02/24 12:07
ALT 18 U/L (0-50) 10/02/24 12:07
Alkaline Phosphatase 95 U/L (38-126) 10/02/24 12:07
Total Protein 7.0 g/dl (6.3-8.2) 10/02/24 12:07
Albumin 4.2 g/dl (3.5-5.0) 10/02/24 12:07
Physical Exam
-
rrr
ctab
2+ femoral pulses bilat
feet warm bilat
no wounds
no edema
[2024-10-03 11:00] VITALS: BP 119/54
[2024-10-03 11:10] LABS: Hematocrit 28.6 % (39.0-52.0); Hemoglobin 9.5 g/dL (13.0-18.0); Mean Corp Hgb Conc. 33.2 g/dL (33.0-37.0); Mean Corpuscular Hgb 32.9 pg (27.0-31.0); Mean Platelet Volume 10.6 fL (7.4-10.4); Platelet Count 231 10^3/uL (130-400); Red Blood Cell Count 2.89 10^6/uL (4.70-6.10); Red Cell Dist. Width 14.6 % (11.5-14.5); White Blood Cell Count 6.2 10^3/uL (4.8-10.8)
[2024-10-03 11:19] LABS: APTT 98.8 Sec (23.4-35.0)
[2024-10-03 11:37] LABS: Troponin I 0.032 ng/ml
[2024-10-03 12:42] LABS: Blood Urea Nitrogen 21 mg/dl (9-20); Calcium 9.4 mg/dl (8.4-10.2); Carbon Dioxide 26 mmol/L (22-30); Chloride 96 mmol/L (98-107); Estimated Creatinine Clearance 72 ml/min; Glucose 173 mg/dl (70-99); Potassium 3.9 mmol/L (3.5-5.1); Sodium 132 mmol/L (135-145); eGFR > 60.00
[2024-10-03] MEDS: FLUSH (NSS) 1 FLUSH IV (13:05)
[2024-10-03] MEDS: DALIRESP 500 MCG PO (13:05)
--- NOTE | 2024-10-03 14:13 | W.DCSUMMARY ---
Discharge Summary
Discharge Data
Date of Admission: 10/02/24
Date of Discharge: 10/03/24
-
Pending Results: No
Hospital Course
74-year-old male with past medical history of COPD, chronic respiratory failure (on 2 L of oxygen at nighttime only at home), hypertension, hyperlipidemia, CAD, PVD status pop Ambriz bypass, CHF, aortic stenosis, AAA
Presented with shortness of breath associated with exertion and was complaining about midsternal chest discomfort that was not on exertional/nonradiating. It was believed this was likely secondary to a COPD exacerbation therefore started on IV
steroids and antibiotics. Additionally should be noted was found to have a nonocclusive left femoral vein DVT. Evaluated by vascular surgery. Will plan to transition heparin drip to Eliquis 10 mg twice a day x 7 days followed by 5 mg twice a day
indefinitely. Additionally do not use aspirin any further can continue taking Plavix. Please practice fall precautions as there is increased for bleeding risk.
Will need continued follow-up with outpatient cardiology, plan for TAVR eval on 10/15/2024. States the chest discomfort and shortness of breath was most likely related to a panic attack as he became anxious about thinking about cardiac procedures
that he will be soon undergoing. Did have high troponins however lower than previous and trending down. Again will require cardiology follow-up.
DVT Study
IMPRESSION:
No sonographic evidence for lower extremity venous thrombosis.
CTAP
IMPRESSION:
1. Central low-attenuation intraluminal filling defect in the left femoral vein suggesting acute nonocclusive deep venous thrombosis.
2. 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
3. Fusiform infrarenal abdominal aortic aneurysm (2.9 cm AP dimension).
4. Bilateral iliac artery stents in place.
5. Severe calcific atherosclerotic plaque in the iliac and femoral arteries.
6. Mildly enlarged prostate gland.
7. Moderate amount of fecal material throughout the colon.
8. Severe calcification in the aortic valve.
9. Severe emphysema in the lungs.
10. Severe discogenic degenerative disease in the lumbar spine.
CXR
IMPRESSION:
Mildly improved left suprahilar and right infrahilar findings suggesting pneumonia.
CT Chest
IMPRESSION:
No evidence of pulmonary embolus.
Severe emphysematous disease.
New left upper and lower lobe findings probably developing pneumonia considering the acute development. Repeat exam in 3-4 weeks recommended after treatment.
New mild right upper lobe atelectasis.
In accordance with Act 112, known as the Patient Test Results Information Act, a letter will be sent to the patient which notifies the patient that a significant abnormality may exist. The letter will be sent within approximately 20 days of the
date the results were sent to the ordering health care practitioner.
Discharge Plan
-
Patient Disposition: Home (Routine Discharge)
Discharge Diagnosis/Procedures: COPD vs panic attack
Left femoral vein DVT
Condition: Good
Diet: Low Fat, Low Cholesterol, Low Sodium, No added salt and Restrict fluids to 48 oz
Activity Restrictions/Additional Instructions:
74-year-old male with past medical history of COPD, chronic respiratory failure (on 2 L of oxygen at nighttime only at home), hypertension, hyperlipidemia, CAD, PVD status pop Ambriz bypass, CHF, aortic stenosis, AAA
Presented with shortness of breath associated with exertion and was complaining about midsternal chest discomfort that was not on exertional/nonradiating. It was believed this was likely secondary to a COPD exacerbation therefore started on IV
steroids and antibiotics. Additionally should be noted was found to have a nonocclusive left femoral vein DVT. Evaluated by vascular surgery. Will plan to transition heparin drip to Eliquis 10 mg twice a day x 7 days followed by 5 mg twice a day
indefinitely. Additionally do not use aspirin any further can continue taking Plavix. Please practice fall precautions as there is increased for bleeding risk.
Will need continued follow-up with outpatient cardiology, plan for TAVR eval on 10/15/2024. States the chest discomfort and shortness of breath was most likely related to a panic attack as he became anxious about thinking about cardiac procedures
that he will be soon undergoing. Did have high troponins however lower than previous and trending down. Again will require cardiology follow-up..
DVT Study
IMPRESSION:
No sonographic evidence for lower extremity venous thrombosis.
CTAP
IMPRESSION:
1. Central low-attenuation intraluminal filling defect in the left femoral vein suggesting acute nonocclusive deep venous thrombosis.
2. 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
3. Fusiform infrarenal abdominal aortic aneurysm (2.9 cm AP dimension).
4. Bilateral iliac artery stents in place.
5. Severe calcific atherosclerotic plaque in the iliac and femoral arteries.
6. Mildly enlarged prostate gland.
7. Moderate amount of fecal material throughout the colon.
8. Severe calcification in the aortic valve.
9. Severe emphysema in the lungs.
10. Severe discogenic degenerative disease in the lumbar spine.
CXR
IMPRESSION:
Mildly improved left suprahilar and right infrahilar findings suggesting pneumonia.
CT Chest
IMPRESSION:
No evidence of pulmonary embolus.
Severe emphysematous disease.
New left upper and lower lobe findings probably developing pneumonia considering the acute development. Repeat exam in 3-4 weeks recommended after treatment.
New mild right upper lobe atelectasis.
In accordance with Act 112, known as the Patient Test Results Information Act, a letter will be sent to the patient which notifies the patient that a significant abnormality may exist. The letter will be sent within approximately 20 days of the
date the results were sent to the ordering health care practitioner
Referrals:
Rigoberto Dueñas MD [Active] - in one to two weeks
Antonio Morris MD [Active] - in two to four weeks
Abdi Paez MD [Family Provider] -
Prescriptions:
New
Eliquis 5 mg Tablet
5 mg PO BID Qty: 60 0RF
Rx Instructions:
Please start taking Eliquis 5 mg twice a day on October 11, 2024 at 8 AM
Eliquis 5 mg Tablet
10 mg PO BID Qty: 13 0RF
Rx Instructions:
Last dose of Eliquis 10 mg twice a day on October 10, 2024 at 8 PM
Continued
simvastatin 40 mg Tablet
40 mg PO DAILY
lorazepam 0.5 mg Tablet
0.5 mg PO DAILYPRN PRN (Reason: anxiety)
pantoprazole 40 mg Tablet,Delayed Release (Dr/Ec)
40 mg PO DAILY
roflumilast 500 mcg Tablet
500 mcg PO DAILY
Breztri Aerosphere 160-9-4.8 mcg/actuation Hfa Aerosol Inhaler
2 inh INHALATION R BID
montelukast [Singulair] 10 mg Tablet
10 mg PO HS
clopidogrel 75 mg Tablet
75 mg PO DAILY Qty: 30 11RF
albuterol sulfate 90 mcg/actuation Hfa Aerosol Inhaler
2 puff INHALATION 6XD PRN (Reason: copd)
sennosides [Senna Laxative] 8.6 mg tablet
8.6 mg PO BIDPRN PRN (Reason: constipation)
bumetanide 1 mg tablet
1 mg PO DAILYPRN PRN (Reason: weight gain of >3 lbs in 1 day or >5 lbs in 5 days)
bumetanide 1 mg tablet
1 mg PO DAILY
Spiriva Respimat 2.5 mcg/actuation mist
2 inh inhalation DAILY
Tums 300 mg (750 mg) Tablet,Chewable
300 mg PO QID PRN (Reason: heartburn)
Discontinued
aspirin 81 mg tablet,chewable
81 mg PO DAILY
Discharge Orders:
Discharge Patient (As Directed); Ordered 10/03/24
Ordered By: Elias Davis
Discharge Date and Time
Print Language: TURKISH
--- NOTE | 2024-10-03 14:15 | W.PN.HOSP.TC ---
Today's Communication/Plan
-
DC home
Assessment / Plan
Assessment / Plan
DVT nonocclusive left lower extremity. Started on heparin drip transition to Eliquis 10 mg twice a day x 7 days followed by 5 mg twice a day indefinitely.
Elevated troponin, nonischemic myocardial infarction, troponins trended down, outpatient cardiology follow-up
CAD with PCI to the left main previously on DAPT
-Discussed with on-call cardiology recommend to discontinue aspirin. Continue Plavix and start Eliquis.
COPD without evidence of acute wheezing. No indication for steroids at this time. Will discharge home with home MDI
Concern for pneumonia no white count no cough and afebrile therefore at this time would discharge home without antibiotics as it is not clinically indicated
PAD s/p bilateral iliac stents. Continue statin and Plavix. Stop aspirin. On Eliquis now
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 Outpatient vascular surgery follow-up. Continue Plavix statin. Start Eliquis
Hyperlipidemia continue statin
Aortic stenosis TAVR eval 10/15/2024
HFrEF EF 40% NYHA class III-IV. GDMT limited to diuretics as blood pressure will not tolerate. Previous admission treated for cardiogenic shock
More than 30 minutes spent in discharge including
Final examination of the patient
Summarizing hospital stay
Instructions for continuing care to all relevant caregivers
Preparation of discharge records, prescriptions, and referral forms
Total time spent (in minutes): 33min
Anticipated Discharge: Today
Subjective/Interval History
-
Date of Service: October 03, 2024
Seen and examined. No new complaints overnight no acute overnight events.
States breathing feels significantly better.
Thanks that he was just having a panic attack. Has no cough no wheezing and has been afebrile. No white count.
Objective Data
-
Labs:
Laboratory Results
10/03/24 10/03/24 10/03/24
03:46 10:57 16:50
WBC 6.2
Hgb 9.5 L
Hct 28.6 L
Plt Count 231
APTT 62.0 H 98.8 H Pending
Sodium 132 L
Potassium 3.9
Chloride 96 L
Carbon Dioxide 26
BUN 21 H
Creatinine 0.8
Glucose 173 H
Calcium 9.4
Vital Signs:
Vital Signs
Temp Pulse Resp BP Pulse Ox
97.8 F 94 16 119/54 100
10/03/24 11:00 10/03/24 11:00 10/03/24 11:00 10/03/24 11:00 10/03/24 11:00
I&O
10/02/24 10/03/24 10/04/24
06:59 06:59 06:59
Intake Total 480 / 480
Output Total 350 / 350
Balance 130 / 130
--- NOTE | 2024-10-03 15:00 | CM ---
Addendum entered by Luzma Solorio 10/03/24 16:03:
Per Attending's request, coupon for Eliquis was given to patient prior to discharge
Original Note:
Initial assessment completed at bedside
Pharmacy verified: [facility] @ [address] [place] [address]
CM Consult Completed: Advance Directive Information packet provided
Lives with spouse in a one floor apartment; 10 steps to enter; railing on stairs; bath has tub w/ shower
PLOF: independent with ambulation, stairs, and ADLs; drives
DME: Oxygen @ night 3 Liters via NC; concentrator and portable tank
Daughter will transport home
NO SNF history
Home Health with [facility]; referral sent via [facility] to resume services
Plan: Discharge to home today with home health
[2024-10-03 15:34] VITALS: BP 114/50
== END 2024-10-03 16:01 | disposition home health service (06) | DRG 190 ==
LOC: 3 WEST ACU 18:01
PROVIDERS: Physician Assistant; Registered Nurse; ADMITTING PHYSICIAN Internal Medicine; ATTENDING PHYSICIAN Hospitalist; EMERGENCY PHYSICIAN Emergency Medicine; FAMILY PHYSICIAN Family Medicine
PROC: 5A09357 Assistance with Respiratory Ventilation, Less than 24 Consecutive Hours, Continuous Positive Airway Pressure (ICD-10-PCS; 2024-10-02)
DX: J43.9 Emphysema, unspecified (principal); J18.9 Pneumonia, unspecified organism; J96.21 Acute and chronic respiratory failure with hypoxia; I50.22 Chronic systolic (congestive) heart failure; J98.11 Atelectasis; I82.412 Acute embolism and thrombosis of left femoral vein; I42.9 Cardiomyopathy, unspecified; I11.0 Hypertensive heart disease with heart failure; I25.10 Atherosclerotic heart disease of native coronary artery without angina pectoris; I73.9 Peripheral vascular disease, unspecified; E78.00 Pure hypercholesterolemia, unspecified; F32.A Depression, unspecified; F41.0 Panic disorder [episodic paroxysmal anxiety]; I44.0 Atrioventricular block, first degree; K21.9 Gastro-esophageal reflux disease without esophagitis; N40.0 Benign prostatic hyperplasia without lower urinary tract symptoms; D63.8 Anemia in other chronic diseases classified elsewhere; I45.10 Unspecified right bundle-branch block; E87.6 Hypokalemia; T50.2X5A Adverse effect of carbonic-anhydrase inhibitors, benzothiadiazides and other diuretics, initial encounter; G47.30 Sleep apnea, unspecified; I35.2 Nonrheumatic aortic (valve) stenosis with insufficiency; I71.43 Infrarenal abdominal aortic aneurysm, without rupture; Z99.81 Dependence on supplemental oxygen; Z87.891 Personal history of nicotine dependence; Z11.52 Encounter for screening for COVID-19; Z79.82 Long term (current) use of aspirin; Z79.51 Long term (current) use of inhaled steroids; Z88.1 Allergy status to other antibiotic agents; Z88.5 Allergy status to narcotic agent; Z79.02 Long term (current) use of antithrombotics/antiplatelets; Z95.5 Presence of coronary angioplasty implant and graft
CPT/HCPCS: 71045; 71275; 74177; 80048; 80053; 82805; 83880; 84145; 84484; 85025; 85027; 85730; 87205; 87502; 87811; 93005; 93970; 94640; 96365; 96367; 96375; 99291; Q9967

== ENCOUNTER 2024-10-13 09:24 | Inpatient (IN) | payer MEDICARE, OTHER, SELFPAY ==
--- NOTE | 2024-10-08 08:17 | HPS.HSE ---
Family Physician
-
Family Physician: Abdi Paez
Chief Complaint
-
COSBY/SOB
Pre-TAVR evaluation
History of Present Illness
Mr. Contreras is a 73 yo male with a very complex PMH. He had several recent hospitalizations for HFmrEF. He was hospitalized ~1 month ago with abdominal and chest pain. He was taken for a cardiac catheterization with findings: Right heart
catheterization with mildly elevated filling pressures, mild pre-capillary pulmonary hypertension, and normal cardiac index on milrinone 0.125 with mildly elevated SVR. Left heart catheterization with simultaneous pressure measurement via dual lumen
catheter demonstrates severe aortic stenosis with mean gradient 37 mmHg and valve area 0.67 cm2. Coronary angiography demonstrates severe angiographic ostial left main disease. LM IVUS demonstrates severe ostial LM disease with non-concentric
calcification and MLA ~6 mm. Successful PCI of the left main with placement of a 4.5x12 mm ARTHUR post-dilated proximally to 5.0 mm
He is on chronic O2 at home and has known COPD/Empysema as well as FARNAZ and is non-compliant with his CPAP. He has a significant 50+ year/ 1 ppd smoking history, quitting about 4 years ago. He has had COSBY and has 2 pillow orthopnea. He denies
peripheral edema. He does have known significant vascular disease and has been followed at [facility]. Mr. Contreras has been evaluated by the heart team and recommended for a right transaxillary TAVR. Patient was recently admitted to with COSBY. During
that admission he was found to have a nonocclusive left femoral vein DVT and started on Eliquis. Last dose of Eliquis will be Saturday (10/12) and will admit to on Friday 10/13 for a heparin bridge and TAVR on 10/15/2024. Informed patient and family
they will get a phone call from admissions for time and location of arrival. Allowed for and answered questions.
Medical History
Past Medical History
Past Medical History: Reports Asthma, CAD (ARTHUR to LM (08/2024)), COPD (emphysema, former smoker (quit 4 years ago), recent pneumonia), GERD, HTN, Hypercholesterolemia, NIDDM, Valvular Disease (aortic stenosis) and Other (recent flu, GERD, FARNAZ,
carotid stenosis, AAA, severe PAD, (L) radial occlusion, stenosis of mesenteric vessels, (L) femoral vein DVT)
Past Surgical History: Reports Other ((R) CEA, (L) femoral endarterectomy, bilateral MICHELLE stent grafts)
Social History
Tobacco: Former Smoker
Alcohol: None
Drug: None
Personal:
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
Family History
Family History: Not pertinent
Allergies / Home Medications
Allergies reflects when Allergies were last updated in [facility].
Levofloxacin
Percocet
Home Medications with original date entered in [facility]
Eliquis 5 mg Tablet
5 mg PO BID Qty: 60 0RF
Rx Instructions:
Please start taking Eliquis 5 mg twice a day on October 11, 2024 at 8 AM
Eliquis 5 mg Tablet
10 mg PO BID Qty: 13 0RF
Rx Instructions:
Last dose of Eliquis 10 mg twice a day on October 10, 2024 at 8 PM
simvastatin 40 mg Tablet
40 mg PO DAILY
lorazepam 0.5 mg Tablet
0.5 mg PO DAILYPRN PRN (Reason: anxiety)
pantoprazole 40 mg Tablet,Delayed Release (Dr/Ec)
40 mg PO DAILY
roflumilast 500 mcg Tablet
500 mcg PO DAILY
Breztri Aerosphere 160-9-4.8 mcg/actuation Hfa Aerosol Inhaler
2 inh INHALATION R BID
montelukast [Singulair] 10 mg Tablet
10 mg PO HS
clopidogrel 75 mg Tablet
75 mg PO DAILY Qty: 30 11RF
albuterol sulfate 90 mcg/actuation Hfa Aerosol Inhaler
2 puff INHALATION 6XD PRN (Reason: copd)
sennosides [Senna Laxative] 8.6 mg tablet
8.6 mg PO BIDPRN PRN (Reason: constipation)
bumetanide 1 mg tablet
1 mg PO DAILYPRN PRN (Reason: weight gain of >3 lbs in 1 day or >5 lbs in 5 days)
bumetanide 1 mg tablet
1 mg PO DAILY
Spiriva Respimat 2.5 mcg/actuation mist
2 inh inhalation DAILY
Tums 300 mg (750 mg) Tablet,Chewable
300 mg PO QID PRN (Reason: heartburn)
Allergy/Medication List:
Levofloxacin, percocet
Review of Systems
-
History Source: Patient
Constitutional: Reports Fatigue
Respiratory: Reports Trouble Breathing
Cardiac: Reports No Symptoms
Abdomen/GI: Reports No Symptoms
: Reports No Symptoms
Skin: Reports No Symptoms
Neurological: Reports No Symptoms
Hematologic/Lymphatic: Reports No Symptoms
Psych: Reports Anxiety
Physical Exam
Physical Exam
General: No Apparent Distress and Comfortable
HEENT: NormoCephalic
Respiratory: Clear
Cardiac: Regular Rhythm and Murmur (II/ JUAN JOSE)
Breast: Deferred by me
Rectal: Deferred by Provider
Genito-urinary: Deferred by me
Skin: Warm and Dry
Neuro: Awake and Alert
Psych: Calm
Laboratory Results
-
10/05/24 12:01
10/05/24 12:01
Laboratory Results
PT Cancelled 10/05/24 12:01
INR Cancelled 10/05/24 12:01
APTT Cancelled 10/05/24 12:01
Total Bilirubin Cancelled 10/05/24 12:01
AST Cancelled 10/05/24 12:01
ALT Cancelled 10/05/24 12:01
Alkaline Phosphatase Cancelled 01/06/25 12:01
Data Reviewed
-
CT Scan: Report Reviewed by me and Discussed with Physician (TAVR CT scan reviewed with the heart team)
Medical Tests (Nuc Med, Echo, EKG etc): Report Reviewed by me and Discussed with Physician (echocardiogram and cardiac catheterization reviewed with the heart team)
Lab Data: Labs Reviewed by me
Old Records: Reviewed (All previous inpatient notes)
Impression/Plan
-
IMPRESSION/PLAN:
Aortic stenosis
Transaxillary TAVR planned for 10/15/2023
Will hold Eliquis, continue plavix. Resume Eliquis post TAVR
Admit for heparin bridge while Eliquis held.
POD#1/#30 echocardiogram
Cardiac rehab consult.
Labs
-
Labs:
WBC 7.4 10^3/uL (4.8-10.8) 10/08/24 12:40
RBC 2.85 10^6/uL (4.70-6.10) L 10/08/24 12:40
Hgb 9.5 g/dL (13.0-18.0) L 10/08/24 12:40
Hct 28.8 % (39.0-52.0) L 10/08/24 12:40
Plt Count 254 10^3/uL (130-400) 10/08/24 12:40
Sodium 135 mmol/L (135-145) 10/08/24 12:40
Potassium 3.9 mmol/L (3.5-5.1) 10/08/24 12:40
Chloride 101 mmol/L (98-107) 10/08/24 12:40
Carbon Dioxide 26 mmol/L (22-30) 10/08/24 12:40
BUN 12 mg/dl (9-20) 10/08/24 12:40
Creatinine 0.8 mg/dL (0.7-1.3) 10/08/24 12:40
eGFR > 60.00 10/08/24 12:40
Glucose 89 mg/dl (70-99) 10/08/24 12:40
Calcium 8.6 mg/dl (8.4-10.2) 10/08/24 12:40
Albumin 3.4 g/dl (3.5-5.0) L 10/08/24 12:40
[2024-10-08 12:23] VITALS: BMI 23.8
[2024-10-08 13:18] LABS: % Basophils 0.7 % (0-2); % Eosinophils 4.2 % (0-6); % Immature Granulocytes 0.4 % (0-0.5); % Lymphocytes 21.8 % (20.5-51.1); % Monocytes 9.2 % (1.7-9.3); % Neutrophils 63.7 % (42.2-75.2); Absolute Basophils 0.1 10^3/uL (0-0.2); Absolute Eosinophils 0.3 10^3/uL (0-0.7); Absolute Lymphocytes 1.6 10^3/uL (1.2-3.4); Absolute Monocytes 0.7 10^3/uL (0.1-0.6); Absolute Neutrophils 4.7 10^3/uL (1.4-6.5); Hematocrit 28.8 % (39.0-52.0); Hemoglobin 9.5 g/dL (13.0-18.0); Mean Corpuscular Hgb 33.3 pg (27.0-31.0); Mean Corpuscular Volume 101.1 fL (80.0-94.0); Mean Platelet Volume 10.7 fL (7.4-10.4); Nucleated Red Blood Cells % 0 % (-); Platelet Count 254 10^3/uL (130-400); Red Blood Cell Count 2.85 10^6/uL (4.70-6.10); Red Cell Dist. Width 15.5 % (11.5-14.5); White Blood Cell Count 7.4 10^3/uL (4.8-10.8)
[2024-10-08 13:29] LABS: Urine Albumin Negative (Neg - Trace); Urine Bilirubin Negative (Negative); Urine Character Clear (Clear); Urine Color Yellow; Urine Glucose Negative (Negative); Urine Ketone Negative (Negative); Urine Leukocyte Negative (Negative); Urine Nitrite Negative (Negative); Urine Occult Blood Negative (Negative); Urine Urobilinogen Negative (Neg - 1+); Urine pH 6.5 (5.0-9.0)
[2024-10-08 13:39] LABS: INR 1.38; PT 17.4 Sec (11.4-14.6)
[2024-10-08 13:40] LABS: APTT 36.5 Sec (23.4-35.0)
[2024-10-08 13:43] LABS: ALT (SGPT) 14 U/L (0-50); AST (SGOT) 17 U/L (17-59); Albumin 3.4 g/dl (3.5-5.0); Alkaline Phosphatase 83 U/L (38-126); Blood Urea Nitrogen 12 mg/dl (9-20); Calcium 8.6 mg/dl (8.4-10.2); Carbon Dioxide 26 mmol/L (22-30); Chloride 101 mmol/L (98-107); Estimated Creatinine Clearance 70 ml/min; Glucose 89 mg/dl (70-99); Potassium 3.9 mmol/L (3.5-5.1); Sodium 135 mmol/L (135-145); Total Bilirubin 0.7 mg/dl (0.2-1.3); eGFR > 60.00
--- NOTE | 2024-10-08 14:48 | CM ---
Met with MrAmmy and Mrs. Contreras and daughter in [facility]. He states prior to admission he resides with his spouse in a second floor walk-up apartment. He states he has tn steps to enter the apartment. He states prior to admission he ambulates with a
rolling walker. He states he has a single point cane, rolling walker, Home 02 and nebulizer. He states [employer] his home 02. He states he is current with [facility]. He states he has a prescription plan with [facility] and uses
[facility]. He states his spouse will be home ti assist in his care if needed. The discharge plan is to return home with his spouse and a home visit by the Transitional Care Nurse when medically stable.
We reviewed pre-op and post-op routines. He is scheduled to come in on Saturday10/13/24 for Heparin bridge. We reviewed restrictions including driving and lifting. We discussed a home visit by the Transitional Care Nurse. He is agreeable to a home
visit. Gave him the Instructions and the TAVR Educational Booklet. The plan is for TAVR on , 10/15/23.
[2024-10-08 15:22] LABS: Glycohemoglobin (HgbA1c) 5.7 % (4.0-5.6)
[2024-10-13 09:47] VITALS: BP 136/53
[2024-10-13 10:46] LABS: INR 1.02; PT 13.7 Sec (11.4-14.6)
[2024-10-13 10:47] LABS: APTT 33.3 Sec (23.4-35.0)
[2024-10-13 10:50] VITALS: BMI 21.4
[2024-10-13 10:59] LABS: Hematocrit 28.5 % (39.0-52.0); Hemoglobin 9.6 g/dL (13.0-18.0); Mean Corp Hgb Conc. 33.7 g/dL (33.0-37.0); Mean Corpuscular Hgb 33.9 pg (27.0-31.0); Mean Corpuscular Volume 100.7 fL (80.0-94.0); Mean Platelet Volume 10.7 fL (7.4-10.4); Platelet Count 335 10^3/uL (130-400); Red Blood Cell Count 2.83 10^6/uL (4.70-6.10); Red Cell Dist. Width 15.2 % (11.5-14.5); White Blood Cell Count 8.3 10^3/uL (4.8-10.8)
[2024-10-13 11:28] VITALS: BMI 21.4
[2024-10-13 11:34] VITALS: BP 127/53
[2024-10-13] MEDS: HEPARIN 25000 UNITS/250 ML IV (11:37)
[2024-10-13] MEDS: PLAVIX 75 MG PO (12:18)
[2024-10-13] MEDS: LOW STRENGTH ASPIRIN 81 MG PO (12:18)
--- NOTE | 2024-10-13 12:20 | PTCARENOTE ---
Received the patient as a direct admission for planned TAVR this . Placed on telemetry, on 2L NC at home. Oriented to the room and plan of care. INT inserted RFA and labs sent. Patient started on IV heparin after labs resulted however now
informed by CT surgery to stop heparin and give the patient a baby asa and plavix. Alessio Del Real PARADICHLOROBENZENE TENDER in to speak with the patient and his family re: change in plan.
[2024-10-13] MEDS: ATIVAN 0.5 MG PO ×2 (13:03→21:04)
--- NOTE | 2024-10-13 13:40 | W.PN.UPDATE ---
Update Note
Progress Note Update
74-year-old male was admitted on 10/13/2024 for intravenous heparin bridge due to reported left femoral occlusive thrombus prior to TAVR scheduled for 10/15/2024. Review of a vascular ultrasound by cardiology and TAVR coordinator reported no
occlusive thrombus and IV heparin was discontinued. Aspirin and Plavix were continued for recent drug-eluting stent to the left main artery (09/11/24).
PMH: COPD (emphysema) on home O2-2L x 1 yr, FARNAZ- non-adherent w/CPAP, GERD, HTN, HLD, T2DM (A1c 5.7), PAD s/p L CEA (), B/L common iliac stents (2022), AAA (3.5cm), recent PNA, L radial artery occlusion. Quit tobacco 4 years ago (50 pk/yr hx)
Please see official H&P for further details
--- NOTE | 2024-10-13 16:17 | PTCARENOTE ---
Patient very anxious, given prn ativan at 1300 but now asking for it again. Appears very worried, family at the bedside offering support and trying to keep the patient calm. Worried he won't be able to sleep tonight. Notified Alessio Del Real RUBBER MOLDER, prn
ativan frequency increased and patient ordered melatonin for sleep.
[2024-10-13 16:59] VITALS: BP 113/57
[2024-10-13 18:48] VITALS: BP 106/44
[2024-10-13] MEDS: SYMBICORT 160/4.5 MCG INHALER 2 PUFF INH (20:33)
[2024-10-13 22:15] VITALS: BP 110/55
[2024-10-13] MEDS: MELATONIN 5 MG PO (22:18)
[2024-10-13] MEDS: SINGULAIR 10 MG PO (22:18)
[2024-10-13] MEDS: TYLENOL 650 MG PO (22:18)
[2024-10-14] VITALS (7 sets, daily range): BP systolic 91–122; BP diastolic 53–99; BMI 21.7
--- NOTE | 2024-10-14 02:25 | PTCARENOTE ---
Assumed care of patient at change of shift, pt AAOx3 and anxious at times. PRN Ativan administered. Tele monitor remains SR. VSS, and sating 97% on 2L of O2. Patient c/o mouth discomfort d/t recent teeth extraction, sutures intact. Tylenol
administered for discomfort--see MAR for further details. POC ongoing, call villaseñor within reach.
--- NOTE | 2024-10-14 04:54 | PTCARENOTE ---
Bilateral BPs obtained this AM per order. Right arm 116/53 and Left arm 91/55. Luann CAMEJO made aware, no new orders obtained at this time. Call villaseñor within reach.
[2024-10-14 04:56] LABS: Hematocrit 25.5 % (39.0-52.0); Hemoglobin 8.3 g/dL (13.0-18.0); Mean Corp Hgb Conc. 32.5 g/dL (33.0-37.0); Mean Corpuscular Hgb 32.7 pg (27.0-31.0); Mean Corpuscular Volume 100.4 fL (80.0-94.0); Mean Platelet Volume 10.2 fL (7.4-10.4); Platelet Count 264 10^3/uL (130-400); Red Blood Cell Count 2.54 10^6/uL (4.70-6.10); Red Cell Dist. Width 14.9 % (11.5-14.5); White Blood Cell Count 6.5 10^3/uL (4.8-10.8)
[2024-10-14 04:57] LABS: Blood Urea Nitrogen 13 mg/dl (9-20); Calcium 9.1 mg/dl (8.4-10.2); Carbon Dioxide 26 mmol/L (22-30); Chloride 103 mmol/L (98-107); Estimated Creatinine Clearance 72 ml/min; Glucose 95 mg/dl (70-99); Potassium 4.4 mmol/L (3.5-5.1); Sodium 137 mmol/L (135-145); eGFR > 60.00
--- NOTE | 2024-10-14 07:54 | PTCARENOTE ---
Received patient this morning resting in bed, still trying to sleep this morning, call charleen in SR nu on the monitor.
[2024-10-14] MEDS: SYMBICORT 160/4.5 MCG INHALER 2 PUFF INH ×2 (08:46→19:31)
[2024-10-14] MEDS: SPIRIVA RESPIMAT 2.5 MCG 2 PUFF INH (08:47)
[2024-10-14] MEDS: PROTONIX 40 MG PO (09:22)
[2024-10-14] MEDS: LIPITOR 20 MG PO (09:22)
[2024-10-14] MEDS: LOW STRENGTH ASPIRIN 81 MG PO (09:22)
[2024-10-14] MEDS: PLAVIX 75 MG PO (09:22)
[2024-10-14] MEDS: ZOLOFT 50 MG PO (09:23)
[2024-10-14] MEDS: BUMEX PO (09:23)
[2024-10-14] MEDS: DALIRESP 500 MCG PO (09:23)
[2024-10-14] MEDS: FLUSH (NSS) 1 FLUSH IV (09:24)
[2024-10-14] MEDS: TYLENOL 650 MG PO ×2 (09:41→22:26)
--- NOTE | 2024-10-14 10:22 | VNURNOTE ---
Chart reviewed. [facility], PT. Will continue to follow hospital course and DC plans.
--- NOTE | 2024-10-14 11:01 | CM ---
Chart reviewed. Patient is independent of ADLS, lives with his in a 2nd floor apartment, [address], ambulates with a RW and SPC, wears O2 at home with [employer]. Plan is for the patient to return home with CT Transitional RN. CM to
follow
--- NOTE | 2024-10-14 11:17 | W.PN.CD ---
Today's Communication / Plan
-
Heparin bridge.
NPO after midnight.
Trans-axillary TAVR tomorrow.
Impression / Plan
-
Impression/Plan: 74 y/o male with complicated past medical history including COPD on chronic nocturnal O2, HTN, HLD, PAD s/p Fem-Pop bypass, AAA, chronic macrocytic anemia, CAD s/p LMCA PCI (4.5 x 12 ARTHUR, 09/11/2024) and severe aortic valve
stenosis leading to HFmEF (LVEF 40%). He was hospitalized in late 2023 for acute on chronic HFmEF decompensation. The patient was hospitalized again in early September with acute shortness in breath attributed to a COPD exacerbation, though a
non-occlusive LFV DVT was diagnosed, prompting initiation of DOAC. He is admitted for heparin bride prior to his Trans-axillary TAVR.
#Severe
-Chronic, progressive.
-Plan for TAVR tomorrow, 10/15/2024.
-NPO after MN.
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
-Chronic.
-LVEF 40% at last echo.
-GDMT as hemodynamics will tolerate.
#CAD
-Chronic.
-S/P PCI to LMCA (4.5 x 12 ARTHUR), 09/11/2024.
-Continue clopidogrel. Apixaban on hold for procedure.
-Continue simvastatin.
#DVT
-Non-occlusive on CT.
-Negative LLE duplex.
-Hold apixaban. Heparin bridge started.
#COPD
-Chronic, stable.
-Severe emphysematous changes on CT chest.
-Continue home bronchodilators.
#PAD
-Chronic, stable.
-S/P fem-pop bypass.
-Continue clopidogrel/statin.
#Anemia
-Chronic since early July.
-MCV consistently elevated.
-Check B12/Folate levels. Start MVI.
Subjective/Interval History:
No acute events.
No subjective complaints.
Patient admitted for heparin bridge for LLE DVT prior to trans-axillary TAVR (tomorrow).
DATA:
CT Abdomen/Pelvis, 10/02/2024:
IMPRESSION:
1. Central low-attenuation intraluminal filling defect in the left femoral vein suggesting acute nonocclusive deep venous thrombosis.
2. 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
3. Fusiform infrarenal abdominal aortic aneurysm (2.9 cm AP dimension).
4. Bilateral iliac artery stents in place.
5. Severe calcific atherosclerotic plaque in the iliac and femoral arteries.
6. Mildly enlarged prostate gland.
7. Moderate amount of fecal material throughout the colon.
8. Severe calcification in the aortic valve.
9. Severe emphysema in the lungs.
10. Severe discogenic degenerative disease in the lumbar spine.
TTE, 09/28/2024:
CONCLUSIONS
Normal LV size with mildly mild to moderately reduced systolic function.
LVEF is approximately 40% by visual estimation.
Inferolateral hypokinesis. Normal right ventricular size and function.
Calcific aortic valve with moderate to severe low-flow low gradient aortic
stenosis. Peak/mean gradients across the aortic valve are 62/35 mmHg.
Moderate aortic regurgitation.
Compared to prior from September 07, 2024, overall LV function is slightly lower
with mild to moderately reduced EF approximately 40%, previously 45-50%, and
mean gradient through the aortic valve is higher at 35 mmHg, previously 23
mmHg. Aortic regurgitation is moderate, previously mild.
Cath/PCI, 09/11/2024:
CONCLUSIONS:
1. Right heart catheterization with mildly elevated filling pressures, mild pre-capillary pulmonary hypertension, and normal cardiac index on milrinone 0.125 with mildly elevated SVR.
2. Left heart catheterization with simultaneous pressure measurement via dual lumen catheter demonstrates severe aortic stenosis with mean gradient 37 mmHg and valve area 0.67 cm2.
3. Coronary angiography demonstrates severe angiographic ostial left main disease
4. LM IVUS demonstrates severe ostial LM disease with non-concentric calcification and MLA ~6 mm
5. Successful PCI of the left main with placement of a 4.5x12 mm ARTHUR post-dilated proximally to 5.0 mm
Orthopantogram, 09/10/2024:
IMPRESSION:
Numerous bilateral dental extractions involving the mandible and maxilla.
No radiographic evidence to suggest acute infection.
Physical Exam
Vital Signs/Labs
Vital Signs
Temp Pulse Resp BP Pulse Ox
36.6 C 73 14 97/86 100
10/14/24 07:28 10/14/24 09:23 10/14/24 08:50 10/14/24 09:23 10/14/24 07:28
10/12/24 10/13/24 10/14/24
11:59 11:59 11:59
Actual Weight 61.8 kg 62.8 kg
10/14/24 04:08
10/14/24 04:08
PT 13.7 Sec (11.4-14.6) 10/13/24 10:04
PT Cancelled 10/13/24 10:04
INR 1.02 10/13/24 10:04
INR Cancelled 10/13/24 10:04
APTT Cancelled 10/13/24 17:45
Physical Exam
Constitutional: No acute distress and Comfortable
EENT: Anicteric and Moist mucous membranes
Cardiovascular: Rhythm & rate is regular, Pedal edema is absent, JVD pressure is normal and Systolic murmur present
Respiratory: Respiratory effort normal and Other (Decreased throughout.)
GI: Soft, Distention absent, Flat, Non tender and Normal bowel sounds
Neuro/Psych: AO x 3
Data Reviewed
-
Date of Service: October 14, 2024
Medical Decision Making: Reviewed Test Results, Independent Historian Assessment and Test Interpretation
EKG: Tracing Personally Visualized and interpreted and Report Reviewed by me
Echo: Report Reviewed by me
X-Ray/CT/US/MRI/NUC/PET: Image Personally Visualized and interpreted and Report Reviewed by me
Medical Tests (PFT, Pathology etc): Image Personally Visualized and interpreted and Report Reviewed by me
Labs: Labs Reviewed by me and Labs Ordered by me
Old Records: Reviewed
[2024-10-14] MEDS: THERAGRAN 1 TABLET PO (15:40)
[2024-10-14] MEDS: ATIVAN 0.5 MG PO (15:40)
[2024-10-14 16:03] LABS: Folate 4.6 ng/ml (2.76-20); Vitamin B12 175 pg/ml (239-931)
--- NOTE | 2024-10-14 16:22 | PTCARENOTE ---
Patient feeling anxious, worried about surgery tomorrow. Given prn ativan as requested, emotional support given. Patient states he was able to sleep well with melatonin HS last night and would like medication tonight before bed.
--- NOTE | 2024-10-14 18:36 | W.PN.UPDATE ---
Update Note
Progress Note Update
Stable, no issues on ASA/Plavix. For TAVR 10/15/24.
[2024-10-14] MEDS: SINGULAIR 10 MG PO (22:26)
[2024-10-14] MEDS: MELATONIN 5 MG PO (22:26)
--- NOTE | 2024-10-14 23:38 | PTCARENOTE ---
Received patient at change of shift. SR on the monitor, HR in the 70s. 98% on 2L. Pt verbalizes understanding of prep for TAVR. Clipped and CHG showered pt. Redressed bilateral arm wounds. Pt complains of 4/10 gum pain from where teeth were removed
previously, PRN Tylenol administered as per NOV. Call villaseñor within reach.
[2024-10-15] VITALS (42 sets, daily range): BP systolic 90–149; BP diastolic 43–96; BMI 21.6
[2024-10-15] MEDS: LOW STRENGTH ASPIRIN 81 MG PO (05:10)
[2024-10-15] MEDS: BACTROBAN 2% OINTMENT 1 APPLIC NASAL (05:37)
--- NOTE | 2024-10-15 06:14 | W.CVOR.SURPR ---
CVOR Surgeon Immed Pre Op
-
I have examined this patient prior to performance of the scheduled procedure.
The patient's condition is unchanged from the time of the dictated/written History and
Physical and the patient is able to undergo the scheduled procedure.
Patient already consented by my partner. MDT discussion with consensus for high risk alternate access TAVR
Plan for RIGHT subclavian/axillary access
[2024-10-15] MEDS: SYMBICORT 160/4.5 MCG INHALER INH (07:13)
[2024-10-15] MEDS: SPIRIVA RESPIMAT 2.5 MCG INH (07:13)
[2024-10-15] MEDS: ANCEF 10 IV (08:00)
[2024-10-15 08:01] LABS: Urine Albumin Negative (Neg - Trace); Urine Bilirubin Negative (Negative); Urine Character Clear (Clear); Urine Color Yellow; Urine Glucose Negative (Negative); Urine Ketone Negative (Negative); Urine Leukocyte Negative (Negative); Urine Nitrite Negative (Negative); Urine Occult Blood Negative (Negative); Urine Urobilinogen Negative (Neg - 1+)
[2024-10-15 08:57] LABS: ACT-LR - POC 261 Seconds (116-155)
[2024-10-15 09:11] LABS: ACT-LR - POC 355 Seconds (116-155)
--- NOTE | 2024-10-15 09:21 | W.IMMPOSTOP ---
Surgical Immed Post Op Note
-
[id number]
STRUCTURAL HEART PROCEDURE NOTE:
Preoperative Dx:
Severe aortic stenosis (P/M: 37/23, MARGARETTE 1.0, Locator 3.25) - mean gradient 37mmHg @ cath
CAD s/p recent LM stent placement
Severe PVD w/ prior L femoral endarterectomy & B/L MICHELLE stent graft placement
AAA
Mesenteric arterial stenosis
Left radial artery occlusion
Carotid stenosis s/p R - CEA
Severe COPD
GERD
HTN/HLD
Asthma
FARNAZ
Recent PNA/flu
Postoperative Dx:
Same
Procedures:
1) Open exposure & control of R axillary artery
2) R CFV access w/ U/S and fluoroscopic guidance, 6Fr sheath placement
3) R SHOPPER MARKETING MANAGER access w/ tactile, U/S, and fluoroscopic guidance, micropuncture technique, 6Fr sheath placement
4) Placement of temporary pacing wire w/ threshold testing
5) Placement of pigtail catheter in RCC w/ limited aortography & confirmation of co-planar valve deployment angles
6) Access of R axillary artery w/ placement of 6Fr sheath
7) Wire purchase across stenotic AV (AL-1, soft-tip straight, extra-stiff)
8) Placement of Dawson E-sheath
9) R TAx TAVR w/ placement of 26mm ELDA 3 valve
10) Completion CHICHI assessment (no AI/PVL, mean gradient 7mmHg)
11) Removal of [id number] & Dawson E-sheath w/ primary repair of R axillary artery
12) Completion aortography
13) Removal of temporary pacing wire
14) Limited angiography of R SHOPPER MARKETING MANAGER - perclose placement x 1 w/ removal of R SHOPPER MARKETING MANAGER sheath, manual pressure
15) Removal of R SHOPPER MARKETING MANAGER sheath,
16) Closure of R axillary incision
Surgeons:
David Valdez M.D. and Waqar Stanley M.D.
Pouncer Machine:
Tariq Daugherty M.D.
Nurses Director:
Vanesa Hernandez P.A.-C.
Implants:
Perclose x 1
Dawson [employer] SAPIEN3 valve; 26mm, SN [id number]
Cath Data:
Start: 0826hrs, Deploy: 0900hrs, End: 927
FT: 8.9min, mGy: 249.01, DAP: 23.0210, Contrast: 70mL
Post-CHICHI: no AI/PVL, mean gradient 7mmHg
Complications:
None
Condition:
Stable/guarded to recovery
--- NOTE | 2024-10-15 10:16 | W.PN.UPDATE ---
Update Note
Progress Note Update
Reviewed patient with the heart team in the preTAVR SDM meeting and confirmed a 26 mm S3 via right TransAxillary access. #26mm S3 (Serial# [id number]) successfully deployed via (R) TransAx access. Post implant MG 7 mmHg.
[2024-10-15] MEDS: TYLENOL 650 MG PO (10:30)
--- NOTE | 2024-10-15 10:43 | PTCARENOTE ---
Rec'd pt this shift awake, but sleepy. Pt NSR on monitor, 2l n/c oxygen. Pulse ox 100%. Pt with Rt Brachial mariano and licona catheter in place. Rt groin dsg intact, no bleeding, no hematoma. EKG done. Neuro check done. See worklist for VS/I and O
and groin checks.
--- NOTE | 2024-10-15 10:58 | CM ---
Reviewed chart. Mr. Contreras is in the operating room today. Prior to admission he resides with his spouse in a second floor walk-up apartment. He has ten steps to enter the apartment. Prior to admission he ambulates with a rolling walker. He has a
rolling walker, single point cane, Home 02, and Nebulizer . He states [employer] services his home 02. He has prescription plan with [facility] and uses [facility]. His spouse will be home to assist in his care if needed. Medical work-up in
progress. The discharge plan is to return home with his spouse and a home visit by the Transitional Care Nurse when medically stable.
--- NOTE | 2024-10-15 11:39 | PTCARENOTE ---
Magdaleno quintana d/c'd by HEIDI Rodriguez. No bleeding, no hematoma noted.
--- NOTE | 2024-10-15 12:34 | ITS.CL.PN ---
[employer] - Procedure Note
Procedure
Procedure Note:
TRANSCATHETER AORTIC VALVE REPLACEMENT REPORT
Date of Procedure: 10/15/24
Referring: Dr. Austin Orellana MD (associate professor of biblical studies)
Indication: severe aortic stenosis
Operators: Tariq Daugherty MD, PhD (interventional cardiology); Dr. David Valdez MD (CT surgery)
Anesthesia: general sedation provided by the anesthesia staff
PROCEDURE:
1. transcatheter aortic valve replacement with a #26 Dawson Danay valve via right axillary surgical cutdown
2. ultrasound guided vascular access, right common femoral artery
3. ultrasound guided vascular access, right femoral vein
ULTRASOUND GUIDED VASCULAR ACCESS (right common femoral artery): Ultrasound was utilized for vascular access. The vessel was visualized under ultrasound and noted to be patent. An image of the vessel was stored permanently in the patient's medical
record. Under direct ultrasound guidance, vascular access was obtained using a modified Seldinger technique and a 6 Malagasy sheath was placed.
ULTRASOUND GUIDED VASCULAR ACCESS (right femoral vein): Ultrasound was utilized for vascular access. The vessel was visualized under ultrasound and noted to be patent. An image of the vessel was stored permanently in the patient's medical record.
Under direct ultrasound guidance, vascular access was obtained using a modified Seldinger technique and a 6 Malagasy sheath was placed.
ACCESS:
1. 6F right femoral vein (closure: manual hemostasis)
2. 6F right common femoral artery (closure: Perclose x1)
3. 14F left common femoral artery (closure: surgical closure)
PROCEDURE NARRATIVE:
The patient was prepped and draped in standard sterile fashion and intubated by anesthesia. Axillary cutdown was performed by Dr. Valdez and Dr. Stanley. 6F right femoral vein and right common femoral artery access was obtained with ultrasound guidance
using micropuncture technique. A temporary venous pacing wire was advanced via the right femoral vein to the right ventricle under fluoroscopic guidance with appropriate capture verified. A 5F pigtail catheter was advanced via the right common
femoral artery and seated in the right coronary cusp. Angiography was performed to verify the co-planar angle.
6F right axillary access was obtained under direct visualization and a 6F sheath placed. Heparin 5000 units was given. An AL1 catheter was re-advanced over a J-wire to the root through the E-sheath to the level of the ascending aorta. A soft tipped
straight wire which was used to cross the aortic valve and deposit the AL1 in the LV apex. An Amplatz Extrastiff wire with curved proximal end was advanced through the AL1 and seated in the LV apex. ACT was checked and confirmed to be >250 seconds.
The valve was brought to the table with orientation and deployment contrast volume verified. The valve was advanced over the Extrastiff wire and into the descending aorta. The balloon was withdrawn, and the valve was mounted on the balloon. The
valve was advanced over the aortic arch and into the aortic valve annulus. The pusher device was withdrawn. Low volume aortography confirmed valve positioning. The valve was deployed during rapid ventricular pacing. The balloon was walked back to
the descending aorta while leaving the wire in place. The patient was resuscitated by anesthesia with recovery of adequate blood pressure. Telemetry demonstrating sinus rhythm with PCVs. Aortography demonstrated good valve positioning, adequate
coronary filling, and no aortic valve insufficiency. Echocardiography confirmed no aortic insufficiency. Mean valve gradient was 5 mmHg. The valve deployment system was removed.
The Dawson E sheath was removed, and hemostasis obtained with surgical closure under direct visualization. Protamine 40 units was given. Aortoiliac angiography demonstrated no evidence of iliofemoral dissection/perforation and good runoff below the
common femoral artery bilaterally. The pacemaker and the pigtail catheter were removed. The right femoral artery sheath was removed using a 6F Perclose. The right femoral venous sheath was removed with manual pressure.
RADIATION: dose to 49 mGy; DAP 23 Gy*cm2; fluoroscopy time 8.9 min
CONCLUSION: successful placement of Dawson DANAY S3 Ultra 26 mm transcatheter aortic valve via left transfemoral approach with no acute complications
Copy to: Dr. Austin Orellana MD (associate professor of biblical studies); Dr. Kameron Green MD (referring associate professor of biblical studies); Dr. Abdi Paez MD (PCP)
Signed: Tariq Daugherty MD, PhD
[2024-10-15] MEDS: LIPITOR 20 MG PO (13:05)
[2024-10-15] MEDS: DALIRESP 500 MCG PO (13:06)
[2024-10-15] MEDS: THERAGRAN 1 TABLET PO (13:06)
[2024-10-15] MEDS: PROTONIX 40 MG PO (13:06)
[2024-10-15] MEDS: BUMEX 1 MG PO (13:06)
[2024-10-15] MEDS: SENOKOT-S 1 TABLET PO (13:06)
[2024-10-15] MEDS: PLAVIX PO (13:06)
[2024-10-15] MEDS: ZOLOFT 50 MG PO (13:45)
--- NOTE | 2024-10-15 14:54 | PTCARENOTE ---
Pt assisted OOB up in chair, tolerated well. Pts family at bedside, updated them on patient status. Pt denies pain, denies sob.
[2024-10-15] MEDS: ANCEF 5 IV ×2 (15:29→23:56)
[2024-10-15] MEDS: ULTRAM 50 MG PO (15:52)
[2024-10-15 19:16] LABS: Hepatitis C Antibody Negative (Negative)
--- NOTE | 2024-10-15 20:30 | PTCARENOTE ---
Patient received resting in bed watching television. Patient A+A+Ox3. No neurological deficits noted. No c/o headache, dizziness or lightheadedness. O2 at 2L via NC. SpO2 97%. No c/o SOB. Sinus Rhythm with BBC. Heart rate 70-80's. Patient
with no c/o chest pain, pressure or discomfort. Normoactive bowel sounds. No BM. No c/o nausea. No vomiting. Manzo catheter - Patent - Yellow, clear urine - Outputs as documented. Positive Doppler Dorsalis pedis and Posterior tibial pulses.
Positive, palpable radial pulses. Dressing intact to left brachial site - No bleeding. Incision to right upper anterior chest region - Surgical adhesive intact - Open to air - Ecchymosis. Right groin dressing intact - No hematoma, bleeding or
oozing noted. Positive circulation, sensation and mobility to right lower extremity. Patient with no c/o back or flank pain. Assessment as documented.
[2024-10-15] MEDS: SYMBICORT 160/4.5 MCG INHALER 2 PUFF INH (20:42)
[2024-10-15] MEDS: SINGULAIR 10 MG PO (21:06)
[2024-10-15] MEDS: ATIVAN 0.5 MG PO (21:06)
[2024-10-15 21:30] LABS: Hematocrit 29.5 % (39.0-52.0); Hemoglobin 9.9 g/dL (13.0-18.0); Mean Corp Hgb Conc. 33.6 g/dL (33.0-37.0); Mean Corpuscular Hgb 32.9 pg (27.0-31.0); Mean Platelet Volume 10.1 fL (7.4-10.4); Platelet Count 247 10^3/uL (130-400); Red Blood Cell Count 3.01 10^6/uL (4.70-6.10); Red Cell Dist. Width 14.9 % (11.5-14.5); White Blood Cell Count 12.9 10^3/uL (4.8-10.8)
[2024-10-16] VITALS (10 sets, daily range): BP systolic 106–127; BP diastolic 45–84; PULSE 91; O2SAT 93–98; BMI 21.4
--- NOTE | 2024-10-16 | PTCARENOTE ---
Patient sleeping intermittently. No c/o pain or discomfort. Hgb 9.9 Hct 29.5. Assessment/Interventions as documented.
[2024-10-16 05:38] LABS: Hematocrit 27.4 % (39.0-52.0); Hemoglobin 9.1 g/dL (13.0-18.0); Mean Corp Hgb Conc. 33.2 g/dL (33.0-37.0); Mean Corpuscular Hgb 32.5 pg (27.0-31.0); Mean Corpuscular Volume 97.9 fL (80.0-94.0); Platelet Count 234 10^3/uL (130-400); Red Cell Dist. Width 14.8 % (11.5-14.5); White Blood Cell Count 11.8 10^3/uL (4.8-10.8)
--- NOTE | 2024-10-16 05:59 | W.PN.CT ---
Today's Communication / Plan
-
-pod #1
-no issues overnight
-nsr 60s, occasional PVCs. No pavan or pauses
-known Inc-RBBB preop. No change
-Echo today
-current meds (ASA, Plavix, Lipitor, Bumex)
-encourage IS, OOB
Assessment / Plan
-
- Severe symptomatic - s/p R TAx TAVR w/ placement of 26mm ELDA 3 valve on 10/15/24, pod #1
- Post-CHICHI: no AI/PVL, mean gradient 7mmHg
- CAD s/p recent LM stent placement
- Severe PVD w/ prior L femoral endarterectomy & B/L MICHELLE stent graft placement
- AAA
- Mesenteric arterial stenosis
- Left radial artery occlusion
- Carotid stenosis s/p R - CEA
- Severe COPD
- GERD
- HTN/HLD
- Asthma
- FARNAZ
- Recent PNA/flu
- Chronic anemia - s/p 1 pRBC prior to TAVR
- Pre-existing RBBB
Discussed patient care with: Nursing and Care Team
Subjective
Procedure
- s/p R TAx TAVR w/ placement of 26mm ELDA 3 valve on 10/15/24
-
Date of Service: October 16, 2024
Objective Data
-
PT 13.7 Sec (11.4-14.6) 10/13/24 10:04
PT Cancelled 10/13/24 10:04
INR 1.02 10/13/24 10:04
INR Cancelled 10/13/24 10:04
APTT Cancelled 10/13/24 17:45
Vital Signs
Vital Signs
Temp Pulse Resp BP Pulse Ox
98.0 F 74 16 118/55 97
10/15/24 22:00 10/15/24 22:00 10/15/24 22:00 10/15/24 22:00 10/15/24 22:00
CT Intake/Output/Weight
10/15/24 10/15/24 10/16/24
06:59 18:59 06:59
Intake Total 480 / 480
Output Total 1550 / 1800 250 / 1800
Balance -1550 / -1320 230 / -1320
SaO2: 97
Physical Exam
-
General: Awake and AOx3
Cardiovascular: Regular rate & rhythm, No Murmurs and No Rub
Respiratory: Clear
Sternum: Stable
Incision: Other (R chest and R groin incisions are cdi, soft, no hematoma)
Extremities: No Edema (1+ DP b/l)
Data Reviewed
-
Lab Results: Results Reviewed
Medications: Active Meds Reviewed
Chest X-Ray: Report Reviewed and Image Reviewed
ECG: Report Reviewed and Image Reviewed
--- NOTE | 2024-10-16 06:01 | PTCARENOTE ---
Patient A+A+Ox3. No neurological deficits noted. AM lab work collected and sent. Portable CXR completed. Manzo catheter removed without difficulty - Due to void at 12pm. OOB to chair. Assessment/Interventions as documented.
[2024-10-16 06:03] LABS: Blood Urea Nitrogen 15 mg/dl (9-20); Calcium 8.4 mg/dl (8.4-10.2); Carbon Dioxide 29 mmol/L (22-30); Chloride 98 mmol/L (98-107); Estimated Creatinine Clearance 82 ml/min; Glucose 117 mg/dl (70-99); Potassium 4.1 mmol/L (3.5-5.1); Sodium 133 mmol/L (135-145); eGFR > 60.00
[2024-10-16] MEDS: ANCEF 5 IV (06:37)
--- NOTE | 2024-10-16 08:00 | PTCARENOTE ---
Assumed care of the patient at 0700. Patient OOB in the chair, neurologically intact, no c/o pain. NSR on tele with a RBBB, no edema, pulses weakly palpable, heart tones audible. On baseline 2LNC, satting 97%, lungs diminished throughout. Abdomen
SNT, round, no n/v, tolerated full breakfast. Patient DTV at 1200. All surgical sites intact, scattered purpura rash, R forearm lac dressing CDI, L back bruise intact, healing. PIVx2. Seeing nursing worklist for intervention details. Call villaseñor
within reach, assessment of needs ongoing.
--- NOTE | 2024-10-16 08:11 | W.PN.ANS.POP ---
Anesthesia Post Operative
- Anesthesia Post Op Note
Vital Signs Stable-See Nursing Note: Yes
Airway Patent: Yes
Adequate Pain Control: Yes
Change in Mental Status: No
Current Postoperative Nausea & Vomiting: No
Anesthesia Complications: No
General Anesthetic Recall: No
Unplanned Admission: No
Post Op Hydration Adequate: Yes
--- NOTE | 2024-10-16 08:11 | W.PN.CD ---
Today's Communication / Plan
-
Restart apixaban.
Stop aspirin.
Continue clopidogrel.
B12 injection.
Continue MVI.
Outpatient anemia follow up (primary care).
Discharge planning.
Impression / Plan
-
Impression/Plan: 74 y/o male with complicated past medical history including COPD on chronic nocturnal O2, HTN, HLD, PAD s/p Fem-Pop bypass, AAA, chronic macrocytic anemia, CAD s/p LMCA PCI (4.5 x 12 ARTHUR, 09/11/2024) and severe aortic valve
stenosis leading to HFmEF (LVEF 40%). He was hospitalized in late 2023 for acute on chronic HFmEF decompensation. The patient was hospitalized again in early September with acute shortness in breath attributed to a COPD exacerbation, though a
non-occlusive LFV DVT was diagnosed, prompting initiation of DOAC. He is admitted for heparin bride prior to his Trans-axillary TAVR.
#Severe
-Chronic, progressive.
-S/P #26 Dawson ELDA TAVR via right axillary approach, 10/15/2024.
-Telemetry stable.
-Surgical access site is C/D/I.
-Antithrombotic therapy with apixaban and clopidogrel.
-Echocardiogram pending.
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
-Chronic.
-LVEF 40% at last echo.
-GDMT as hemodynamics will tolerate.
#CAD
-Chronic.
-S/P PCI to LMCA (4.5 x 12 ARTHUR), 09/11/2024.
-Continue clopidogrel. Apixaban on hold for procedure.
-Continue simvastatin.
#DVT
-Non-occlusive on CT.
-Negative LLE duplex.
-Restart apixaban 5 mg BID.
#COPD
-Chronic, stable.
-Severe emphysematous changes on CT chest.
-Continue home bronchodilators.
#PAD
-Chronic, stable.
-S/P fem-pop bypass.
-Continue clopidogrel/statin.
#Anemia
-Chronic, macrocytic since early July.
-Normal folate. Low B12.
-B12 injection.
-Continue MVI as an outpatient.
-This will need outpatient primary care follow up.
Subjective/Interval History:
TAVR yesterday.
Feels well.
DATA:
CT Abdomen/Pelvis, 10/02/2024:
IMPRESSION:
1. Central low-attenuation intraluminal filling defect in the left femoral vein suggesting acute nonocclusive deep venous thrombosis.
2. 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
3. Fusiform infrarenal abdominal aortic aneurysm (2.9 cm AP dimension).
4. Bilateral iliac artery stents in place.
5. Severe calcific atherosclerotic plaque in the iliac and femoral arteries.
6. Mildly enlarged prostate gland.
7. Moderate amount of fecal material throughout the colon.
8. Severe calcification in the aortic valve.
9. Severe emphysema in the lungs.
10. Severe discogenic degenerative disease in the lumbar spine.
TTE, 09/28/2024:
CONCLUSIONS
Normal LV size with mildly mild to moderately reduced systolic function.
LVEF is approximately 40% by visual estimation.
Inferolateral hypokinesis. Normal right ventricular size and function.
Calcific aortic valve with moderate to severe low-flow low gradient aortic
stenosis. Peak/mean gradients across the aortic valve are 62/35 mmHg.
Moderate aortic regurgitation.
Compared to prior from September 07, 2024, overall LV function is slightly lower
with mild to moderately reduced EF approximately 40%, previously 45-50%, and
mean gradient through the aortic valve is higher at 35 mmHg, previously 23
mmHg. Aortic regurgitation is moderate, previously mild.
Cath/PCI, 09/11/2024:
CONCLUSIONS:
1. Right heart catheterization with mildly elevated filling pressures, mild pre-capillary pulmonary hypertension, and normal cardiac index on milrinone 0.125 with mildly elevated SVR.
2. Left heart catheterization with simultaneous pressure measurement via dual lumen catheter demonstrates severe aortic stenosis with mean gradient 37 mmHg and valve area 0.67 cm2.
3. Coronary angiography demonstrates severe angiographic ostial left main disease
4. LM IVUS demonstrates severe ostial LM disease with non-concentric calcification and MLA ~6 mm
5. Successful PCI of the left main with placement of a 4.5x12 mm ARTHUR post-dilated proximally to 5.0 mm
Orthopantogram, 09/10/2024:
IMPRESSION:
Numerous bilateral dental extractions involving the mandible and maxilla.
No radiographic evidence to suggest acute infection.
Physical Exam
Vital Signs/Labs
Vital Signs
Temp Pulse Resp BP Pulse Ox
36.5 C 80 18 113/48 97
10/16/24 08:00 10/16/24 08:00 10/16/24 08:00 10/16/24 07:57 10/16/24 08:00
10/14/24 10/15/24 10/16/24
11:59 11:59 11:59
Actual Weight 62.8 kg 62.5 kg 61.9 kg
10/16/24 05:17
10/16/24 05:17
PT 13.7 Sec (11.4-14.6) 10/13/24 10:04
PT Cancelled 10/13/24 10:04
INR 1.02 10/13/24 10:04
INR Cancelled 10/13/24 10:04
APTT Cancelled 10/13/24 17:45
Physical Exam
Constitutional: No acute distress and Comfortable
EENT: Anicteric and Moist mucous membranes
Cardiovascular: Rhythm & rate is regular, Pedal edema is absent, JVD pressure is normal, S1S2 is normal and Murmur/rub/gallop absent
Respiratory: Respiratory effort normal and Other (Decreased throughout.)
GI: Soft, Distention absent, Flat, Non tender and Normal bowel sounds
Neuro/Psych: AO x 3
Other: Other (Right axillary surgical site is C/D/I.)
Data Reviewed
-
Date of Service: October 16, 2024
Medical Decision Making: Reviewed Test Results, Independent Historian Assessment and Test Interpretation
EKG: Tracing Personally Visualized and interpreted and Report Reviewed by me
Echo: Report Reviewed by me
X-Ray/CT/US/MRI/NUC/PET: Image Personally Visualized and interpreted and Report Reviewed by me
Medical Tests (PFT, Pathology etc): Image Personally Visualized and interpreted and Report Reviewed by me
Labs: Labs Reviewed by me
Old Records: Reviewed
[2024-10-16] MEDS: SYMBICORT 160/4.5 MCG INHALER 2 PUFF INH (08:16)
[2024-10-16] MEDS: SPIRIVA RESPIMAT 2.5 MCG 2 PUFF INH (08:16)
[2024-10-16] MEDS: THERAGRAN 1 TABLET PO (08:17)
[2024-10-16] MEDS: BUMEX 1 MG PO (08:17)
[2024-10-16] MEDS: DALIRESP 500 MCG PO (08:17)
[2024-10-16] MEDS: PLAVIX 75 MG PO (08:17)
[2024-10-16] MEDS: LIPITOR 20 MG PO (08:17)
[2024-10-16] MEDS: LOW STRENGTH ASPIRIN 81 MG PO (08:17)
[2024-10-16] MEDS: ZOLOFT 50 MG PO (08:17)
[2024-10-16] MEDS: PROTONIX 40 MG PO (08:17)
--- NOTE | 2024-10-16 08:39 | W.DCSUMMARY ---
Discharge Summary
Discharge Data
Date of Admission: 10/13/24
Date of Discharge: 10/16/24
-
Pending Results: No
Hospital Course
Primary care physician: Abdi Paez
Outpatient film editor: Dr Arambula ([facility])
Inpatient consultants: [facility] Card[facility]
Procedures:
1. Right transaxillary TAVR
Primary Diagnosis:
1. Severe nonrheumatic aortic stenosis
Secondary Diagnoses:
1. CAD s/p recent LM stent placement
2. Severe PVD w/ prior L femoral endarterectomy
graft placement
3. AAA
4. Mesenteric arterial stenosis
5. Left radial artery occlusion
6. Carotid stenosis s/p R - CEA
7. Severe COPD
8. GERD
9. HTN
10. HLD
11. Asthma
12. FARNAZ
13. Recent PNA/flu
14. chronic macrocytic anemia
HPI: 74-year-old male was admitted on 10/13/2024 for intravenous heparin (transition from Eliquis) due to femoral thrombosis.
Hospital course: On further review of imaging by cardiology, no thrombus was identified. IV heparin was discontinued and patient transition to aspirin Plavix. On 10/15, the patient underwent Right transaxillary TAVR #26mm ELDA [address]
David Valdez and Ernesto Beltran. Postprocedure echocardiogram reported an EF of 40-45% with trace MR, mild TR, and no paravalvular leak. Patient was recovered in CVICU due to transaxillary approach. The arterial line was removed and patient
remained stable. Postoperative day #1, the chest x-ray was stable without pleural effusions. Patient underwent a postprocedure TTE and Dr. Garner reported EF normal. Patient deemed stable for discharge to home.
Home medication changes:
Stop Eliquis>transitioned to Aspirin/Plavix
Discharge Plan
-
Patient Disposition: Home (Routine Discharge)
Discharge Diagnosis/Procedures: TransAxillary TAVR
Condition: Good
Diet: Low Cholesterol and 2 Gram Sodium
Activity: As tolerated
Driving Restrictions: No driving for 1 week
Bathing Restrictions: OK to Shower
Others Tests: Your 30-day follow up echocardiogram is scheduled for: 11/16/2024 @ 11:20 at [facility] [place]
Other Services: Cardiac Rehab
Wound Care: No lotions, powders, or creams to incision
Specialty Instructions: Weigh Daily- Call MD for wt gain/loss 3 lbs overnight/5 lbs in 1 week
Referrals:
CT Transitional Care Nurse [Outside] - in one to two days
(
The Cardiothoracic Transitional Care Nurse will call you to set up a visit in 1-2 days.)
[facility]. Cardiac Rehab [Outside]
(Cardiac Rehab Orientation appointment is on 11/12/2024@ 1PM.
The Cardiac Rehab gym is located on the first floor of the [facility]ovascular [facility].)
Abdi Paez MD [Family Provider] - in four to six weeks (Please make an appontment in four to six weeks. )
David Valdez MD [Active] - 10/27/24 2:00 pm
Marcelina Arambula CRNP [Non-Admitting Privileges] -
(Appoinment is at [address] [facility]
[place] [address])
Prescriptions:
New
acetaminophen 325 mg Tablet
650 mg PO Q4HPRN PRN (Reason: MCGEE, mild pain, or fever >101F) Qty: 0 0RF
aspirin 81 mg Tablet,Chewable
81 mg PO DAILY Qty: 0 0RF
Continued
simvastatin 40 mg Tablet
40 mg PO DAILY
lorazepam 0.5 mg Tablet
0.5 mg PO DAILYPRN PRN (Reason: anxiety)
pantoprazole 40 mg Tablet,Delayed Release (Dr/Ec)
40 mg PO DAILY
roflumilast 500 mcg Tablet
500 mcg PO DAILY
Breztri Aerosphere 160-9-4.8 mcg/actuation Hfa Aerosol Inhaler
2 inh INHALATION R BID
montelukast [Singulair] 10 mg Tablet
10 mg PO HS
clopidogrel 75 mg Tablet
75 mg PO DAILY Qty: 30 11RF
albuterol sulfate 90 mcg/actuation Hfa Aerosol Inhaler
2 puff INHALATION 6XD PRN (Reason: copd)
sertraline 50 mg Tablet
50 mg PO DAILY
sennosides [Senna Laxative] 8.6 mg tablet
8.6 mg PO BIDPRN PRN (Reason: constipation)
Tums 300 mg (750 mg) Tablet,Chewable
300 mg PO QID PRN (Reason: heartburn)
Discontinued
Eliquis 5 mg tablet
5 mg PO BID
Rx Instructions:
Please start taking Eliquis 5 mg twice a day on October 11, 2024 at 8 AM
Discharge Orders:
Discharge Patient (As Directed); Ordered 10/16/24
Ordered By: Nory Del Real
Care Plan Goals
Care Plan Goals:
Problem: Readiness for enhanced knowledge related to diagnosis and treatment plan
Goal: Understand your diagnosis and treatment plan needs, including medications if applicable.
Instructions: Know your diagnosis, underlying causes and treatment plan options, including medications if applicable. Consult with your health care team to learn about your diagnosis and treatment plan, including medications if applicable.
Discharge Date and Time
Print Language: CROATIAN
[2024-10-16] MEDS: CYANOCOBALAMIN 1000 MCG IM (08:42)
--- NOTE | 2024-10-16 09:49 | PTCARENOTE ---
Patient received from CVICU in his bed. Right upper axiliary incision CDI with Dermabond. Right femoral dressing. Skin tear right forearm. Scattered bruised skin. Place on telemetry, SR BBB, occasional PVC's, +1 pedal pulses. Oxygen at 2 liters NC,
decreased breath sounds, occasional moist cough. Manzo removed at 0600, due to void. Oriented to new room and call villaseñor
--- NOTE | 2024-10-16 12:09 | CM ---
Chart reviewed. Patient is independent of ADLS, lives with his in a 2nd floor apartment, [address], ambulates with a RW and SPC, uses [employer] for Home O2. Plan is for the patient to return home with CT Transitional RN. CM to
follow
--- NOTE | 2024-10-16 15:02 | PTCARENOTE ---
Patient discharged to home. Teaching completed with patient and family, they verbalized understanding. IV and telemetry removed, patient escorted to main lobby in a wheelchair
[2024-10-19 11:28] LABS: Vitamin B1, Whole Blood 164 nmol/L (70-180)
== END 2024-10-16 15:06 | disposition home or self-care (01) | DRG 267 ==
LOC: IVU 09:24
PROVIDERS: Anesthesiology; Clinical Nurse Specialist Acute Care; Nurse Practitioner; Physician Assistant Medical; ADMITTING PHYSICIAN Student in an Organized Health Care Education/Training Program; ATTENDING PHYSICIAN Thoracic Surgery (Cardiothoracic Vascular Surgery); FAMILY PHYSICIAN Family Medicine
PROC: 02RF38Z Replacement of Aortic Valve with Zooplastic Tissue, Percutaneous Approach (ICD-10-PCS; 2024-10-15)
PROC: B24BZZ4 Ultrasonography of Heart with Aorta, Transesophageal (ICD-10-PCS; 2024-10-15)
PROC: 30233N1 Transfusion of Nonautologous Red Blood Cells into Peripheral Vein, Percutaneous Approach (ICD-10-PCS; 2024-10-15)
DX: I35.0 Nonrheumatic aortic (valve) stenosis (principal); Z00.6 Encounter for examination for normal comparison and control in clinical research program; I42.9 Cardiomyopathy, unspecified; I50.22 Chronic systolic (congestive) heart failure; I27.20 Pulmonary hypertension, unspecified; I25.10 Atherosclerotic heart disease of native coronary artery without angina pectoris; J43.9 Emphysema, unspecified; G47.33 Obstructive sleep apnea (adult) (pediatric); I11.0 Hypertensive heart disease with heart failure; I70.208 Unspecified atherosclerosis of native arteries of extremities, other extremity; K21.9 Gastro-esophageal reflux disease without esophagitis; E78.00 Pure hypercholesterolemia, unspecified; E11.51 Type 2 diabetes mellitus with diabetic peripheral angiopathy without gangrene; I71.40 Abdominal aortic aneurysm, without rupture, unspecified; I65.21 Occlusion and stenosis of right carotid artery; D53.9 Nutritional anemia, unspecified; I45.10 Unspecified right bundle-branch block; Z79.01 Long term (current) use of anticoagulants; Z79.02 Long term (current) use of antithrombotics/antiplatelets; Z79.899 Other long term (current) drug therapy; Z86.718 Personal history of other venous thrombosis and embolism; Z87.891 Personal history of nicotine dependence; Z91.198 Patient's noncompliance with other medical treatment and regimen for other reason; Z95.5 Presence of coronary angioplasty implant and graft; Z99.81 Dependence on supplemental oxygen
CPT/HCPCS: 33363; 36415; 71045; 71046; 76937; 80048; 80053; 81003; 82248; 82607; 82746; 83036; 84425; 85025; 85027; 85347; 85610; 85730; 86803; 86850; 86900; 86901; 86920; 87070; 93005; 93306; 93312; 93320; 93325; 94640; C1760; C1769; C1894; P9016; Q9967

== ENCOUNTER 2024-11-09 10:24 | Day surgery (SDC) | payer MEDICARE, OTHER, SELFPAY ==
--- NOTE | 2024-11-06 12:39 | PTCARENOTE ---
Abnormal ECG 10/16/[address] Quesada, no further intervention.
[2024-11-09] VITALS (12 sets, daily range): BP systolic 101–132; BP diastolic 48–70; BMI 21.6
[2024-11-09 11:00] LABS: Hematocrit 34.4 % (39.0-52.0); Hemoglobin 11.3 g/dL (13.0-18.0); Mean Corp Hgb Conc. 32.8 g/dL (33.0-37.0); Mean Corpuscular Hgb 32.8 pg (27.0-31.0); Mean Corpuscular Volume 99.7 fL (80.0-94.0); Mean Platelet Volume 9.5 fL (7.4-10.4); Platelet Count 283 10^3/uL (130-400); Red Blood Cell Count 3.45 10^6/uL (4.70-6.10); Red Cell Dist. Width 14.6 % (11.5-14.5); White Blood Cell Count 10.5 10^3/uL (4.8-10.8)
[2024-11-09 11:11] LABS: APTT 29.3 Sec (23.4-35.0); INR 0.96
[2024-11-09 11:14] LABS: Blood Urea Nitrogen 12 mg/dl (9-20); Calcium 10.1 mg/dl (8.4-10.2); Carbon Dioxide 27 mmol/L (22-30); Chloride 102 mmol/L (98-107); Estimated Creatinine Clearance 72 ml/min; Glucose 95 mg/dl (70-99); Potassium 4.3 mmol/L (3.5-5.1); Sodium 138 mmol/L (135-145); eGFR > 60.00
--- NOTE | 2024-11-09 14:28 | W.SUR.PREOP ---
Pre-Operative Surgical Note
-
I have examined this patient prior to the performance of the scheduled procedure.
The patient's condition is unchanged from the time of the current History and
Physical and the patient is able to undergo the scheduled procedure.
--- NOTE | 2024-11-09 16:32 | OR.RPT ---
Operative Report
Operative Report
Date of Operation: 11/09/2024
Pre Op Diagnosis:
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
Oxygen dependent COPD
Coronary artery disease
Hypertension
Hypercholesterolemia
Post Op Diagnosis:
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
Oxygen dependent COPD
Coronary artery disease
Hypertension
Hypercholesterolemia
Procedure:
Balloon angioplasty and stenting of superior mesenteric artery stenosis (7 mm x 22 mm iCast)
Left brachial artery cutdown/exposure for endovascular intervention (primary repair)
Aortogram
Selective catheterization and arteriogram of superior mesenteric artery
Surgeon: Josh Manzo III, MD
Inner Tube Cutter: Tommie Nichols MD PGY1
Anesthesia: General
Complications: None
Estimated Blood Loss: 20 cc
History and Indications for Procedure: 74-year-old male with multiple advanced medical comorbidities. He is recently status post transcatheter aortic valve surgery. He has significant post prandial abdominal pain with stenosis of the proximal
superior mesenteric artery. He was brought to the OR for endovascular intervention.
Procedure in Detail: Phillip Contreras was correctly identified and placed supine on the operating table with his left arm abducted 90 degrees. After adequate induction of anesthesia the left arm was prepped and draped in usual sterile fashion. He
received preoperative antibiotics. A timeout procedure was performed with nursing and anesthesia staff confirming the patient's identity as well as the nature and laterality of the procedure.
An incision was made over the left brachial artery pulse just proximal to the elbow. Sharp dissection and electrocautery were used to expose the left brachial artery. Proximal and distal control was obtained with vessel loops. Under direct
visualization the brachial artery was punctured with a micropuncture needle and a 5 [place] sheath was placed over a [place] wire. The patient was systemically heparinized. Using a Glidewire and an angled Rudy catheter we navigated retrograde
through the brachial artery, axillary artery, subclavian artery and into the aortic arch. We directed the wire and catheter distally down the descending thoracic aorta and into the visceral segment of the abdominal aorta. I exchanged out for a
pigtail catheter and this was placed in the visceral aorta. An aortogram was performed which confirmed a high-grade stenosis of the proximal superior mesenteric artery.
I exchanged out for a Lopez wire. A 7 Tanzanian 90 cm sheath was placed through the brachial artery and brought down into position in the visceral aorta. Under roadmap guidance we selected the superior mesenteric artery using a Glidewire and the Rudy
catheter. The catheter was advanced into the superior mesenteric artery across the stenosis and an arteriogram confirmed proper placement. The Lopez wire was placed. Under roadmap guidance and magnification view a 7 mm x 22 mm iCast stent was
positioned across the proximal superior mesenteric artery stenosis. This was deployed by inflating the balloon to nominal pressure. The balloon was then deflated and removed over the wire. A completion arteriogram demonstrated an excellent
technical result. The superior mesenteric artery stent was widely patent. There was brisk flow through the superior mesenteric artery. No residual stenosis was identified.
Satisfied with this result we concluded the procedure. The wire was removed from the superior mesenteric artery. The sheath was pulled back and out of the brachial artery. The wire was removed. The vessel loops were secured. The brachial artery
was repaired primarily with 2 interrupted 7-0 Prolene sutures. The vessel loops were released. There was an easily palpable pulse proximal and distal to the repair. Protamine was administered. Hemostasis was achieved at the suture line and in
the wound bed. The wound was then closed in layers and sterile skin glue was applied.
The patient tolerated the procedure well was taken to the recovery room in good condition.
Attestation: I was present and responsible for the entire procedure.
Signed:
Josh Manzo III, MD
[facility] Vascular Surgery
[phone] ([phone])
--- NOTE | 2024-11-09 18:00 | PTCARENOTE ---
Pt arrived to recovery room with sandro wrap on left antecubital area. Left arm dusky. Sandro wrap removed with Aminata, PACU staff, to evaluate pt's left antecubial site. Left antecubital site with old drainage on dressing but no oozing noted. Left
antecubital site with small hematoma noted while left arm is straight. Dr Manzo made aware to evaluate pt's left anteubital site. Dr Manzo is currently at pt bedside assessing site and speaking to pt and pt's family. Dr Manzo had pt bend his left
arm and he reevaluated pt's site. Dr Manzo states site is soft. Dr Manzo states to leave sandro wrap on pt until 6:30pm and if no change, pt ok for discharge. Will follow orders and continue to monitor.
--- NOTE | 2024-11-09 18:05 | PTCARENOTE ---
Pt's left arm became pink after removing louis wrap and replacing it again by Dr Manzo.
[2024-11-09] MEDS: ULTRAM 25 MG PO (18:27)
--- NOTE | 2024-11-09 18:36 | PTCARENOTE ---
Left arm antecubital site louis wrap and ABD removed. Left antecubital site with glue clean, dry, and intact. No bleeding, oozing or hematoma noted. Pt's family at pt bedside. Pt ok for discharge.
== END 2024-11-09 18:45 | disposition home or self-care (01) ==
LOC: CATH 10:24
PROVIDERS: ATTENDING PHYSICIAN Surgery Vascular Surgery; OTHER PHYSICIAN Internal Medicine Cardiovascular Disease; PRIMARYCARE PHYSICIAN Family Medicine
DX: J44.9 Chronic obstructive pulmonary disease, unspecified (principal); Z99.81 Dependence on supplemental oxygen; K55.1 Chronic vascular disorders of intestine; I25.10 Atherosclerotic heart disease of native coronary artery without angina pectoris; I10 Essential (primary) hypertension; E78.00 Pure hypercholesterolemia, unspecified; Z79.82 Long term (current) use of aspirin; Z79.899 Other long term (current) drug therapy; Z79.02 Long term (current) use of antithrombotics/antiplatelets; E78.5 Hyperlipidemia, unspecified
CPT/HCPCS: 37236; 36245; 80048; 85027; 85610; 85730; C1769; C1874; C1894; Q9967

== ENCOUNTER → 2024-11-16 11:20 | Outpatient (REF) | payer MEDICARE, OTHER, SELFPAY | LOC: RCS 11:20 | PROVIDERS: ATTENDING PHYSICIAN Internal Medicine; FAMILY PHYSICIAN Family Medicine | DX: Z95.2 Presence of prosthetic heart valve (principal); I25.10 Atherosclerotic heart disease of native coronary artery without angina pectoris; I35.0 Nonrheumatic aortic (valve) stenosis; R57.0 Cardiogenic shock; I95.9 Hypotension, unspecified; I73.9 Peripheral vascular disease, unspecified; J44.1 Chronic obstructive pulmonary disease with (acute) exacerbation; I42.8 Other cardiomyopathies; I50.23 Acute on chronic systolic (congestive) heart failure; I21.4 Non-ST elevation (NSTEMI) myocardial infarction | CPT/HCPCS: 93306 ==

== ENCOUNTER 2024-12-24 10:34 | Outpatient (RCR) | payer MEDICARE, OTHER, SELFPAY | END 2024-12-24 23:59 | disposition home or self-care (01) | LOC: CRHB 10:34 | PROVIDERS: ATTENDING PHYSICIAN Student in an Organized Health Care Education/Training Program; FAMILY PHYSICIAN Family Medicine | DX: Z95.4 Presence of other heart-valve replacement (principal) | CPT/HCPCS: G0422; G0423 ==

== ENCOUNTER → 2024-12-30 07:32 | Outpatient (REF) | payer MEDICARE, OTHER, SELFPAY | LOC: RAD 07:32 | PROVIDERS: ATTENDING PHYSICIAN Registered Nurse; FAMILY PHYSICIAN Family Medicine | DX: K55.1 Chronic vascular disorders of intestine (principal); I65.23 Occlusion and stenosis of bilateral carotid arteries; I70.203 Unspecified atherosclerosis of native arteries of extremities, bilateral legs; I77.9 Disorder of arteries and arterioles, unspecified | CPT/HCPCS: 93880; 93922; 93925; 93975 ==

== ENCOUNTER → 2025-01-15 15:02 | Outpatient (REF) | payer MEDICARE, OTHER, SELFPAY | LOC: RAD 15:02 | PROVIDERS: ATTENDING PHYSICIAN Surgery Vascular Surgery; FAMILY PHYSICIAN Family Medicine | DX: I70.203 Unspecified atherosclerosis of native arteries of extremities, bilateral legs (principal) | CPT/HCPCS: 75635; Q9967 ==

== ENCOUNTER 2025-01-26 13:21 | Outpatient (RCR) | payer MEDICARE, OTHER, SELFPAY | END 2025-01-26 23:59 | disposition home or self-care (01) | LOC: CRHB 13:21 | PROVIDERS: ATTENDING PHYSICIAN Student in an Organized Health Care Education/Training Program; FAMILY PHYSICIAN Family Medicine | DX: I25.10 Atherosclerotic heart disease of native coronary artery without angina pectoris (principal); Z95.4 Presence of other heart-valve replacement (principal) | CPT/HCPCS: 93797; 93798; G0422; G0423 ==

== ENCOUNTER 2025-02-11 08:30 | Outpatient (RCR) | payer MEDICARE, OTHER, SELFPAY | END 2025-02-11 23:59 | disposition home or self-care (01) | LOC: CRHB 08:30 | PROVIDERS: ATTENDING PHYSICIAN Student in an Organized Health Care Education/Training Program; FAMILY PHYSICIAN Family Medicine | DX: I25.10 Atherosclerotic heart disease of native coronary artery without angina pectoris (principal); Z95.4 Presence of other heart-valve replacement | CPT/HCPCS: G0422; G0423 ==

== ENCOUNTER 2025-02-16 11:16 | Inpatient (IN) | payer MEDICARE, OTHER, SELFPAY ==
[2025-02-16] VITALS (25 sets, daily range): BP systolic 78–108; BP diastolic 38–76; BMI 23.9
[2025-02-16 11:56] LABS: Hematocrit 35.9 % (39.0-52.0); Hemoglobin 11.4 g/dL (13.0-18.0); Mean Corp Hgb Conc. 31.8 g/dL (33.0-37.0); Mean Corpuscular Hgb 31.3 pg (27.0-31.0); Mean Corpuscular Volume 98.6 fL (80.0-94.0); Mean Platelet Volume 9.7 fL (7.4-10.4); Platelet Count 227 10^3/uL (130-400); Red Blood Cell Count 3.64 10^6/uL (4.70-6.10); Red Cell Dist. Width 15.2 % (11.5-14.5); White Blood Cell Count 9.8 10^3/uL (4.8-10.8)
[2025-02-16 12:06] LABS: Blood Urea Nitrogen 17 mg/dl (9-20); Calcium 9.8 mg/dl (8.4-10.2); Carbon Dioxide 30 mmol/L (22-30); Chloride 107 mmol/L (98-107); Glucose 107 mg/dl (70-99); Sodium 142 mmol/L (135-145); eGFR > 60.00
[2025-02-16 12:08] LABS: INR 0.92; PT 12.9 Sec (11.4-14.6)
[2025-02-16 12:09] LABS: APTT 27.2 Sec (23.4-35.0)
[2025-02-16] MEDS: PERIDEX 0.12% ORAL RINSE 15 ML PO (12:09)
[2025-02-16] MEDS: BACTROBAN NASAL 1 GRAM NASAL (12:09)
[2025-02-16] MEDS: NSS 500 IV (12:10)
[2025-02-16] MEDS: NSS 1000 IV (18:52)
--- NOTE | 2025-02-16 19:28 | PTCARENOTE ---
Pt received from PACU, AAOx3, VSS, 2Lo2, cath site CDI, pulses in LUE palpable, B/L DP/PT pulses by doppler. NVSC checks WNL. Pt aware of need for bedrest until 2244. Pt resting comfortably in bed at this time, call villaseñor within reach.
[2025-02-16] MEDS: SYMBICORT 160/4.5 MCG INHALER 2 PUFF INH (19:33)
[2025-02-16] MEDS: SINGULAIR 10 MG PO (21:58)
[2025-02-16] MEDS: HEPARIN SC (21:58)
[2025-02-16] MEDS: ProAmatine 2.5 MG PO (23:32)
[2025-02-17 03:23] VITALS: BP 105/56
[2025-02-17 05:41] VITALS: BMI 23.7
[2025-02-17 06:42] LABS: Hematocrit 27.1 % (39.0-52.0); Hemoglobin 8.8 g/dL (13.0-18.0); Mean Corp Hgb Conc. 32.5 g/dL (33.0-37.0); Mean Corpuscular Hgb 31.1 pg (27.0-31.0); Mean Corpuscular Volume 95.8 fL (80.0-94.0); Mean Platelet Volume 10.1 fL (7.4-10.4); Platelet Count 164 10^3/uL (130-400); Red Blood Cell Count 2.83 10^6/uL (4.70-6.10); Red Cell Dist. Width 15.2 % (11.5-14.5); White Blood Cell Count 7.7 10^3/uL (4.8-10.8)
[2025-02-17 06:53] LABS: Blood Urea Nitrogen 18 mg/dl (9-20); Calcium 8.6 mg/dl (8.4-10.2); Carbon Dioxide 24 mmol/L (22-30); Chloride 111 mmol/L (98-107); Estimated Creatinine Clearance 70 ml/min; Glucose 82 mg/dl (70-99); Potassium 4.4 mmol/L (3.5-5.1); Sodium 138 mmol/L (135-145); eGFR > 60.00
[2025-02-17 07:10] VITALS: BP 109/49
[2025-02-17] MEDS: SPIRIVA RESPIMAT 2.5 MCG 2 PUFF INH (07:24)
[2025-02-17] MEDS: SYMBICORT 160/4.5 MCG INHALER 2 PUFF INH (07:24)
[2025-02-17] MEDS: FEOSOL 325 MG PO (07:59)
[2025-02-17] MEDS: PLAVIX 75 MG PO (07:59)
[2025-02-17] MEDS: DALIRESP 500 MCG PO (07:59)
[2025-02-17] MEDS: PROTONIX 40 MG PO (07:59)
[2025-02-17] MEDS: TOPROL XL 25 MG PO (07:59)
[2025-02-17] MEDS: COZAAR 25 MG PO (07:59)
[2025-02-17] MEDS: HEPARIN 5000 UNITS SC (08:00)
[2025-02-17] MEDS: ZOLOFT 50 MG PO (08:00)
[2025-02-17] MEDS: CRESTOR 20 MG PO (08:00)
[2025-02-17] MEDS: LOW STRENGTH ASPIRIN 81 MG PO (08:00)
--- NOTE | 2025-02-17 08:00 | W.PN.VS ---
Today's Communication / Plan
-
Patient seen and examined at bedside with Bienvenido Ashby M.D., below plan reviewed with attending.
Assessment/Plan
-
Assessment: 74-year-old male POD #1 Cutdown and exposure of proximal left brachial artery for endovascular intervention with primary repair, drug-coated balloon angioplasty of left common femoral artery restenosis (6 mm x 60 mm Lutonix DCB), balloon
angioplasty of proximal profunda femoral artery (4 mm x 60 mm angioplasty balloon), balloon angioplasty of proximal superficial femoral artery (4 mm x 60 mm angioplasty balloon), balloon angioplasty and stenting of left external iliac artery (7 mm x
59 mm Spencer VBX stent)
Plan:
Continue DAPT of aspirin 81 mg and Plavix 75mg p.o. daily
OOB to chair with progression ambulation as tolerated
Patient with slight decrease in hemoglobin will obtain recheck late morning, suspect hemodilution
If hemoglobin unchanged and patient continues to ambulate without difficulty likely discharge later this afternoon
Subjective Data
-
Date of Service: February 17, 2025
Patient seen and examined at bedside, offers no complaints. Denies nausea, vomiting, chills, and fever.
Objective Data
-
Vital Signs
Temp Pulse Resp BP Pulse Ox
97.9 F 101 16 108/54 95
02/17/25 07:10 02/17/25 08:42 02/17/25 07:27 02/17/25 08:42 02/17/25 07:27
Intake and Output
02/16/25 02/17/25 02/18/25
06:59 06:59 06:59
Intake Total 1000 / 1000
Output Total 1320 / 1320
Balance -320 / -320
Intake:
Oral fluids 500 / 500
IV fluids (Total) 500 / 500
NSS 500 / 500
Output:
Urine, Voided 1020 / 1020
Straight cath output 300 / 300
Lab Results
02/17/25 05:55
02/17/25 05:55
Calcium 8.6 mg/dl (8.4-10.2) 02/17/25 05:55
Physical Exam
-
No pain distress, resting bed comfortably
No tachycardia
No dyspnea on room air
Left brachial access site CDI, suture line well-approximated, eczema glue intact, scant edema noted around incision site but no evidence of hematoma, all surrounding compartments soft
Left foot warm, Doppler signal DP and PT pulse
--- NOTE | 2025-02-17 08:04 | OR.RPT ---
Operative Report
Operative Report
Date of Operation: 02/16/2025
Pre Op Diagnosis:
1. Debilitating left lower extremity claudication
2. Peripheral arterial occlusive disease with prior left lower extremity revascularization procedures
3. Oxygen dependent COPD
Post Op Diagnosis:
1. Debilitating left lower extremity claudication
2. Peripheral arterial occlusive disease with prior left lower extremity revascularization procedures
3. Oxygen dependent COPD
Procedure:
1.) Cutdown and exposure of proximal left brachial artery for endovascular intervention with primary repair
2.) Drug-coated balloon angioplasty of left common femoral artery restenosis (6 mm x 60 mm Lutonix DCB)
3.) Balloon angioplasty of proximal profunda femoral artery (4 mm x 60 mm angioplasty balloon)
4.) Balloon angioplasty of proximal superficial femoral artery (4 mm x 60 mm angioplasty balloon)
5.) Balloon angioplasty and stenting of left external iliac artery (7 mm x 59 mm [place] VBX stent)
6.) Diagnostic aortobiiliac arteriogram
7.) Diagnostic left lower extremity arteriogram
8.) Diagnostic left upper extremity arteriogram
Surgeon: Josh Manzo III, MD
Production Truck Driver: Carrington Darden MD PGY1
Anesthesia: Sedation with local
Fluoroscopy:
29.4 min
357 mGy
53.20 gy.cm2
Complications: None
Estimated Blood Loss: 20 cc
History and Indications for Procedure: 74-year-old male with multiple medical comorbidities. Prior kissing iliac stents and left common femoral artery endarterectomy at an outside hospital. He developed debilitating left lower extremity
claudication. He was brought to the operating room for endovascular interrogation.
Procedure in Detail: Phillip Contreras was correctly identified and placed supine on the operating table. After adequate induction of anesthesia the left upper extremity was prepped and draped in the usual sterile fashion. A timeout was performed with
the nursing and anesthesia staff confirming the patient's identity as well as the nature and laterality of the procedure.
Under ultrasound guidance the proximal and mid left brachial artery was identified. The patient had a previous cutdown on the more distal left brachial artery for prior endovascular intervention on the superior mesenteric artery. We identified a
suitable artery target in the proximal left upper extremity. An incision was made over the proximal left brachial artery. Electrocautery and sharp dissection were used to expose the left brachial artery. Proximal and distal control was obtained
with vessel loops. Under direct visualization using a micropuncture needle the left brachial artery was accessed in a retrograde fashion. I then upsized to a 5 Guyanese sheath over a Bentson wire. The Bentson wire was navigated into the aortic arch
through the left subclavian artery. Using a Cobra catheter and a Bentson wire I navigated through the distal arch and into the descending thoracic aorta. The wire and catheter were advanced into the distal abdominal aorta, proximal to the kissing
iliac stents. A diagnostic arteriogram was performed which demonstrated the following.
AORTO-ILIAC ARTERIOGRAM: Patent aorta. Peripheral calcification identified. Kissing common iliac stents patent bilaterally.
Systemic heparin was administered. A Storq wire was placed through the Cobra catheter. A 6 Guyanese 90 cm sheath was then advanced to the distal abdominal aorta over the Storq wire. Using a Limon catheter and Glidewire I selected the left common
iliac stent. I then advanced to the catheter followed by the 6 Guyanese sheath into the left common iliac stent. A diagnostic arteriogram of the left lower extremity was then performed which demonstrated the following:
Patent iliac bifurcation.
Calcification and moderate to high-grade stenosis identified throughout the left external iliac artery.
Evidence of left common femoral artery endarterectomy.
Severe focal stenosis identified at the distal common femoral artery at the femoral bifurcation involving the origins of both superficial femoral artery and profunda femoral artery
The profunda femoral artery was widely patent beyond its origin
The proximal superficial femoral artery was patent but heavily diseased. There was a large collateral branch arising off the proximal superficial femoral artery that coursed distally in the thigh.
The more distal superficial femoral artery was known to be occluded.
ENDOVASCULAR INTERVENTION: The profunda femoral artery was selected with a Glidewire and crossing catheter. The wire and catheter were advanced into the profunda femoral artery. I then exchanged out for a Storq wire. A 4 mm x 60 mm angioplasty
balloon was then used to treat the profunda femoral artery origin stenosis along with the distal common femoral artery stenosis. The balloon was positioned in the desired location under roadmap guidance and inflated to nominal pressure. The
balloon was held in place for 3 minutes and then slowly deflated. I then brought into position a 6 mm x 60 mm Lutonix drug-coated angioplasty balloon. This was positioned precisely in the desired location with the distal balloon tipped at the
femoral bifurcation in order to treat the entire length of common femoral artery including the distal stenosis. The balloon was inflated to nominal pressure and held in place for 3 minutes. Subsequent arteriogram demonstrated an excellent
technical result with brisk flow through a widely patent common femoral artery and profunda femoral artery and no significant residual stenosis.
I then selected the superficial femoral artery with the Glidewire and then exchanged out for the Storq. Under roadmap guidance I brought into position once again the 4 mm angioplasty balloon. This was positioned in the proximal superficial femoral
artery proximal to the large collateral branch and inflated to nominal pressure. The balloon was held in place for 3 minutes before slowly deflating and removing over the wire. Subsequent arteriogram demonstrated an excellent technical result with
a patent proximal superficial femoral artery and no residual stenosis at that segment identified.
I then focused my attention on treating the external iliac artery disease. The sheath was pulled back into the distal aspect of the left common iliac artery stent. Under roadmap guidance I then brought into position a 7 mm x 59 mm [place] VBX stent.
This was positioned in the distal left external iliac artery. With the stent in the desired location the balloon was inflated to nominal pressure. The balloon was then slowly deflated and removed over the wire. Subsequent arteriogram demonstrated
an excellent technical result with a widely patent left external iliac artery stent and no residual stenosis identified.
COMPLETION ARTERIOGRAM: Brisk flow through the left iliac system with no residual stenosis identified. Brisk flow through widely patent common femoral artery, profunda femoral artery and proximal superficial femoral artery with no residual stenosis
identified. Robust collateral network in the thigh. The upper sioux superficial femoral artery and popliteal artery were completely occluded. There was distal reconstitution of the proximal anterior tibial artery, proximal peroneal artery and proximal
posterior tibial artery in the calf via collaterals.
Satisfied with this result we concluded the procedure. The sheath was pulled back into the proximal left subclavian artery. An arteriogram was performed demonstrating mild disease in the proximal left subclavian artery. Mild stenosis was
identified in the more distal left subclavian artery and axillary artery.
The sheath was pulled from the left brachial artery. Strong pulsatile bleeding from the proximal brachial artery was identified. Backbleeding from the distal brachial artery was identified. The vessel loops were secured. The brachial artery
puncture site was repaired primarily with 2 interrupted 7-0 Prolene sutures. The vessel loops were released. The brachial artery pulse was good proximal and distal to the suture repair. The patient had a pulsatile Doppler signal over the radial
artery at the left wrist following the case. The wound was irrigated with saline solution. Hemostasis was achieved in the wound bed. The wound was then closed in layers and sterile dressings were applied.
The patient tolerated the procedure well and was taken to the recovery area in stable condition.
Attestation: I was present and responsible for the entire procedure.
Signed:
Josh Manzo III, MD
Vascular Surgery
[facility]
[2025-02-17] MEDS: ULTRAM 25 MG PO (08:18)
[2025-02-17 08:42] VITALS: BP 108/54
[2025-02-17 10:18] LABS: Hematocrit 28.4 % (39.0-52.0); Hemoglobin 9.3 g/dL (13.0-18.0)
--- NOTE | 2025-02-17 10:18 | CM ---
Cm reviewed medical records. Patient confirmed demographics. Patient lives independently with . Patient has had a history of VN with VN, but is currently not on service. Patient does not have a SNF history. Patient has home oxygen through
[employer]. CM confirmed that he has his concentrator with him.
Patient is active with his PCP. Patient uses [facility] for medication services.
PLAN: home with family
[2025-02-17 11:12] VITALS: BP 106/48
--- NOTE | 2025-02-17 12:54 | W.DS.TRANS ---
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
-
Discharge Instructions:
Discharge Diagnosis/Procedures Cutdown and exposure of proximal left brachial
artery for endovascular intervention with
primary repair, left x-ray angiogram with
intervention
Diet As tolerated
Activity No strenuous activity
Driving Restrictions No driving for 1 week
Bathing Restrictions OK to Shower
Instructions:
Stand-Alone Forms: Vascular Surg Discharge Instr
Changes to Home Medications: No
Discharge Medications:
DC Medications w/original date entered in [employer]
lorazepam 0.5 mg tablet 0.5 mg PO DAILYPRN PRN anxiety 08/04/24
pantoprazole 40 mg tablet,delayed release 40 mg PO DAILY GERD 08/04/24
roflumilast 500 mcg tablet 500 mcg PO DAILY Autoimmune Disorder 08/04/24
montelukast 10 mg tablet (Singulair) 10 mg PO HS Lung/Breathing Issues 09/04/24
clopidogrel 75 mg tablet 75 mg PO DAILY Blood Clot Prevention/Tx #30 tabs 09/14/24
sertraline 50 mg tablet 50 mg PO DAILY Depression 10/13/24
aspirin 81 mg chewable tablet 81 mg PO DAILY Blood clot prevention/tx #0 tabs 10/16/24
losartan 25 mg tablet 25 mg PO DAILY Blood Pressure 02/11/25
metoprolol succinate 25 mg tablet,extended release 24 hr 25 mg PO DAILY Blood Pressure 02/11/25
rosuvastatin 20 mg tablet (Crestor) 20 mg PO DAILY High Cholesterol 02/11/25
acetaminophen 325 mg tablet 650 mg PO Q4H PRN PAIN 02/16/25
albuterol sulfate 90 mcg/actuation aerosol inhaler 2 puff inhalation 6XD PRN COPD 02/16/25
budesonide 160 mcg-glycopyr 9 mcg-formot 4.8 mcg/actuation HFA inhaler 2 inh inhalation BID Lung/Breathing Issues 02/16/25
calcium carbonate 300 mg PO QID PRN REFLUX 02/16/25
ferrous sulfate 325 mg (65 mg iron) tablet 325 mg PO DAILY Supplement 02/16/25
Home Medication Changes
Pending Results: No
--- NOTE | 2025-02-17 13:33 | PTCARENOTE ---
Patient discharged home, transported by spouse and daughter. This RN removed patient's IV and tele pack, reviewed discharge instructions/medications with patient and family at bedside, all verbalized understanding. Patient dressed and gathered
belongings independently, transported down to family member's car at main lobby via staff escort and wheelchair, transported with home unit of portable O2.
== END 2025-02-17 14:29 | disposition home or self-care (01) | DRG 254 ==
LOC: 2 NORTH 11:16
PROVIDERS: Nurse Practitioner; ADMITTING PHYSICIAN Surgery Vascular Surgery; PRIMARYCARE PHYSICIAN Family Medicine
PROC: B41G1ZZ Fluoroscopy of Left Lower Extremity Arteries using Low Osmolar Contrast (ICD-10-PCS; 2025-02-17)
PROC: 047L3Z1 Dilation of Left Femoral Artery using Drug-Coated Balloon, Percutaneous Approach (ICD-10-PCS; 2025-02-17)
PROC: B4101ZZ Fluoroscopy of Abdominal Aorta using Low Osmolar Contrast (ICD-10-PCS; 2025-02-17)
PROC: B31J1ZZ Fluoroscopy of Left Upper Extremity Arteries using Low Osmolar Contrast (ICD-10-PCS; 2025-02-17)
PROC: 047J34Z Dilation of Left External Iliac Artery with Drug-eluting Intraluminal Device, Percutaneous Approach (ICD-10-PCS; 2025-02-17)
PROC: 047L3ZZ Dilation of Left Femoral Artery, Percutaneous Approach (ICD-10-PCS; 2025-02-17)
PROC: B41C1ZZ Fluoroscopy of Pelvic Arteries using Low Osmolar Contrast (ICD-10-PCS; 2025-02-17)
DX: I70.212 Atherosclerosis of native arteries of extremities with intermittent claudication, left leg (principal); J44.9 Chronic obstructive pulmonary disease, unspecified; K21.9 Gastro-esophageal reflux disease without esophagitis; I10 Essential (primary) hypertension; E78.5 Hyperlipidemia, unspecified; I71.40 Abdominal aortic aneurysm, without rupture, unspecified; D64.9 Anemia, unspecified; I70.8 Atherosclerosis of other arteries; G47.33 Obstructive sleep apnea (adult) (pediatric); I35.0 Nonrheumatic aortic (valve) stenosis; Z87.01 Personal history of pneumonia (recurrent); Z79.82 Long term (current) use of aspirin; Z79.02 Long term (current) use of antithrombotics/antiplatelets; Z79.51 Long term (current) use of inhaled steroids; Z99.81 Dependence on supplemental oxygen
CPT/HCPCS: 37221; 37224; 75625; 75710; 80048; 85014; 85018; 85027; 85610; 85730; 93005; 94640; C1725; C1769; C1874; C1894; C2623; Q9967

== ENCOUNTER 2025-02-23 15:52 | Inpatient (IN) | payer MEDICARE, OTHER, SELFPAY ==
[2025-02-23] VITALS (9 sets, daily range): BP systolic 103–133; BP diastolic 51–69; BMI 21.9
[2025-02-23 12:45] LABS: % Basophils 0.7 % (0-2); % Eosinophils 15.4 % (0-6); % Immature Granulocytes 0.4 % (0-0.5); % Lymphocytes 11.4 % (20.5-51.1); % Monocytes 8.9 % (1.7-9.3); % Neutrophils 63.2 % (42.2-75.2); Absolute Basophils 0.1 10^3/uL (0-0.2); Absolute Eosinophils 1.1 10^3/uL (0-0.7); Absolute Lymphocytes 0.8 10^3/uL (1.2-3.4); Absolute Monocytes 0.7 10^3/uL (0.1-0.6); Absolute Neutrophils 4.7 10^3/uL (1.4-6.5); Hematocrit 29.9 % (39.0-52.0); Hemoglobin 9.6 g/dL (13.0-18.0); Mean Corp Hgb Conc. 32.1 g/dL (33.0-37.0); Mean Corpuscular Hgb 31.2 pg (27.0-31.0); Mean Corpuscular Volume 97.1 fL (80.0-94.0); Mean Platelet Volume 9.6 fL (7.4-10.4); Nucleated Red Blood Cells % 0 % (-); Platelet Count 233 10^3/uL (130-400); Red Blood Cell Count 3.08 10^6/uL (4.70-6.10); Red Cell Dist. Width 15.5 % (11.5-14.5); White Blood Cell Count 7.4 10^3/uL (4.8-10.8)
[2025-02-23 13:01] LABS: COVID-19 Antigen Negative (Negative)
[2025-02-23 13:08] LABS: ALT (SGPT) 11 U/L (0-50); AST (SGOT) 16 U/L (17-59); Albumin 3.8 g/dl (3.5-5.0); Alkaline Phosphatase 93 U/L (38-126); Blood Urea Nitrogen 13 mg/dl (9-20); Calcium 9.3 mg/dl (8.4-10.2); Carbon Dioxide 28 mmol/L (22-30); Chloride 107 mmol/L (98-107); Estimated Creatinine Clearance 84 ml/min; Glucose 108 mg/dl (70-99); Potassium 4.1 mmol/L (3.5-5.1); Sodium 142 mmol/L (135-145); Total Bilirubin 0.7 mg/dl (0.2-1.3); Total Protein 6.7 g/dl (6.3-8.2); eGFR > 60.00
[2025-02-23] MEDS: DECADRON 6 MG IV (13:26)
[2025-02-23] MEDS: TESSALON PERLES 200 MG PO (13:26)
[2025-02-23] MEDS: DUONEB 3 ML INH (13:26)
[2025-02-23] MEDS: VENTOLIN NEBULES 2.5 MG INH ×2 (13:26→20:22)
[2025-02-23] MEDS: NSS 500 IV (13:27)
--- NOTE | 2025-02-23 14:05 | ED.GENMED ---
History of Present Illness
General
Chief Complaint: Breathing Problem
Source: patient
Exam Limitations: none
Time Seen by Provider: 02/23/25 12:45
Nursing documentation reviewed up to this point in time: agreed with
History of Present Illness
History of Present Illness:
Patient with history of oxygen dependent COPD (2 L via nasal cannula), presents to ED secondary to worsening cough with shortness of breath, especially with exertion over the past 3 days. Patient was discharged from the hospital 4 days ago, after
lower extremity PAD treatment with Dr. Manzo, vascular surgery. Denies fever or chills. Denies chest pain. Denies nausea, vomiting, or diarrhea. Denies leg pain or swelling. Denies back pain. Denies recent travel. Patient unfortunately has
had number of similar symptoms in the past, requiring admission to the hospital secondary to pneumonia or COPD exacerbation.
Past History
Past History
ED Past Medical History: COPD and Psychiatric
Social History
Tobacco: Former smoker
Alcohol: None
Personal:
Living: with family
Review of Systems
Review of Systems
Allergies reviewed?: Yes
All Other Systems: ROS reviewed and negative except as documented in HPI and ROS
Constitutional: Reports no symptoms; Denies fever
EENT: Reports no symptoms
Respiratory: Reports cough and trouble breathing
Cardiac: Reports no symptoms; Denies chest pain
ABD/GI: Reports no symptoms; Denies vomiting or diarrhea
Musculoskeletal: Reports no symptoms
Skin: Reports no symptoms
Neurological: Reports no symptoms
Phy Exam
Physical Exam
Physical Exam:
Physical Exam
General: moderate respiratory distress, acutely ill. afebrile
Head: nc/at. eomi
Neck: supple. no meningeal signs
Heart: s1/s2 regular rate and rhythm. systolic ejection murmur
Lungs: moderate respiratory distress. diffuse expiratory wheezing, L>R
Abdomen: normal bowel sounds. not tender.
Neuro: alert and oriented x 3. no focal neurological deficits
Skin: no rash
Psychiatric: well kept. interactive and cooperative
Extremities: no edema. no calf tenderness.
Scores
Heart Failure Risk
Heart Failure Risk Score: Not Applicable
Course
Orders/Labs/Results
Orders:
Orders
02/23/25 12:25
Electrocardiogram (*1) Urgent
Reason for Study: Shortness of Breath
EKG- Treatment ONCE
CR Chest - 2 Views Urgent
Comment:
Reason For Exam: shortness of breath, cough
02/23/25 12:36
COVID-19 Antigen Urgent
Source: Nasal Swab
Complete Blood Count/With Diff Urgent
Comprehensive Metabolic Panel Urgent
Influenza A+B Rapid Molecular Urgent
DEMI Source: Nasal Swab
Specimen Description:
02/23/25 13:10
0.9% Sodium Chloride 500 ml [Nss] 500 ml IV BOLUS
Albuterol Nebs [Ventolin Nebules] 2.5 mg INH R NOW STA
Benzonatate [Tessalon Perles] 200 mg PO NOW STA
Dexamethasone Sod Phosphate [Decadron] 6 mg IV NOW STA
Ipratropium/Albuterol Sulfate [Duoneb] 3 ml INH R NOW STA
02/23/25 Dinner
Cholesterol Lowering
At Your Request: Limited Participation
Cholesterol Lowering: Sodium, 2 Gram
02/23/25 15:39
Admit/Transfer Patient As Directed
Co-Sign Provider:
Level of Care: Inpatient admission
Assign to:: Telemetry
Physician / Group: [email or web address]
Diagnosis: COPD falre
Reason for Telemetry: Chest Pain syndromes
Date to Stop Telemetry: 02/25/25
Time to Stop Telemetry: 11:00
Reason for Hospitalization: COPD flare
Expected length of stay greater than two midnights?: Yes
ELOS- Estimated Length of Stay in days: 3
I certify the patient meets the requirements for IP care: Yes
02/23/25 15:42
Code Status As Directed
Resuscitation Status: Full Code
02/23/25 16:11
Troponin I Routine
02/23/25 16:29
Lorazepam [Ativan] 0.5 mg PO DAILYPRN PRN
02/23/25 17:17
Acetaminophen [Tylenol] 650 mg PO Q4HPRN PRN
Ipratropium/Albuterol Sulfate [Duoneb] 3 ml INH R Q4HPRN PRN
Ipratropium/Albuterol Sulfate [Duoneb] 3 ml INH R QID
02/23/25 17:17
Activity As Directed
Activity Level: With Assistance
Intake/ Output As Directed
Frequency: Per unit guidelines
Vital Signs As Directed
Frequency: Per unit guidelines
Weight As Directed
Frequency: Daily
Copd Education [RESP] Routine
DX Deep Vein Thrombosis Video Routine
02/23/25 20:00
Heparin 5,000 units SC Q12
02/23/25 22:00
Montelukast Sodium [Singulair] 10 mg PO HS
02/24/25 02:00
Dexamethasone Sod Phosphate [Decadron] 4 mg IV Q12H
02/24/25 06:00
EKG [Electrocardiogram (*1)] IN AM
Reason for Study: Chest Pain
Basic Metabolic Panel IN AM
Complete Blood Count/With Diff IN AM
02/24/25 08:00
Aspirin Chewable [Low Strength Aspirin] 81 mg PO DAILY
Clopidogrel Bisulfate [Plavix] 75 mg PO DAILY
Losartan [Cozaar] 25 mg PO DAILY
Metoprolol Xl [Toprol Xl] 25 mg PO DAILY
Pantoprazole [Protonix] 40 mg PO DAILY
Roflumilast [Daliresp] 500 mcg PO DAILY
Rosuvastatin Calcium [Crestor] 20 mg PO DAILY
Sertraline HCl [Zoloft] 50 mg PO DAILY
02/25/25 11:00
DC Protocol for Telemetry ONCE
Abnormal Lab Results
02/23/25
12:36
RBC 3.08 L 10^6/uL
(4.70-6.10)
Hgb 9.6 L g/dL
(13.0-18.0)
Hct 29.9 L %
(39.0-52.0)
MCV 97.1 H fL
(80.0-94.0)
MCH 31.2 H pg
(27.0-31.0)
MCHC 32.1 L g/dL
(33.0-37.0)
RDW 15.5 H %
(11.5-14.5)
Absolute Lymphs (auto) 0.8 L 10^3/uL
(1.2-3.4)
Absolute Monos (auto) 0.7 H 10^3/uL
(0.1-0.6)
Absolute Eos (auto) 1.1 H 10^3/uL
(0-0.7)
Lymphocytes % 11.4 L %
(20.5-51.1)
Eosinophils % 15.4 H %
(0-6)
Glucose 108 H mg/dl
(70-99)
AST 16 L U/L
(17-59)
02/23/25 12:36
02/23/25 12:36
Vital Signs
Initial and Last Documented VS:
Initial Vital Signs
Temp Pulse Resp BP Pulse Ox
97.9 F 82 25 105/58 99
02/23/25 12:27 02/23/25 12:27 02/23/25 12:27 02/23/25 12:27 02/23/25 12:27
Last Documented Vital Signs
Temp Pulse Resp BP Pulse Ox
97.4 F 83 22 111/58 96
02/23/25 17:34 02/23/25 17:34 02/23/25 17:34 02/23/25 17:34 02/23/25 17:34
MDM/Problems Addressed
MDM/Problems Addressed:
Chest x-ray report reviewed. History exam consistent with likely COPD exacerbation versus acute bronchitis. Patient placed on mid flow oxygen for comfort and significant tachypnea. Patient will be admitted for further evaluation and treatment.
*Critical Care Note
Total Time (30-74mins, 75-104mins- exclusive of procedures): Not Applicable
ED Attending Note
-
Portions of this chart may have been created with voice recognition software.� Occasional wrong word or��sound alike� substitutions may have occurred due to the inherent limitations of voice recognition software.
Discharge Plan
Departure
Patient Disposition: Admit
Date of Disposition: 02/23/25
Time of Disposition: 14:27
Admit to: Telemetry
Presentation/result/management discussed w/ accepting MD/DO: Hospitalist
Discharge Problem:
COPD exacerbation
Interventions
Interventions:
*Risk Screen - Suicide Last Done: 02/23/25 12:27
*General Assessment Last Done: 02/23/25 12:27
*Neglect/Abuse Screening Last Done: 02/23/25 12:27
*ED- Fall Risk Assessment Last Done: 02/23/25 12:27
*ED COVID-19 Vaccine History Last Done: 02/23/25 12:27
*Nursing Disposition Last Done: 02/23/25 17:21
ED- Cardiac Assessment Last Done: 02/23/25 13:02
ED- Pulmonary Assessment Last Done: 02/23/25 13:02
Discharge Date and Time
Discharge Date/Time: 02/23/25 17:21
--- NOTE | 2025-02-23 15:08 | HPS.HSE ---
Family Physician
-
Family Physician: Abdi Paez
Chief Complaint
-
SoB
History of Present Illness
74M former tobacco smoker, HX chronic HFrEF, severe aortic stenosis, PVD, Chr Home O2 dependent COPD, and hyperlipidemia who was just discharged from [facility] 09/15/2024, being evaluated for TAVR via EMS seen at ER:
- for evaluation of SoB since last night.
- SoB worse with exertion.
- mid sternum chest pain, which is non radiating and non exertional.
- denied cough, runny nose, congestion.
Recent admission to vascualr service : Discharge Diagnosis/Procedures:
Cutdown and exposure of proximal left brachial artery for endovascular intervention with primary repair
left x-ray angiogram with intervention
Medical History
Past Medical History
Past Medical History: Reports Asthma, CAD (ARTHUR to LM (08/2024)), COPD (emphysema, former smoker (quit 4 years ago), recent pneumonia), GERD, HTN, Hypercholesterolemia, NIDDM, Valvular Disease (aortic stenosis) and Other (recent flu, GERD, FARNAZ,
carotid stenosis, AAA, severe PAD, (L) radial occlusion, stenosis of mesenteric vessels, (L) femoral vein DVT)
Past Surgical History: Reports Other ((R) CEA, (L) femoral endarterectomy, bilateral MICHELLE stent grafts)
Social History
Tobacco: Former Smoker
Alcohol: None
Drug: None
Personal:
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
Family History
Family History: Not pertinent
Allergies / Home Medications
Allergies reflects when Allergies were last updated in [employer]
Home Medications with original date entered in [employer]
Allergy/Medication List:
Levofloxacin, percocet
Review of Systems
-
Constitutional: Reports No Symptoms
EENT: Reports No Symptoms
Respiratory: Reports See HPI
Cardiac: Reports See HPI
Abdomen/GI: Reports No Symptoms
: Reports No Symptoms
Musculoskeletal: Reports No Symptoms
Skin: Reports No Symptoms
Neurological: Reports No Symptoms
Endocrine: Reports No Symptoms
Hematologic/Lymphatic: Reports No Symptoms
Psych: Reports No Symptoms
Physical Exam
Vital Signs
Vital Signs
Temp Pulse Resp BP Pulse Ox
97.9 F 80 28 118/58 97
02/23/25 12:27 02/23/25 13:00 02/23/25 14:00 02/23/25 13:00 02/23/25 13:02
Physical Exam
General: Well Developed, Well Nourished and No Apparent Distress
HEENT: NormoCephalic, Moist mucous membranes and Atraumatic
Respiratory: Wheezes
Cardiac: S1/S2 and Regular Rhythm; No Murmur or Rub
GI: Soft, Non Tender, Non Distended and Normal Bowel Sounds; No Organomegaly
Rectal: Deferred by Provider
Musculoskeletal: No Clubbing, No Cyanosis and No Edema
Skin: No Rash
Neuro: Nonfocal/grossly intact
Laboratory Results
-
02/23/25 12:36
02/23/25 12:36
Laboratory Results
Total Bilirubin 0.7 mg/dl (0.2-1.3) 02/23/25 12:36
AST 16 U/L (17-59) L 02/23/25 12:36
ALT 11 U/L (0-50) 02/23/25 12:36
Alkaline Phosphatase 93 U/L (38-126) 02/23/25 12:36
Data Reviewed
-
Diagnostic Radiology: Report Reviewed by me
Lab Data: Labs Reviewed by me
Old Records: Reviewed
Impression/Plan
-
Abnormal Lab
02/23/25
12:36
RBC 3.08 L
Hgb 9.6 L
Hct 29.9 L
MCV 97.1 H
MCH 31.2 H
MCHC 32.1 L
RDW 15.5 H
Absolute Lymphs (auto) 0.8 L
Absolute Monos (auto) 0.7 H
Absolute Eos (auto) 1.1 H
Lymphocytes % 11.4 L
Eosinophils % 15.4 H
Glucose 108 H
AST 16 L
CXR
No radiographic evidence of acute cardiopulmonary abnormality.
COPD/emphysema.
EKG
NORMAL SINUS RHYTHM
INFERIOR-POSTERIOR INFARCT , AGE UNDETERMINED
ABNORMAL ECG
WHEN COMPARED WITH ECG OF 16-FEB-2025 12:45,
NO SIGNIFICANT CHANGE WAS FOUND
Confirmed by MD PURA, ANA Dempsey ([id number]) on 02/23/2025
CTS service admission : 02/16/25 - 02/17/25
Recent admission to vascualr service :
Discharge Diagnosis/Procedures:
Cutdown and exposure of proximal left brachial artery for endovascular intervention with primary repair
left x-ray angiogram with intervention
Last hospitalist admission: 10/02/24 - 10/03/24
COPD vs panic attack
Left femoral vein DVT
ASSESSMENT & PLAN
COPD flare
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
Acute on chronic RF due to advanced COPD
No evidence of PNA on admission CXR
- IV Decadron 4mg Q12H
- Duo Neb qid and PRN
- supplemental O2 to keep sat >92; wean as tolerated
Chest discomfort
NSR, , abn inferior changes age indeterminate
HX CAD Status post left main stent placement 09/11/2024
- check admission TPNI
- EKG in AM
- on DAPL
- Metoprolol XL
- on Stain
Recent admission to vascular service :
s/p Cutdown and exposure of proximal left brachial artery for endovascular intervention with primary repair
Severe aortic stenosis HX s/p TAVR in Sep 2024 per patient ??
09/28/24 Echo; Calcific aortic valve with moderate to severe low-flow low gradient aortic stenosis.
Anemia likely from chronic disease
- Hemoglobin stable at hi 9s and stable
- No active bleeding
Chr conditions:
HX Mild Hypotension
HX Chr HFrEF
HX Cardiomyopathy, EF 45%
s/p R � CEA
HX COPD (on Breztri at home)
Peripheral arterial disease
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
Former tobacco smoker (quit 06/2019 with >71-91-bvay-year history)
History of AAA, peripheral vascular disease
DVT Px: SQH
Full code
IP TLM
[2025-02-23] MEDS: ATIVAN 0.5 MG PO (16:36)
[2025-02-23 16:43] LABS: Troponin I < 0.012 ng/ml
--- NOTE | 2025-02-23 19:15 | PTCARENOTE ---
Pt received [facility] day shift RN at 1915. Pt AAOx3, VSS. Pt receptive to room and call villaseñor. Pt bed in lowest position and call villaseñor within reach. Pt educated on importance of call villaseñor usage, pt relays understanding and cooperation. Will continue
with current plan of care.
[2025-02-23] MEDS: HEPARIN 5000 UNITS SC (20:06)
[2025-02-23] MEDS: SYMBICORT 160/4.5 MCG INHALER 2 PUFF INH (20:22)
[2025-02-23] MEDS: SINGULAIR 10 MG PO (21:17)
[2025-02-24] MEDS: DECADRON 4 MG IV ×2 (01:23→15:30)
[2025-02-24] MEDS: DUONEB 3 ML INH (02:01)
[2025-02-24 04:08] VITALS: BP 109/65
[2025-02-24 05:36] VITALS: BMI 21.5
[2025-02-24 07:00] VITALS: BP 120/57
[2025-02-24 07:28] LABS: % Basophils 0.2 % (0-2); % Eosinophils 0.2 % (0-6); % Immature Granulocytes 0.7 % (0-0.5); % Lymphocytes 10.6 % (20.5-51.1); % Neutrophils 85.3 % (42.2-75.2); Absolute Lymphocytes 0.5 10^3/uL (1.2-3.4); Absolute Monocytes 0.1 10^3/uL (0.1-0.6); Absolute Neutrophils 3.7 10^3/uL (1.4-6.5); Hematocrit 27.9 % (39.0-52.0); Hemoglobin 8.9 g/dL (13.0-18.0); Mean Corp Hgb Conc. 31.9 g/dL (33.0-37.0); Mean Corpuscular Hgb 30.8 pg (27.0-31.0); Mean Corpuscular Volume 96.5 fL (80.0-94.0); Mean Platelet Volume 9.8 fL (7.4-10.4); Nucleated Red Blood Cells % 0 % (-); Platelet Count 228 10^3/uL (130-400); Red Blood Cell Count 2.89 10^6/uL (4.70-6.10); White Blood Cell Count 4.4 10^3/uL (4.8-10.8)
[2025-02-24 07:40] VITALS: BP 107/73
[2025-02-24] MEDS: COZAAR 25 MG PO (07:44)
[2025-02-24] MEDS: ZOLOFT 50 MG PO (07:44)
[2025-02-24] MEDS: DALIRESP 500 MCG PO (07:44)
[2025-02-24] MEDS: PLAVIX 75 MG PO (07:44)
[2025-02-24] MEDS: CRESTOR 20 MG PO (07:44)
[2025-02-24] MEDS: PROTONIX 40 MG PO (07:45)
[2025-02-24] MEDS: LOW STRENGTH ASPIRIN 81 MG PO (07:45)
[2025-02-24] MEDS: TOPROL XL 25 MG PO (07:45)
[2025-02-24] MEDS: HEPARIN 5000 UNITS SC (07:45)
[2025-02-24] MEDS: VENTOLIN NEBULES 2.5 MG INH ×2 (07:53→11:44)
[2025-02-24] MEDS: SYMBICORT 160/4.5 MCG INHALER 2 PUFF INH (07:54)
[2025-02-24] MEDS: SPIRIVA RESPIMAT 2.5 MCG 2 PUFF INH (07:54)
[2025-02-24 08:04] LABS: Blood Urea Nitrogen 16 mg/dl (9-20); Calcium 9.2 mg/dl (8.4-10.2); Carbon Dioxide 24 mmol/L (22-30); Chloride 107 mmol/L (98-107); Estimated Creatinine Clearance 97 ml/min; Glucose 168 mg/dl (70-99); Potassium 4.4 mmol/L (3.5-5.1); Sodium 138 mmol/L (135-145); eGFR > 60.00
--- NOTE | 2025-02-24 09:39 | W.PN.HOSP.TC ---
Today's Communication/Plan
-
dc if continues to feel better
Assessment / Plan
Assessment / Plan
COPD flare
Chronic hypoxic respiratory failure on Home O2 dependent COPD/Emphysema
Advanced COPD
No evidence of PNA on admission CXR
- IV Decadron 4mg Q12H , given, change to prednisone taper
No wheezes on exam.
- Duo Neb qid and PRN
- Given a script for Albuterol Neb as needed also. Can c/w home inhalation therapy. He is planning to see our pulmonary group as OP.
- supplemental O2 to keep sat >92; wean as tolerated
Chest discomfort due to COPD
Resolved now
NSR, , abn inferior changes age indeterminate
HX CAD Status post left main stent placement 09/11/2024
- Negative troponin
- EKG in AM
- on DAPL
- Metoprolol XL
- on Stain
Recent admission to vascular service :
s/p Cutdown and exposure of proximal left brachial artery for endovascular intervention with primary repair
Severe aortic stenosis HX s/p TAVR in Sep 2024 per patient ??
09/28/24 Echo; Calcific aortic valve with moderate to severe low-flow low gradient aortic stenosis.
Anemia likely from chronic disease
- Hemoglobin stable at hi 9s and stable
- No active bleeding
Chr conditions:
HX Mild Hypotension
HX Chr HFrEF
HX Cardiomyopathy, EF 45%
s/p R � CEA
HX COPD (on Breztri at home)
Peripheral arterial disease
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
Former tobacco smoker (quit 06/2019 with >77-12-emtu-year history)
History of AAA, peripheral vascular disease
Discharge plan: pt is telling me that he is feeling back to normal, can finish steroid at home. If not dc, he will walk out. He denies sob or new respiratory problems. He seems to have a good plan with no smoking > 4 years, using inhalers and plan
to see pulmonary in office.
Total discharge time spent to see the patient, review data and lab results, examine the pt, discuss discharge plan with pt, nursing staff around 65 minutes.
Anticipated Discharge: Today
Subjective/Interval History
-
Date of Service: February 24, 2025
He feels better and wants to go home
Objective Data
-
Labs:
Laboratory Results
02/24/25
07:03
WBC 4.4 L
Hgb 8.9 L
Hct 27.9 L
Plt Count 228
Sodium 138
Potassium 4.4
Chloride 107
Carbon Dioxide 24
BUN 16
Creatinine 0.6 L
Glucose 168 H
Calcium 9.2
Vital Signs:
Vital Signs
Temp Pulse Resp BP Pulse Ox
98.1 F 77 20 107/73 97
02/24/25 07:40 02/24/25 07:55 02/24/25 07:55 02/24/25 07:40 02/24/25 07:55
I&O
02/23/25 02/24/25 02/25/25
06:59 06:59 06:59
Intake Total 120 / 120
Output Total 425 / 425
Balance -305 / -305
Physical Exam
-
General: Well Developed, Well Nourished, No Apparent Distress and Comfortable
HEENT: Atraumatic, Moist Mucous Membranes and Other (nasal O2 at 2 liters ( baseline))
Respiratory: Decreased Breath Sounds; Negative Wheezes or Rales
Cardiac: Regular Rhythm and S1/S2
GI: Soft, Nontender and Nondistended
Rectal: Negative Maroon Stools
Genito-urinary: No Costovertebral Tender and Clear Urine; Negative Manzo
Musculoskeletal: No Cyanosis and No Edema
Skin: Warm, Dry and Other (various skin bruises, well healing left upper arm surgery site ); Negative Rash
Neuro: AO x 3 and Nonfocal/Grossly Intact; Negative Slurred Speech or Facial Droop
Psych: Calm and Intact Judgement/Insight
[2025-02-24 11:00] VITALS: BP 109/58
--- NOTE | 2025-02-24 11:36 | CM ---
Initial assessment completed. Patient is a 74M former tobacco smoker, HX chronic HFrEF, severe aortic stenosis, PVD, Chr Home O2 dependent COPD, and hyperlipidemia being evaluated for TAVR via EMS seen at ER for evaluation of SOB.
Patient resides w/ spouse in a 2 story apartment- 10 steps to the second floor. Independent w/ ambulation and ADLs. Has cane, RW, and shower chair that are not used and are available when needed. Patient has home O2 through [employer], has neb
machine that he uses 3 times/day. Per spouse, has concerns that patient's 2L baseline is not enough. Spouse will discuss w/ hospitalist about O2 needs/concerns.
No SNF hx reported, cardiac rehab in the past, [facility] in the past.
Address, points of contact and insurance verified
PCP: Abdi Paez
Pharmacy: [facility]
Plan: Home, will watch for any d/c needs
[2025-02-24 15:00] VITALS: BP 101/45
--- NOTE | 2025-02-24 16:09 | DOWNTIME ---
There was a [employer] Downtime on 02/24/2025 from 1230 to 02/24/2025 at 1550. Downtime documentation of patient's care, including medication administrations, has been reconciled in the electronic record per guidelines. Refer to the
patient's paper chart under the miscellaneous tab to see printed paper medication records and downtime forms.
[2025-02-24] MEDS: VENTOLIN NEBULES INH (16:16)
--- NOTE | 2025-02-24 18:17 | W.DCSUMMARY ---
Discharge Summary
Discharge Data
Date of Admission: 02/23/25
Date of Discharge: 02/24/25
-
Pending Results: No
Hospital Course
74 years old male was admitted with shortness of breath. Patient was diagnosed with acute chronic obstructive pulmonary disease exacerbation. Patient has history of chronic hypoxic respiratory failure on home oxygen. Chest radiography did not
show acute findings. He did not have fever or leukocytosis. Patient was given intravenous steroid and nebulizer treatment. Patient felt better and wanted to continue treatment at home refusing to stay longer in the hospital. Patient was
counseled to stay in the hospital for further intravenous steroid but reported he was feeling better and back to baseline. Patient was given a prescription for albuterol nebulizer treatment to be used as needed. Patient is planning to follow-up
with pulmonary doctor/locally in near future. He remained hemodynamically stable. His oxygen requirement remained at baseline. He was able to ambulate independently without breathing distress. Patient was discharged home in a stable condition
peer
Discharge Plan
-
Patient Disposition: Home (Routine Discharge)
Discharge Diagnosis/Procedures: COPD
Chronic Home O2 dependent COPD/Emphysema
Diet: As tolerated
Referrals:
Abdi Paez MD [Family Provider, Family Practice]
Andrey Arevalo MD [Active, Pulmonary Medicine] - in one to two weeks
Prescriptions:
New
prednisone 10 mg tablet
40 mg PO DAILY Qty: 20 0RF
Rx Instructions:
40 mg X 2 days then 30 mg X 2 days then 20 mg X 2 days then 10 mg X 2 days
albuterol sulfate 1.25 mg/3 mL solution for nebulization
1.25 mg inhalation QID PRN (Reason: shortness of breath or wheezing) Qty: 75 0RF
Continued
lorazepam 0.5 mg Tablet
0.5 mg PO DAILYPRN PRN (Reason: anxiety)
pantoprazole 40 mg Tablet,Delayed Release (Dr/Ec)
40 mg PO DAILY
roflumilast 500 mcg Tablet
500 mcg PO DAILY
montelukast [Singulair] 10 mg Tablet
10 mg PO HS
clopidogrel 75 mg Tablet
75 mg PO DAILY Qty: 30 11RF
sertraline 50 mg Tablet
50 mg PO DAILY
aspirin 81 mg Tablet,Chewable
81 mg PO DAILY Qty: 0 0RF
losartan 25 mg Tablet
25 mg PO DAILY
metoprolol succinate 25 mg Tablet Extended Release 24 Hr
25 mg PO DAILY
rosuvastatin [Crestor] 20 mg Tablet
20 mg PO DAILY
acetaminophen 325 mg Tablet
650 mg PO Q4HPRN PRN (Reason: mild PAIN)
calcium carbonate 300 mg (750 mg) Tablet,Chewable
300 mg PO QIDPRN PRN (Reason: REFLUX)
ferrous sulfate 325 mg (65 mg iron) Tablet
325 mg PO DAILY
albuterol sulfate 90 mcg/actuation Hfa Aerosol Inhaler
2 puff INHALATION R Q6HPRN PRN (Reason: COPD)
Trelegy Ellipta 200-62.5-25 mcg Blister With Device
1 inh INHALATION R DAILY
Discontinued
nitrofurantoin monohyd/m-cryst [Macrobid] 100 mg Capsule
100 mg PO BID
Rx Instructions:
for 5 days starting 02/21/25
Discharge Orders:
Discharge Patient (As Directed); Ordered 02/24/25
Ordered By: Jefferson Harrington
Discharge Date and Time
Discharge Date/Time: 02/24/25 16:37
Print Language: MALTESE
== END 2025-02-24 16:37 | disposition home or self-care (01) | DRG 191 ==
LOC: 4 WEST ACU 15:52
PROVIDERS: Emergency Medicine; ADMITTING PHYSICIAN Internal Medicine; ATTENDING PHYSICIAN Internal Medicine; EMERGENCY PHYSICIAN Emergency Medicine; FAMILY PHYSICIAN Family Medicine
DX: J44.1 Chronic obstructive pulmonary disease with (acute) exacerbation (principal); J96.11 Chronic respiratory failure with hypoxia; D63.8 Anemia in other chronic diseases classified elsewhere; J43.9 Emphysema, unspecified; Z79.02 Long term (current) use of antithrombotics/antiplatelets; Z99.81 Dependence on supplemental oxygen; Z79.82 Long term (current) use of aspirin; Z11.52 Encounter for screening for COVID-19; Z79.899 Other long term (current) drug therapy; Z87.891 Personal history of nicotine dependence
CPT/HCPCS: 71046; 80048; 80053; 84484; 85025; 87502; 87811; 93005; 94640; 96361; 96374; 99285; 99406

== ENCOUNTER 2025-04-04 16:15 | Inpatient (IN) | payer MEDICARE, OTHER, SELFPAY ==
[2025-04-04] VITALS (13 sets, daily range): BP systolic 106–132; BP diastolic 34–67; BMI 23.0
[2025-04-04 12:06] LABS: Hematocrit 34.0 % (39.0-52.0); Hemoglobin 10.9 g/dL (13.0-18.0); Mean Corp Hgb Conc. 32.1 g/dL (33.0-37.0); Mean Corpuscular Volume 99.7 fL (80.0-94.0); Nucleated Red Blood Cells % 0 % (-); Platelet Count 200 10^3/uL (130-400); Red Cell Dist. Width 15.4 % (11.5-14.5)
[2025-04-04 12:30] LABS: ALT (SGPT) 10 U/L (0-50); AST (SGOT) 19 U/L (17-59); Albumin 4.1 g/dl (3.5-5.0); Alkaline Phosphatase 96 U/L (38-126); Blood Urea Nitrogen 13 mg/dl (9-20); Calcium 9.6 mg/dl (8.4-10.2); Carbon Dioxide 29 mmol/L (22-30); Chloride 106 mmol/L (98-107); Estimated Creatinine Clearance 87 ml/min; Glucose 110 mg/dl (70-99); Magnesium 1.9 mg/dl (1.6-2.3); Potassium 4.2 mmol/L (3.5-5.1); Sodium 141 mmol/L (135-145); Total Protein 6.8 g/dl (6.3-8.2); eGFR > 60.00
[2025-04-04 12:42] LABS: Troponin I < 0.012 ng/ml
[2025-04-04] MEDS: DUONEB 3 ML INH ×2 (13:11→19:42)
[2025-04-04] MEDS: DECADRON 10 MG IV (13:11)
[2025-04-04] MEDS: ATIVAN 0.5 MG IV (13:25)
--- NOTE | 2025-04-04 13:56 | ED.GENMED ---
History of Present Illness
General
Chief Complaint: Breathing Problem
Source: patient and spouse
Exam Limitations: none
Time Seen by Provider: 04/04/25 13:01
Nursing documentation reviewed up to this point in time: agreed with
History of Present Illness
History of Present Illness:
The patient is a 74-year-old male with a known history of chronic obstructive pulmonary disease (COPD) who presented with shortness of breath that started yesterday. The patient reports that he has experienced similar symptoms in the past, but
denies any fever. Currently, he feels notably worse than before. He is no longer smoking, having quit four years ago. The patient normally uses oxygen therapy at home at a setting of two liters per minute but has increased it to three liters per
minute due to worsening symptoms. Pt w history of anxiety and appears very anxious, family state he takes Ativan 0.5 mg prn for 'severe anxiety' has had none today.
Past History
Past History
ED Past Medical History: COPD and Psychiatric (Anxiety)
Social History
Tobacco: Former smoker
Alcohol: None
Personal:
Living: with family
Review of Systems
Review of Systems
Allergies reviewed?: Yes
All Other Systems: ROS reviewed and negative except as documented in HPI and ROS
Constitutional: Reports fatigue; Denies fever
Respiratory: Reports trouble breathing
Cardiac: Denies chest pain
ABD/GI: Denies abdominal pain or nausea
Musculoskeletal: Denies edema
Neurological: Reports no symptoms
Phy Exam
Physical Exam
Physical Exam:
GENERAL: Acute distress with anxiety and SOB. A&Ox3.
CONSTITUTIONAL: Afebrile.
EYES: clear, conjunctivae normal
ENMT: moist mucus membranes
RESPIRATORY: Regular respirations, nonlabored, lungs clear with diminished sounds throughout. Pulse ox 100% on 5 L N.C. Decreased to 3 L N.C.
CARDIOVASCULAR: Regular rate and rhythm, no murmurs, no rubs.
GI: Soft, nontender
MUSCULOSKELETAL: Moves with ease. Well perfused.No edema.
SKIN: Warm, dry, pink
PSYCH: Anxious mood and affect. Well kept, interactive and appropriate
NEUROLOGIC: Awake, alert and oriented. No focal neurological deficits
Scores
Heart Failure Risk
Heart Failure Risk Score: Not Applicable
Course
Orders/Labs/Results
Orders:
Orders
04/04/25 Breakfast
Cholesterol Lowering
At Your Request: Limited Participation
Cholesterol Lowering: Sodium, 2 Gram
04/04/25 11:54
CXR2 [CR Chest - 2 Views ] Urgent
Comment:
Reason For Exam: shortness of breath
04/04/25 11:56
Complete Blood Count/With Diff Urgent
Comprehensive Metabolic Panel Urgent
Magnesium Urgent
NT-proBNP Urgent
Troponin I Urgent
04/04/25 13:06
Dexamethasone Sod Phosphate [Decadron] 10 mg IV NOW STA
Ipratropium/Albuterol Sulfate [Duoneb] 3 ml INH R NOW STA
04/04/25 13:18
Lorazepam [Ativan] 0.5 mg IV NOW STA
04/04/25 15:40
Admit/Transfer Patient As Directed
Co-Sign Provider:
Level of Care: Inpatient admission
Assign to:: Telemetry
Physician / Group: [email or web address]
Diagnosis: AE COPD, chronic home O2 dependent COPD
Reason for Telemetry: Other
Other Reason for Telemetry: chr hypoxic RF
Date to Stop Telemetry: 04/06/25
Time to Stop Telemetry: 11:00
Reason for Hospitalization: AE COPD, chronic home O2 dependent COPD/ emphysema
Expected length of stay greater than two midnights?: Yes
ELOS- Estimated Length of Stay in days: 3
I certify the patient meets the requirements for IP care: Yes
04/04/25 15:43
Code Status As Directed
Resuscitation Status: Full Code
04/04/25 18:01
Dexamethasone Sod Phosphate [Decadron] 2 mg IV Q12H
Ipratropium/Albuterol Sulfate [Duoneb] 3 ml INH R Q4HPRN PRN
Ipratropium/Albuterol Sulfate [Duoneb] 3 ml INH R QID
04/04/25 18:01
Activity As Directed
Activity Level: With Assistance
Intake/ Output As Directed
Frequency: Per unit guidelines
Vital Signs As Directed
Frequency: Per unit guidelines
Copd Education [RESP] Routine
Pt Eval And Treat Routine
Activity Level: With Assistance
DX Deep Vein Thrombosis Video Routine
04/04/25 20:00
Heparin 5,000 units SC Q12
04/04/25 22:00
Montelukast Sodium [Singulair] 10 mg PO HS
04/05/25 06:00
Basic Metabolic Panel IN AM
Complete Blood Count/With Diff IN AM
04/05/25 08:00
Aspirin Low Dose EC [Aspir Low (Enteric Coated)] 81 mg PO DAILY
Clopidogrel Bisulfate [Plavix] 75 mg PO DAILY
Losartan [Cozaar] 25 mg PO DAILY
Metoprolol Xl [Toprol Xl] 25 mg PO DAILY
Pantoprazole [Protonix] 40 mg PO DAILY
Roflumilast [Daliresp] 500 mcg PO DAILY
Rosuvastatin Calcium [Crestor] 20 mg PO DAILY
Sertraline HCl [Zoloft] 50 mg PO DAILY
okqauchwdgr-iopztyrlz-oemcpveh [Trelegy Ellipta] 1 inh INH R DAILY
04/05/25 15:40
azithromycin 500 mg PO MOWEFR
04/06/25 11:00
DC Protocol for Telemetry ONCE
Abnormal Lab Results
04/04/25
11:56
RBC 3.41 L 10^6/uL
(4.70-6.10)
Hgb 10.9 L g/dL
(13.0-18.0)
Hct 34.0 L %
(39.0-52.0)
MCV 99.7 H fL
(80.0-94.0)
MCH 32.0 H pg
(27.0-31.0)
MCHC 32.1 L g/dL
(33.0-37.0)
RDW 15.4 H %
(11.5-14.5)
Absolute Monos (auto) 0.7 H 10^3/uL
(0.1-0.6)
Lymphocytes % 19.9 L %
(20.5-51.1)
Eosinophils % 7.5 H %
(0-6)
Glucose 110 H mg/dl
(70-99)
04/04/25 11:56
04/04/25 11:56
Vital Signs
Initial and Last Documented VS:
Initial Vital Signs
Temp Pulse Resp BP Pulse Ox
97.8 F 87 28 113/59 96
04/04/25 11:31 04/04/25 11:31 04/04/25 11:31 04/04/25 11:31 04/04/25 11:31
Last Documented Vital Signs
Temp Pulse Resp BP Pulse Ox
97.6 F 72 20 111/62 98
04/04/25 17:11 04/04/25 17:11 04/04/25 17:11 04/04/25 17:11 04/04/25 17:11
MDM/Problems Addressed
Differential Diagnosis Includes:
COPD exacerbation, pneumonia
MDM/Problems Addressed:
The patient is a 74-year-old male with a known history of chronic obstructive pulmonary disease (COPD) who presented with shortness of breath that started yesterday. The patient reports that he has experienced similar symptoms in the past, but
denies any fever. Currently, he feels notably worse than before. He is no longer smoking, having quit four years ago. The patient normally uses oxygen therapy at home at a setting of two liters per minute but has increased it to three liters per
minute due to worsening symptoms. Pt w history of anxiety and appears very anxious, family state he takes Ativan 0.5 mg prn for 'severe anxiety' has had none today.
Afebrile, Moderate distress, no hypoxemia, extremely anxious
Has appointment with pulmonology in May could not move it up .
Soonest appointment he could get for pulmonary rehab is April.
1:30 p.m.
CBC with no clinically significant abnormality
CMP normal
Troponin normal
BNP normal
Chest x-ray consistent with COPD, severe changes of emphysema, no pneumonia
2:30 PM:
After DuoNeb and IV Ativan, patient is feeling much better.
Family is not comfortable taking patient home, 'they always admit him' 'I know he's just going to get worse when we get home'
Plan: Admit, COPD exacerbation
Hospitalist notified of admission; Perhaps can arrange for soon appointment with pulmonary rehab and administrative court justice.
*Pulse Oximetry
SaO2: 100
Nasal Cannula flow liters per minute: 4
Oxygen Mode of Delivery: Room air
Patient hypoxic: no
*Critical Care Note
Total Time (30-74mins, 75-104mins- exclusive of procedures): Not Applicable
ED Attending Note
-
Portions of this chart may have been created with voice recognition software.� Occasional wrong word or��sound alike� substitutions may have occurred due to the inherent limitations of voice recognition software.
Discharge Plan
Departure
Patient Disposition: Admit
Date of Disposition: 04/04/25
Time of Disposition: 14:32
Admit to: Med/Surg
Presentation/result/management discussed w/ accepting MD/DO: Hospitalist
Condition: Fair
Discharge Problem:
Acute exacerbation of chronic obstructive pulmonary disease
Interventions
Interventions:
*Risk Screen - Suicide Last Done: 04/04/25 11:31
*General Assessment Last Done: 04/04/25 11:31
*Neglect/Abuse Screening Last Done: 04/04/25 12:03
*ED- Fall Risk Assessment Last Done: 04/04/25 12:03
*ED COVID-19 Vaccine History Last Done: 04/04/25 12:03
*Nursing Disposition Last Done: 04/04/25 17:17
ED- Cardiac Assessment Last Done: 04/04/25 12:03
ED- Pulmonary Assessment Last Done: 04/04/25 12:03
Discharge Date and Time
Discharge Date/Time: 04/04/25 18:02
--- NOTE | 2025-04-04 15:33 | HPS.HSE ---
Family Physician
-
Family Physician: Abdi Paez
Chief Complaint
-
SOB, need to increased O2 to 3L NC in place of 2 L NC
History of Present Illness
HPI
74M former tobacco smoker, HX chronic HFrEF, severe aortic stenosis, PVD, Chr Home O2 dependent COPD, and hyperlipidemia
sen at ER:
- shortness of breath that started yesterday.
- has experienced similar symptoms in the past, but denies any fever.
- no longer smoking, having quit four years ago.
-Normally uses Home O2 2L NC - increased 3L NC due to worsening symptoms.
HX anxiety and appears very anxious, family state he takes Ativan 0.5 mg prn for 'severe anxiety' has had none today.
Medical History
Past Medical History
Past Medical History: Reports Asthma, CAD (ARTHUR to [facility] (08/2024)), COPD (emphysema, former smoker (quit 4 years ago), recent pneumonia), GERD, HTN, Hypercholesterolemia, NIDDM, Valvular Disease (aortic stenosis) and Other (recent flu, GERD, FARNAZ,
carotid stenosis, AAA, severe PAD, (L) radial occlusion, stenosis of mesenteric vessels, (L) femoral vein DVT)
Past Surgical History: Reports Other ((R) CEA, (L) femoral endarterectomy, bilateral MICHELLE stent grafts)
Social History
Tobacco: Former Smoker
Alcohol: None
Drug: None
Personal:
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
Family History
Family History: Not pertinent
Allergies / Home Medications
Allergies reflects when Allergies were last updated in [facility].
Home Medications with original date entered in [facility] [facility]
Allergy/Medication List:
Levofloxacin, percocet
Review of Systems
-
Constitutional: Reports No Symptoms
EENT: Reports No Symptoms
Cardiac: Reports No Symptoms
Abdomen/GI: Reports No Symptoms
: Reports No Symptoms
Musculoskeletal: Reports No Symptoms
Skin: Reports No Symptoms
Neurological: Reports No Symptoms
Endocrine: Reports No Symptoms
Hematologic/Lymphatic: Reports No Symptoms
Psych: Reports No Symptoms
Physical Exam
Vital Signs
Vital Signs
Temp Pulse Resp BP Pulse Ox
98.6 F 82 25 118/63 100
04/04/25 12:03 04/04/25 14:00 04/04/25 14:00 04/04/25 14:00 04/04/25 14:04
Physical Exam
General: Well Developed, Well Nourished and No Apparent Distress
HEENT: NormoCephalic, Moist mucous membranes and Atraumatic
Respiratory: Other (B/L decreased AE )
Cardiac: S1/S2 and Regular Rhythm; No Murmur or Rub
GI: Soft, Non Tender, Non Distended and Normal Bowel Sounds; No Organomegaly
Rectal: Deferred by Provider
Musculoskeletal: No Clubbing, No Cyanosis and No Edema
Skin: No Rash
Neuro: Nonfocal/grossly intact
Laboratory Results
-
04/04/25 11:56
04/04/25 11:56
Laboratory Results
Total Bilirubin 0.5 mg/dl (0.2-1.3) 04/04/25 11:56
AST 19 U/L (17-59) 04/04/25 11:56
ALT 10 U/L (0-50) 04/04/25 11:56
Alkaline Phosphatase 96 U/L (38-126) 04/04/25 11:56
Troponin I < 0.012 ng/ml 04/04/25 11:56
Data Reviewed
-
Diagnostic Radiology: Report Reviewed by me
Lab Data: Labs Reviewed by me
Old Records: Reviewed
Impression/Plan
-
Vital Signs
Temp Pulse Resp BP Pulse Ox
98.6 F 82 25 118/63 100
04/04/25 12:03 04/04/25 14:00 04/04/25 14:00 04/04/25 14:00 04/04/25 14:04
Laboratory Tests
02/24/25 04/04/25
07:03 11:56
WBC 8.5
Hgb 8.9 L 10.9 L
Plt Count 200
Potassium 4.4 4.2
Carbon Dioxide 24 29
Creatinine 0.7
eGFR > 60.00
Troponin I < 0.012
Albumin 4.1
CXR
Severe changes of emphysema.
Last hospitalist admission: 02/23/25 - 02/24/25
DC DX: AE COPD , HX Chronic Home O2 dependent COPD/Emphysema
ASSESSMENT & PLAN
Pending Rx reconciliation
Presumed COPD flare +/_ element of anxiety
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
chronic RF due to advanced COPD
No evidence of PNA on admission CXR
- Orders Flu A & B , Covid Ag
- IV Decadron 2mg Q12H
- Duo Neb qid and PRN
- supplemental O2 to keep sat >92; wean as tolerated
HX CAD Status post left main stent placement 09/11/2024
- on DAPL
- Metoprolol XL
- on Stain
Recent admission HX to vascular service :
s/p Cutdown and exposure of proximal left brachial artery for endovascular intervention with primary repair
Severe aortic stenosis HX s/p TAVR in Sep 2024 per patient ??
09/28/24 Echo; Calcific aortic valve with moderate to severe low-flow low gradient aortic stenosis.
Anemia likely from chronic disease
- Hemoglobin stable at hi 9s and stable
- No active bleeding
Chr conditions:
HX Mild Hypotension
HX Chr HFrEF
HX Cardiomyopathy, EF 45%
s/p R � CEA
HX COPD (on Breztri at home)
Peripheral arterial disease
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
Former tobacco smoker (quit 06/2019 with >95-72-ktkh-year history)
History of AAA, peripheral vascular disease
DVT Px: SQH
FULL CODE per patient and spouse
IP TLM
--- NOTE | 2025-04-04 18:27 | PTCARENOTE ---
Received pt from ED via stretcher. Stretcher placed next to bed, pt able to scoot over to bed with assist x1. COSBY, frequent harsh, dry cough. Tachypneic. shelter monitor placed. AAOx3. 2 L o2 nasal cannula. Pt c/o difficulty breathing, made
aware, new order provided, see MAR. Skin assessed, trace edema on bilateral ankles observed.
[2025-04-04] MEDS: DUONEB INH (18:40)
[2025-04-04] MEDS: SYMBICORT 160/4.5 MCG INHALER 2 PUFF INH (19:42)
[2025-04-04] MEDS: HEPARIN 5000 UNITS SC (20:02)
[2025-04-04] MEDS: MUCINEX 1200 MG PO (20:03)
[2025-04-04] MEDS: SINGULAIR 10 MG PO (21:30)
[2025-04-05] VITALS (7 sets, daily range): BP systolic 101–131; BP diastolic 55–66; PULSE 99; O2SAT 95; BMI 21.8
[2025-04-05] MEDS: ROBITUSSIN DM 5 ML PO (00:26)
[2025-04-05] MEDS: DECADRON 2 MG IV (00:26)
--- NOTE | 2025-04-05 03:25 | PTCARENOTE ---
Oral care was not performed on patient because he stated that it was his preference to brush his teeth in the morning.
[2025-04-05] MEDS: DUONEB 3 ML INH ×3 (05:24→11:15)
[2025-04-05 06:09] LABS: Hematocrit 32.4 % (39.0-52.0); Hemoglobin 11.0 g/dL (13.0-18.0); Mean Corp Hgb Conc. 34.0 g/dL (33.0-37.0); Mean Corpuscular Volume 96.1 fL (80.0-94.0); Nucleated Red Blood Cells % 0 % (-); Platelet Count 215 10^3/uL (130-400); Red Cell Dist. Width 15.2 % (11.5-14.5)
[2025-04-05 06:20] LABS: Blood Urea Nitrogen 16 mg/dl (9-20); Calcium 9.7 mg/dl (8.4-10.2); Carbon Dioxide 26 mmol/L (22-30); Chloride 105 mmol/L (98-107); Estimated Creatinine Clearance 96 ml/min; Glucose 171 mg/dl (70-99); Potassium 4.4 mmol/L (3.5-5.1); Sodium 138 mmol/L (135-145); eGFR > 60.00
[2025-04-05] MEDS: SYMBICORT 160/4.5 MCG INHALER 2 PUFF INH ×2 (07:16→19:17)
[2025-04-05] MEDS: SPIRIVA RESPIMAT 2.5 MCG INH (07:16)
[2025-04-05] MEDS: CRESTOR 20 MG PO (08:29)
[2025-04-05] MEDS: PROTONIX 40 MG PO (08:29)
[2025-04-05] MEDS: MUCINEX 1200 MG PO ×2 (08:29→20:48)
[2025-04-05] MEDS: ASPIR LOW (ENTERIC COATED) 81 MG PO (08:29)
[2025-04-05] MEDS: PLAVIX 75 MG PO (08:29)
[2025-04-05] MEDS: TOPROL XL 25 MG PO (08:30)
[2025-04-05] MEDS: ZOLOFT 50 MG PO (08:31)
[2025-04-05] MEDS: COZAAR 25 MG PO (08:31)
[2025-04-05] MEDS: HEPARIN 5000 UNITS SC ×2 (08:31→20:48)
[2025-04-05] MEDS: ZITHROMAX 500 MG PO (08:35)
[2025-04-05] MEDS: DALIRESP 500 MCG PO (08:49)
--- NOTE | 2025-04-05 09:00 | W.PN.HOSP.TC ---
Today's Communication/Plan
-
Order PRN Ativan as home medicine
Increase steroid dose
f/w pulmonary recommendations
Assessment / Plan
Assessment / Plan
Physical Exam
General: chronically ill looking.
HEENT: Normocephalic, Moist mucous membranes and Atraumatic
Respiratory: bilateral rhonchi
Cardiac: S1/S2
GI: Soft, Non-Tender, Non-Distended and Normal Bowel Sounds, obese.
Rectal: NO bleeding.
Musculoskeletal: No Clubbing, No Cyanosis
Neuro: AAOX 3, Followed commands, Nonfocal/grossly intact
Psych: Calm
COPD flare
Acute on Chronic hypoxic respiratory failure on Home O2 dependent COPD/Emphysema, O2 requirement at 2 liters at home
Advanced COPD
No evidence of PNA on admission CXR
- IV Decadron 2mg Q12H , increase to 4 mg
- Duo Neb qid and PRN
- supplemental O2 to keep sat >92; wean as tolerated
Appreciate pulmonary input
# HX CAD Status post left main stent placement 09/11/2024
- on DAPL
No chest pain or angina
- Metoprolol XL
- on Stain
Recent admission to vascular service :
s/p Cutdown and exposure of proximal left brachial artery for endovascular intervention with primary repair
Severe aortic stenosis HX s/p TAVR in Sep 2024 per patient ??
09/28/24 Echo; Calcific aortic valve with moderate to severe low-flow low gradient aortic stenosis.
Anemia likely from chronic disease
- Hemoglobin stable at hi 9s and stable
- No active bleeding
Chr conditions:
HX Mild Hypotension
HX Chr HFrEF
HX Cardiomyopathy, EF 45%
s/p R � CEA
Hypereosinophilia
Former tobacco smoker (quit 06/2019 with >50-35-rjio-year history)
History of AAA, peripheral vascular disease
Total time spent to see the patient, examine the patient, review data and lab result, discuss treatment plan with patient, nursing staff around 55 minutes
Anticipated Discharge: > 48 hours
Subjective/Interval History
-
Date of Service: April 05, 2025
He feels better
less sob
No chest pain
Wants oral Ativan BID
Objective Data
-
Labs:
Laboratory Results
04/05/25
05:17
WBC 5.8
Hgb 11.0 L
Hct 32.4 L
Plt Count 215
Sodium 138
Potassium 4.4
Chloride 105
Carbon Dioxide 26
BUN 16
Creatinine 0.6 L
Glucose 171 H
Calcium 9.7
Vital Signs:
Vital Signs
Temp Pulse Resp BP Pulse Ox
97.9 F 92 18 131/61 99
04/05/25 07:41 04/05/25 08:30 04/05/25 07:41 04/05/25 08:30 04/05/25 07:41
I&O
04/04/25 04/05/25 04/06/25
06:59 06:59 06:59
Intake Total 600 / 600 240 / 240
Output Total 240 / 240
Balance 600 / 600 0 / 0
[2025-04-05] MEDS: ATIVAN 0.5 MG PO (09:25)
[2025-04-05] MEDS: DECADRON 4 MG IV (09:53)
--- NOTE | 2025-04-05 10:15 | CON.PUL ---
Consultation
Consultation Request
Date/Time Consultation Requested: 04/05/2025612
Date/Time Consultation Performed: 04/05/2025840
Requesting Provider: Dr. Harrington
Performing Provider: Dr. Covarrubias
Reason for Consultation: SOB/COPD
Medical History
-
Chief Complaint: SOB
History of Present Illness:
74-year-old male former tobacco smoker with a past medical history of croup he severe COPD on home O2 at 2 L/min, chronic HFmrEF, severe aortic stenosis s/p TAVR (October 24), PAD, hyperlipidemia, GERD, hypertension, CAD and carotid artery stenosis
who presents with increasing SOB. Patient wears 2 L/min O2 at home but had a recent/minute prior to arrival. Also found that the increased heat lately has been making his SOB worse. He currently denies fevers, chills. He does have a increased
cough with yellow phlegm. He has been hearing himself wheezing as well. Has a history of anxiety and his breathing has been picking and being extremely anxious. Initially in the ER he was afebrile with pulse rate 87, respiratory rate 28, BP
113/59 and saturating 96% on room air, although he did require 4 L/min O2 with saturations improving to 100%. Labs showed Hb 10.9, absolute eosinophil count 600, creatinine 0.7, glucose 110, troponin negative at <0.012, and proBNP 147. CXR did not
show any evidence for pneumonia. In the ER he was given Decadron + DuoNebs and Ativan. Admitted to the hospitalist service and Pulmonary service consulted for additional management/recommendations.
When I saw the patient he was resting in bed, currently on 4 L by nasal cannula in no acute distress. He continues to feel SOB especially with activity. He is breathing comfortably at rest. Still has a cough with yellow phlegm. Denies chest
pain, MCGEE, abdominal pain, nausea, fevers or chills.
Of note, patient follows with us at the pulmonary office, last visit 03/10/2025. He is continued on Trelegy 200 mcg, previously on Breztri though this was no longer covered by his insurance. Also on Daliresp daily and albuterol twice daily.
Spirometry at that visit showed severe obstructive lung disease (post-BD FEV1: 1.32 L / 47% predicted), also a mild restrictive lung defect (post�BD FVC: 2.59 L / 67% predicted), with no significant bronchodilator response. Pulmonary rehab was
discussed and is being considered � will be a continued discussion with him. He has a history of peripheral eosinophilia, and was prescribed Dupixent in the past but was not covered by his insurance. He does qualify for lung cancer screening
annual LDCT chest. Last CT chest was 10/02/2024 which showed a 1.4 cm nodule in the left lower lobe and changes of significant centrilobular emphysema.
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
failure on home O2 at 2 L/min, CAD, carotid artery stenosis
PSHx: Mohs surgery of left hand, left common femoral endarterectomy, PCI of the left SFA stent (2012)
Past Medical History
Past Medical History: Other (Above as per HPI)
Past Surgical History: Other (Above as per HPI)
Social History
Tobacco: Former Smoker (Quit June 2019 with >84-wact-oaqt history)
Alcohol: Occasional
Drug: None
Personal:
Living: With Family
Family History
Family History: Other (Sudden cardiac + epilepsy)
Allergies / Home Medications
Allergies
Allergy/AdvReac Type Severity Reaction Status Date / Time
levofloxacin (From Levaquin) Allergy 'feels Verified 04/04/25 11:34
closed in'
Irritability,
Restlessness
oxycodone (From Percocet) Allergy anxious, Verified 04/04/25 11:34
restless
Home Medications
�Medication �Instructions �Recorded �Confirmed �Last Taken �Type
pantoprazole 40 mg tablet,delayed 40 mg PO DAILY GERD 08/04/24 04/04/25 04/03/25 History
release
roflumilast 500 mcg tablet 500 mcg PO DAILY Autoimmune 08/04/24 04/04/25 04/03/25 History
Disorder
montelukast 10 mg tablet 10 mg PO HS Lung/Breathing Issues 09/04/24 04/04/25 04/03/25 History
(Singulair)
clopidogrel 75 mg tablet 75 mg PO DAILY Blood Clot 09/14/24 04/04/25 04/03/25 Rx
Prevention/Tx #30 tabs
sertraline 50 mg tablet 50 mg PO DAILY Depression 10/13/24 04/04/25 04/03/25 History
losartan 25 mg tablet 25 mg PO DAILY Blood Pressure 02/11/25 04/04/25 04/03/25 History
metoprolol succinate 25 mg 25 mg PO DAILY Blood Pressure 02/11/25 04/04/25 04/03/25 History
tablet,extended release 24 hr
rosuvastatin 20 mg tablet (Crestor) 20 mg PO DAILY High Cholesterol 02/11/25 04/04/25 04/03/25 History
fluticasone fur. 200 mcg-umeclid 1 inh inhalation R DAILY 02/23/25 04/04/25 04/04/25 History
62.5 mcg-vilant 25 mcg Lung/Breathing Issues
inhalat.powder (Trelegy Ellipta)
albuterol sulfate 90 mcg/actuation 2 puff inhalation R Q4HPRN PRN 04/04/25 04/04/25 04/04/25 History
aerosol inhaler wheezing
aspirin 81 mg tablet,delayed 81 mg PO DAILY 04/04/25 04/04/25 04/03/25 History
release
azithromycin 500 mg tablet 500 mg PO MOWEFR 04/04/25 04/04/25 04/02/25 History
Review of Systems
-
History Source: Patient
All other systems: Negative unless noted
Vitals / Labs / Diagnostic Testing
Vital Signs
Temp Pulse Resp BP Pulse Ox
97.9 F 92 18 131/61 99
04/05/25 07:41 04/05/25 08:30 04/05/25 07:41 04/05/25 08:30 04/05/25 07:41
Lab Data
04/05/25 05:17
04/05/25 05:17
Diagnostic Testing:
Physical Exam
-
HEENT: Normocephalic and Anicteric
Cardiovascular: S1/S2 and Peripheral Edema (negative)
Respiratory: Wheeze (Rush upon expiration on the anterior lung cody bilaterally), Rales (negative), Rhonchi (negative) and Non-Labored Respirations
GI: Soft, Non Distended, Non Tender and Normal Bowel Sounds
Neurology: Awake, Alert and Tremors (negative)
Skin: Warm and Dry
General: Respiratory Distress (negative), Comfortable, Chills (negative) and Sweats (negative)
Assessment
-
Assessment: 74-year-old male former tobacco smoker with a past medical history of croup he severe COPD on home O2 at 2 L/min, chronic HFmrEF, severe aortic stenosis s/p TAVR (October 24), PAD, hyperlipidemia, GERD, hypertension, CAD and carotid
artery stenosis who presents with increasing SOB. Patient wears 2 L/min O2 at home but had a recent/minute prior to arrival. Also found that the increased heat lately has been making his SOB worse. He currently denies fevers, chills. He does
have a increased cough with yellow phlegm. He has been hearing himself wheezing as well. Has a history of anxiety and his breathing has been picking and being extremely anxious. Initially in the ER he was afebrile with pulse rate 87, respiratory
rate 28, BP 113/59 and saturating 96% on room air, although he did require 4 L/min O2 with saturations improving to 100%. Labs showed Hb 10.9, absolute eosinophil count 600, creatinine 0.7, glucose 110, troponin negative at <0.012, and proBNP 147.
CXR did not show any evidence for pneumonia. In the ER he was given Decadron + DuoNebs and Ativan. Admitted to the hospitalist service and Pulmonary service consulted for additional management/recommendations.
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
chronic hypoxic respiratory failure on home O2 at 2 L/min, CAD, carotid artery stenosis
Impression:
#Group B severe COPD with acute exacerbation
#Acute on chronic hypoxic respiratory failure due to above
#Eosinophilia with Hx of hypereosinophilia (absolute eosinophil count: 2200 on 09/05/2024)
#History of asthma
#Severe aortic stenosis s/p TAVR (10/15/2024)
#Chronic HFmrEF
#PAD with prior left femoral endarterectomy
#CAD s/p right endarterectomy
#Chronic mesenteric ischemia with SMA stenosis s/p balloon angioplasty + stenting of SMA (11/09/2024)
#Anemia
#Hx of CAD/NSTEMI with history of left main stent
#Former tobacco smoker (quit 06/2019 with >50 pack-year history)
#AAA
Plan:
- Agree with the patient being treated for a COPD exacerbation
- Continue systemic steroids - I will start Solu-medrol 40mg IV q6hr; maintain euglycemia with goal BG >100 and <180mg/dL while on high dose steroids; he will need a slow steroid taper
- Nebulized albuterol QID with prn doses for breakthrough symptoms
- given he has a history of eosinophilia (most recently 600 on 04/04/2025), he would benefit from Dupixent vs Nucala which can be discussed as an outpatient; he was previously prescribed Dupixent but was not covered by insurance at the time, our
office will try to re-prescribe this for him to see if this is covered now, which again can be discussed as an outpatient)
- Given his advanced symptoms with recurrent flare ups and significant COSBY, will start prn morphine (low-dose) for air-hunger
- Continue with Zithromax 500mg TIW + Daliresp (has tried Ohtuvayre in the past without improvement)
- Maintain SpO2 88-95%, weaning down O2 as tolerated; he will need a repeat home O2 assessment prior to discharge
- Continue singulair
- Will ask the RN to place a fan at bedside for him, as this should also help his symptoms of SOB
- he is Rx Trelegy as an outpatient --> continue Symbicort 160mcg + Spiriva respimat 2.5mcg/act
- Mucinex
- Hold off on Abx for now given he is non-toxic appearing; continue to trend WBC and monitor temperature curve
- Maintain MAP>65
- Replete electrolytes with K>4, Mg>2
- Trend H/H and transfuse if needed to keep Hb>7g/dL; keep plt>20k, unless there is concern for bleeding then keep plt>50k
- Incentive spirometer encouraged 10x per hour for at least 4 hrs a day
- DVT ppx: HSQ --> raise to 5000 units q8hr
He should continue following closely with us after discharge as last Pulmonary office vist was on 03/10/2025 with JULIA Young; believe he would benefit from pulmonary rehab - will be an ongoing discussion as an outpatient
Of note, I called and spoke with his , Lilia, and answered all of her questions.
Pulmonary service will continue to follow along
Data:
CXR 04/04/2025: Severe changes of emphysema. No radiographic findings to suggest pneumonia or pulmonary edema.
CXR 04/05/2025: No acute cardiopulmonary abnormality. Chronic emphysematous changes.
Transthoracic Echocardiogram 11/16/2024:
Mildly reduced left ventricular systolic function.
Hypokinesis of the basal to mid inferolateral wall.
Mild hypokinesis of the basal inferior wall.
Estimated left ventricular ejection fraction is 45-50% by Jiménez's method of
discs.
Stage I diastolic dysfunction suggestive of abnormal relaxation.
Well-seated, normally functioning bioprosthetic aortic valve (status post 26 mm
Dawson ELDA TAVR).
-
When compared to the prior images from 10/16/2024, the EF looks slightly
decreased from 50 to 55% to 40 to 45 to 50%. Basal inferior wall now looks
mildly hypokinetic.
Total time spent today was 56 minutes for this encounter. Time includes reviewing laboratory test/imaging results, reviewing pertinent medical records, obtaining and reviewing medical history, performing an appropriate exam, ordering medications,
tests and procedures. Time also includes documentation of this encounter, coordinating patient care and communicating with other healthcare professionals. Total time does not include separately billed tests performed on this date of service.
[2025-04-05] MEDS: VENTOLIN NEBULES INH (11:19)
[2025-04-05 12:42] LABS: B.E. 1.5 mmol/L; HCO3 25.9 mmol/L (21-28); O2 Saturation % 97.8 % (94-98); PCO2 39 mmHg (35-48); PO2 77 mmHg (83-108)
[2025-04-05 12:44] LABS: O2 Therapy 4 liters
[2025-04-05] MEDS: SOLU-MEDROL PF 60 MG IV (12:45)
[2025-04-05] MEDS: VENTOLIN NEBULES 1.25 MG INH ×2 (15:14→19:16)
[2025-04-05] MEDS: MORPHINE SULFATE 2 MG IV (16:23)
--- NOTE | 2025-04-05 17:28 | CM ---
Alert awake oriented patient who lives with his Lilia who lives in a 1 story home with 10 step to enter He is independent in driving and in all activities of daily living.He was offered VN he requested [facility] .He has oxygen with [employer] dme.
Pt [facility] hx / No SNF history
Pharmacy [facility]
PCP DR Abdi Crum
PLAN Home [facility]
[2025-04-05] MEDS: SOLU-MEDROL PF 40 MG IV (17:52)
[2025-04-05] MEDS: SINGULAIR 10 MG PO (21:27)
[2025-04-06] MEDS: SOLU-MEDROL PF 40 MG IV ×4 (00:58→20:48)
[2025-04-06 03:00] VITALS: BP 107/55
[2025-04-06 06:00] VITALS: BMI 21.1
[2025-04-06 07:15] VITALS: BP 114/49
[2025-04-06] MEDS: ATIVAN 0.5 MG PO ×2 (07:15→15:30)
[2025-04-06] MEDS: CRESTOR 20 MG PO (07:15)
[2025-04-06] MEDS: ZOLOFT 50 MG PO (07:16)
[2025-04-06] MEDS: DALIRESP 500 MCG PO (07:16)
[2025-04-06] MEDS: MUCINEX 1200 MG PO ×2 (07:16→20:47)
[2025-04-06] MEDS: PLAVIX 75 MG PO (07:16)
[2025-04-06] MEDS: ASPIR LOW (ENTERIC COATED) 81 MG PO (07:16)
[2025-04-06] MEDS: PROTONIX 40 MG PO (07:16)
[2025-04-06] MEDS: HEPARIN 5000 UNITS SC ×2 (07:17→20:48)
[2025-04-06] MEDS: COZAAR 25 MG PO (07:18)
[2025-04-06] MEDS: TOPROL XL 25 MG PO (07:18)
[2025-04-06] MEDS: SPIRIVA RESPIMAT 2.5 MCG 2 PUFF INH (08:03)
[2025-04-06] MEDS: VENTOLIN NEBULES 2.5 MG INH ×2 (08:03→11:32)
[2025-04-06] MEDS: SYMBICORT 160/4.5 MCG INHALER 2 PUFF INH ×2 (08:03→19:38)
--- NOTE | 2025-04-06 08:44 | W.PN.PUL3 ---
Today's Communication / Plan
-
Start weaning down steroids to 40 mg IV q8hr
Symbicort + Spiriva
Daliresp + Zithromax TIW
Nebulized albuterol
Mucinex
Up OOB as tolerated
PT/OT
Outpatient pulmonary rehab recommended
Most recent echo on 11/16/2024 showed normal PASP at 28 mmHg, hence do not feel that pulmonary hypertension is contributing to his SOB
Pulmonary service will continue to follow along; close outpatient pulmonary office follow-up recommended
Assessment
-
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
artery stenosis who presents with increasing SOB. Patient wears 2 L/min O2 at home but had a recent/minute prior to arrival. Also found that the increased heat lately has been making his SOB worse. He currently denies fevers, chills. He does
have a increased cough with yellow phlegm. He has been hearing himself wheezing as well. Has a history of anxiety and his breathing has been picking and being extremely anxious. Initially in the ER he was afebrile with pulse rate 87, respiratory
rate 28, BP 113/59 and saturating 96% on room air, although he did require 4 L/min O2 with saturations improving to 100%. Labs showed Hb 10.9, absolute eosinophil count 600, creatinine 0.7, glucose 110, troponin negative at <0.012, and proBNP 147.
CXR did not show any evidence for pneumonia. In the ER he was given Decadron + DuoNebs and Ativan. Admitted to the hospitalist service and Pulmonary service consulted for additional management/recommendations.
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
chronic hypoxic respiratory failure on home O2 at 2 L/min, CAD, carotid artery stenosis
Impression:
#Group E severe COPD with acute exacerbation
#Acute on chronic hypoxic respiratory failure due to above
#Eosinophilia with Hx of hypereosinophilia (absolute eosinophil count: 2200 on 09/05/2024)
#History of asthma
#Severe aortic stenosis s/p TAVR (10/15/2024)
#Chronic HFmrEF
#PAD with prior left femoral endarterectomy
#CAD s/p right endarterectomy
#Chronic mesenteric ischemia with SMA stenosis s/p balloon angioplasty + stenting of SMA (11/09/2024)
#Anemia
#Hx of CAD/NSTEMI with history of left main stent
#Former tobacco smoker (quit 06/2019 with >50 pack-year history)
#AAA
Plan:
- Continue with treatment for COPD exacerbation
- Continue systemic steroids - I started Solu-medrol 40mg IV q6hr --> he feels better today (04/06) --> start to wean to 40mg IV q8hr; maintain euglycemia with goal BG >100 and <180mg/dL while on high dose steroids; he will need a slow steroid taper
- Continue Symbicort 160 mcg + Spiriva Respimat 2.5mct/act
- Nebulized albuterol QID with prn doses for breakthrough symptoms
- Given he has a history of eosinophilia (most recently 600 on 04/04/2025), he would benefit from Dupixent vs Nucala which can be discussed as an outpatient; he was previously prescribed Dupixent but was not covered by insurance at the time; our
office will try to re-prescribe this for him to see if this is covered now, which again can be discussed as an outpatient
- Given his advanced symptoms with recurrent flare ups and significant COSBY, continue prn morphine (low-dose) for air-hunger
- Continue with Zithromax 500mg TIW + Daliresp (has tried Ohtuvayre in the past without improvement)
- Maintain SpO2 88-95%, weaning down O2 as tolerated; he will need a repeat home O2 assessment prior to discharge
- Continue singulair
- Place a fan at bedside for him, as this should also help his symptoms of SOB
- Resume Trelegy upon discharge
- Mucinex
- Hold off on Abx for now given he is non-toxic appearing; continue to trend WBC and monitor temperature curve
- Maintain MAP>65
- Replete electrolytes with K>4, Mg>2
- Trend H/H and transfuse if needed to keep Hb>7g/dL; keep plt>20k, unless there is concern for bleeding then keep plt>50k
- Incentive spirometer encouraged 10x per hour for at least 4 hrs a day
- DVT ppx: HSQ --> raise to 5000 units q8hr
He should continue following closely with us after discharge as last Pulmonary office visit was on 03/10/2025 with JULIA Young; believe he would benefit from pulmonary rehab - will be an ongoing discussion as an outpatient
Of note, Dr. Covarrubias called and spoke with his , Lilia, on 04/05/2025 and answered all of her questions.
Pulmonary service will continue to follow along
Data:
CXR 04/04/2025: Severe changes of emphysema. No radiographic findings to suggest pneumonia or pulmonary edema.
CXR 04/05/2025: No acute cardiopulmonary abnormality. Chronic emphysematous changes.
Transthoracic Echocardiogram 11/16/2024:
Mildly reduced left ventricular systolic function.
Hypokinesis of the basal to mid inferolateral wall.
Mild hypokinesis of the basal inferior wall.
Estimated left ventricular ejection fraction is 45-50% by Jiménez's method of
discs.
Stage I diastolic dysfunction suggestive of abnormal relaxation.
Well-seated, normally functioning bioprosthetic aortic valve (status post 26 mm
Dawson ELDA TAVR).
-
When compared to the prior images from 10/16/2024, the EF looks slightly
decreased from 50 to 55% to 40 to 45 to 50%. Basal inferior wall now looks
mildly hypokinetic.
Total time spent today was 38 minutes for this encounter. Time includes reviewing laboratory test/imaging results, reviewing pertinent medical records, obtaining and reviewing medical history, performing an appropriate exam, ordering medications,
tests and procedures. Time also includes documentation of this encounter, coordinating patient care and communicating with other healthcare professionals. Total time does not include separately billed tests performed on this date of service.
Subjective Data
-
Date of Service:
Date of Service: April 06, 2025
Chief Complaint: Pulmonary Follow Up and Dyspnea Follow Up
Subjective:
Patient seen and evaluated this morning. Morphine has been helping him breathe better. Still short of breath but improved. Still coughing when taking a deep breath or exerting himself. Afebrile overnight. Currently denies chest pain, MCGEE,
nausea, fevers or chills.
Review of Systems
General: Other (Negative unless mentioned above)
Objective Data
Data Reviewed
Vital Signs / I&O / Oxygen:
Vital Signs
Temp Pulse Resp BP Pulse Ox
97.6 F 76 18 114/49 94
04/06/25 07:15 04/06/25 08:07 04/06/25 08:07 04/06/25 07:18 04/06/25 10:47
Intake and Output
04/05/25 04/06/25 04/07/25
06:59 06:59 06:59
Intake Total 600 / 600 1200 / 1200 540 / 540
Output Total 640 / 640 755 / 755
Balance 600 / 600 560 / 560 -215 / -215
SaO2 94
Nasal Cannula flow liters per 4
minute
Physical Exam
General: Respiratory Distress (negative), Comfortable, Chills (negative) and Sweats (negative)
HEENT: Normocephalic and Anicteric
Cardiovascular: S1-S2 and Peripheral Edema (negative)
Respiratory: Wheeze (negative), Crackles (negative), Rhonchi (negative), Non-Labored Respirations, Stridor (negative) and Other (Diminished breath sounds bilaterally)
GI: Soft, Non Distended, Non Tender and Normal Bowel Sounds
Neurology: AO x 3 and Tremors (negative)
Skin: Warm, Dry, Cyanosis (negative) and Jaundice (negative)
Labs/Micro/Reports
Lab Data
04/05/25 05:17
04/05/25 05:17
Laboratory Results
04/05/25
12:25
pH 7.43
pCO2 39
pO2 77 L
HCO3 25.9
O2 Delivery Level 4 liters
--- NOTE | 2025-04-06 09:13 | W.PN.HOSP.TC ---
Today's Communication/Plan
-
c/w Nebs
IV steroid
PRN IV Morphine
Assessment / Plan
Assessment / Plan
Physical Exam
General: chronically ill looking.
HEENT: Normocephalic, Moist mucous membranes and Atraumatic
Respiratory: more air, less bilateral rhonchi
Cardiac: S1/S2
GI: Soft, Non-Tender, Non-Distended and Normal Bowel Sounds, obese.
Rectal: NO bleeding.
Musculoskeletal: No Clubbing, No Cyanosis
Neuro: AAOX 3, Followed commands, Nonfocal/grossly intact
Psych: Calm
COPD flare
Acute on Chronic hypoxic respiratory failure on Home O2 dependent COPD/Emphysema, O2 requirement at 2 liters at home
Advanced COPD
No evidence of PNA on admission CXR
- Change to IV SoluMedrol
- Albuterol Neb qid and PRN
- added PRN IV morphine for air hunger
- supplemental O2 to keep sat >92; wean as tolerated
Appreciate pulmonary input
# HX CAD Status post left main stent placement 09/11/2024
- on DAPL
No chest pain or angina
- Metoprolol XL
- on Stain
Recent admission to vascular service :
s/p Cutdown and exposure of proximal left brachial artery for endovascular intervention with primary repair
Severe aortic stenosis HX s/p TAVR in Sep 2024 per patient ??
09/28/24 Echo; Calcific aortic valve with moderate to severe low-flow low gradient aortic stenosis.
Anemia likely from chronic disease
- Hemoglobin stable at hi 9s and stable
- No active bleeding
Chr conditions:
HX Mild Hypotension
HX Chr HFrEF
HX Cardiomyopathy, EF 45%
s/p R � CEA
Hypereosinophilia
Former tobacco smoker (quit 06/2019 with >22-03-dnit-year history)
History of AAA, peripheral vascular disease
Total time spent to see the patient, examine the patient, review data and lab result, discuss treatment plan with patient, nursing staff around 55 minutes
Anticipated Discharge: > 48 hours
Subjective/Interval History
-
Date of Service: April 06, 2025
Less sob
Objective Data
-
Vital Signs:
Vital Signs
Temp Pulse Resp BP Pulse Ox
97.6 F 76 18 114/49 94
04/06/25 07:15 04/06/25 08:07 04/06/25 08:07 04/06/25 07:18 04/06/25 08:07
I&O
04/05/25 04/06/25 04/07/25
06:59 06:59 06:59
Intake Total 600 / 600 1200 / 1200 540 / 540
Output Total 640 / 640 755 / 755
Balance 600 / 600 560 / 560 -215 / -215
[2025-04-06] MEDS: VENTOLIN NEBULES 1.25 MG INH ×3 (11:26→19:38)
[2025-04-06 11:30] VITALS: BP 108/58
[2025-04-06] MEDS: VENTOLIN NEBULES INH (11:48)
--- NOTE | 2025-04-06 12:32 | VNURNOTE ---
Home Health Liaison met with patient at bedside to discuss [facility] nurse/therapy, visits, schedule and homebound status. Patient is agreeable and understands that visits at home will be 2-3 x per week to assess and teach medical management. Patient is
aware that [facility] will contact them for start of care in 1-2 days after discharge from .
[facility] referral completed in Care Port.
[2025-04-06 15:25] VITALS: BP 102/45
[2025-04-06 19:20] VITALS: BP 106/50
[2025-04-06] MEDS: SINGULAIR 10 MG PO (20:49)
[2025-04-06 23:45] VITALS: BP 107/52
[2025-04-07 03:16] VITALS: BP 115/55
[2025-04-07] MEDS: SOLU-MEDROL PF 40 MG IV ×3 (04:57→21:38)
[2025-04-07] MEDS: HEPARIN 5000 UNITS SC ×3 (05:00→21:38)
[2025-04-07 06:00] VITALS: BMI 20.9
[2025-04-07] MEDS: SYMBICORT 160/4.5 MCG INHALER 2 PUFF INH ×2 (06:30→19:46)
[2025-04-07] MEDS: SPIRIVA RESPIMAT 2.5 MCG 2 PUFF INH (06:30)
[2025-04-07] MEDS: VENTOLIN NEBULES 2.5 MG INH (06:31)
[2025-04-07] MEDS: VENTOLIN NEBULES 1.25 MG INH ×4 (06:36→19:46)
[2025-04-07 07:31] VITALS: BP 126/56
[2025-04-07] MEDS: PLAVIX 75 MG PO (08:26)
[2025-04-07] MEDS: CRESTOR 20 MG PO (08:26)
[2025-04-07] MEDS: PROTONIX 40 MG PO (08:26)
[2025-04-07] MEDS: COZAAR 25 MG PO (08:26)
[2025-04-07] MEDS: ASPIR LOW (ENTERIC COATED) 81 MG PO (08:26)
[2025-04-07] MEDS: DALIRESP 500 MCG PO (08:26)
[2025-04-07] MEDS: TOPROL XL 25 MG PO (08:26)
[2025-04-07] MEDS: ZITHROMAX 500 MG PO (08:26)
[2025-04-07] MEDS: MUCINEX 1200 MG PO ×2 (08:26→20:24)
[2025-04-07] MEDS: ZOLOFT 50 MG PO (08:27)
--- NOTE | 2025-04-07 09:10 | W.PN.PUL3 ---
Today's Communication / Plan
-
Tomorrow will wean steroids down to 40mg IV q12hr
If he continues to remain stable with improving respiratory status, and stable oxygen requirements, believe he would be ready for discharge by tomorrow
Will need a slow steroid taper upon discharge - can discharge home on prednisone starting at 50mg daily, reducing by 10mg every 5th day until off
Symbicort + Spiriva
Daliresp + Zithromax TIW
Nebulized albuterol
Mucinex
Up OOB as tolerated
PT/OT
Outpatient pulmonary rehab recommended - will be discussed in the office
Most recent echo on 11/16/2024 showed normal PASP at 28 mmHg, hence do not feel that pulmonary hypertension is contributing to his SOB
Pulmonary service will continue to follow along; close outpatient pulmonary office follow-up recommended
Assessment
-
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
artery stenosis who presents with increasing SOB. Patient wears 2 L/min O2 at home but had a recent/minute prior to arrival. Also found that the increased heat lately has been making his SOB worse. He currently denies fevers, chills. He does
have a increased cough with yellow phlegm. He has been hearing himself wheezing as well. Has a history of anxiety and his breathing has been picking and being extremely anxious. Initially in the ER he was afebrile with pulse rate 87, respiratory
rate 28, BP 113/59 and saturating 96% on room air, although he did require 4 L/min O2 with saturations improving to 100%. Labs showed Hb 10.9, absolute eosinophil count 600, creatinine 0.7, glucose 110, troponin negative at <0.012, and proBNP 147.
CXR did not show any evidence for pneumonia. In the ER he was given Decadron + DuoNebs and Ativan. Admitted to the hospitalist service and Pulmonary service consulted for additional management/recommendations.
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
chronic hypoxic respiratory failure on home O2 at 2 L/min, CAD, carotid artery stenosis
Impression:
#Group E severe COPD with acute exacerbation
#Acute on chronic hypoxic respiratory failure due to above
#Eosinophilia with Hx of hypereosinophilia (absolute eosinophil count: 2200 on 09/05/2024)
#History of asthma
#Severe aortic stenosis s/p TAVR (10/15/2024)
#Chronic HFmrEF
#PAD with prior left femoral endarterectomy
#CAD s/p right endarterectomy
#Chronic mesenteric ischemia with SMA stenosis s/p balloon angioplasty + stenting of SMA (11/09/2024)
#Anemia
#Hx of CAD/NSTEMI with history of left main stent
#Former tobacco smoker (quit 06/2019 with >50 pack-year history)
#AAA
Plan:
- Continue with treatment for COPD exacerbation
- Continue systemic steroids - I started Solu-medrol 40mg IV q6hr --> he feels better as of 04/06, and steroids weaned to 40mg IV q8hr --> tomorrow will wean down to 40mg IV q12hr; maintain euglycemia with goal BG >100 and <180mg/dL while on high
dose steroids; he will need a slow steroid taper upon discharge - can discharge home on prednisone starting at 50mg daily, reducing by 10mg every 5th day until off
- Continue Symbicort 160 mcg + Spiriva Respimat 2.5mct/act
- Nebulized albuterol QID with prn doses for breakthrough symptoms
- Given he has a history of eosinophilia (most recently 600 on 04/04/2025), he would benefit from Dupixent vs Nucala which can be discussed as an outpatient; he was previously prescribed Dupixent but was not covered by insurance at the time; our
office will try to re-prescribe this for him to see if this is covered now, which again can be discussed as an outpatient
- Given his advanced symptoms with recurrent flare ups and significant COSBY, continue prn morphine (low-dose) for air-hunger
- Continue with Zithromax 500mg TIW + Daliresp (has tried Ohtuvayre in the past without improvement)
- Maintain SpO2 88-95%, weaning down O2 as tolerated; he will need a repeat home O2 assessment prior to discharge
- Continue singulair
- Continue bedside fan as this should also help his symptoms of SOB
- Resume Trelegy upon discharge
- Mucinex
- Hold off on Abx for now given he is non-toxic appearing; continue to trend WBC and monitor temperature curve
- Maintain MAP>65
- Replete electrolytes with K>4, Mg>2
- Trend H/H and transfuse if needed to keep Hb>7g/dL; keep plt>20k, unless there is concern for bleeding then keep plt>50k
- Incentive spirometer encouraged 10x per hour for at least 4 hrs a day
- DVT ppx: HSQ
He should continue following closely with us after discharge as last Pulmonary office visit was on 03/10/2025 with JULIA Young; believe he would benefit from pulmonary rehab - will be an ongoing discussion as an outpatient
Of note, Dr. Covarrubias called and spoke with his , Lilia, on 04/05/2025 and answered all of her questions.
Pulmonary service will continue to follow along
Data:
CXR 04/04/2025: Severe changes of emphysema. No radiographic findings to suggest pneumonia or pulmonary edema.
CXR 04/05/2025: No acute cardiopulmonary abnormality. Chronic emphysematous changes.
Transthoracic Echocardiogram 11/16/2024:
Mildly reduced left ventricular systolic function.
Hypokinesis of the basal to mid inferolateral wall.
Mild hypokinesis of the basal inferior wall.
Estimated left ventricular ejection fraction is 45-50% by Jiménez's method of
discs.
Stage I diastolic dysfunction suggestive of abnormal relaxation.
Well-seated, normally functioning bioprosthetic aortic valve (status post 26 mm
Dawson ELDA TAVR).
-
When compared to the prior images from 10/16/2024, the EF looks slightly
decreased from 50 to 55% to 40 to 45 to 50%. Basal inferior wall now looks
mildly hypokinetic.
Total time spent today was 42 minutes for this encounter. Time includes reviewing laboratory test/imaging results, reviewing pertinent medical records, obtaining and reviewing medical history, performing an appropriate exam, ordering medications,
tests and procedures. Time also includes documentation of this encounter, coordinating patient care and communicating with other healthcare professionals. Total time does not include separately billed tests performed on this date of service.
Subjective Data
-
Date of Service:
Date of Service: April 07, 2025
Chief Complaint: Pulmonary Follow Up and Dyspnea Follow Up
Subjective:
Patient seen and evaluated this morning. Resting in bed no acute distress. On 3 L/min nasal cannula breathing comfortably. Afebrile overnight. Denies chest pain, MCGEE, nausea, fevers or chills.
Review of Systems
General: Other (Negative unless mentioned above)
Objective Data
Data Reviewed
Vital Signs / I&O / Oxygen:
Vital Signs
Temp Pulse Resp BP Pulse Ox
97.7 F 76 18 126/56 94
04/07/25 07:31 04/07/25 08:26 04/07/25 07:31 04/07/25 08:26 04/07/25 07:31
Intake and Output
04/06/25 04/07/25 04/08/25
06:59 06:59 06:59
Intake Total 1200 / 1200 1020 / 1020
Output Total 640 / 640 1655 / 1655
Balance 560 / 560 -635 / -635
SaO2 94
Nasal Cannula flow liters per 4
minute
Physical Exam
General: Respiratory Distress (negative), Comfortable, Chills (negative) and Sweats (negative)
HEENT: Normocephalic and Anicteric
Cardiovascular: S1-S2 and Peripheral Edema (negative)
Respiratory: Wheeze (negative), Crackles (negative), Rhonchi (negative), Non-Labored Respirations, Stridor (negative) and Other (Diminished breath sounds bilaterally)
GI: Soft, Non Distended, Non Tender and Normal Bowel Sounds
Neurology: AO x 3 and Tremors (negative)
Skin: Warm, Dry, Cyanosis (negative) and Jaundice (negative)
Labs/Micro/Reports
Lab Data
04/05/25 05:17
04/05/25 05:17
--- NOTE | 2025-04-07 09:29 | W.PN.HOSP.TC ---
Today's Communication/Plan
-
He wants to leave before Saturday. Plan to c/w SoluMedrol as TID for another 24 hours, change to BID and discharge after 4pm dose.
Assessment / Plan
Assessment / Plan
Physical Exam
General: chronically ill looking.
HEENT: Normocephalic, Moist mucous membranes and Atraumatic
Respiratory: more air, less bilateral rhonchi
Cardiac: S1/S2
GI: Soft, Non-Tender, Non-Distended and Normal Bowel Sounds, obese.
Rectal: NO bleeding.
Musculoskeletal: No Clubbing, No Cyanosis
Neuro: AAOX 3, Followed commands, Nonfocal/grossly intact
Psych: Calm
COPD flare
Acute on Chronic hypoxic respiratory failure on Home O2 dependent COPD/Emphysema, O2 requirement at 2 liters at home
Advanced COPD
No evidence of PNA on admission CXR
- Change to IV SoluMedrol , ok to do TID but keep same frequency for another 24 hours
- Albuterol Neb qid and PRN
- added PRN IV morphine for air hunger
- supplemental O2 to keep sat >92; wean as tolerated
Appreciate pulmonary input
# HX CAD Status post left main stent placement 09/11/2024
- on DAPL
No chest pain or angina
- Metoprolol XL
- on Stain
Recent admission to vascular service :
s/p Cutdown and exposure of proximal left brachial artery for endovascular intervention with primary repair
Severe aortic stenosis HX s/p TAVR in Sep 2024 per patient ??
09/28/24 Echo; Calcific aortic valve with moderate to severe low-flow low gradient aortic stenosis.
Anemia likely from chronic disease
- Hemoglobin stable at hi 9s and stable
- No active bleeding
Chr conditions:
HX Mild Hypotension
HX Chr HFrEF
HX Cardiomyopathy, EF 45%
s/p R � CEA
Hypereosinophilia
Former tobacco smoker (quit 06/2019 with >14-64-rquy-year history)
History of AAA, peripheral vascular disease
Total time spent to see the patient, examine the patient, review data and lab result, discuss treatment plan with patient, nursing staff around 55 minutes
Anticipated Discharge: 24 - 48 hours
Subjective/Interval History
-
Date of Service: April 07, 2025
No chest pain, feels better, wants to go home before Saturday
Objective Data
-
Vital Signs:
Vital Signs
Temp Pulse Resp BP Pulse Ox
97.7 F 76 18 126/56 94
04/07/25 07:31 04/07/25 08:26 04/07/25 07:31 04/07/25 08:26 04/07/25 07:31
I&O
04/06/25 04/07/25 04/08/25
06:59 06:59 06:59
Intake Total 1200 / 1200 1020 / 1020
Output Total 640 / 640 1655 / 1655
Balance 560 / 560 -635 / -635
[2025-04-07 11:15] VITALS: BP 121/62
[2025-04-07 12:48] VITALS: PULSE 69; O2SAT 93
[2025-04-07 15:25] VITALS: BP 110/49
[2025-04-07] MEDS: ATIVAN 0.5 MG PO (19:27)
[2025-04-07] MEDS: SINGULAIR 10 MG PO (21:38)
[2025-04-07 23:47] VITALS: BP 104/57
[2025-04-08] MEDS: HEPARIN 5000 UNITS SC (05:04)
[2025-04-08] MEDS: SOLU-MEDROL PF 40 MG IV ×3 (05:04→15:28)
[2025-04-08 06:00] VITALS: BMI 20.8
[2025-04-08] MEDS: SPIRIVA RESPIMAT 2.5 MCG 2 PUFF INH (07:26)
[2025-04-08] MEDS: VENTOLIN NEBULES 1.25 MG INH ×3 (07:27→14:56)
[2025-04-08] MEDS: SYMBICORT 160/4.5 MCG INHALER 2 PUFF INH (07:27)
[2025-04-08] MEDS: VENTOLIN NEBULES 2.5 MG INH (07:27)
[2025-04-08 07:50] VITALS: BP 131/44
[2025-04-08] MEDS: COZAAR 25 MG PO (08:17)
[2025-04-08] MEDS: TOPROL XL 25 MG PO (08:18)
[2025-04-08] MEDS: MUCINEX 1200 MG PO (08:18)
[2025-04-08] MEDS: CRESTOR 20 MG PO (08:18)
[2025-04-08] MEDS: ZOLOFT 50 MG PO (08:18)
[2025-04-08] MEDS: DALIRESP 500 MCG PO (08:18)
[2025-04-08] MEDS: PROTONIX 40 MG PO (08:18)
[2025-04-08] MEDS: PLAVIX 75 MG PO (08:18)
[2025-04-08] MEDS: ASPIR LOW (ENTERIC COATED) 81 MG PO (08:18)
--- NOTE | 2025-04-08 08:42 | W.PN.HOSP.TC ---
Today's Communication/Plan
-
dc after PM dose of IV steroid
Assessment / Plan
Assessment / Plan
Physical Exam
General: chronically ill looking.
HEENT: Normocephalic, Moist mucous membranes and Atraumatic
Respiratory: more air, less bilateral rhonchi
Cardiac: S1/S2
GI: Soft, Non-Tender, Non-Distended and Normal Bowel Sounds, obese.
Rectal: NO bleeding.
Musculoskeletal: No Clubbing, No Cyanosis
Neuro: AAOX 3, Followed commands, Nonfocal/grossly intact
Psych: Calm
COPD flare
Acute on Chronic hypoxic respiratory failure on Home O2 dependent COPD/Emphysema, O2 requirement at 2 liters at home
Advanced COPD
No evidence of PNA on admission CXR
- Changed to IV SoluMedrol , ok to go home today after today's PM dose
- Albuterol Neb qid and PRN
- added PRN IV morphine for air hunger
- supplemental O2 to keep sat >92; wean as tolerated
Appreciate pulmonary input
# HX CAD Status post left main stent placement 09/11/2024
- on DAPL
No chest pain or angina
- Metoprolol XL
- on Stain
Recent admission to vascular service :
s/p Cutdown and exposure of proximal left brachial artery for endovascular intervention with primary repair
Severe aortic stenosis HX s/p TAVR in Sep 2024 per patient ??
09/28/24 Echo; Calcific aortic valve with moderate to severe low-flow low gradient aortic stenosis.
Anemia likely from chronic disease
- Hemoglobin stable at hi 9s and stable
- No active bleeding
Chr conditions:
HX Mild Hypotension
HX Chr HFrEF
HX Cardiomyopathy, EF 45%
s/p R � CEA
Hypereosinophilia
Former tobacco smoker (quit 06/2019 with >69-79-pnzb-year history)
History of AAA, peripheral vascular disease
Total discharge time spent to see the patient, examine the patient, review data and lab result, discuss discharge plan with patient, nursing staff around 63 minutes
Anticipated Discharge: Today
Subjective/Interval History
-
Date of Service: April 08, 2025
He feels better and wants to go home today
He denies chest pain or worsening sob
Objective Data
-
Vital Signs:
Vital Signs
Temp Pulse Resp BP Pulse Ox
97.8 F 72 16 104/57 95
04/08/25 07:50 04/08/25 07:50 04/08/25 07:50 04/08/25 08:18 04/08/25 07:50
I&O
04/07/25 04/08/25 04/09/25
06:59 06:59 06:59
Intake Total 1020 / 1020 1080 / 1080
Output Total 1655 / 1655 1250 / 1250
Balance -635 / -635 -170 / -170
--- NOTE | 2025-04-08 08:52 | CM ---
entered order for discharge.
Pt said he was ready for discharge today.
His dgt Florinda will drive him home today.
He has home oxygen with [employer] . His dgt will bring portable oxygen .
POX 95% on 3 liter NC .
IMM reviewed with pt he agrees with dc.
PLAN Home with [facility]
--- NOTE | 2025-04-08 09:23 | W.PN.PUL3 ---
Today's Communication / Plan
-
Continue weaning down steroids, now on Solu-Medrol 40 mg IV BID
Discharge home on prednisone starting at 50mg daily, reducing by 10mg every 5th day until off
Symbicort + Spiriva
Daliresp + Zithromax TIW
Nebulized albuterol
Mucinex
Up OOB as tolerated
PT - rec'd home health
Outpatient pulmonary rehab recommended - will be discussed in the office
Most recent echo on 11/16/2024 showed normal PASP at 28 mmHg, hence do not feel that pulmonary hypertension is contributing to his SOB
Pulmonary service will continue to follow along; close outpatient pulmonary office follow-up recommended; believe he will be ready for discharge by tomorrow
Assessment
-
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
artery stenosis who presents with increasing SOB. Patient wears 2 L/min O2 at home but had a recent/minute prior to arrival. Also found that the increased heat lately has been making his SOB worse. He currently denies fevers, chills. He does
have a increased cough with yellow phlegm. He has been hearing himself wheezing as well. Has a history of anxiety and his breathing has been picking and being extremely anxious. Initially in the ER he was afebrile with pulse rate 87, respiratory
rate 28, BP 113/59 and saturating 96% on room air, although he did require 4 L/min O2 with saturations improving to 100%. Labs showed Hb 10.9, absolute eosinophil count 600, creatinine 0.7, glucose 110, troponin negative at <0.012, and proBNP 147.
CXR did not show any evidence for pneumonia. In the ER he was given Decadron + DuoNebs and Ativan. Admitted to the hospitalist service and Pulmonary service consulted for additional management/recommendations.
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
chronic hypoxic respiratory failure on home O2 at 2 L/min, CAD, carotid artery stenosis
Impression:
#Group E severe COPD with acute exacerbation
#Acute on chronic hypoxic respiratory failure due to above
#Eosinophilia with Hx of hypereosinophilia (absolute eosinophil count: 2200 on 09/05/2024)
#History of asthma
#Severe aortic stenosis s/p TAVR (10/15/2024)
#Chronic HFmrEF
#PAD with prior left femoral endarterectomy
#CAD s/p right endarterectomy
#Chronic mesenteric ischemia with SMA stenosis s/p balloon angioplasty + stenting of SMA (11/09/2024)
#Anemia
#Hx of CAD/NSTEMI with history of left main stent
#Former tobacco smoker (quit 06/2019 with >50 pack-year history)
#AAA
Plan:
- Continue with treatment for COPD exacerbation
- Continue systemic steroids - I started Solu-medrol 40mg IV q6hr --> he feels better as of 04/06, and steroids weaned to 40mg IV q8hr --> now on 40mg IV BID dosing. Maintain euglycemia with goal BG >100 and <180mg/dL while on high dose steroids
- He will need a slow steroid taper upon discharge - can discharge home on prednisone starting at 50mg daily, reducing by 10mg every 5th day until off
- Continue Symbicort 160 mcg + Spiriva Respimat 2.5mct/act
- Nebulized albuterol QID with prn doses for breakthrough symptoms
- Given he has a history of eosinophilia (most recently 600 on 04/04/2025), he would benefit from Dupixent vs Nucala which can be discussed as an outpatient; he was previously prescribed Dupixent but was not covered by insurance at the time; our
office will try to re-prescribe this for him to see if this is covered now, which again can be discussed as an outpatient
- Given his advanced symptoms with recurrent flare ups and significant COSBY, continue prn morphine (low-dose) for air-hunger
- Continue with Zithromax 500mg TIW + Daliresp (has tried Ohtuvayre in the past without improvement)
- Maintain SpO2 88-95%, weaning down O2 as tolerated; he will need a repeat home O2 assessment prior to discharge
- Continue singulair
- Continue bedside fan as this should also help his symptoms of SOB
- Resume Trelegy upon discharge
- Mucinex
- Hold off on Abx for now given he is non-toxic appearing; continue to trend WBC and monitor temperature curve
- Maintain MAP>65
- Replete electrolytes with K>4, Mg>2
- Trend H/H and transfuse if needed to keep Hb>7g/dL; keep plt>20k, unless there is concern for bleeding then keep plt>50k
- Incentive spirometer encouraged 10x per hour for at least 4 hrs a day
- PT - rec'd home health
- DVT ppx: HSQ
He should continue following closely with us after discharge as last Pulmonary office visit was on 03/10/2025 with JULIA Young; believe he would benefit from pulmonary rehab - will be an ongoing discussion as an outpatient
Of note, Dr. Covarrubias called and spoke with his , Lilia, on 04/05/2025 and answered all of her questions.
Pulmonary service will continue to follow along; believe he will be ready for discharge tomorrow.
Data:
CXR 04/04/2025: Severe changes of emphysema. No radiographic findings to suggest pneumonia or pulmonary edema.
CXR 04/05/2025: No acute cardiopulmonary abnormality. Chronic emphysematous changes.
Transthoracic Echocardiogram 11/16/2024:
Mildly reduced left ventricular systolic function.
Hypokinesis of the basal to mid inferolateral wall.
Mild hypokinesis of the basal inferior wall.
Estimated left ventricular ejection fraction is 45-50% by Jiménez's method of
discs.
Stage I diastolic dysfunction suggestive of abnormal relaxation.
Well-seated, normally functioning bioprosthetic aortic valve (status post 26 mm
Dawson ELDA TAVR).
-
When compared to the prior images from 10/16/2024, the EF looks slightly
decreased from 50 to 55% to 40 to 45 to 50%. Basal inferior wall now looks
mildly hypokinetic.
Total time spent today was 38 minutes for this encounter. Time includes reviewing laboratory test/imaging results, reviewing pertinent medical records, obtaining and reviewing medical history, performing an appropriate exam, ordering medications,
tests and procedures. Time also includes documentation of this encounter, coordinating patient care and communicating with other healthcare professionals. Total time does not include separately billed tests performed on this date of service.
Subjective Data
-
Date of Service:
Date of Service: April 08, 2025
Chief Complaint: Pulmonary Follow Up and Dyspnea Follow Up
Subjective:
Patient seen and evaluated this morning. Resting in bed in no acute distress. On 3 L/min nasal cannula, saturating 95%. Afebrile overnight. Denies chest pain, MCGEE, nausea, fevers or chills.
Review of Systems
General: Other (Negative unless mentioned above)
Objective Data
Data Reviewed
Vital Signs / I&O / Oxygen:
Vital Signs
Temp Pulse Resp BP Pulse Ox
97.8 F 72 16 104/57 95
04/08/25 07:50 04/08/25 07:50 04/08/25 07:50 04/08/25 08:18 04/08/25 07:50
Intake and Output
04/07/25 04/08/25 04/09/25
06:59 06:59 06:59
Intake Total 1020 / 1020 1080 / 1080
Output Total 1655 / 1655 1250 / 1250
Balance -635 / -635 -170 / -170
SaO2 95
Nasal Cannula flow liters per 3
minute
Physical Exam
General: Respiratory Distress (negative), Comfortable, Chills (negative) and Sweats (negative)
HEENT: Normocephalic and Anicteric
Cardiovascular: S1-S2 and Peripheral Edema (negative)
Respiratory: Wheeze (negative), Crackles (negative), Rhonchi (negative), Non-Labored Respirations, Stridor (negative) and Other (Diminished breath sounds bilaterally)
GI: Soft, Non Distended, Non Tender and Normal Bowel Sounds
Neurology: AO x 3 and Tremors (negative)
Skin: Warm, Dry, Cyanosis (negative) and Jaundice (negative)
Labs/Micro/Reports
Lab Data
04/05/25 05:17
04/05/25 05:17
--- NOTE | 2025-04-08 12:57 | W.DCSUMMARY ---
Discharge Summary
Discharge Data
Date of Admission: 04/04/25
Date of Discharge: 04/08/25
-
Pending Results: No
Hospital Course
74 years old male with history of severe COPD on home oxygen who presented to the hospital with increasing shortness of breath and wheezing. Patient did not have fever. His pulse rate was 87, respiratory rate 28 and blood pressure 113/59 on
admission. His pulse ox was 96% on room air although he later required 4 L/min of oxygen with saturation improving to 100%. He used 2-3 L of oxygen at home. Chest radiography did not show any evidence for pneumonia. Patient was given intravenous
Decadron, DuoNeb nebulizer and Ativan. Patient was admitted to the hospital. He was evaluated by pulmonary doctor. Patient continued to have shortness of breath with increased anxiety. His steroid therapy changed to intravenous
methylprednisolone. He was given one-time dose of IV morphine to help with air hunger. He was maintained on nebulizer treatment with albuterol nebulizer. He gradually started to improve. He felt his breathing was back to normal. He was kept on
extended dose of intravenous methylprednisolone for a few days. Plan was to discharge home on oral prednisone with a slow taper. Patient was able to tolerate diet. He was able to ambulate. His oxygen requirement came down to 2 to 3 L. Patient
was advised to follow-up with pulmonary doctor in the office to discuss pulmonary rehab. He remained hemodynamically stable and was discharged home in a stable condition.
Discharge Plan
-
Patient Disposition: Home (Routine Discharge)
Discharge Diagnosis/Procedures: Acute COPD exacerbation
Diet: As tolerated
Referrals:
Kameron Covarrubias MD [Active, Pulmonary Medicine] - in two to three weeks
Referral Note: Full PFT on day of office visit
Abdi Paez MD [Family Provider, Family Practice]
Prescriptions:
New
albuterol sulfate 2.5 mg /3 mL (0.083 %) Solution For Nebulization
2.5 mg inhalation R Q4HPRN PRN (Reason: SOB, COUGH, WHEEZE) Qty: 90 0RF
guaifenesin 600 mg Tablet Extended Release 12hr
1,200 mg PO Q12 Qty: 60 0RF
budesonide-formoterol [Symbicort] 160-4.5 mcg/actuation HFA aerosol inhaler
2 puff inhalation BID Qty: 10.2 0RF
prednisone 10 mg tablet
50 mg PO DAILY Qty: 70 0RF
Rx Instructions:
50 mg X 4 days then 40 mg X 5 days then 30 mg X 5 days, 20 mg X 5 days, 10 mg X 5 days
Continued
pantoprazole 40 mg Tablet,Delayed Release (Dr/Ec)
40 mg PO DAILY
roflumilast 500 mcg Tablet
500 mcg PO DAILY
montelukast [Singulair] 10 mg Tablet
10 mg PO HS
clopidogrel 75 mg Tablet
75 mg PO DAILY Qty: 30 11RF
sertraline 50 mg Tablet
50 mg PO DAILY
losartan 25 mg Tablet
25 mg PO DAILY
metoprolol succinate 25 mg Tablet Extended Release 24 Hr
25 mg PO DAILY
rosuvastatin [Crestor] 20 mg Tablet
20 mg PO DAILY
Trelegy Ellipta 200-62.5-25 mcg Blister With Device
1 inh INHALATION R DAILY
aspirin 81 mg Tablet,Delayed Release (Dr/Ec)
81 mg PO DAILY
albuterol sulfate 90 mcg/actuation Hfa Aerosol Inhaler
2 puff INHALATION R Q4HPRN PRN (Reason: wheezing)
azithromycin 500 mg Tablet
500 mg PO MOWEFR
Discharge Orders:
Discharge Patient (As Directed); Ordered 04/08/25
Ordered By: Jefferson Harrington
Discharge Date and Time
Discharge Date/Time: 04/08/25 19:03
Print Language: CITIZEN OF [place]
[2025-04-08 15:03] VITALS: BP 124/56
[2025-04-08] MEDS: HEPARIN SC (15:09)
== END 2025-04-08 19:03 | disposition home health service (06) | DRG 190 ==
LOC: 3 WEST ACU 16:15
PROVIDERS: Emergency Medicine; ADMITTING PHYSICIAN Internal Medicine; ATTENDING PHYSICIAN Internal Medicine; EMERGENCY PHYSICIAN Emergency Medicine; FAMILY PHYSICIAN Family Medicine; OTHER PHYSICIAN Internal Medicine Critical Care Medicine
DX: J43.2 Centrilobular emphysema (principal); J96.21 Acute and chronic respiratory failure with hypoxia; I50.22 Chronic systolic (congestive) heart failure; K55.1 Chronic vascular disorders of intestine; F41.9 Anxiety disorder, unspecified; I11.0 Hypertensive heart disease with heart failure; I73.9 Peripheral vascular disease, unspecified; I35.0 Nonrheumatic aortic (valve) stenosis; I25.10 Atherosclerotic heart disease of native coronary artery without angina pectoris; D63.8 Anemia in other chronic diseases classified elsewhere; K21.9 Gastro-esophageal reflux disease without esophagitis; E78.00 Pure hypercholesterolemia, unspecified; G47.33 Obstructive sleep apnea (adult) (pediatric); D72.10 Eosinophilia, unspecified; I71.40 Abdominal aortic aneurysm, without rupture, unspecified; I25.2 Old myocardial infarction; Z99.81 Dependence on supplemental oxygen; Z87.891 Personal history of nicotine dependence; Z95.2 Presence of prosthetic heart valve; Z87.01 Personal history of pneumonia (recurrent); Z86.718 Personal history of other venous thrombosis and embolism; Z82.41 Family history of sudden cardiac death; Z82.0 Family history of epilepsy and other diseases of the nervous system; Z88.1 Allergy status to other antibiotic agents; Z88.5 Allergy status to narcotic agent; Z79.02 Long term (current) use of antithrombotics/antiplatelets; Z79.82 Long term (current) use of aspirin
CPT/HCPCS: 36600; 71045; 71046; 80048; 80053; 82805; 83735; 83880; 84484; 85025; 94640; 96374; 96375; 97116; 97162; 99285

== ENCOUNTER 2025-05-25 09:00 | Outpatient (RCR) | payer MEDICARE, OTHER, SELFPAY | END 2025-05-28 11:37 | disposition home or self-care (01) | LOC: PURB 09:00 | PROVIDERS: ATTENDING PHYSICIAN Internal Medicine; FAMILY PHYSICIAN Family Medicine | DX: J44.9 Chronic obstructive pulmonary disease, unspecified (principal) | CPT/HCPCS: G0237 ==

== ENCOUNTER 2025-06-01 12:23 | Observation (INO) | payer MEDICARE, OTHER, SELFPAY ==
[2025-06-01] VITALS (11 sets, daily range): BP systolic 98–128; BP diastolic 53–80; BMI 22.3; BMI 21.9
--- NOTE | 2025-06-01 08:33 | ED.GENMED ---
History of Present Illness
General
Chief Complaint: Breathing Problem
Source: patient, records and spouse
Exam Limitations: none
Time Seen by Provider: 06/01/25 08:24
Nursing documentation reviewed up to this point in time: agreed with
History of Present Illness
History of Present Illness:
74-year-old male with a past medical history of hypertension, hyperlipidemia, aortic stenosis status post AVR, congestive heart failure, COPD, chronic respiratory failure on 2 to 3 L home oxygen who presents to the ER from home with his for
evaluation of increasing shortness of breath. Patient reports that for the past few days he has had increasing productive cough�he says productive of clear to occasionally yellow sputum. He says he has had progressive shortness of breath over that
period of time particularly with exertion. His says that he cannot even walk from chair to the bathroom without having to take a break due to severe dyspnea. He has had trouble sleeping at night due to coughing and dyspnea. He denies any
chest pain. He has not noted any fever or chills. He has not had any weight gain or swelling in the legs. Of note patient was admitted in March with similar presentation attributed to COPD exacerbation. At that time he was discharged on 2 to 3 L
of oxygen and recommended for pulmonary rehab�patient had first session last week and was scheduled to have another session today.
Past History
Past History
ED Past Medical History: COPD and Psychiatric (Anxiety)
Social History
Tobacco: Former smoker
Alcohol: None
Personal:
Living: with family
Review of Systems
Review of Systems
All Other Systems: ROS reviewed and negative except as documented in HPI and ROS
Constitutional: Reports fatigue; Denies fever, weight gain or chills
Respiratory: Reports cough and trouble breathing
Cardiac: Denies chest pain or palpitations
ABD/GI: Denies abdominal pain, nausea or diarrhea
Musculoskeletal: Denies edema
Neurological: Denies dizzy or headache
Phy Exam
Physical Exam
Physical Exam:
General: Awake, alert, oriented x3; mild respiratory distress
Head: Normocephalic, atraumatic
Eyes: Conjunctiva normal, EOMI
Throat: Airway intact, handling secretions
Neck: Trachea midline, no JVD
Lungs: Patient is sitting upright in the bed, tachypneic with a respiratory rate of 28-30 on my assessment, pulse ox 96% on 3 L of oxygen; he has diffuse bilateral wheezing left somewhat greater than right with prolonged expiratory phase, diminished
air movement
Heart: Regular rate and rhythm, systolic murmur
Neuro: Grossly intact
Skin: No rash
Extremities: No edema in extremities, equal pulses in all extremities
Scores
Heart Failure Risk
Heart Failure Risk Score: Not Applicable
Heart Score for Chest Pain Patients
STEMI patient?: Not applicable
Withdrawal Assessment of Alcohol
Withdrawal Assessment Completed?: Not applicable
Course
Orders/Labs/Results
Orders:
Orders
06/01/25 08:26
Electrocardiogram (*1) Urgent
Reason for Study: Shortness of Breath
EKG- Treatment ONCE
Ipratropium/Albuterol Sulfate [Duoneb] 3 ml INH R NOW STA
CR Chest - 2 Views Urgent
Comment:
Reason For Exam: sob
06/01/25 08:39
MethylPREDNISolone PF [Solu-Medrol Pf] 125 mg IV NOW STA
06/01/25 08:41
COVID-19 Antigen Urgent
Source: Nasal Swab
Complete Blood Count/With Diff Urgent
Comprehensive Metabolic Panel Urgent
NT-proBNP Urgent
Influenza A+B Rapid Molecular Urgent
DEMI Source: Nasal Swab
Specimen Description:
06/01/25 09:55
Azithromycin [Zithromax] 500 mg PO NOW STA
06/01/25 10:11
Ipratropium/Albuterol Sulfate [Duoneb] 3 ml INH R NOW STA
Abnormal Lab Results
09/02/25
08:41
RBC 3.64 L 10^6/uL
(4.70-6.10)
Hgb 11.2 L g/dL
(13.0-18.0)
Hct 35.9 L %
(39.0-52.0)
MCV 98.6 H fL
(80.0-94.0)
MCHC 31.2 L g/dL
(33.0-37.0)
RDW 14.6 H %
(11.5-14.5)
Abs Immat Gran (auto) 0.1 H 10^3/uL
(0-0.05)
Absolute Monos (auto) 0.9 H 10^3/uL
(0.1-0.6)
Absolute Eos (auto) 1.9 H 10^3/uL
(0-0.7)
Lymphocytes % 19.5 L %
(20.5-51.1)
Eosinophils % 19.5 H %
(0-6)
Glucose 102 H mg/dl
(70-99)
06/01/25 08:41
06/01/25 08:41
Vital Signs
Resp Rate: 28
Initial and Last Documented VS:
Initial Vital Signs
Temp Pulse Resp Pulse Ox
36.5 C 94 22 96
06/01/25 08:18 06/01/25 08:18 06/01/25 08:18 06/01/25 08:18
Last Documented Vital Signs
Temp Pulse Resp BP Pulse Ox
36.5 C 87 30 116/67 98
06/01/25 08:18 06/01/25 10:00 06/01/25 10:00 06/01/25 10:00 06/01/25 10:00
MDM/Problems Addressed
Differential Diagnosis Includes:
COPD exacerbation, pneumonia, CHF exacerbation; PE less likely although considered given recent hospitalization
MDM/Problems Addressed:
74-year-old male presents for evaluation of increased shortness of breath and coughing over the past few days as described above. Vitals and exam as above�he is in mild respiratory distress with significant tachypnea, wheezing during my assessment.
He was immediately brought back to room and placed on monitor. Will place an IV send labs including a CBC and a CMP, proBNP. Swab for COVID and flu. Check chest x-ray and EKG. Overall initial clinical impression is that this is an acute COPD
exacerbation�will treat with steroids, DuoNebs for now. Monitor very closely reassess after the above.
Labs reviewed: CBC shows stable anemia, CMP no clinically significant abnormalities. proBNP not significantly elevated, chest x-ray shows findings consistent with emphysema but no pneumonia no pulmonary edema. COVID and flu swabs are negative.
Will proceed with treatment for acute COPD exacerbation. Given change in sputum quality will cover with azithromycin despite negative chest x-ray. On clinical reassessment he is moving more air and respiratory rate has improved slightly but he
still remains tachypneic at rest and minimal exertion such as moving around the bed markedly exacerbates this. Plan for admission for continued treatment of acute COPD exacerbation. Discussed case with hospitalist for admission.
Chronic conditions affecting care:
COPD, CHF, chronic respiratory failure
*Radiology
Radiology exam reviewed: preliminary read by ED provider and radiology read reviewed
*Pulse Oximetry
SaO2: 96
Patient hypoxic: no (96% on 3 L of oxygen-patient on 2 to 3 L of oxygen at home)
*EKG
Interpreted by ED Provider?: Yes
Comparison EKG: no changes
Heart Rate: 87
Rate: normal
Rhythm: sinus
Wing: normal axis
Interval: normal interval
QRS Pattern: right bundle branch block (Incomplete)
Ischemia: no ischemia (No acute ischemia-no significant change from prior)
*Critical Care Note
Total Time (30-74mins, 75-104mins- exclusive of procedures): Not Applicable
Data Reviewed
Review of Other/Old Records Reveals: Labs, Records and Discharge Summary
Source: patient, records and spouse
Patient Management
Discussion with other providers: Hospitalist (Discussed with hospitalist)
Escalation/DeEscalation of care consider admission/obs:
Admission indicated
ED Attending Note
-
Portions of this chart may have been created with voice recognition software.� Occasional wrong word or��sound alike� substitutions may have occurred due to the inherent limitations of voice recognition software.
Discharge Plan
Departure
Patient Disposition: Admit
Date of Disposition: 06/01/25
Time of Disposition: 10:13
Admit to doctor: Jh
Presentation/result/management discussed w/ accepting MD/DO: Hospitalist
Discharge Problem:
COPD exacerbation
Prescriptions:
No Action
pantoprazole 40 mg Tablet,Delayed Release (Dr/Ec)
40 mg PO DAILY
roflumilast 500 mcg Tablet
500 mcg PO DAILY
montelukast [Singulair] 10 mg Tablet
10 mg PO HS
clopidogrel 75 mg Tablet
75 mg PO DAILY Qty: 30 11RF
sertraline 50 mg Tablet
50 mg PO DAILY
losartan 25 mg Tablet
25 mg PO DAILY
metoprolol succinate 25 mg Tablet Extended Release 24 Hr
25 mg PO DAILY
rosuvastatin [Crestor] 20 mg Tablet
20 mg PO DAILY
Trelegy Ellipta 200-62.5-25 mcg Blister With Device
1 inh INHALATION R DAILY
aspirin 81 mg Tablet,Delayed Release (Dr/Ec)
81 mg PO DAILY
albuterol sulfate 90 mcg/actuation Hfa Aerosol Inhaler
2 puff INHALATION R Q4HPRN PRN (Reason: wheezing)
azithromycin 500 mg Tablet
500 mg PO MOWEFR
albuterol sulfate 2.5 mg /3 mL (0.083 %) Solution For Nebulization
2.5 mg inhalation R Q4HPRN PRN (Reason: SOB, COUGH, WHEEZE) Qty: 90 0RF
guaifenesin 600 mg Tablet Extended Release 12hr
1,200 mg PO Q12 Qty: 60 0RF
budesonide-formoterol [Symbicort] 160-4.5 mcg/actuation HFA aerosol inhaler
2 puff inhalation BID Qty: 10.2 0RF
prednisone 10 mg tablet
50 mg PO DAILY Qty: 70 0RF
Rx Instructions:
50 mg X 4 days then 40 mg X 5 days then 30 mg X 5 days, 20 mg X 5 days, 10 mg X 5 days
Referrals:
Abdi Paez MD [Family Provider, Family Practice]
Interventions
Interventions:
*Risk Screen - Suicide Last Done: 06/01/25 08:18
*General Assessment Last Done: 06/01/25 08:53
*Neglect/Abuse Screening Last Done: 06/01/25 08:18
*ED- Fall Risk Assessment Last Done: 06/01/25 08:53
*ED COVID-19 Vaccine History Last Done: 06/01/25 08:53
ED- Cardiac Assessment Last Done: 06/01/25 09:51
ED- Pulmonary Assessment Last Done: 06/01/25 09:51
Discharge Date and Time
Print Language: YAKUT
[2025-06-01 08:52] LABS: Hematocrit 35.9 % (39.0-52.0); Hemoglobin 11.2 g/dL (13.0-18.0); Mean Corp Hgb Conc. 31.2 g/dL (33.0-37.0); Mean Corpuscular Volume 98.6 fL (80.0-94.0); Nucleated Red Blood Cells % 0 % (-); Platelet Count 282 10^3/uL (130-400); Red Cell Dist. Width 14.6 % (11.5-14.5)
[2025-06-01] MEDS: DUONEB 3 ML INH ×4 (08:52→19:10)
[2025-06-01] MEDS: SOLU-MEDROL PF 125 MG IV (08:53)
[2025-06-01 09:09] LABS: ALT (SGPT) 13 U/L (0-50); AST (SGOT) 23 U/L (17-59); Albumin 4.6 g/dl (3.5-5.0); Alkaline Phosphatase 113 U/L (38-126); Blood Urea Nitrogen 15 mg/dl (9-20); Calcium 10.2 mg/dl (8.4-10.2); Carbon Dioxide 28 mmol/L (22-30); Chloride 105 mmol/L (98-107); Estimated Creatinine Clearance 85 ml/min; Glucose 102 mg/dl (70-99); Potassium 4.0 mmol/L (3.5-5.1); Sodium 142 mmol/L (135-145); Total Protein 7.2 g/dl (6.3-8.2); eGFR > 60.00
[2025-06-01 09:12] LABS: COVID-19 Antigen Negative (Negative)
[2025-06-01] MEDS: ZITHROMAX 500 MG PO (10:08)
--- NOTE | 2025-06-01 12:12 | HPS.HSE ---
Family Physician
-
Family Physician: Abdi Paez
Chief Complaint
-
SOB, COSBY, wheezing
History of Present Illness
HPI: 74-year-old male with past medical history of hypertension, hyperlipidemia, aortic stenosis status post TAVR, congestive heart failure, COPD, chronic hypoxic respiratory failure on 2 to 3 L home oxygen; p/w increasing shortness of breath,
productive cough (clear to occasionally yellow sputum), and exertional dyspnea. He has trouble sleeping at night due to coughing and dyspnea.
He denies any chest pain, fever/chills, change in weight, swelling in the legs etc.
Of note, patient was admitted in March with similar presentation attributed to COPD exacerbation.
At that time he was discharged on 2 to 3 L of oxygen and recommended for pulmonary rehab.
Medical History
Past Medical History
Past Medical History: Reports CAD ([facility]THUR to [facility] (08/2024)), COPD (emphysema, former smoker), GERD, HTN, Hypercholesterolemia, NIDDM, Valvular Disease (aortic stenosis) and Other (GERD, FARNAZ, carotid stenosis, AAA, severe PAD, (L) radial occlusion,
stenosis of mesenteric vessels, (L) femoral vein DVT)
Past Surgical History: Reports Other ((R) CEA, (L) femoral endarterectomy, bilateral MICHELLE stent grafts)
Social History
Tobacco: Former Smoker
Alcohol: None
Drug: None
Personal:
Living: With Family
Family History
Family History: Not pertinent
Allergies / Home Medications
Allergies
Allergy/AdvReac Type Severity Reaction Status Date / Time
levofloxacin (From Levaquin) Allergy 'feels Verified 06/01/25 08:21
closed in'
Irritability,
Restlessness
oxycodone (From Percocet) Allergy anxious, Verified 06/01/25 08:21
restless
Home Medications
pantoprazole 40 mg tablet,delayed release 40 mg PO DAILY GERD 08/04/24
roflumilast 500 mcg tablet 500 mcg PO DAILY Autoimmune Disorder 08/04/24
montelukast 10 mg tablet (Singulair) 10 mg PO HS Lung/Breathing Issues 09/04/24
clopidogrel 75 mg tablet 75 mg PO DAILY Blood Clot Prevention/Tx #30 tabs 09/14/24
sertraline 50 mg tablet 50 mg PO DAILY Depression 10/13/24
metoprolol succinate 25 mg tablet,extended release 24 hr 25 mg PO DAILY Blood Pressure 02/11/25
rosuvastatin 20 mg tablet (Crestor) 20 mg PO DAILY High Cholesterol 02/11/25
albuterol sulfate 90 mcg/actuation aerosol inhaler 2 puff inhalation R Q4HPRN PRN wheezing 04/04/25
aspirin 81 mg tablet,delayed release 81 mg PO DAILY 04/04/25
azithromycin 500 mg tablet 500 mg PO MOWEFR 04/04/25
albuterol sulfate 2.5 mg/3 mL (0.083 %) solution for nebulization 2.5 mg (3 mL) inhalation R Q4HPRN PRN SOB, COUGH, WHEEZE #90 mL 04/08/25
budesonide-formoterol HFA 160 mcg-4.5 mcg/actuation aerosol inhaler (Symbicort) 2 puff inhalation BID #10.2 grams 04/08/25
guaifenesin 600 mg tablet, extended release 12 hr 1,200 mg (2 x 600 mg) PO Q12 #60 tabs 04/08/25
Allergy/Medication List:
Levofloxacin, percocet
Review of Systems
-
Constitutional: Denies Fever
Respiratory: Reports See HPI, Cough, Trouble Breathing and Other (wheezing)
Physical Exam
Vital Signs
Vital Signs
Temp Pulse Resp BP Pulse Ox
36.5 C 84 29 116/67 97
06/01/25 08:18 06/01/25 10:45 06/01/25 10:30 06/01/25 10:00 06/01/25 10:45
Physical Exam
General: Well Developed, Well Nourished, No Apparent Distress, Comfortable and Conversant
HEENT: NormoCephalic, Moist mucous membranes and Atraumatic
Respiratory: Clear, Wheezes and Non Labored Respirations; No Accessory Resp Muscle Use
Cardiac: S1/S2 and Regular Rhythm; No Murmur or Rub
GI: Soft, Non Tender, Non Distended and Normal Bowel Sounds; No Organomegaly
Musculoskeletal: No Clubbing, No Cyanosis and No Edema
Skin: Warm and Dry
Neuro: Awake and Alert
Psych: Calm and Intact Judgment/Insight
Laboratory Results
-
06/01/25 08:41
06/01/25 08:41
Laboratory Results
Total Bilirubin 0.6 mg/dl (0.2-1.3) 06/01/25 08:41
AST 23 U/L (17-59) 06/01/25 08:41
ALT 13 U/L (0-50) 06/01/25 08:41
Alkaline Phosphatase 113 U/L (38-126) 06/01/25 08:41
Data Reviewed
-
Diagnostic Radiology: Image Personally Visualized and interpreted and Report Reviewed by me
Lab Data: Labs Reviewed by me
Impression/Plan
-
HPI: 74-year-old male with past medical history of hypertension, hyperlipidemia, aortic stenosis status post TAVR, congestive heart failure, COPD, chronic hypoxic respiratory failure on 2 to 3 L home oxygen; p/w increasing shortness of breath,
productive cough (clear to occasionally yellow sputum), and exertional dyspnea. He has trouble sleeping at night due to coughing and dyspnea.
He denies any chest pain, fever/chills, change in weight, swelling in the legs etc.
Of note, patient was admitted in March with similar presentation attributed to COPD exacerbation.
At that time he was discharged on 2 to 3 L of oxygen and recommended for pulmonary rehab.
A/P:
# Suspect COPD exacerbation in setting of advanced COPD
# Chronic hypoxic respiratory failure on 2-3L NC home O2
Cont O2 support at 2-3 L NC
CXR this admission: Changes of emphysema within both lungs. No convincing radiographic evidence for a focal area of pneumonia.
Check procal
ProBNP 154 which essentially r/o acute CHF
s/p IV SoluMedrol 125 mg in ED, cont 40 mg Q12H
Cont Duonebs QID and PRN
Cont SOLDERER Symbicort, Singulair, and Roflumilast
Pulmonary CS
# Hypereosinophilia
Monitor eosinophil count
Other chronic conditions:
# Recent vascular procedure, s/p left brachial artery repair 01/2025
# Anemia likely from chronic disease
# HX CAD status post left main stent placement 09/11/2024
Cont SOLDERER DAPT, Toprol, statin
No chest pain or angina
# Severe aortic stenosis s/p TAVR in Sep 2024
# h/o Chronic HFrEF, EF 45%
# s/p R CEA
# Former tobacco smoker (quit 06/2019 with >11-48-lqpg-year history)
# History of AAA, peripheral vascular disease
DVT ppx: Lovenox SQ
FC
--- NOTE | 2025-06-01 13:46 | CM ---
CM reviewed chart and met with pt bedside in ED. Lives with his in second floor apartment, [address]
Independent in ADLs, personal care and ambulation at baseline. Wears home O2 2-3L NC, supplied by [employer].
Confirms prescription coverage.
Recent hx [facility] after admission in March, no hx SNF. Was supposed to start OP rehab today.
BHUPINDER Paez
Pharmacy: [facility]
Anticipate discharge home, CM will continue to follow for any discharge planning needs.
[2025-06-01 14:51] LABS: Procalcitonin < 0.05 ng/ml (0.0-0.25)
--- NOTE | 2025-06-01 15:08 | CON.PUL ---
Consultation
Consultation Request
Date/Time Consultation Requested: 06/01/2025
Date/Time Consultation Performed: 06/01/2025
Requesting Provider:
Performing Provider: Dr. Bishnu Blanton
Reason for Consultation: Acute exacerbation of COPD
Medical History
-
Chief Complaint: SOB
History of Present Illness:
74-year-old male former tobacco smoker with a past medical history of croup he severe COPD on home O2 at 2 L/min, chronic HFmrEF, severe aortic stenosis s/p TAVR (October 24), PAD, hyperlipidemia, GERD, hypertension, CAD and carotid artery stenosis
who presents with increasing SOB. Patient wears 2 L/min O2 at home but had a recent/minute prior to arrival. Discharged from the hospital in March 2025 for acute exacerbation.
Presents again to the hospital 06/01/2025 complaining of progressive exertional dyspnea, cough with occasional yellow sputum production without hemoptysis. Coughing is severe and impacting his sleep.
-
Has a history of anxiety.
In the emergency room chest x-ray showed no evidence for acute abnormality.
Of note, patient follows with us at the pulmonary office, last visit 03/10/2025. He is continued on Trelegy 200 mcg.
Pulmonary rehab was discussed and is being considered � will be a continued discussion with him.
He has a history of peripheral eosinophilia, and was prescribed Dupixent in the past but was not covered by his insurance.
He does qualify for lung cancer screening annual LDCT chest. Last CT chest was 10/02/2024 which showed a 1.4 cm nodule in the left lower lobe and changes of significant centrilobular emphysema.
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
failure on home O2 at 2 L/min, CAD, carotid artery stenosis
PSHx: Mohs surgery of left hand, left common femoral endarterectomy, PCI of the left SFA stent (2012)
Past Medical History
Past Medical History: Other (Above as per HPI)
Past Surgical History: Other (Above as per HPI)
Social History
Tobacco: Former Smoker (Quit June 2019 with >68-ejgt-rnno history)
Alcohol: Occasional
Drug: None
Personal:
Living: With Family
Family History
Family History: Other (Sudden cardiac + epilepsy)
Allergies / Home Medications
Allergies
Allergy/AdvReac Type Severity Reaction Status Date / Time
levofloxacin (From Levaquin) Allergy 'feels Verified 06/01/25 08:21
closed in'
Irritability,
Restlessness
oxycodone (From Percocet) Allergy anxious, Verified 06/01/25 08:21
restless
Home Medications
�Medication �Instructions �Recorded �Confirmed �Last Taken �Type
pantoprazole 40 mg tablet,delayed 40 mg PO DAILY GERD 08/04/24 06/01/25 06/01/25 History
release
roflumilast 500 mcg tablet 500 mcg PO DAILY COPD 08/04/24 06/01/25 06/01/25 History
montelukast 10 mg tablet 10 mg PO HS Lung/Breathing Issues 09/04/24 06/01/25 06/01/25 History
(Singulair)
clopidogrel 75 mg tablet 75 mg PO DAILY Blood Clot 09/14/24 06/01/25 06/01/25 Rx
Prevention/Tx #30 tabs
sertraline 50 mg tablet 50 mg PO DAILY Depression 10/13/24 06/01/25 06/01/25 History
metoprolol succinate 25 mg 25 mg PO DAILY Blood Pressure 02/11/25 06/01/25 06/01/25 History
tablet,extended release 24 hr
rosuvastatin 20 mg tablet (Crestor) 20 mg PO DAILY High Cholesterol 02/11/25 06/01/25 06/01/25 History
albuterol sulfate 90 mcg/actuation 2 puff inhalation R Q4HPRN PRN 04/04/25 06/01/25 06/01/25 History
aerosol inhaler wheezing
aspirin 81 mg tablet,delayed 81 mg PO DAILY Blood Clot 04/04/25 06/01/25 06/01/25 History
release Prevention/Tx
azithromycin 500 mg tablet 500 mg PO MOWEFR Lung/Breathing 04/04/25 06/01/25 05/31/25 History
Issues
albuterol sulfate 2.5 mg/3 mL 2.5 mg (3 mL) inhalation R Q4HPRN 04/08/25 06/01/25 06/01/25 Rx
(0.083 %) solution for nebulization PRN SOB, COUGH, WHEEZE #90 mL
budesonide-formoterol HFA 160 2 puff inhalation BID #10.2 grams 04/08/25 06/01/25 06/01/25 Rx
mcg-4.5 mcg/actuation aerosol
inhaler (Symbicort)
guaifenesin 600 mg tablet, 1,200 mg (2 x 600 mg) PO Q12 #60 04/08/25 06/01/25 06/01/25 Rx
extended release 12 hr tabs
Review of Systems
-
History Source: Patient
All other systems: Negative unless noted
Vitals / Labs / Diagnostic Testing
Vital Signs
Temp Pulse Resp BP Pulse Ox
97.5 F 87 19 126/62 98
06/01/25 14:43 06/01/25 14:43 06/01/25 14:43 06/01/25 14:43 06/01/25 14:43
Lab Data
06/01/25 08:41
06/01/25 08:41
Microbiology
06/01/25 08:41 Nasal Swab Influenza Types A & B (THANH) - Final
Negative for Influenza A & B, NAAT
Negative results must be combined with clinical observations
and patient history.
Nucleic Acid Amplification test (NAAT)performed on the
[employer] platform.
Diagnostic Testing:
Physical Exam
-
HEENT: Normocephalic
Cardiovascular: S1/S2
Respiratory: Wheeze (Expiratory bilaterally.) and Non-Labored Respirations
GI: Soft and Non Distended
Neurology: Awake, Alert, Oriented and AO x 3
Skin: Warm
General: Comfortable
Assessment
-
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
artery stenosis who presents with increasing SOB and phlegm production on 06/01/2025.
Discharged from the hospital 02/2025 with acute exacerbation as well.
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
chronic hypoxic respiratory failure on home O2 at 2 L/min, CAD, carotid artery stenosis
Impression:
#Severe COPD with acute exacerbation- Recurrent.
#Chronic hypoxic respiratory failure - stable.
Normal proBNP
Negative influenza and COVID
Chest x-ray without acute abnormalities.
-----
#Eosinophilia with Hx of hypereosinophilia (absolute eosinophil count: 2200 on 09/05/2024)
#History of asthma
#Severe aortic stenosis s/p TAVR (10/15/2024)
#Chronic HFmrEF
#PAD with prior left femoral endarterectomy
#CAD s/p right endarterectomy
#Chronic mesenteric ischemia with SMA stenosis s/p balloon angioplasty + stenting of SMA (11/09/2024)
#Anemia
#Hx of CAD/NSTEMI with history of left main stent
#Former tobacco smoker (quit 06/2019 with >50 pack-year history)
#AAA
Plan:
- Continue with treatment for COPD exacerbation-suspect triggered by allergies.
- Continue systemic steroids - Solu-medrol 40mg IV q12hr
- Continue Symbicort 160 mcg (per [facility] note 05/24/[address] Covarrubias patient discontinue other inhalers and felt better with Symbicort)
- Nebulized albuterol QID with prn doses for breakthrough symptoms
- Given he has a history of eosinophilia (most recently 600 on 04/04/2025), he would benefit from Dupixent vs Nucala which can be discussed as an outpatient; he was previously prescribed Dupixent but was not covered by insurance at the time; this will
be reassessed in the outpatient setting.
- Continue with Zithromax 500mg TIW + Daliresp (has tried Ohtuvayre in the past without improvement)-anti-inflammatory properties.
- Continue oxygen supplementation currently at baseline.
- Continue singulair
- Continue bedside fan as this should also help his symptoms of SOB
- Mucinex
Unclear whether this patient will be candidate for lung volume reduction. Can be discussed in the outpatient setting.
- Hold off on Abx for now given he is non-toxic appearing; negative chest x-ray. Negative procalcitonin
- Obtain a sputum culture rule out colonization with Pseudomonas
- Negative influenza, negative COVID.
- Obtain a sputum culture if able to produce.
- Incentive spirometer encouraged 10x per hour for at least 4 hrs a day
- Physical therapy/Occupational Therapy. Patient completed pulmonary rehabilitation before.
- DVT ppx: HSQ
Last seen in the office by Dr. Covarrubias 05/24/2025.
Short-term follow-up after discharge.
Pulmonary service will continue to follow along.
Data:
CXR 04/04/2025: Severe changes of emphysema. No radiographic findings to suggest pneumonia or pulmonary edema.
CXR 04/05/2025: No acute cardiopulmonary abnormality. Chronic emphysematous changes.
Transthoracic Echocardiogram 11/16/2024:
Mildly reduced left ventricular systolic function.
Hypokinesis of the basal to mid inferolateral wall.
Mild hypokinesis of the basal inferior wall.
Estimated left ventricular ejection fraction is 45-50% by Jiménez's method of
discs.
Stage I diastolic dysfunction suggestive of abnormal relaxation.
Well-seated, normally functioning bioprosthetic aortic valve (status post 26 mm
Dawson ELDA TAVR).
-
When compared to the prior images from 10/16/2024, the EF looks slightly
decreased from 50 to 55% to 40 to 45 to 50%. Basal inferior wall now looks
mildly hypokinetic.
--- NOTE | 2025-06-01 15:32 | PTCARENOTE ---
Patient arrived to the unit from ED around 1500 this shift. He was able to ambulate with x1 standby assist from stretcher to bed. 3 L NC noted. No pain reported. Pt was given menu, phone and oriented to staff and room. All needs met at this time.
[2025-06-01] MEDS: ALPRAZOLAM ODT 0.25 MG PO (17:19)
[2025-06-01] MEDS: LOVENOX 40 MG SC (17:19)
[2025-06-01] MEDS: SYMBICORT 160/4.5 MCG INHALER 2 PUFF INH (19:10)
[2025-06-01] MEDS: SOLU-MEDROL PF 40 MG IV (21:06)
[2025-06-01] MEDS: MUCINEX 1200 MG PO (21:06)
[2025-06-01] MEDS: SINGULAIR 10 MG PO (21:06)
[2025-06-02 06:41] LABS: Hematocrit 30.1 % (39.0-52.0); Hemoglobin 9.7 g/dL (13.0-18.0); Mean Corp Hgb Conc. 32.2 g/dL (33.0-37.0); Mean Corpuscular Volume 95.3 fL (80.0-94.0); Nucleated Red Blood Cells % 0 % (-); Platelet Count 262 10^3/uL (130-400); Red Cell Dist. Width 14.3 % (11.5-14.5)
[2025-06-02 07:00] VITALS: BP 108/66
[2025-06-02] MEDS: DUONEB 3 ML INH ×2 (07:07→11:34)
[2025-06-02] MEDS: SYMBICORT 160/4.5 MCG INHALER 2 PUFF INH (07:07)
[2025-06-02 07:20] LABS: Blood Urea Nitrogen 20 mg/dl (9-20); Calcium 9.3 mg/dl (8.4-10.2); Carbon Dioxide 29 mmol/L (22-30); Chloride 105 mmol/L (98-107); Estimated Creatinine Clearance 83 ml/min; Glucose 150 mg/dl (70-99); Magnesium 2.1 mg/dl (1.6-2.3); Potassium 4.7 mmol/L (3.5-5.1); Sodium 138 mmol/L (135-145); eGFR > 60.00
[2025-06-02] MEDS: MUCINEX 1200 MG PO (08:34)
[2025-06-02] MEDS: CRESTOR 20 MG PO (08:34)
[2025-06-02] MEDS: ZOLOFT 50 MG PO (08:35)
[2025-06-02] MEDS: DALIRESP 500 MCG PO (08:35)
[2025-06-02] MEDS: ASPIR LOW (ENTERIC COATED) 81 MG PO (08:35)
[2025-06-02] MEDS: ZITHROMAX 500 MG PO (08:35)
[2025-06-02] MEDS: PLAVIX 75 MG PO (08:35)
[2025-06-02] MEDS: SOLU-MEDROL PF 40 MG IV (08:36)
[2025-06-02] MEDS: NSS (PRESERVATIVE FREE) 10 ML IV (08:36)
[2025-06-02] MEDS: PROTONIX IV 40 MG IV (08:36)
--- NOTE | 2025-06-02 10:28 | W.PN.HOSP.TC ---
Today's Communication/Plan
-
see AP
Possible DC if also cleared by pulm, cont steroid taper outpt
Assessment / Plan
Assessment / Plan
HPI: 74-year-old male with past medical history of hypertension, hyperlipidemia, aortic stenosis status post TAVR, congestive heart failure, COPD, chronic hypoxic respiratory failure on 2 to 3 L home oxygen; p/w increasing shortness of breath,
productive cough (clear to occasionally yellow sputum), and exertional dyspnea. He has trouble sleeping at night due to coughing and dyspnea.
He denies any chest pain, fever/chills, change in weight, swelling in the legs etc.
Of note, patient was admitted in March with similar presentation attributed to COPD exacerbation.
At that time he was discharged on 2 to 3 L of oxygen and recommended for pulmonary rehab.
A/P:
# COPD exacerbation in setting of advanced COPD
# Chronic hypoxic respiratory failure on 2-3L NC home O2
Cont O2 support at 2-3 L NC
CXR this admission: Changes of emphysema within both lungs. No convincing radiographic evidence for a focal area of pneumonia.
procal negative
ProBNP 154 which r/o acute CHF
s/p IV SoluMedrol 125 mg in ED, cont SoluMedrol 40 mg Q12H -> taper outpt
Cont Duonebs QID and PRN
Vest therapy while in the hospital
Cont REFUND SPECIALIST Symbicort, Singulair, and Roflumilast
Pulmonary on board
# Hypereosinophilia
Monitor eosinophil count
Other chronic conditions:
# Recent vascular procedure, s/p left brachial artery repair 01/2025
# Anemia likely from chronic disease
# HX CAD status post left main stent placement 09/11/2024
Cont REFUND SPECIALIST DAPT, Toprol, statin
No chest pain or angina
# Severe aortic stenosis s/p TAVR in Sep 2024
# h/o Chronic HFrEF, EF 45%
# s/p R CEA
# Former tobacco smoker (quit 06/2019 with >06-50-mdrr-year history)
# History of AAA, peripheral vascular disease
DVT ppx: Lovenox SQ
FC
DW Pulm
updated on the phone
Anticipated Discharge: Today
Subjective/Interval History
-
Date of Service: June 02, 2025
Objective Data
-
Labs:
Laboratory Results
06/02/25
05:54
WBC 6.6
Hgb 9.7 L
Hct 30.1 L
Plt Count 262
Sodium 138
Potassium 4.7
Chloride 105
Carbon Dioxide 29
BUN 20
Creatinine 0.7
Glucose 150 H
Calcium 9.3
Vital Signs:
Vital Signs
Temp Pulse Resp BP Pulse Ox
36.7 C 97 16 108/66 97
06/02/25 07:00 06/02/25 08:35 06/02/25 07:08 06/02/25 08:35 06/02/25 07:08
I&O
06/01/25 06/02/25 06/03/25
06:59 06:59 06:59
Intake Total 480 / 480
Output Total 350 / 350
Balance 130 / 130
Review of Systems
-
History Source: Patient
Respiratory: Reports Cough (chronic); Denies Trouble Breathing or Wheezing
Physical Exam
-
General: Well Developed, Well Nourished, Comfortable and Conversant
HEENT: Atraumatic, Moist Mucous Membranes and Oxygen (chronically on 3-4 L NC)
Respiratory: Non Labored Respirations and Decreased Breath Sounds; Negative Wheezes, Rales or Accessory Resp Muscle Use
Cardiac: Regular Rhythm and S1/S2
GI: Soft, Nontender and Nondistended
Musculoskeletal: No Cyanosis and No Edema
Skin: Warm and Dry
Neuro: Awake, Alert, Oriented, AO x 3 and Nonfocal/Grossly Intact
Psych: Calm and Intact Judgement/Insight
Data Reviewed
-
Diagnostic Radiology: Image personally visualized and interpreted and Report Reviewed by me
Labs: Labs Reviewed by me
--- NOTE | 2025-06-02 11:56 | W.PN.PUL3 ---
Today's Communication / Plan
-
Discharge planning with prednisone taper
Advised the patient to take oral antihistamines as well suspect triggers are mainly from allergies
To be reevaluated for interleukin inhibitors in the outpatient setting. Initially insurance did not cover.
Discharge planning
Sign off
Assessment
-
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
artery stenosis who presents with increasing SOB and phlegm production on 06/01/2025.
Discharged from the hospital 02/2025 with acute exacerbation as well.
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
chronic hypoxic respiratory failure on home O2 at 2 L/min, CAD, carotid artery stenosis
Impression:
#Severe COPD with acute exacerbation- Recurrent.
#Chronic hypoxic respiratory failure - stable.
Normal proBNP
Negative influenza and COVID
Chest x-ray without acute abnormalities.
-----
#Eosinophilia with Hx of hypereosinophilia (absolute eosinophil count: 2200 on 09/05/2024)
#History of asthma
#Severe aortic stenosis s/p TAVR (10/15/2024)
#Chronic HFmrEF
#PAD with prior left femoral endarterectomy
#CAD s/p right endarterectomy
#Chronic mesenteric ischemia with SMA stenosis s/p balloon angioplasty + stenting of SMA (11/09/2024)
#Anemia
#Hx of CAD/NSTEMI with history of left main stent
#Former tobacco smoker (quit 06/2019 with >50 pack-year history)
#AAA
Plan:
- Continue with treatment for COPD exacerbation-suspect triggered by allergies.
- Transition to prednisone-taper over the next 7 to 10 days.
- Continue Symbicort 160 mcg (per [facility] note 05/24/[address] Covarrubias patient discontinue other inhalers and felt better with Symbicort)
- Nebulized albuterol QID with prn doses for breakthrough symptoms
- Given he has a history of eosinophilia (most recently 600 on 04/04/2025), he would benefit from Dupixent vs Nucala which can be discussed as an outpatient; he was previously prescribed Dupixent but was not covered by insurance at the time; this will
be reassessed in the outpatient setting.
- Continue with Zithromax 500mg TIW + Daliresp (has tried Ohtuvayre in the past without improvement)-anti-inflammatory properties.
- Continue oxygen supplementation currently at baseline.
- Continue singulair
- Mucinex
Unclear whether this patient will be candidate for lung volume reduction. Can be discussed in the outpatient setting.
- Hold off on Abx for now given he is non-toxic appearing; negative chest x-ray. Negative procalcitonin
- Not producing sputum.
- Negative influenza, negative COVID.
.
- Incentive spirometer encouraged 10x per hour for at least 4 hrs a day-while in the hospital.
Patient completed pulmonary rehabilitation before.
- DVT ppx: HSQ
Last seen in the office by Dr. Covarrubias 05/24/2025.
Short-term follow-up after discharge.
Okay to discharge from my perspective today
Discussed with primary team
Sign off
Data:
CXR 04/04/2025: Severe changes of emphysema. No radiographic findings to suggest pneumonia or pulmonary edema.
CXR 04/05/2025: No acute cardiopulmonary abnormality. Chronic emphysematous changes.
Transthoracic Echocardiogram 11/16/2024:
Mildly reduced left ventricular systolic function.
Hypokinesis of the basal to mid inferolateral wall.
Mild hypokinesis of the basal inferior wall.
Estimated left ventricular ejection fraction is 45-50% by Jiménez's method of
discs.
Stage I diastolic dysfunction suggestive of abnormal relaxation.
Well-seated, normally functioning bioprosthetic aortic valve (status post 26 mm
Dawson ELDA TAVR).
-
When compared to the prior images from 10/16/2024, the EF looks slightly
decreased from 50 to 55% to 40 to 45 to 50%. Basal inferior wall now looks
mildly hypokinetic.
Subjective Data
-
Date of Service:
Date of Service: June 02, 2025
Chief Complaint: Pulmonary Follow Up (Acute exacerbation of COPD)
Subjective:
Clinically improved
Ambulatory without symptoms
No new complaints
Continues to intermittently cough which is a chronic problem.
Objective Data
Data Reviewed
Vital Signs / I&O / Oxygen:
Vital Signs
Temp Pulse Resp BP Pulse Ox
98.0 F 92 16 108/66 94
06/02/25 07:00 06/02/25 11:37 06/02/25 11:37 06/02/25 08:35 06/02/25 11:17
Intake and Output
06/01/25 06/02/25 06/03/25
06:59 06:59 06:59
Intake Total 480 / 480
Output Total 350 / 350
Balance 130 / 130
SaO2 94
Nasal Cannula flow liters per 2.5
minute
Physical Exam
General: Comfortable
HEENT: Normocephalic
Cardiovascular: S1-S2
Respiratory: Clear, Non-Labored Respirations and Other (Good air movement)
GI: Soft
Neurology: Awake, AO x 3 and No Motor Deficits
Skin: Warm
Labs/Micro/Reports
Lab Data
06/02/25 05:54
06/02/25 05:54
Microbiology
06/01/25 08:41 Nasal Swab Influenza Types A & B (THANH) - Final
Negative for Influenza A & B, NAAT
Negative results must be combined with clinical observations
and patient history.
Nucleic Acid Amplification test (NAAT)performed on the
[employer] platform.
--- NOTE | 2025-06-02 13:23 | CM ---
Patient seen at bedside
IA completed
CM consult completed. dispo planning
Lives with in 2 story home, [address], 4 steps to bed/bathroom
PLOF: independent
DME: Home oxygen
has his portable oxygen here as he drove self to hospital
Just discharged on Saturday from [facility] had set up outpatient PT at for /. offered [facility] would like to start outpatient PT
IMM explained & signed. In chart
PCP: Abdi Paez
PLAN: Home, will start outpatient PT at which was scheduled
will drive self home
[2025-06-02 13:32] VITALS: BP 129/75
--- NOTE | 2025-06-02 16:11 | W.DCSUMMARY ---
Discharge Summary
Discharge Data
Date of Admission: 06/01/25
Date of Discharge: 06/02/25
Total time spent discharging patient (in min): 40
-
Pending Results: No
Hospital Course
Principal Diagnosis:
COPD exacerbation in setting of advanced COPD
Chronic Diagnoses:�
Chronic hypoxic respiratory failure on 2 to 3 L nasal cannula
Recent vascular procedure, s/p left brachial artery repair 01/2025
Anemia likely from chronic disease
CAD status post left main stent placement 09/11/2024
Severe aortic stenosis s/p TAVR in Sep 2024
Chronic HFrEF, EF 45%
s/p R CEA
Former tobacco smoker (quit in 2018)
History of AAA, peripheral vascular disease
Hypereosinophilia
Consultations:�
Pulmonary
Procedures:�
None
Clinical course:�
This is a 74-year-old male with past medical history as stated above, who presented with increasing shortness of breath and worsening chronic cough.
Problem 1:
COPD exacerbation in setting of advanced COPD
He remained on chronic O2 support at 2 to 3 L nasal cannula during his hospital stay.
His chest x-ray showed emphysematous changes of both lungs, without convincing evidence of focal pneumonia.
This was supported by negative procalcitonin.
His proBNP was at 154 which also essentially rule out acute CHF.
He was given IV Solu-Medrol 125 mg in the emergency room, and was continued with Solu-Medrol 40 mg every 12 hours while in the hospital.
He was discharged with prednisone taper starting at 50 mg daily, decrease 10 mg every 3 days until off.
His eosinophil count was high on admission which resolved with steroid.
He can continue prior to admission Symbicort, Singulair, and Roflumilast and follow-up with pulmonary outpatient closely after discharge.
As for the rest of her medical problems, they were stable during her hospital stay.
Discharge Plan
-
Patient Disposition: Home (Routine Discharge)
Discharge Diagnosis/Procedures: COPD exacerbation;
chronic hypoxic respiratory failure
Condition: Fair
Diet: As tolerated
Activity: As tolerated
Driving Restrictions: As prior to admission
Referrals:
Abdi Paez MD [Family Provider, [facility]] - in less than 1 week
Additional Discharge Medication Instructions: Continue prednisone taper
Prescriptions:
New
prednisone 10 mg Tablet
See Rx Instructions .ROUTE .COMPLEX Qty: 45 0RF
Rx Instructions:
Take By Mouth:
50 mg daily x3 days, 40 mg daily x3 days,
30 mg daily x3 days, 20 mg daily x3 days,
10 mg daily x3 days
Continued
pantoprazole 40 mg Tablet,Delayed Release (Dr/Ec)
40 mg PO DAILY
roflumilast 500 mcg Tablet
500 mcg PO DAILY
montelukast [Singulair] 10 mg Tablet
10 mg PO HS
clopidogrel 75 mg Tablet
75 mg PO DAILY Qty: 30 11RF
sertraline 50 mg Tablet
50 mg PO DAILY
metoprolol succinate 25 mg Tablet Extended Release 24 Hr
25 mg PO DAILY
rosuvastatin [Crestor] 20 mg Tablet
20 mg PO DAILY
aspirin 81 mg Tablet,Delayed Release (Dr/Ec)
81 mg PO DAILY
albuterol sulfate 90 mcg/actuation Hfa Aerosol Inhaler
2 puff INHALATION R Q4HPRN PRN (Reason: wheezing)
azithromycin 500 mg Tablet
500 mg PO MOWEFR
albuterol sulfate 2.5 mg /3 mL (0.083 %) Solution For Nebulization
2.5 mg inhalation R Q4HPRN PRN (Reason: SOB, COUGH, WHEEZE) Qty: 90 0RF
guaifenesin 600 mg Tablet Extended Release 12hr
1,200 mg PO Q12 Qty: 60 0RF
budesonide-formoterol [Symbicort] 160-4.5 mcg/actuation HFA aerosol inhaler
2 puff inhalation BID Qty: 10.2 0RF
Discharge Orders:
Discharge Patient (As Directed); Ordered 06/02/25
Ordered By: Hannah Pavon
Discharge Date and Time
Discharge Date/Time: 06/02/25 13:51
Print Language: BENINESE
== END 2025-06-02 13:51 | disposition home or self-care (01) ==
LOC: 3 WEST ACU 12:23
PROVIDERS: ADMITTING PHYSICIAN Internal Medicine; CONSULT PHYSICIAN Internal Medicine Critical Care Medicine; EMERGENCY PHYSICIAN Emergency Medicine; FAMILY PHYSICIAN Family Medicine
DX: J44.1 Chronic obstructive pulmonary disease with (acute) exacerbation (principal); I11.0 Hypertensive heart disease with heart failure; I50.22 Chronic systolic (congestive) heart failure; E78.00 Pure hypercholesterolemia, unspecified; J96.11 Chronic respiratory failure with hypoxia; F41.9 Anxiety disorder, unspecified; R05.8 Other specified cough; I45.10 Unspecified right bundle-branch block; K21.9 Gastro-esophageal reflux disease without esophagitis; I71.40 Abdominal aortic aneurysm, without rupture, unspecified; I25.10 Atherosclerotic heart disease of native coronary artery without angina pectoris; G47.33 Obstructive sleep apnea (adult) (pediatric); E11.51 Type 2 diabetes mellitus with diabetic peripheral angiopathy without gangrene; D72.119 Hypereosinophilic syndrome [HES], unspecified; D64.9 Anemia, unspecified; I25.2 Old myocardial infarction; Z79.899 Other long term (current) drug therapy; Z79.02 Long term (current) use of antithrombotics/antiplatelets; Z79.51 Long term (current) use of inhaled steroids; Z95.2 Presence of prosthetic heart valve; Z99.81 Dependence on supplemental oxygen; Z87.891 Personal history of nicotine dependence; Z79.52 Long term (current) use of systemic steroids; Z79.82 Long term (current) use of aspirin; Z86.718 Personal history of other venous thrombosis and embolism; Z86.79 Personal history of other diseases of the circulatory system; Z95.5 Presence of coronary angioplasty implant and graft; Z88.1 Allergy status to other antibiotic agents; Z88.5 Allergy status to narcotic agent; Z82.0 Family history of epilepsy and other diseases of the nervous system; Z82.41 Family history of sudden cardiac death; Z11.52 Encounter for screening for COVID-19
CPT/HCPCS: 71046; 80048; 80053; 83735; 83880; 84145; 85025; 87502; 87811; 93005; 94640; 96374; 99285; G0378

== ENCOUNTER → 2025-06-11 06:36 | Outpatient (REF) | payer MEDICARE, OTHER, SELFPAY | LOC: RAD 06:36 | PROVIDERS: ATTENDING PHYSICIAN Registered Nurse; FAMILY PHYSICIAN Family Medicine | DX: I70.212 Atherosclerosis of native arteries of extremities with intermittent claudication, left leg (principal) | CPT/HCPCS: 93922; 93925; 93978 ==

== ENCOUNTER 2025-06-29 08:15 | Outpatient (RCR) | payer MEDICARE, OTHER, SELFPAY | END 2025-06-29 23:59 | disposition home or self-care (01) | LOC: PURB 08:15 | PROVIDERS: ATTENDING PHYSICIAN Internal Medicine; FAMILY PHYSICIAN Family Medicine | DX: J44.9 Chronic obstructive pulmonary disease, unspecified (principal) | CPT/HCPCS: 94625 ==

== ENCOUNTER 2025-07-29 08:15 | Outpatient (RCR) | payer MEDICARE, OTHER, SELFPAY | END 2025-07-29 23:59 | disposition home or self-care (01) | LOC: PURB 08:15 | PROVIDERS: ATTENDING PHYSICIAN Internal Medicine; FAMILY PHYSICIAN Family Medicine | DX: J44.9 Chronic obstructive pulmonary disease, unspecified (principal) | CPT/HCPCS: 94625 ==

== ENCOUNTER 2025-08-17 08:15 | Outpatient (RCR) | payer MEDICARE, OTHER, SELFPAY | END 2025-08-17 23:59 | disposition home or self-care (01) | LOC: PURB 08:15 | PROVIDERS: ATTENDING PHYSICIAN Internal Medicine; FAMILY PHYSICIAN Family Medicine | DX: J44.9 Chronic obstructive pulmonary disease, unspecified (principal) | CPT/HCPCS: 94625 ==

== ENCOUNTER → 2025-09-15 08:51 | Outpatient (REF) | payer MEDICARE, OTHER, SELFPAY | LOC: HWRCS 08:51 | PROVIDERS: ATTENDING PHYSICIAN Student in an Organized Health Care Education/Training Program; FAMILY PHYSICIAN Family Medicine | DX: I25.10 Atherosclerotic heart disease of native coronary artery without angina pectoris (principal); I25.5 Ischemic cardiomyopathy | CPT/HCPCS: 93306 ==

== ENCOUNTER 2025-09-16 08:15 | Outpatient (RCR) | payer MEDICARE, OTHER, SELFPAY | END 2025-09-29 11:28 | disposition home or self-care (01) | LOC: PURB 08:15 | PROVIDERS: ATTENDING PHYSICIAN Internal Medicine; FAMILY PHYSICIAN Family Medicine | DX: J44.9 Chronic obstructive pulmonary disease, unspecified (principal) | CPT/HCPCS: 94625; G0239 ==